=== PATIENT | female | born 1940 | race Caucasian/White ===

== ENCOUNTER 2023-01-29 11:57 | Outpatient (OUT) | payer MEDICARE, BC, SELFPAY ==
[2023-01-29 13:29] LABS: Anion Gap 14.7; BUN Creatinine Ratio 26.5; Calcium 9.4 mg/dL (8.5-10.1); Carbon Dioxide 26.1 mmol/L (21.0-32.0); Chloride 108 mmol/L (98-107); Estimated GFR (African America 56 (>=60); Estimated GFR (Non-African Ame 46 (>=60); Glucose 113 mg/dL (74-106); Potassium 4.8 mmol/L (3.5-5.1); Sodium 144 mmol/L (136-145)
== END 2023-01-29 11:58 | disposition home or self-care (01) ==
LOC: LAB 12:03
PROVIDERS: PCP Family Medicine; Visit Provider Internal Medicine Interventional Cardiology
DX: I10 Essential (primary) hypertension (principal)
CPT/HCPCS: 36415; 80048

== ENCOUNTER 2023-02-07 13:36 | Outpatient (OUT) | payer MEDICARE, BC, SELFPAY ==
--- NOTE | 2023-02-07 14:00 | CA_ITS ---
Patient: ROLLY MOORE Exam Date: 02/07/2023 : 1940 Gender:F Ordering : DR ALISHA ALVARES M.D. Admission #: [id number] Family : Order #: [id number] CLICK HERE TO VIEW EXAM ECHOCARDIOGRAM REPORT PROCEDURE: CA ECHO DOPPLER COMPLETE INDICATIONS: Nonrheumatic aortic valve stenosis, hypertension COMPARISON: None. DESCRIPTION: COMPLETE ECHOCARDIOGRAM Real-time transthoracic echocardiography with 2D, M-mode, spectral and color flow Doppler performed. QUALITY: Technical quality was good. LEFT VENTRICLE: Normal chamber size. Mild concentric left ventricular hypertrophy. Normal systolic function. LV EF: Normal left ventricular ejection fraction, (>55%). DIASTOLIC: Grade I diastolic dysfunction. ATRIAL SEPTUM: Visually appears intact. LEFT ATRIUM: Mild dilatation. RIGHT ATRIUM: Mild dilatation. RIGHT VENTRICLE: Normal chamber size . Normal right ventricular systolic function. TRICUSPID VALVE: Normal mobility and thickness. No stenosis with No evidence of pulmonary hypertension. RVSP 31 mmHg MITRAL VALVE: Normal mobility and thickness. No evidence of mitral valve stenosis. Mild mitral annular calcification. No mitral regurgitation. AORTIC VALVE: Normal trileaflet appearance. Moderately diminished mobility. Doppler velocity suggest mild to moderate aortic valve stenosis. Multifocal calcifications. DVI 0.46, ADRIANA 1.5 cm2, mean gradient 11 mmHg. Trivial aortic regurgitation. AORTIC ROOT: Normal diameter and appearance. PULMONIC VALVE: Normal thickness and mobility. No stenosis. Trivial regurgitation. PERICARDIUM: No evidence of pericardial effusion. IVC: Collapses with inspirations. PLEURA: CONCLUSION: 1. Mild concentric left ventricular hypertrophy. Normal LV systolic function. LVEF is 55 to 60%. 2. Normal right ventricular size and systolic function. 3. Mild biatrial dilatation. 4. Mild to moderate aortic valve stenosis. Aortic valve area 1.5 cm?. 5. Normal right-sided pressures. Adult Echocardiography Procedure Report Left Ventricle LVEDD (3.7 - 5.6 cm): 3.80 cm LVESD (2.2 - 4.0 cm): 2.69 cm LVIVS thickness (0.6 - 1.2 cm): 1.27 cm LVPW thickness (0.5 - 1.0 cm): 1.10 cm e': 0.09 m/s E - e': 7.10 LVOT Max Gradient: 4.66 mm[Hg] LVOT Area (cm2): 1.08 m/s Peak Velocity (LVOT): 1.08 m/s Mean Velocity (LVOT): 0.78 m/s LVOT Diameter 1.96 cm Left Atrium LA Volume Index (2D A2C): 40.80 ml/m2 Left Atrium Systolic Dimension: 3.33 cm Mitral Valve MV E to A Ratio: 0.62 Mitral Valve A-Wave Peak Velocity: 1.05 m/s Mitral Valve E-Wave Peak Velocity: 0.66 m/s Right Ventricle Aorta AO Root Diam: 2.77 cm Aortic Valve AoV Area (Peak Masoud): 1.44 cm2, 1.39 cm2 AoV Area (VTI): 1.94 cm2, 2.03 cm2 Peak Velocity(Antegrade Flow): 2.33 m/s, 2.18 m/s Peak Gradient(Antegrade Flow): 21.77 mm[Hg], 19.04 mm[Hg] Mean Velocity(Antegrade Flow): 1.52 m/s, 1.42 m/s Mean Gradient(Antegrade Flow): 10.76 mm[Hg], 9.58 mm[Hg] Velocity Time Integral: 40.70 cm, 44.37 cm Tricuspid Valve Peak Velocity (Regurgitant Flow): 2.65 m/s, 2.64 m/s Pulmonic Valve Mean Gradient: 2.64 mm[Hg] Mean Velocity: 0.74 m/s Peak Velocity: 1.13 m/s, 1.38 m/s Peak Gradient: 7.61 mm[Hg], 5.09 mm[Hg] Right Atrium Right Atrium Systolic Pressure: 46.62 ml, 46.62 ml Dictated by: Ken Burkett M.D. on 02/08/2023 at 18:55 Approved by: Ken Burkett M.D. on 02/08/2023 at 19:00
== END 2023-02-07 13:37 | disposition home or self-care (01) ==
LOC: CARD 13:37
PROVIDERS: PCP Family Medicine; Visit Provider Internal Medicine Interventional Cardiology
DX: I35.0 Nonrheumatic aortic (valve) stenosis (principal); I10 Essential (primary) hypertension
CPT/HCPCS: 93306

== ENCOUNTER 2023-04-07 08:54 | Outpatient (OUT) | payer MEDICARE, BC, SELFPAY ==
[2023-04-07 10:24] LABS: Bilirubin Urine NEGATIVE (NEGATIVE); Blood Urine NEGATIVE (NEGATIVE); Clarity Urine CLEAR (CLEAR); Color Urine LT. YELLOW (YELLOW); Glucose Urine UA >=1000 mg/dL (NEGATIVE); Ketones Urine NEGATIVE (NEGATIVE); Leukocyte Esterase Urine NEGATIVE (NEGATIVE); Nitrite Urine NEGATIVE (NEGATIVE); Protein Urine NEGATIVE (NEG/TRACE); pH Urine 5.5 (5.0-9.0)
[2023-04-07 10:25] LABS: Basophils Percent Auto 0.5 % (0.2-2.0); Eosinophils Absolute Auto 0.2 10^3/uL (0.0-0.7); Eosinophils Percent Auto 2.1 % (0.9-7.0); Hematocrit 40.7 % (36.0-48.0); Hemoglobin 12.6 g/dL (12.0-16.0); Immature Granulocytes Abs Auto 0.02 10^3/uL (0.00-0.03); Immature Granulocytes Pct Auto 0.3 % (0.0-0.5); Lymphocytes Absolute Auto 1.2 10^3/uL (1.2-3.8); Lymphocytes Percent Auto 16.2 % (20.5-60.0); Mean Corpuscular Volume 100.2 fL (81.0-99.0); Mean Platelet Volume 10.7 fL (9.5-13.5); Monocytes Absolute Auto 0.4 10^3/uL (0.3-0.8); Neutrophils Absolute Auto 5.8 10^3/uL (1.4-6.5); Neutrophils Percent Auto 75.9 % (43.0-75.0); Platelet Count 197 10^3/uL (150-450); Red Blood Count 4.06 10^6/uL (4.20-5.40); Red Cell Distribution Width 13.2 % (11.0-15.0); White Blood Count 7.7 10^3/uL (4.0-11.0)
[2023-04-07 10:28] LABS: Urine Microscopic Indicated NO
[2023-04-07 10:52] LABS: Anion Gap 10.9; BUN Creatinine Ratio 20.6; Calcium 9.6 mg/dL (8.5-10.1); Carbon Dioxide 30.3 mmol/L (21.0-32.0); Chloride 108 mmol/L (98-107); Estimated GFR (African America 49 (>=60); Estimated GFR (Non-African Ame 41 (>=60); Glucose 89 mg/dL (74-106); Potassium 4.2 mmol/L (3.5-5.1); Sodium 145 mmol/L (136-145); Thyroid Stimulating Hormone 2.749 uIU/mL (0.358-3.740)
== END 2023-04-07 08:55 | disposition home or self-care (01) ==
LOC: LAB 08:54
PROVIDERS: PCP Family Medicine; Visit Provider Family Medicine
DX: N32.81 Overactive bladder (principal); I10 Essential (primary) hypertension; G25.2 Other specified forms of tremor
CPT/HCPCS: 36415; 80048; 81003; 84443; 85025

== ENCOUNTER 2023-07-11 07:55 | Outpatient (OUT) | payer MEDICARE, BC, SELFPAY ==
[2023-07-11 08:19] LABS: Estimated GFR (African America 31 (>=60); Estimated GFR (Non-African Ame 26 (>=60)
== END 2023-07-11 07:56 | disposition home or self-care (01) ==
LOC: LAB 07:56
PROVIDERS: PCP Family Medicine; Visit Provider Family Medicine
DX: R06.09 Other forms of dyspnea (principal); Z86.711 Personal history of pulmonary embolism
CPT/HCPCS: 36415; 82565

== ENCOUNTER 2023-07-11 08:31 | Emergency (ER) | payer MEDICARE, BC, SELFPAY ==
[2023-07-11 08:37] VITALS: BP 125/58; PULSE 65; RESP 22; TEMP 36.5; O2SAT 99; BMI 34.4
--- NOTE | 2023-07-11 09:10 | ECG_ITS ---
[facility] Test Date: 2023-07-11 Pat Name: ROLLY MOORE Department: Room: - Gender: Female Manager Language: : 1940 Requested By: CINDI STEWART Order Number: [id number] Reading MD: CHANA WADE Measurements Intervals [place] Rate: 66 P: 36 WV: 166 QRS: 59 QRSD: 98 T: 16 QT: 394 QTc: 407 Interpretive Statements 1100 Sinus rhythm 9110 normal ECG No previous ECG available for comparison Electronically Signed On 07-12-2023 6:49:32 EST by CHANA WADE
--- NOTE | 2023-07-11 09:11 | ED_ITS ---
HPI - General Adult General Chief complaint: Chest Pain Stated complaint: CHEST PAIN Time Seen by Provider: 07/11/23 09:10 Mode of arrival: Wheelchair Related Data Home Medications Medication Instructions Recorded Confirmed amlodipine 5 mg tablet 5 mg PO DAILY 07/11/23 07/11/23 atorvastatin 80 mg tablet 80 mg PO DAILY 07/11/23 07/11/23 carvedilol 6.25 mg tablet 6.25 mg PO Q12H 07/11/23 07/11/23 donepezil 10 mg tablet 10 mg PO DAILY 07/11/23 07/11/23 empagliflozin 10 mg tablet 10 mg PO DAILY 07/11/23 07/11/23 (Jardiance) furosemide 20 mg tablet 20 mg PO Q12H 07/11/23 07/11/23 losartan 100 mg tablet 100 mg PO DAILY 07/11/23 07/11/23 nabumetone 750 mg tablet 750 mg PO BID 07/11/23 07/11/23 rivaroxaban 20 mg tablet (Xarelto) 20 mg PO Q24H 07/11/23 07/11/23 spironolactone 25 mg tablet 25 mg PO DAILY 07/11/23 07/11/23 Allergies Allergy/AdvReac Type Severity Reaction Status Date / Time No Known Drug Allergies Allergy Verified 07/11/23 08:44 Exam Constitutional Vital Signs, click to edit/add: Last Vital Signs Temp 97.7 F 07/11/23 08:37 Pulse 65 07/11/23 08:37 Resp 22 07/11/23 08:37 BP 125/58 07/11/23 08:37 Pulse Ox 99 07/11/23 08:37 Course Vital Signs Vital signs: Vital Signs Temperature 97.7 F 07/11/23 08:37 Pulse Rate 65 07/11/23 08:37 Respiratory Rate 22 07/11/23 08:37 Blood Pressure 125/58 07/11/23 08:37 Pulse Oximetry 99 07/11/23 08:37 Temperature 97.7 F 07/11/23 08:37 Pulse Rate 65 07/11/23 08:37 Respiratory Rate 22 07/11/23 08:37 Blood Pressure 125/58 07/11/23 08:37 Pulse Oximetry 99 07/11/23 08:37 Medical Decision Making MDM Narrative Medical decision making narrative: 4669 Patient case was discussed with her PCP, Dr. Rand. Dr. 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 Dr. Rand thought patient was taking Xeralto, but she cannot find record of who is prescribing it and is not certain if patient is taking or not. Anticoagulation will be investigated. She is aware a 2nd troponin is negative patient was discharged, and I will try to figure out if she is anticoagulated or not. 1150 I spoke into the customer service rep, Dr. Cr. He recommended for patient to stay on Xarelto it is not too concerned about the chronic weblike right pulmonary PE, it appears chronic in nature, patient has a history of clots, and stay on Xarelto. He recommended to do 1 more troponin, and a fall 3 test are negative patient can follow-up as an outpatient. 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 He recommended following back up in the office for further evaluation as well. There are 2 daughters at the bedside, they're aware of the conversation, sitting on the medication, and repeating or more troponin. 1300 Patient's her troponin is negative. Patient will follow-up with [facility] clinic as recommended by a customer service rep from her phone call today and also continue to keep taking Xarelto. Critical care time 33 minutes exclusive from separate billable procedures that were performed. The following was considered in the determination of critical care but not limited to the level of medical decision making, intensive cardiac and/or respiratory monitoring, frequent vital sign monitoring, evaluation of laboratory studies, evaluation of radiographic studies, oxygen monitoring, and constant monitoring and speaking to family at bedside Lab Data Labs: Lab Results 07/11/23 07/11/23 07/11/23 Range/Units 09:26 10:43 12:03 WBC 9.3 (4.0-11.0) 10^3/uL RBC 4.09 L (4.20-5.40) 10^6/uL Hgb 13.1 (12.0-16.0) g/dL Hct 42.1 (36.0-48.0) % MCV 102.9 H (81.0-99.0) fL MCH 32.0 (26.7-34.0) pg MCHC 31.1 (29.9-35.2) g/dL RDW 13.2 (11.0-15.0) % Plt Count 179 (150-450) 10^3/uL MPV 11.4 (9.5-13.5) fL Neut % (Auto) 75.2 H (43.0-75.0) % Lymph % (Auto) 17.8 L (20.5-60.0) % Faulk % (Auto) 5.0 (1.7-12.0) % Eos % (Auto) 1.1 (0.9-7.0) % Baso % (Auto) 0.4 (0.2-2.0) % Neut # (Auto) 7.0 H (1.4-6.5) 10^3/uL Lymph # (Auto) 1.7 (1.2-3.8) 10^3/uL Faulk # (Auto) 0.5 (0.3-0.8) 10^3/uL Eos # (Auto) 0.1 (0.0-0.7) 10^3/uL Baso # (Auto) 0.0 (0.0-0.1) 10^3/uL Abs Immat Gran (auto) 0.05 H (0.00-0.03) 10^3/uL Imm/Tot Granulo (auto) 0.5 (0.0-0.5) % PT 11.9 H (9.0-11.6) sec INR 1.13 Sodium 143 (136-145) mmol/L Potassium 4.3 (3.5-5.1) mmol/L Chloride 107 (98-107) mmol/L Carbon Dioxide 26.0 (21.0-32.0) mmol/L Anion Gap 14.3 BUN 40.0 H (7.0-18.0) mg/dL Creatinine 1.79 H (0.55-1.02) mg/dL Est GFR ( Amer) 33 L (>=60) Est GFR (Non-Af Amer) 27 L (>=60) BUN/Creatinine Ratio 22.3 Glucose 111 H (74-106) mg/dL Calcium 10.2 H (8.5-10.1) mg/dL Total Bilirubin 1.1 H (0.2-1.0) mg/dL AST 36 (15-37) U/L ALT 55 (14-59) U/L Alkaline Phosphatase 136 H (46-116) U/L Troponin I High Sens 13.2 10.8 10.1 (4.0-51.3) pg/mL NT-Pro-B Natriuret Pep 82.0 (<=1800.0) pg/mL Total Protein 7.1 (6.4-8.2) g/dL Albumin 3.8 (3.4-5.0) g/dL Globulin 3.3 g/dL Albumin/Globulin Ratio 1.2 Lipase 91.0 H (16.0-77.0) U/L ECG Data Attestation: I personally reviewed and interpreted this ECG as follows: (EKG interpretation. Baseline normal sinus rhythm at 66 beats a minute. Normal axis deviation. Artifact noted. No acute ST elevation, no acute ectopy. QTC of 407.) Discharge Plan Discharge Chief Complaint: Chest Pain Clinical Impression: Pulmonary embolism, Chest pain Patient Disposition: Home, Self-Care Time of Disposition Decision: 13:02 Condition: Fair Prescriptions / Home Meds: No Action atorvastatin 80 mg tablet 80 mg PO DAILY carvedilol 6.25 mg tablet 6.25 mg PO Q12H nabumetone 750 mg tablet 750 mg PO BID donepezil 10 mg tablet 10 mg PO DAILY amlodipine 5 mg tablet 5 mg PO DAILY spironolactone 25 mg tablet 25 mg PO DAILY furosemide 20 mg tablet 20 mg PO Q12H losartan 100 mg tablet 100 mg PO DAILY Xarelto 20 mg tablet 20 mg PO Q24H Jardiance 10 mg tablet 10 mg PO DAILY Instructions: Chest Pain (ED), Pulmonary Embolism (ED) Additional Instructions: Continue taking your Xarelto as prescribed per Dr. Cr. Make an appointment at the specialty clinic at the [facility] with [facility] cardiology for follow-up in the next 1-2 weeks for chest pain and also because you had a cardiac catheter in 2019 that showed moderate disease to a few arteries. If he started having heavy heavy pressure, significant shortness of breath, significant swelling, nausea, vomiting, or any other acute findings please retu rn to the Emergency Room. Follow-up with your neurologist for shaking/tremors. Stand Alone Forms: Portal Instructions Referrals: Jody Rand MD [Primary Care Provider] - 1 week
[2023-07-11] MEDS: ONDANSETRON PF 4 MG/2 ML VIAL IV (09:23)
[2023-07-11 09:39] LABS: Basophils Percent Auto 0.4 % (0.2-2.0); Eosinophils Absolute Auto 0.1 10^3/uL (0.0-0.7); Eosinophils Percent Auto 1.1 % (0.9-7.0); Hematocrit 42.1 % (36.0-48.0); Hemoglobin 13.1 g/dL (12.0-16.0); Immature Granulocytes Abs Auto 0.05 10^3/uL (0.00-0.03); Immature Granulocytes Pct Auto 0.5 % (0.0-0.5); Lymphocytes Absolute Auto 1.7 10^3/uL (1.2-3.8); Lymphocytes Percent Auto 17.8 % (20.5-60.0); Mean Corpuscular HGB Conc 31.1 g/dL (29.9-35.2); Mean Corpuscular Volume 102.9 fL (81.0-99.0); Mean Platelet Volume 11.4 fL (9.5-13.5); Monocytes Absolute Auto 0.5 10^3/uL (0.3-0.8); Neutrophils Percent Auto 75.2 % (43.0-75.0); Platelet Count 179 10^3/uL (150-450); Red Blood Count 4.09 10^6/uL (4.20-5.40); Red Cell Distribution Width 13.2 % (11.0-15.0); White Blood Count 9.3 10^3/uL (4.0-11.0)
[2023-07-11 09:50] LABS: INR 1.13; Prothrombin Time 11.9 sec (9.0-11.6)
[2023-07-11 10:05] LABS: Alanine Aminotransferase 55 U/L (14-59); Albumin Globulin Ratio 1.2; Albumin Level 3.8 g/dL (3.4-5.0); Alkaline Phosphatase 136 U/L (46-116); Anion Gap 14.3; Aspartate Amino Transferase 36 U/L (15-37); BUN Creatinine Ratio 22.3; Bilirubin Total 1.1 mg/dL (0.2-1.0); Calcium 10.2 mg/dL (8.5-10.1); Chloride 107 mmol/L (98-107); Estimated GFR (African America 33 (>=60); Estimated GFR (Non-African Ame 27 (>=60); Globulin 3.3 g/dL; Glucose 111 mg/dL (74-106); Potassium 4.3 mmol/L (3.5-5.1); Sodium 143 mmol/L (136-145); Total Protein 7.1 g/dL (6.4-8.2); Troponin I High Sensitivity 13.2 pg/mL (4.0-51.3)
[2023-07-11] MEDS: 0.9 % SODIUM CHLORIDE 1,000 ML 1000 ML IV (10:50)
[2023-07-11 11:18] LABS: Troponin I High Sensitivity 10.8 pg/mL (4.0-51.3)
[2023-07-11 12:40] LABS: Troponin I High Sensitivity 10.1 pg/mL (4.0-51.3)
== END 2023-07-11 13:33 | disposition home or self-care (01) ==
PROVIDERS: Emergency Provider Emergency Medicine; PCP Family Medicine
DX: I26.99 Other pulmonary embolism without acute cor pulmonale (principal); R07.9 Chest pain, unspecified; R06.09 Other forms of dyspnea; Z86.711 Personal history of pulmonary embolism; Z79.899 Other long term (current) drug therapy; Z79.01 Long term (current) use of anticoagulants
CPT/HCPCS: 36415; 71275; 80053; 82565; 83690; 83880; 84484; 85025; 85610; 93005; 96374; 99285; Q9966

== ENCOUNTER 2023-08-22 11:23 | Outpatient (REF) | payer MEDICARE, BC, SELFPAY ==
--- OUTSIDE RECORDS SUMMARY | 2023-08-22 11:29 | XMS_ITS | CCD ---
Author Name Unknown Address [address] [place] [address] Organization [facility] Care Team Providers Care Liquor Department Manager Name Role Phone ELISABETH RAMIREZ Admitting Unavailable ELISABETH RAMIREZ Attending Unavailable UNKNOWN, PHYSICIAN Referring Unavailable UNKNOWN, PHYSICIAN Primary Care Unavailable SHAR KAUFMAN Attending Unavailable [place], DR CODY Cummings Consulting Unavailable STEWART, DR JODY Scott Primary Care Unavailable SHAR KAUFMAN Admitting Unavailable SHAR KAUFMAN Consulting Unavailable Cheng, DR Sanchez Consulting Unavailable TERRY, DR JODY Scott Primary Care Unavailable STEWART, DR JODY Scott Attending Unavailable STEWART, DR JODY Scott Admitting Unavailable STEWART, DR JODY Scott Consulting Unavailable TERRY, DR JODY Scott Attending Unavailable STEWART, DR JODY Scott Admitting Unavailable STEWART, DR JODY Scott Primary Care Unavailable Cheng, DR Sanchez Consulting Unavailable TERRY, DR JODY Scott Consulting Unavailable Cheng, DR Sanchez Consulting Unavailable SHAR KAUFMAN Attending Unavailable TERRY, DR JODY Scott Primary Care Unavailable SHAR KAUFMAN Admitting Unavailable SHAR KAUFMAN Consulting Unavailable TERRY, DR JODY Scott Primary Care Unavailable TERRY, DR JODY Scott Attending Unavailable TERRY, DR JODY Scott Admitting Unavailable STEWART, DR JODY Scott Primary Care Unavailable JEIMY DUMONT Admitting Unavailable JEIMY DUMONT Attending Unavailable Cheng, DR Sanchez Consulting Unavailable JEIMY DUMONT Consulting Unavailable Jody Stewart Unavailable ELISABETH RAMIREZ Attending Unavailable ELISABETH RAMIREZ Attending Unavailable AKILAH GARCIA Attending Unavailable Medications Current Medications Medication Drug Class(es) Dates Sig (Normalized) Sig (Original) amLODIPine 5 mg oral tablet (15 sources) Dihydropyridine Calcium Channel Jaskaran Start: 08-29-2022 take 1 tablet by mouth every twenty-four hours amLODIPine Besylate 5 MG 1 tablet Orally Once a day Aug, Active atorvastatin 80 mg oral tablet (15 sources) HMG-CoA Reductase Inhibitor take 1 tablet by mouth every twenty-four hours Atorvastatin Calcium 80 MG 1 tablet Orally Once a day Active carvedilol 6.25 mg oral tablet (15 sources) alpha-Adrenergic Jaskaran, beta-Adrenergic Jaskaran take 1 tablet by mouth every twelve hours Carvedilol 6.25 MG 1 tablet with food Orally Twice a day Active cholecalciferol 0.05 mg oral capsule (2 sources) Vitamin D Prevagen 10 MG a s directed Orally Active donepezil hydrochloride 10 mg oral tablet (11 sources) Start: 01-04-2023 take 1 tablet by mouth every twenty-four hours Aricept 10 MG 1 tablet at bedtime Orally Once a day for 90 days Dec, Active Start: 01-04-2023 take 1 tablet by blayne th every twenty-four hours Aricept 5 MG 1 tablet at bedtime Orally Once a day for 30 days Dec, Active empagliflozin 10 mg oral tablet (10 sources) Sodium-Glucose Cotransporter 2 Inhibitor take 1 tablet by mouth every twenty-four hours Jardiance 10 MG 1 tablet Orally Once a day Active furosemide 20 mg oral tablet (15 sources) Loop Diuretic Start: 023 take 1 tablet by mouth every twenty-four hours Furosemide 20 MG 1 tablet Orally Once a day Aug, Active losartan potassium 100 mg oral tablet (15 sources) Angiotensin 2 Receptor Jaskaran take 1 tablet by mouth every twelve hours Losartan Potassium 100 MG 1 tablet Orally twice a day Active take 1 tablet by blayne th every twenty-four hours Losartan Potassium 100 MG 1 tablet Orally Once a day Active 24 hr mirabegron 50 mg extended release oral tablet (1 source) beta3-Adrenergic Agonist Start: 01-04-2023 take 1 tablet by mouth every twenty-four hours Myrbetriq 50 MG 1 tablet Orally Once a day for 28 days samples given Dec, Active nabumetone 750 mg oral tablet (12 sources) Nonsteroidal Anti-inflammatory Drug take 0.5 tablet by mouth twice daily as needed Nabumetone 750 MG 1/2 tablet Orally Twice a day as needed for 30 days Active Nabumetone 750 M G as directed Orally Active Ocuvite Eye + Multi - (10 sources) Ocuvite Eye + Mu lti - as directed Orally Active rivaroxaban 20 mg oral tablet (12 sources) Factor Xa Inhibitor take 1 tablet by mouth every twenty-four hours Xarelto 20 MG 1 tablet with food Orally Once a day Active Xarelto 20 20 On ce PO Daily Active spironolactone 25 mg oral tablet (15 sources) Aldosterone Antagonist take 1 tablet by mouth every twenty-four hours Spironolactone 25 MG 1 tablet Orally Once a day for 30 days Active Problems Active Problems Problem Classification Problem Date Documented Date Episodic/Chronic Congestive heart failure; nonhypertensive (2 sources) Chronic diastolic (congestive) heart failure; Translations: [Chronic diastolic (congestive) heart failure] Onset: 07-18-2023 Chronic Coronary atherosclerosis and other heart disease (2 sources) Atherosclerotic heart disease of resighini coronary artery without angina pectoris; Translations: [Atherosclerotic heart disease of resighini coronary artery without angina pectoris] Onset: 04-17-2022 Chronic Delirium, dementia, and amnestic and other cognitive disorders (14 sources) Dementia; Translations: [Unspecified dementia without behavioral disturbance] Chronic Disorders of lipid metabolism (20 sources) Hyperlipidemia, unspecified; Translations: [Hyperlipidemia] Onset: 10-17-2021 Chronic Essential hypertension (20 sources) Essential (primary) hypertension; Translations: [Essential hypertension] Onset: 10-12-2021 Chronic Heart valve disorders (2 sources) Nonrheumatic aortic (valve) stenosis; Translations: [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] Onset: 02-02-2022 Chronic Nonspecific chest pain (15 sources) Chest pain; Translations: [Other chest pain] Episodic Osteoarthritis (1 source) Unilateral primary osteoarthritis, left knee; Translations: [UNI PRIM OSTEOARTHRITIS LT KNEE] Onset: 09-07-2022 Chronic Other aftercare (1 source) 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; Translations: [SNF CURRENT USE OF ASPIRIN] Onset: 08-17-2022 Episodic Other aftercare (1 source) Other terminal operator (current) drug therapy; Translations: [OTH SNF CURRENT DRUG THERAPY] Onset: 08-17-2022 Episodic Other circulatory disease (2 sources) Other specified symptoms and signs involving the circulatory and respiratory systems; Translations: [OTH SPEC SX SIGNS INVLV CIRC RS] Onset: 10-17-2021 Episodic Other circulatory disease (14 sources) Cardiovascular symptoms; Translations: [Other specified symptoms and signs involving the circulatory and respiratory systems] Episodic Other diseases of bladder and urethra (14 sources) Bladder muscle dysfunction - overactive; Translations: [Overactive bladder] Chronic Other diseases of bladder and urethra (4 sources) Overactive bladder; Translations: [OAB (overactive bladder)] Chronic Other hereditary and degenerative nervous system conditions (10 sources) Resting tremor; Translations: [Other specified forms of tremor] Chronic Other hereditary and degenerative nervous system conditions (3 sources) Other specified forms of tremor Chronic Other injuries and conditions due to external causes (1 source) Unspecified injury of left lower leg, subsequent encounter Episodic Other lower respiratory disease (1 source) Shortness of breath; Translations: [SHORTNESS OF BREATH] Onset: 08-17-2022 Episodic Other lower respiratory disease (6 sources) Other forms of dyspnea; Translations: [Other forms of dyspnea] Onset: 04-17-2022 Episodic Other nervous system disorders (5 sources) Other abnormalities of gait and mobility; Translations: [OTHER ABNORMALITIES GAIT AND MOBILITY] Onset: 10-19-2021 Episodic Other nervous system disorders (15 sources) Abnormal gait; Translations: [Other abnormalities of gait and mobility] Episodic Other non-traumatic joint disorders (5 sources) Pain in left knee; Translations: [PAIN IN LEFT KNEE] Onset: 09-01-2022 Episodic Other upper respiratory infections (3 sources) Acute pharyngitis, unspecified; Translations: [ACUTE PHARYNGITIS UNSPECIFIED] Onset: 08-15-2022 Episodic Pneumonia (except that caused by tuberculosis or sexually transmitted disease) (1 source) Pneumonia (except that caused by tuberculosis or sexually transmitted disease); Translations: [PNEUMONIA D/T CORONAVIRUS DIS 2019] Onset: 08-17-2022 Pulmonary heart disease (2 sources) Chronic pulmonary embolism; Translations: [Chronic pulmonary embolism] Onset: 04-17-2022 Chronic Pulmonary heart disease (20 sources) Personal history of pulmonary embolism; Translations: [Acute pulmonary embolism] Onset: 08-17-2022 Episodic Spondylosis; intervertebral disc disorders; other back problems (15 sources) Lumbar radiculopathy; Translations: [Radiculopathy, lumbar region] Episodic Unclassified (1 source) UNVACCINATED FOR COVID-19; Translations: [UNVACCINATED FOR COVID-19] Onset: 08-17-2022 Viral infection (1 source) COVID-19; Translations: [COVID-19] Onset: 08-17-2022 Past or Other Problems Problem Classification Problem Date Documented Da te Episodic/Chronic Other connective tissue disease (4 sources) Pain in right lower leg; Translations: [PAIN IN RIGHT LOWER LEG] Onset: 02-01-2022 Episodic Other connective tissue disease (1 source) Pain in left lower leg; Translations: [PAIN IN LEFT LOWER LEG] Onset: 02-02-2022 Episodic Phlebitis; thrombophlebitis and thromboembolism (1 source) Embolism and thrombosis of superficial veins of left lower extremity; Translations: [EMBOLISM AND THROMB SUP VEINS LLE] Onset: 02-02-2022 Episodic Results Test Name Value Interpretation Reference Range Facility 37on 07-18-2023 37 Decrease losartan to 100 mg daily Continue all other meds Normal [facility] Office Visiton 07-18-2023 Follow-up visit [id number] India Moore 1940 F Date Provider Department Center 07/18/2023 120-AKILAH GARCIA [facility] Family History Problem Relation Age of Onset Heart failure Mother Family Status - Relation Status Age at Mother Level of Service:64130 MO OFFICE/OUTPATIENT ESTABLISHED MOD MDM 30 MIN Normal [facility] Office Visiton 01-22-2023 Follow-up visit [id number] India Moore 1940 F Date Provider Department Center 01/22/2023 Zenia-ELISABETH RAMIREZ [facility] Family History Problem Relation Age of Onset Heart failure Mother Family Status - Relation Status Age at Mother Level of Service:01145 MO OFFICE/OUTPATIENT ESTABLISHED MOD MDM 30-39 MIN Normal [facility] BNPon 08-15-2022 Natriuretic peptide B (Bld) [Mass/Vol] 63.0 pg/mL Normal <=1,800.0 [facility] Comment on above: Performed By: #### B PAYROLL MASTER, TSH, CMP, CMADM #### [facility] [address] [address] [address] Melecio Mcclelland CARDIAC RAYNA ADMITon 023 CK [Catalytic activity/Vol] 124 U/L Normal 26-192 [facility] Comment on above: Performed By: #### B PAYROLL MASTER, TSH, CMP, CMADM #### [facility] [address] [address] [address] Melecio Mcclelland CK.MB [Mass/Vol] 0.69 ng/mL Normal <=3.[address] [facility] Comment on above: Performed By: #### B PAYROLL MASTER, TSH, CMP, CMADM #### [facility] [address] [address] [address] Melecio Mcclelland HSTROP 15.8 pg/mL Normal 4.0-51.3 [facility] Comment on above: Result Comment: CUT- OFF POINTS HAVE BEEN ESTABLISHED BASED ON THE FOURTH UNIVERSAL DEFINITIONS OF MYOCARDIAL INFARCTION. THE UPPER REFERENCE LIMIT (URL) OF TROPONIN, DEFINED THE 99TH PERCENTILE OF cTnI DISTRIBUTION IN A REFERENCE POPULATION, HAS BEEN CONFIRMED THE DECISION THRESHOLD FOR OR DIAGNOSIS. Performed By: #### B PAYROLL MASTER, TSH, CMP, CMADM #### [facility] [address] [address] [address] Melecio Mcclelland MATY 173 ng/mL Critically high 9-82 [facility] Comment on above: Performed By: #### B PAYROLL MASTER, TSH, CMP, CMADM #### [facility] [address] [address] [address] Melecio Mcclelland CBC AUTO DIFFon 08-15-2022 BASO # 0.0 103/ul Normal 0.0-0.1 [facility] Comment on above: Performed By: #### C BC ####[facility] [address] [address]DrBroderick Mcclelland Basophils/100 WBC (Bld) 0.2 % Normal 0.2-2.0 [facility] Comment on above: Performed By: #### C BC ####[facility] [address] [address]Dr. Melecio Mcclelland EO # 0.0 103/ul Normal 0.0-0.7 [facility] Comment on above: Performed By: #### C BC ####[facility] [address] [address]Dr. Melecio Mcclelland Eosinophils/100 WBC (Bld) 0.0 % Critically low 0.9-7.0 [facility] Comment on above: Performed By: #### C BC ####[facility] [address] [place], [place] [address]Dr. Isismartha Mcclelland Erythrocyte distribution width (RBC) [Ratio] 13.3 % Normal 11.0-15.0 [facility] Comment on above: Performed By: #### C BC ####[facility] [address] [place], [place] [address]Dr. Melecio Mcclelland Hematocrit (Bld) [Volume fraction] 35.7 % Critically low 36.0-48.0 [facility] Comment on above: Performed By: #### C BC ####[facility] [address] [place], [place] [address]Dr. Melecio Mcclelland Hemoglobin (Bld) [Mass/Vol] 11.7 g/dL Critically low 12.0-16.0 [facility] Comment on above: Performed By: #### C BC ####[facility] [address] [place], [place] [address]Dr. Melecio Mcclelland IG # 0.01 10e3/ul Normal 0.00-0.03 [facility] Comment on above: Performed By: #### C BC ####[facility] [address] [place], [place] [address]Dr. Melecio Mcclelland IG % 0.2 % Normal 0.0-0.5 [facility] Comment on above: Performed By: #### C BC ####[facility] [address] [place], [place] [address]Dr. Melecio Mcclelland LYMPH # 1.2 103/ul Normal 1.2-3.8 [facility] Comment on above: Performed By: #### C BC ####[facility] [address] [place], [place] [address]Dr. Melecio Mcclelland Lymphocytes/100 WBC (Bld) 22.1 % Normal 20.5-60.0 [facility] Comment on above: Performed By: #### C BC ####[facility] [address] [place], [place] [address]Dr. Melceio Mcclelland MANUAL DIFF REQ NO Normal [facility] Comment on above: Performed By: #### C BC ####[facility] [address] [address]Dr. Melecio Mcclelland MCH (RBC) [Entitic mass] 31.3 pg Normal 26.7-34.0 [facility] Comment on above: Performed By: #### C BC ####[facility] [address] [address]Dr. Melecio Mcclelland MCHC (RBC) [Mass/Vol] 32.8 g/dL Normal 29.9-35.2 [facility] Comment on above: Performed By: #### C BC ####[facility] [address] [place], [place] [address]Dr. Melecio Mcclelland MCV (RBC) [Entitic vol] 95.5 fL Normal 81.0-99.0 [facility] Comment on above: Performed By: #### C BC ####[facility] [address] [place], [place] [address]Dr. Melecio Mcclelland MONO # 0.6 103/ul Normal 0.3-0.8 [facility] Comment on above: Performed By: #### C BC ####[facility] [address] [place], [place] [address]Dr. Melecio Mcclelland Monocytes/100 WBC (Bld) 10.4 % Normal 1.7-12.0 [facility] Comment on above: Performed By: #### C BC ####[facility] [address] [place], [place] [address]DrBroderick Mcclelland NEUT # 3.6 103/ul Normal 1.4-6.5 [facility] Comment on above: Performed By: #### C BC ####[facility] [address] [place], [place] [address]Dr. Melecio Mcclelland Neutrophils/100 WBC (Bld) 67.1 % Normal 43.0-75.0 [facility] Comment on above: Performed By: #### C BC ####[facility] [address] [place], [place] [address]Dr. Melecio Mcclelland Platelet mean volume (Bld) [Entitic vol] 10.1 fL Normal 9.5-13.5 [facility] Comment on above: Performed By: #### C BC ####[facility] [address] [address]Dr. Melecio Mcclelland PLT 159 103/ul Normal 150-450 [facility] Comment on above: Performed By: #### C BC ####[facility] [address] [id number]. Melecio Mcclelland RBC 3.74 106/ul Critically low 4.20-5.40 [facility] Comment on above: Performed By: #### C BC ####[facility] [address] [address]Dr. Melecio Mcclelland WBC 5.3 103/ul Normal 4.0-11.0 [facility] Comment on above: Performed By: #### C BC ####[facility] [address] [address]Dr. Melecio Mcclelland CULTURE BLOODon 08-15-2022 Microscopic examination of blood, culture Culture Observations: NO GROWTH AT 5 DAYS. Normal [facility] Comment on above: Performed By: #### B LDCX2 ####[facility] [address] [place], [place] [address]Dr. Melecio Mcclelland Microscopic examination of blood, culture Culture Observations: NO GROWTH AT 5 DAYS. Normal [facility] Comment on above: Performed By: #### B LDCX1 ####[facility] [address] [place], [place] [address]Dr. Melecio Mcclelland Covid-19 PCR (CVDTB)on 07-24 SARS-CoV-2 (COVID-19) RNA MEME+probe Ql (Unsp spec) Detected Abnormal NOT DETECTED [facility] Comment on above: Result Comment: This test is not yet approved or cleared by the [place] FDA. When there are no FDA-approved or cleared tests available, and other criteria are met, FDA can make tests available under an emergency access mechanism called an Emergency Use Authorization (EUA). The EUA for this test is supported by the [place] of Health and Human Service's declaration that circumstances exist to justify the emergency use of in vitro diagnostics for the detection and/or diagnosis of the virus that causes COVID-19. This EUA will remain in effect for the duration of the COVID-19 declaration justifying emergency of IVDs, unless it is terminated or revoked by the FDA (after which the test may no longer be used). Performed By: #### C VDTBH #### [facility] [address] [address] [address] Melecio Mcclelland INFLUENZA A AND B AGon 08-15 INFLUANEGH SEE BELOW Normal [facility] Comment on above: Result Comment: Nega tive for Flu A protein angiten. Infection due to Flu A cannot be ruled out. Flu A angiten in the sample may be below the detection limit of the test. Performed By: #### I NFLUAB ####[facility] [address] [place], [place] [address]Dr. Melecio Mcclelland INFLUBNEG SEE BELOW Normal [facility] Comment on above: Result Comment: Nega tive for Flu B protein antigen. Infection due to Flu B cannot be ruled out. Flu B antigen in the sample may be below the detection limit of the test. Performed By: #### I NFLUAB ####[facility] [address] [place], [place] [address]Dr. Melecio Mcclelland INFLUENZA A AG Negative Normal NEGATIVE SEE COMMENT [facility] Comment on above: Performed By: #### I NFLUAB ####[facility] [address] [place], [place] [address]DrBroderick Mcclelland INFLUENZA B AG Negative Normal NEGATIVE SEE COMMENT [facility] Comment on above: Performed By: #### I NFLUAB ####[facility] [address] [place], [place] [address]DrBroderick Mcclelland LACTATE/LACTIC ACIDon 2022 Lactate [Moles/Vol] 1.0 mmol/L Normal 0.4-1.9 [facility] Comment on above: Performed By: #### L ACT ####[facility] [address] [place], [place] [address]DrBroderick Mcclelland PROF 14(COMP METB)on 023 Albumin [Mass/Vol] 3.1 g/dL Critically low 3.4-5.0 [facility] Comment on above: Performed By: #### B PAYROLL MASTER, TSH, CMP, CMADM #### [facility] [address] [place] [address] Dr. Melecio Mcclelland Albumin/Globulin [Mass ratio] 1.0 {ratio} Normal [facility] Comment on above: Performed By: #### B PAYROLL MASTER, TSH, CMP, CMADM #### [facility] [address] [place] [address] Dr. Melecio Mcclelland ALP [Catalytic activity/Vol] 100 U/L Normal 46-116 [facility] Comment on above: Performed By: #### B PAYROLL MASTER, TSH, CMP, CMADM #### [facility] [address] [place] [address] Dr. Melecio Mcclelland ALT [Catalytic activity/Vol] 35 U/L Normal 14-59 [facility] Comment on above: Performed By: #### B PAYROLL MASTER, TSH, CMP, CMADM #### [facility] [address] [place] [address] Dr. Melecio Mcclelland Anion gap [Moles/Vol] 12.1 mmol/L Normal [facility] Comment on above: Performed By: #### B PAYROLL MASTER, TSH, CMP, CMADM #### [facility] [address] [place] [address] Dr. Melecio Mcclelland AST [Catalytic activity/Vol] 34 U/L Normal 15-37 [facility] Comment on above: Performed By: #### B PAYROLL MASTER, TSH, CMP, CMADM #### [facility] [address] [place] [address] Dr. Melecio Mcclelland Bilirubin [Mass/Vol] 0.7 mg/dL Normal 0.2-1.0 [facility] Comment on above: Performed By: #### B PAYROLL MASTER, TSH, CMP, CMADM #### [facility] [address] [place] [address] Dr. Melecio Mcclelland Calcium [Mass/Vol] 8.8 mg/dL Normal 8.5-10.1 [facility] Comment on above: Performed By: #### B PAYROLL MASTER, TSH, CMP, CMADM #### [facility] [address] [address] [address] Melecio Mcclelland Chloride [Moles/Vol] 105 mmol/L Normal 98-107 [facility] Comment on above: Performed By: #### B PAYROLL MASTER, TSH, CMP, CMADM #### [facility] [address] [address] [address] Melecio Mcclelland CO2 [Moles/Vol] 29.2 mmol/L Normal 21.0-32.0 [facility] Comment on above: Performed By: #### B PAYROLL MASTER, TSH, CMP, CMADM #### [facility] [address] [place] [address] Dr. Melecio Mcclelland Creatinine [Mass/Vol] 1.09 mg/dL Critically high 0.55-1.02 [facility] Comment on above: Performed By: #### B PAYROLL MASTER, TSH, CMP, CMADM #### [facility] [address] [place] [address] Dr. Melecio Mcclelland EGFR-AF NIGERIAN 58 mL/min/1.73m2 Critically low >=60 [facility] Comment on above: Performed By: #### B PAYROLL MASTER, TSH, CMP, CMADM #### [facility] [address] [place] [address] Dr. Melecio Mcclelland EGFR-NON AF NIGERIAN 48 mL/min/1.73m2 Critically low >=60 [facility] Comment on above: Performed By: #### B PAYROLL MASTER, TSH, CMP, CMADM #### [facility] [address] [place] [address] Dr. Melecio Mcclelland Globulin (S) [Mass/Vol] 3.0 g/dL Normal [facility] Comment on above: Performed By: #### B PAYROLL MASTER, TSH, CMP, CMADM #### [facility] [address] [place] [address] Dr. Melecio Mcclelland Glucose [Mass/Vol] 92 mg/dL Normal 74-106 [facility] Comment on above: Performed By: #### B PAYROLL MASTER, TSH, CMP, CMADM #### [facility] [address] [address] [address] Melecio Mcclelland Potassium [Moles/Vol] 4.3 mmol/L Normal 3.5-5.1 [facility] Comment on above: Performed By: #### B PAYROLL MASTER, TSH, CMP, CMADM #### [facility] [address] [address] [address] Melecio Mcclelland Protein [Mass/Vol] 6.1 g/dL Critically low 6.4-8.2 Th [facility] Comment on above: Performed By: #### B PAYROLL MASTER, TSH, CMP, CMADM #### [facility] [address] [address] [address] Melecio Mcclelland Sodium [Moles/Vol] 142 mmol/L Normal 136-145 [facility] Comment on above: Performed By: #### B PAYROLL MASTER, TSH, CMP, CMADM #### [facility] [address] [address] [address] Melecio Mcclelland Urea nitrogen [Mass/Vol] 29.0 mg/dL Critically high 7.0-18.0 [facility] Comment on above: Performed By: #### B PAYROLL MASTER, TSH, CMP, CMADM #### [facility] [address] [address] [address] Melecio Mcclelland Urea nitrogen/Creatinine [Mass ratio] 26.6 mg/mg Normal [facility] Comment on above: Performed By: #### B PAYROLL MASTER, TSH, CMP, CMADM #### [facility] [address] [address] [address] Melecio Mcclelland PROTIMEon 08-15-2022 INR Coag (PPP) [Relative time] 1.03 {INR} Normal [facility] Comment on above: Performed By: #### P T, PTT ####[facility] [address] [address]Dr. Melecio Mcclelland INR GUIDELINES SEE BELOW Normal [facility] Comment on above: Result Comment: TRINA RED INR: 2.0 - 3.0 CONDITIONS NOT LISTED BELOW 2.5 - 3.5 FOR PROSTHETIC HEART VALVE REPLACEMENT 2.5 - 3.5 RECURRENT THROMBOSIS Performed By: #### P T, PTT ####[facility] [address] [place], [place] [address]Ai. Melecio Mcclelland PT Coag (PPP) [Time] 10.9 s Normal 9.0-11.6 [facility] Comment on above: Performed By: #### P T, PTT ####[facility] [address] [place], [place] [address]Pr. Melecio Mcclelland PTTon 08-15-2022 aPTT Coag (Bld) [Time] 30.5 s Normal 22.3-36.2 [facility] Comment on above: Performed By: #### P T, PTT ####[facility] [address] [place], [place] [address]Jw. Melecio Mcclelland TSHon 08-15-2022 TSH 1.361 uIU/mL Normal 0.358-3.740 [facility] Comment on above: Performed By: #### B PAYROLL MASTER, TSH, CMP, CMADM ####[facility] [address] [place], [place] [address]Fx. Melecio Mcclelland XR CHEST 1 Von 08-15-2022 XR CHEST 1 V EXAMINATION: XR CHES T 1 V HISTORY: SHORTNESS OF BREATH COMPARISON: XR chest 07/28/2015 FINDINGS: LUNGS: Elevated right hemidiaphragm with stranding and mild opacity. VASCULATURE: No increased pulmonary vasculature. PLEURA: No pneumothorax, effusion, or pleural thickening. CARDIAC: No cardiomegaly or cardiac silhouette abnormality. MEDIASTINUM: No visible mass or adenopathy. BONES: No fracture or visible bone lesion. OTHER: Negative. IMPRESSION: 1. Mild right basilar infiltrates suggestive of pneumonia. 2. Given the overall appearance, tumor cannot be completely excluded. Follow-up chest x-ray is recommended to document complete clearing. If findings persist CT imaging of the chest should be considered. Electronically authenticated by: DANIEL ANAND Date: 2022-08-15 10:52 Normal [facility] Office Visiton 07-31-2022 Follow-up visit [id number] India Moore 1940 F Date Provider Department Center 07/31/2022 271-ELISABETH RAMIREZ [facility] Family History Problem Relation Age of Onset Heart failure Mother Family Status - Relation Status Age at Mother Level of Service:03560 MO OFFICE/OUTPATIENT ESTABLISHED LOW MDM 20-29 MIN Reason for Visit and Comments: Coronary Artery Disease [187] Hypertension [721511] pulmonary embolism [Other] Normal [facility] ECHOCARDIO M/2D COMPLETEon 0 02-01-2022 ECHOCARDIO M/2D COMPLETE Patient: INDIA MOORE Exam Date: 02/01/2022 : 1940 Gender:F Ordering : SHAR KAUFMAN Admission #: [id number] Family : DR JODY STEWART M.D. Order #: [id number] CLICK HERE TO VIEW EXAM ECHOCARDIOGRAM REPORT PROCEDURE: CARDIO PULMONARY ECHOCARDIO M/2D COMP INDICATIONS: Aortic valve stenosis, H/O Pulmonary embolism (about 7 yrs ago) COMPARISON: None. DESCRIPTION: COMPLETE ECHOCARDIOGRAM Real-time transthoracic echocardiography with 2D, M-mode, spectral and color flow Doppler performed. QUALITY: Technical quality was adequate. 62 245# 142/80 HR 45 LEFT VENTRICLE: Normal chamber size. Mild concentric left ventricular hypertrophy. Calculated left ventricular ejection fraction is Global left ventricular systolic function is hyperdynamic. No regional wall motion abnormality. Visual EF 75%. LV EF: DIASTOLIC: Grade II diastolic dysfunction. ATRIAL SEPTUM: Intact atrial septum. Lipomatous interatrial septum. LEFT ATRIUM: Moderate dilatation. RIGHT ATRIUM: Moderate dilatation. RIGHT VENTRICLE: Mild dilatation. Normal right ventricular systolic function. TRICUSPID VALVE: Normal mobility and thickness. No stenosis with mild regurgitation. Doppler studies reveal moderately (45-60) elevated right sided pressures. RVSP 46 mmHg MITRAL VALVE: Normal mobility and thickness. No evidence of mitral valve stenosis. Mitral annular calcification. Trivial mitral regurgitation. AORTIC VALVE: Normal trileaflet appearance. Mildly calcified aortic valve. Doppler velocity suggests mild aortic valve stenosis. Mean gradient is 15 mmHg. No aortic regurgitation. AORTIC ROOT: Normal diameter and appearance. PULMONIC VALVE: Normal thickness and mobility. No stenosis. Mild regurgitation. PERICARDIUM: No evidence of pericardial effusion. IVC: Collapses with inspirations. IVC is dilated is size. PLEURA: CONCLUSION: 1. Mild concentric left ventricular hypertrophy. Left ventricular systolic function is hyperdynamic. LVEF is 75%. 2. Normal right ventricular size and function. 3. Moderate biatrial dilatation. 4. Grade 2 diastolic dysfunction. 5. Mild aortic valve stenosis. 6. Mild tricuspid regurgitation. 7. Moderately elevated right-sided pressures. Adult Echocardiography Procedure Report Left Ventricle Left Atrium Mitral Valve Right Ventricle Aorta Aortic Valve Peak Velocity (Antegrade Flow): 2.60 m/s, 2.60 m/s, 2.57 m/s, 2.60 m/s AoV Area (Peak Masoud): 1.17 cm2, 1.16 cm2, 1.17 cm2, 1.16 cm2, 1.16 cm2, 1.16 cm2, 1.16 cm2, 1.16 cm2 AoV Area (VTI): 1.28 cm2, 1.31 cm2 Peak Velocity(Antegrade Flow): 2.60 m/s Peak Gradient(Antegrade Flow): 27.11 mm[Hg] Tricuspid Valve Peak Velocity (Regurgitant Flow): 2.40 m/s, 3.21 m/s, 2.99 m/s Peak Velocity: 0.57 m/s Pulmonic Valve PV Max Masoud (0.6 - 0.9 m per sec): 1.36 m/s PV Max Gradient: 7.38 mm[Hg] Right Atrium Dictated by: Ken Burkett M.D. on 02/01/2022 at 21:23 Approved by: Ken Burkett M.D. on 02/01/2022 at 21:28 Normal [facility] US KELLI DOP LEG BILon 022 US KELLI DOP LEG JERRY EXAMINATION: US KELLI DOP LEG JERRY HISTORY: Pain of right lower leg COMPARISON: No relevant comparison available. TECHNIQUE: Grayscale, color and Doppler ultrasound FINDINGS: Region: Bilateral legs Thrombus: No deep vein thrombus. Echogenic filling identified in the left great saphenous vein and associated tributaries of the mid to distal calf Flow: Normal flow in the deep vein system. Absent flow corresponding to superficial thrombus Compressibility: Normal compressibility of the deep system. Noncompressibility corresponding to thrombus Augmentation: Normal augmentation of the deep system IMPRESSION: No thrombus Superficial vein thrombus left great saphenous vein and associated tributaries/varicositie s *Exam performed in accordance with [employer] practice guidelines- Peripheral venous ultrasound, October 16, 2009. Electronically authenticated by: CODY GOMES Date: 2022-02-01 18:50 Normal [facility] VC VENOUS REFLUX JERRY LMTon 0 01-11-2022 VC VENOUS REFLUX JERRY LMT Patient: INDIA MOORE Exam Date: 01/11/2022 : 1940 Gender:F Ordering : SHAR Rolan KAUFMAN Admission #: [id number] Family : Order #: [id number] CLICK HERE TO VIEW EXAM RADIOLOGY REPORT PROCEDURE: VEIN CENTER ULTRASOUND VENOUS REFLUX BILATERAL LIMTED COMPARISON: None. INDICATIONS: Pain of right lower leg M79.661 TECHNIQUE: Duplex imaging of the lower extremity to assess the deep and superficial venous system for the presence of deep or superficial venous incompetence and to document the location and severity of disease. The study includes evaluation of the great saphenous vein (GSV), anterior accessory saphenous vein (AASV) and small saphenous vein (SSV). Patient scanned in reverse Trendelenburg and standing. FINDINGS: RIGHT LOWER EXTREMITY: Saphenofemoral Junction Reflux: Yes 6.6mm 3.5 sec GSV: Diam (mm) Reflux/ Time (sec) Proximal Thigh 5.6 Yes 1.2 Mid Thigh 5.4 No Distal Thigh 3.9 No Prox Calf 5.1 Yes 2.7 Mid Calf 3.7 No Saphenopopliteal Junction Reflux: 5.8mm Yes 1.0 SSV: Proximal Calf 5.6 Yes 1.7 Mid Calf 4.0 Yes 2.5 AASV: Proximal Thigh 6.0 Yes 0.5 Mid Thigh 3.5 Yes 0.4 Distal Thigh Thrombi: No acute or chronic thrombus. Compressibility: Normal. Flow: Normal. Preforator: Dist/med calf 4.7 mm with 2.4s reflux. Prox/post calf 3.6mm with 3.4s reflux. Tech Note: Limited visualization of calf veins. GSV becomes tortuous and close to muscular fascia at mid thigh approximately 15cm from SFJ. AASV becomes tortuous in thigh approximately 11cm from SFJ. Varicosity in distal/medial lower leg off of slab worker measures 7.8 mm with 0.8s reflux. incompetent varicose vein mid/medial lower leg measures 5.1 mm with 2.2s reflux. Mid/medial thigh varicose vein measures 4.4mm with 1.3s reflux. Mid/posterior calf varicosity off of SSV measures 4.3mm with 1.5s reflux. LEFT LOWER EXTREMITY: Saphenofemoral Junction Reflux: Yes 7.6 mm 3.0 sec GSV: Diam (mm) Reflux/Time (sec) Proximal Thigh 7.9 Yes 1.6 Mid Thigh 6.0 Yes 0.4 Distal Thigh 4.2 Yes 0.7 Prox Calf 4.3 Yes 2.3 Mid Calf 3.4 Thrombosed. Saphenopopliteal Junction Relux: 4.9 mm No SSV: Proximal Calf 3.7 Yes 0.3 Mid Calf 4.1 Yes 0.4 AASV: Proximal Thigh 3.4 Yes 3.1 Mid Thigh 2.7 Yes 1.8 Distal Thigh Thrombi: Thrombus visualized in SSV mid calf, GSV from mid to distal calf in a 15 cm segment, and a varicosity mid/medial calf. No deep venous thrombus. Compressibility: Non-compressible segments in areas of thrombus. Flow: Mild deep venous reflux. Personal Lines Insurance Agent: Prox/med calf 4.4 mm with 3.7s reflux. Tech Note: GSV becomes tortuous approximately 9cm from SFJ. AASV is tortuous proximally with adjacent arteries. Thigh extension of left SSV. SSV is tortuous with non-occlusive thrombus mid calf. Thrombus visualized in varicosity and associated slab worker medial/distal calf 6.4mm from PTV. Varicosity proximal/medial/posteri or calf measures 4.5 mm with 1.2s reflux. CONCLUSION: 1. Right leg: Dilated and incompetent great saphenous vein, small saphenous vein, slab worker veins, and branch saphenous varicosities. 2. Left leg: Dilated and incompetent great saphenous vein, anterior accessory saphenous vein, and branch saphenous varicosities. 3. Nonocclusive thrombus within superficial veins within the left calf. The patient is currently taking aspirin. Patient has been notified of these findings and the ordering physician will be notified. 4. Consultation for venous ablation is recommended. Dictated by: Daniel Anand M.D. on 01/11/2022 at 11:31 Approved by: Daniel Anand M.D. on 01/11/2022 at 11:39 Normal [facility] BNPon 10-12-2021 Natriuretic peptide B (Bld) [Mass/Vol] 192.0 pg/mL Normal <=1,800.0 [facility] Comment on above: Performed By: #### C MP, BNP, LIPID #### [facility] [address] [place], [place] [address] Dr. Melecio Mcclelland CBC AUTO DIFFon 10-12-2021 BASO # 0.0 103/ul Normal 0.0-0.1 [facility] Comment on above: Performed By: #### C BC ####[facility] [address] [address]DrBroderick Mcclelland Basophils/100 WBC (Bld) 0.4 % Normal 0.2-2.0 [facility] Comment on above: Performed By: #### C BC ####[facility] [address] [address]Dr. Melecio Mcclelland EO # 0.3 103/ul Normal 0.0-0.7 [facility] Comment on above: Performed By: #### C BC ####[facility] [address] [place], [place] [address]DrBroderick Mcclelland Eosinophils/100 WBC (Bld) 2.9 % Normal 0.9-7.0 [facility] Comment on above: Performed By: #### C BC ####[facility] [address] [place], [place] [address]Dr. Melecio Mcclelland Erythrocyte distribution width (RBC) [Ratio] 13.1 % Normal 11.0-15.0 [facility] Comment on above: Performed By: #### C BC ####[facility] [address] [place], [place] [address]Dr. Melecio Mcclelland Hematocrit (Bld) [Volume fraction] 38.4 % Normal 36.0-48.0 [facility] Comment on above: Performed By: #### C BC ####[facility] [address] [place], [place] [address]DrBroderick Mcclelland Hemoglobin (Bld) [Mass/Vol] 12.2 g/dL Normal 12.0-16.0 [facility] Comment on above: Performed By: #### C BC ####[facility] [address] [place], [place] [address]Dr. Melecio Mcclelland IG # 0.03 10e3/ul Normal 0.00-0.03 [facility] Comment on above: Performed By: #### C BC ####[facility] [address] [address]DrBroderick Melecio Mcclelland IG % 0.3 % Normal 0.0-0.5 [facility] Comment on above: Performed By: #### C BC ####[facility] [address] [address]DrBroderick Melecio Mcclelland LYMPH # 1.8 103/ul Normal 1.2-3.8 [facility] Comment on above: Performed By: #### C BC ####[facility] [address] [place], [place] [address]DrBroderick Melecio Mcclelland Lymphocytes/100 WBC (Bld) 19.3 % Critically low 20.5-60.0 [facility] Comment on above: Performed By: #### C BC ####[facility] [address] [place], [place] [address]DrBroderick Melecio Mcclelland MANUAL DIFF REQ NO Normal [facility] Comment on above: Performed By: #### C BC ####[facility] [address] [place], [place] [address]Dr. Melecio Mcclelland MCH (RBC) [Entitic mass] 30.2 pg Normal 26.7-34.0 [facility] Comment on above: Performed By: #### C BC ####[facility] [address] [place], [place] [address]DrBroderick Melecio Mcclelland MCHC (RBC) [Mass/Vol] 31.8 g/dL Normal 29.9-35.2 [facility] Comment on above: Performed By: #### C BC ####[facility] [address] [place], [place] [address]DrBroderick Melecio Mcclelland MCV (RBC) [Entitic vol] 95.0 fL Normal 81.0-99.0 [facility] Comment on above: Performed By: #### C BC ####[facility] [address] [place], [place] [address]DrBroderick Melecio Stas MONO # 0.5 103/ul Normal 0.3-0.8 [facility] Comment on above: Performed By: #### C BC ####[facility] [address]Dr. Melecio Mcclelland Monocytes/100 WBC (Bld) 4.9 % Normal 1.7-12.0 [facility] Comment on above: Performed By: #### C BC ####[facility] [address] [address]Dr. Melecio Mcclelland NEUT # 6.6 103/ul Critically high 1.4-6.5 [facility] Comment on above: Performed By: #### C BC ####[facility] [address] [address]Dr. Melecio Mcclelland Neutrophils/100 WBC (Bld) 72.2 % Normal 43.0-75.0 [facility] Comment on above: Performed By: #### C BC ####[facility] [address] [address]Dr. Melecio Mcclelland Platelet mean volume (Bld) [Entitic vol] 10.6 fL Normal 9.5-13.5 [facility] Comment on above: Performed By: #### C BC ####[facility] [address] [id number]. Melecio Mcclelland PLT 186 103/ul Normal 150-450 [facility] Comment on above: Performed By: #### C BC ####[facility] [address] [id number]. Melecio Mcclelland RBC 4.04 106/ul Critically low 4.20-5.40 [facility] Comment on above: Performed By: #### C BC ####[facility] [address] [id number]. Melecio Mcclelland WBC 9.2 103/ul Normal 4.0-11.0 [facility] Comment on above: Performed By: #### C BC ####[facility] [address] [id number]. Melecio Mcclelland LIPID PROFILEon 10-12-2021 CHOL-HDL RATIO NORM SEE BELOW Normal [facility] Comment on above: Result Comment: 3.3 - 4.4 LOW RISK 4.4 - 7.1 AVERAGE RISK 7.1 - 11.0 MODERATE RISK >11.0 HIGH RISK Performed By: #### C MP, BNP, LIPID #### [facility] [address] [address] [address] Melecio Mcclelland Cholesterol [Mass/Vol] 101 mg/dL Normal <=200 [facility] Comment on above: Performed By: #### C MP, BNP, LIPID #### [facility] [address] [address] [address] Melecio Mcclelland Cholesterol in HDL [Mass/Vol] 49 mg/dL Normal 40-60 [facility] Comment on above: Performed By: #### C MP, BNP, LIPID #### [facility] [address] [address] [address] Melecio Mcclelland Cholesterol in LDL [Mass/Vol] 43.6 mg/dL Normal [facility] Comment on above: Performed By: #### C MP, BNP, LIPID #### [facility] [address] [address] [address] Melecio Mcclelland Cholesterol.total/C holesterol in HDL [Mass ratio] 2.1 {ratio} Normal [facility] Comment on above: Performed By: #### C MP, BNP, LIPID #### [facility] [address] [address] [address] Melecio Mcclelland HDL NORMAL > or = 60 mg/dl - LO W CARDIOVASCULAR RISK <40 mg/dl - HIGH CARDIOVASCULAR RISK Normal [facility] Comment on above: Performed By: #### C MP, BNP, LIPID #### [facility] [address] [address] [address] Melecio Mcclelland LDL CALC NORMAL SEE BELOW Normal [facility] Comment on above: Result Comment: <100 mg/dl OPTIMAL 100 - 129 mg/dl NEAR OR ABOVE OPTIMAL 130 - 159 mg/dl BORDERLINE HIGH 160 - 189 mg/dl HIGH >190 mg/dl VERY HIGH Performed By: #### C MP, BNP, LIPID #### [facility] [address] [address] [address] Melecio Mcclelland Triglyceride [Mass/Vol] 42 mg/dL Normal <=150 [facility] Comment on above: Performed By: #### C MP, BNP, LIPID #### [facility] [address] [place] [address] Dr. Melecio Mcclelland VLDL CALC 8.4 mg/dL Normal [facility] Comment on above: Performed By: #### C MP, BNP, LIPID #### [facility] [address] [place] [address] Dr. Melecio Mcclelland PROF 14(COMP METB)on 022 Albumin [Mass/Vol] 3.5 g/dL Normal 3.4-5.0 [facility] Comment on above: Performed By: #### C MP, BNP, LIPID #### [facility] [address] [place] [address] Dr. Melecio Mcclelland Albumin/Globulin [Mass ratio] 1.2 {ratio} Normal [facility] Comment on above: Performed By: #### C MP, BNP, LIPID #### [facility] [address] [place] [address] Dr. Melecio Mcclelland ALP [Catalytic activity/Vol] 111 U/L Normal 46-116 [facility] Comment on above: Performed By: #### C MP, BNP, LIPID #### [facility] [address] [place] [address] Dr. Melecio Mcclelland ALT [Catalytic activity/Vol] 34 U/L Normal 14-59 [facility] Comment on above: Performed By: #### C MP, BNP, LIPID #### [facility] [address] [place] [address] Dr. Melecio Mcclelland Anion gap [Moles/Vol] 13.5 mmol/L Normal [facility] Comment on above: Performed By: #### C MP, BNP, LIPID #### [facility] [address] [place] [address] Dr. Melecio Mcclelland AST [Catalytic activity/Vol] 22 U/L Normal 15-37 [facility] Comment on above: Performed By: #### C MP, BNP, LIPID #### [facility] [address] [place] [address] Dr. Melecio Mcclelland Bilirubin [Mass/Vol] 1.2 mg/dL Normal 0.2-1.3 [facility] Comment on above: Performed By: #### C MP, BNP, LIPID #### [facility] [address] [place] [address] Dr. Melecio Mcclelland Calcium [Mass/Vol] 9.0 mg/dL Normal 8.5-10.1 [facility] Comment on above: Performed By: #### C MP, BNP, LIPID #### [facility] [address] [place] [address] Dr. Melecio Mcclelland Chloride [Moles/Vol] 110 mmol/L Critically high 98-107 [facility] Comment on above: Performed By: #### C MP, BNP, LIPID #### [facility] [address] [place] [address] Dr. Melecio Mcclelland CO2 [Moles/Vol] 25.5 mmol/L Normal 22.0-30.[address] [facility] Comment on above: Performed By: #### C MP, BNP, LIPID #### [facility] [address] [place] [address] Dr. Melecio Mcclelland Creatinine [Mass/Vol] 1.02 mg/dL Normal 0.52-1.04 [facility] Comment on above: Performed By: #### C MP, BNP, LIPID #### [facility] [address] [place] [address] Dr. Melecio Mcclelland EGFR-AF NIGERIAN >60 Normal >=[address] [facility] Comment on above: Performed By: #### C MP, BNP, LIPID #### [facility] [address] [place] [address] Dr. Melecio Mcclelland EGFR-NON AF NIGERIAN 52 mL/min/1.73m2 Critically low >=60 [facility] Comment on above: Performed By: #### C MP, BNP, LIPID #### [facility] [address] [place] [address] Dr. Melecio Mcclelland Globulin (S) [Mass/Vol] 3.0 g/dL Normal [facility] Comment on above: Performed By: #### C MP, BNP, LIPID #### [facility] [address] [address] [address] Melecio Mcclelland Glucose [Mass/Vol] 93 mg/dL Normal 74-106 [facility] Comment on above: Performed By: #### C MP, BNP, LIPID #### [facility] [address] [address] [address] Melecio Mcclelland Potassium [Moles/Vol] 4.0 mmol/L Normal 3.4-5.0 [facility] Comment on above: Performed By: #### C MP, BNP, LIPID #### [facility] [address] [address] [address] Melecio Mcclelland Protein [Mass/Vol] 6.5 g/dL Normal 6.1-8.2 [facility] Comment on above: Performed By: #### C MP, BNP, LIPID #### [facility] [address] [address] [address] Melecio Mcclelland Sodium [Moles/Vol] 145 mmol/L Normal 137-145 [facility] Comment on above: Performed By: #### C MP, BNP, LIPID #### [facility] [address] [address] [address] Melecio Mcclelland Urea nitrogen [Mass/Vol] 20.0 mg/dL Critically high 7.0-18.0 [facility] Comment on above: Performed By: #### C MP, BNP, LIPID #### [facility] [address] [address] [address] Melecio Mcclelland Urea nitrogen/Creatinine [Mass ratio] 19.6 mg/mg Normal [facility] Comment on above: Performed By: #### C MP, BNP, LIPID #### [facility] [address] [address] [address] Melecio Mcclelland US CAROTID ART BILon 022 US CAROTID ART JERRY EXAMINATION: US ARCHER TID ART JERRY HISTORY: Cardiovascular symptoms , carotid bruit COMPARISON: No relevant comparison available. TECHNIQUE: Duplex Doppler ultrasound analysis of carotid and vertebral arteries. . Bilateral carotid arterial duplex examination was performed using B-mode, color flow and spectral analysis. Carotid stenosis is reported according to validated velocity parameters, similar to NASCET criteria. FINDINGS: RIGHT CAROTID ARTERY: Mild atherosclerotic plaque within the proximal ICA. RIGHT VERTEBRAL: Antegrade flow. Subclavian: PSV: 101.7 cm/s EDV: 2.1 cm/s CCA: Prox: PSV: 61.6 cm/s EDV: 7.5 cm/s Mid: PSV: 69.4 cm/s EDV: 9.2 cm/s Distal: PSV: 49.5 cm/s EDV: 9.0 cm/s BULB: PSV: 55.2 cm/s EDV: 8.3 cm/s ICA: Prox: PSV: 48.8 cm/s EDV: 10.4 cm/s Mid: PSV: 68.7 cm/s EDV: 14.7 cm/s Distal: PSV: 97.8 cm/s EDV: 20.2 cm/s ECA: PSV: 73.2 cm/s EDV: 0.0 cm/s VERTEBRAL: PSV: 51.0 cm/s EDV: 8.3 cm/s ICA/CCA ratio: PSV: 1.4 EDV: 2.2 LEFT CAROTID ARTERY: No visible stenosis or significant plaque. LEFT VERTEBRAL: Antegrade flow. Subclavian: PSV: 138.3 cm/s EDV: 0.0 cm/s CCA: Prox: PSV: 82.3 cm/s EDV: 11.1 cm/s Mid: PSV: 79.7 cm/s EDV: 13.7 cm/s Distal: PSV: 68.0 cm/s EDV: 12.4 cm/s BULB: PSV: 61.1 cm/s EDV: 11.7 cm/s ICA: Prox: PSV: 62.2 cm/s EDV: 17.1 cm/s Mid: PSV: 105.6 cm/s EDV: 30.5 cm/s Distal: PSV: 88.3 cm/s EDV: 17.3 cm/s ECA: PSV: 76.5 cm/s EDV: 0.0 cm/s VERTEBRAL: PSV: 61.1 cm/s EDV: 11.6 cm/s ICA/CCA ratio: PSV: 1.3 EDV: 2.2 IMPRESSION: 1. Mild atherosclerotic disease within the right proximal ICA without significant stenosis. 2. 0-49% flow stenosis within the right left carotid arteries. Spectral Doppler US Thresholds Stenosis (%) PSV (cm/sec) VICA/VCCA 0-49 <150 <2.5 50-69 150-225 2.5-4.0 >70 >225 >4.0 Electronically authenticated by: DANIEL ANAND Date: 2021-10-12 13:56 Normal [facility] Cardiovascular Lab Reporton 06-17-2019 Cardiovascular Lab Report [facility] Patient Name: [facility] [place] MR #: [id number] Department of Physician: Lorraine Harrison M.D. Division of Service Date: 06/16/2019 Cardiology Birthdate: 1940 Adult Cardiovascular Room #: [facility] [address] [facility]. [place] [address] Cardiovascular Laboratory Report FINAL IMPRESSIONS: 1. Moderate angiographic, non-hemodynamically significant stenosis of the left anterior descending as assessed by instantaneous way-free ratio (iFR). 2. Mild disease of the right coronary artery. 3. Non-obstructive left circumflex coronary artery. 4. Mildly elevated right-sided heart pressures and wedge pressures. 5. Normal cardiac output/cardiac index. 6. Moderate systemic hypertension. RECOMMENDATIONS: 1. Aggressive cardiovascular risk factor modification. 2. Optimization of medical management; continue aspirin, angiotensin receptor jaskaran, will add high intensity statin and a beta jaskaran. 3. Follow up lipid profile and liver function tests in 4-6 weeks. 4. Consider alternate etiologies for the patient's symptomatology, namely pulmonary and/or obesity related. 5. Follow up with me in the [facility] in the next 2 months. 6. Follow up with her family physician as scheduled. PROCEDURES: Ultrasound-guided access to the right internal jugular vein, right heart catheterization, bilateral selective coronary angiography via right radial approach. Instantaneous wave free ratio of the left anterior descending coronary artery. METHODS: After risks, benefits, and alternatives were explained, written informed consent was obtained. The patient was prepped and draped in usual sterile fashion over the right neck and right wrist. Using 1% lidocaine solution, local infiltration anesthesia was achieved. Using a modified Seldinger technique and a micropuncture kit and under ultrasound guidance, access to the right internal jugular vein was obtained. A 6-Egyptian 11 cm sheath was inserted without difficulty. Right heart catheterization was performed using a Gentile catheter via the venous sheath. Pressures were measured in the right atrium, right ventricle, pulmonary artery, and pulmonary capillary wedge positions. Oxygen saturations were obtained and a cardiac output/cardiac index was calculated using the Hakeem principle. The Gentile catheter was removed. The venous sheath was removed with application of manual pressure to achieve optimal hemostasis. Local infiltration anesthesia was achieved over the right wrist. A micropuncture kit was used to access the right radial artery. A 6-Egyptian Glidesheath was inserted without difficulty. Resistance advancing the Pinto wire was encountered; therefore, angiography through the JR4 catheter was performed. This revealed tortuosity and a narrowed segment. This was crossed using a soft angled Glidewire. Bilateral selective coronary angiography was performed using JR5 and JL3.5 catheters. After reviewing the images, it was elected to proceed with the physiological assessment of the left anterior descending stenosis. An XB3.0 guide catheter was advanced over J-wire and coaxially engaged into the left main ostium. The Ascendx Spine pressure wire was advanced through the catheter with pressures normalized just off the exiting. It was used to traverse the suspect stenosis and positioned distally. An instantaneous way free ratio was calculated. At this point, it was elected to conclude the procedure. The wire was removed. Final angiography showed ALEXIA-3 flow with no dissection, thrombus, or distal wire trauma. The radial sheath was removed with application of a TR band per protocol to achieve optimal hemostasis. Overall, the patient tolerated the procedure well. There were no overt complications. She was to be transferred to the holding area in stable condition. FINDINGS: Hemodynamics: RA 12. RV 38/9, 13. PA 38/15, (25). PCWP 15. TPG 10. AO 149/62. Cardiac output 6.49/cardiac index 3.10. AO sat 100%/PA sat 77%. LEFT VENTRICULOGRAPHY: This was not performed. Ejection fraction is normal by noninvasive imaging. CORONARY ARTERIES: Left main coronary artery. This arises from the left coronary cusp. It bifurcates into the left anterior descending and left circumflex coronary arteries. It shows no significant stenosis. Left anterior descending coronary artery. This is tortuous in the proximal and midportion of the vessel. It gives rise to a high originating first diagonal with a 40% to 50% ostial narrowing. Shortly thereafter, there is a short segment 50% stenosis angiographically. Instantaneous wave-free ratio across this lesion is 0.93. There is a large 2nd diagonal that shows mild plaque at the ostium. The left anterior descending subsequently showed luminal irregularities with no significant stenosis. Left circumflex coronary artery. This is tortuous in the proximal section and gives rise to a small 1st obtuse marginal, a minute 2nd obtuse marginal and a large branching second obtuse marginal before continuing as a small caliber AV groove branch. Right coronary artery. This is a large dominant vessel. It gives rise to the posterior descending and posterolateral branches. It shows a 30% proximal stenosis with mild luminal irregularities throughout the remainder of the vessel. INDICATIONS: The patient is a 78-year-old woman with risk factors for atherosclerotic heart disease, who presented with chest pain and an abnormal stress test. Findings and management strategy are outlined above. Electronically Signed by: Elisabeth Ramirez M.D. 06/24/2019 03:10 P Elisabeth Ramirez M.D. Date Dict: 06/16/2019/10:45 Jose/Elisabeth Ramirez M.D. Date Trans: 06/17/2019 05:53 Jose/ryan [id number] Normal [facility] Vital Signs Date Time Vital Sign Value Performing Clinician Facility 07-05-2023 11:45-0500 Body height 154.94 cm Jody Stewart Other [facility] Other 07-05-2023 11:45-0500 Body mass index (BMI) [Ratio] 37.67 kg/m2 Jody Stewart Other [facility] Other 07-05-2023 11:45-0500 Body weight 90.45 kg Jody Stewart Other [facility] Other 07-05-2023 11:45-0500 Diastolic blood pressure 84 mm[Hg] Jody Stewart Other [facility] Other 07-05-2023 11:45-0500 Systolic blood pressure 132 mm[Hg] Jody Stewart Other [facility] Other 04-05-2023 10:00-0400 Body height 154.94 cm Jody Stewart Other [facility] Other 04-05-2023 10:00-0400 Body mass index (BMI) [Ratio] 39.79 kg/m2 Jody Stewart Other [facility] Other 04-05-2023 10:00-0400 Body weight 95.53 kg Jody Stewart Other [facility] Other 04-05-2023 10:00-0400 Diastolic blood pressure 82 mm[Hg] Jody Stewart Other [facility] Other 04-05-2023 10:00-0400 Respiratory rate 12 /min Jody Stewart Other [facility] Other 04-05-2023 10:00-0400 Systolic blood pressure 122 mm[Hg] Jody Stewart Other [facility] Other 01-04-2023 10:00-0400 Body height 154.94 cm Jody Stewart Other [facility] Other 01-04-2023 10:00-0400 Body mass index (BMI) [Ratio] 40.62 kg/m2 Jody Stewart Other [facility] Other 01-04-2023 10:00-0400 Body weight 97.52 kg Jody Stewart Other [facility] Other 01-04-2023 10:00-0400 Diastolic blood pressure 78 mm[Hg] Jody Stewart Other [facility] Other 01-04-2023 10:00-0400 Systolic blood pressure 138 mm[Hg] Jody Stewart Other [facility] Other 10-05-2022 11:00-0400 Body height 154.94 cm Jody Stewart Other [facility] Other 10-05-2022 11:00-0400 Body mass index (BMI) [Ratio] 41.56 kg/m2 Jody Stewart Other [facility] Other 10-05-2022 11:00-0400 Body weight 99.79 kg Jody Stewart Other [facility] Other 10-05-2022 11:00-0400 Diastolic blood pressure 72 mm[Hg] Jody Stewart Other [facility] Other 10-05-2022 11:00-0400 SaO2% (BldA) [Mass fraction] 97 % Jody Stewart Other [facility] Other 10-05-2022 11:00-0400 Systolic blood pressure 120 mm[Hg] Jody Stewart Other [facility] Other 08-31-2022 11:00-0500 Body height 162.56 cm Jody Stewart Other [facility] Other 08-31-2022 11:00-0500 Body mass index (BMI) [Ratio] 38.62 kg/m2 Jody Stewart Other [facility] Other 08-31-2022 11:00-0500 Body weight 102.06 kg Jody Terry Other [facility] Other 08-31-2022 11:00-0500 Diastolic blood pressure 78 mm[Hg] Jody Stewart Other [facility] Other 08-31-2022 11:00-0500 Systolic blood pressure 116 mm[Hg] Jody Terry Other [facility] Other Encounters Encounter Date Encounter Type Care Provider Facility Start: 07-18-2023 ambulatory AKILAH GARCIA [facility] Start: 07-11-2023 End: 07-11-2023 ambulatory Jody Terry Other [facility] Other Start: 07-11-2023 Telephone encounter Jody Stewart [facility] Start: 07-10-2023 End: 07-10-2023 ambulatory Jody Terry Other [facility] Other Start: 07-10-2023 Telephone encounter Jody Terry [facility] Start: 07-09-2023 End: 07-09-2023 ambulatory Jody Stewart Other [facility] Other Start: 07-09-2023 Telephone encounter Jody Terry [facility] Start: 07-05-2023 End: 07-05-2023 ambulatory Jody Terry Other [facility] Other Start: 07-05-2023 Office outpatient vi sit 25 minutes Jody Stewart [facility] Start: 07-05-2023 Telephone encounter Jody Terry [facility] Start: 04-17-2023 End: 04-17-2023 ambulatory Jody Terry Other [facility] Other Start: 04-17-2023 Telephone encounter Jody Stewart [facility] Start: 04-10-2023 End: 04-10-2023 ambulatory Jody Stewart Other [facility] Other Start: 04-10-2023 Telephone encounter Jody Stewart [facility] Start: 04-05-2023 End: 04-05-2023 ambulatory Jody Stewart Other [facility] Other Start: 04-05-2023 Office outpatient vi sit 15 minutes Jody Stewart [facility] Start: 01-22-2023 End: 01-22-2023 ambulatory [facility] Start: 01-04-2023 End: 01-04-2023 ambulatory Jody Stewart Other [facility] Other Start: 01-04-2023 Office outpatient vi sit 15 minutes Jody Stewart [facility] Start: 10-05-2022 End: 10-05-2022 ambulatory Jody Stewart Other [facility] Other Start: 10-05-2022 Office outpatient vi sit 15 minutes Jody Stewart [facility] Start: 09-01-2022 Telephone encounter Jody Stewart [facility] Start: 09-01-2022 End: 09-02-[address] JODY STEWART Facility:[facility] Start: 08-31-2022 End: 08-31-2022 ambulatory Jody Stewart Other [facility] Other Start: 08-31-2022 Office outpatient vi sit 15 minutes Jody Stewart [facility] Start: 08-29-2022 End: 08-29-2022 ambulatory Jody Stewart Other [facility] Other Start: 08-29-2022 Telephone encounter Jody Stewart [facility] Start: 08-15-2022 End: 08-15-[address] JODY STEWART Facility:[facility] Start: 07-31-2022 End: 07-31-2022 ambulatory [facility] Start: 02-01-2022 End: 02-02-2022 ambulatory SHAR MANDEEP Facility:[facility] Start: 01-11-2022 End: 01-12-[address] Daniel Anand Facility:[facility] Start: 10-19-2021 End: 04-19-[address] JODY STEWART Facility:[facility] Start: 10-12-2021 End: 10-13-[address] Daniel Anand Facility:[facility] Start: 06-16-2019 End: 06-17-2019 Patient encounter procedure [facility] Facility:[facility] Immunizations Immunization Date Immunization Notes Care Provider Fa cility 05-25-2020 influenza virus vaccine, split virus (incl. purified surface antigen) Jody Stewart Other [facility] Other 05-07-2019 influenza virus vaccine, split virus (incl. purified surface antigen) Jody Stewart Other [facility] Other 07-23-2015 influenza virus vaccine, split virus (incl. purified surface antigen) Jody Stewart Other [facility] Other 07-23-2012 pneumococcal conjuga te vaccine, 13 valent Jody Stewart Other [facility] Other 03-23-2012 zoster vaccine, live Jody Stewart Other [facility] Other Payers Date Payer Category Payer Medicare [id number] 1959 Unknown [id number] 1959 Unknown [id number] 1940 Unknown [id number] 2.16.8 [id number] 1940 Unknown [id number] 2.16.84 [id number] 1940 Unknown [id number] 2.16.84 [id number] 1940 Unknown [id number] 2.16.84 [id number] 1940 Unknown [id number] 2.16.84 [id number] 1940 Unknown [id number] 2.16.84 [id number] 1940 Unknown [id number] 2.16.84 [id number] Social History Date Type Detail Facility Unknown if ever smoked [facility] Other Sex Assigned At Sex Assigned At Bir th [facility] Other Clinical Notes 07-31-2022 to 07-18-2023 Note Date & Type Note Facility 07-18-2023 Note Currently stable [facility] 07-18-2023 Note Coronary artery dise ase is Stable without any concerning symptoms today Recent evaluation at [facility]- showed normal troponin levels, EKG without acute/concerning changes, and CT chest showed chronic PE Continue GDMT- lipitor, coreg, losartan [facility] 07-18-2023 Note Hypertension is curr ently well controlled, 110/60 Continue norvasc 5 mg, coreg 6.25 mg bid, aldactone 25 mg and decrease losartan to 100 mg daily- not bid. Continue to monitor b/p with goal is < 130/80 Call office if b/p is > than goal or for any concerns. RTC 1 month [facility] 07-18-2023 Note Continue xarelto anticoagulation [facility] 07-18-2023 Note [facility] CARDIOLOGY PROGR ESS NOTE HPI: India Moore is a 82 y.o. female here for ED F/U for SOB HPI Pt presented to [facility] ED on 07/11/23 for chest pain. PT has PMH: CAD, hypertension, and PE. Denies chest pain and bleeding on Xarelto Patient here for follow up [facility] ED for chronic PE. Her medication states she's taking losartan 100mg bid. Currenlty denied chest pain, reports typical SOB on exertion, and denied orthopnea. Reports she sleeps in a recliner r/t chronic back pain. She admits that she has SOB with anxiety episodes. Review of Systems Constitutional: Positive for weight loss (14# since 01/22/2023). Cardiovascular: Positive for dyspnea on exertion and leg swelling. Gastrointestinal: Positive for bowel incontinence. Neurological: Positive for light-headedness. All other systems reviewed and are negative 07/11/23 ED report Medical Decision Making MDM Narrative Medical decision making narrative: 104 Patient case was discussed with her PCP, Dr. Stewart. Dr. 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 Dr. Stewart thought patient was taking Xeralto, but she cannot find record of who is prescribing it and is not certain if patient is taking or not. Anticoagulation will be investigated. She is aware a 2nd troponin is negative patient was discharged, and I will try to figure out if she is anticoagulated or not. 1150 I spoke into the machine operator farmworker, Dr. Cr. He recommended for patient to stay on Xarelto it is not too concerned about the chronic weblike right pulmonary PE, it appears chronic in nature, patient has a history of clots, and stay on Xarelto. He recommended to do 1 more troponin, and a fall 3 test are negative patient can follow-up as an outpatient. 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 He recommended following back up in the office for further evaluation as well. There are 2 daughters at the bedside, they're aware of the conversation, sitting on the medication, and repeating or more troponin. 1300 Patient's her troponin is negative. Patient will follow-up with [facility] clinic as recommended by a machine operator farmworker from her phone call today and also continue to keep taking Xarelto. Critical care time 33 minutes exclusive from separate billable procedures that were performed. The following was considered in the determination of critical care but not limited to the level of medical decision making, intensive cardiac and/or respiratory monitoring, frequent vital sign monitoring, Emergency Department [id number] [facility] 3 Patient name: INDIA MOORE evaluation of laboratory studies, evaluation of radiographic Visit Vitals BP 110/60 (BP Location: Left arm, Patient Position: Sitting) Pulse 64 Ht 1.575 m (5' 2 ) Wt 91.2 kg (201 lb) SpO2 97% BMI 36.76 kg/m??? Smoking Status Former BSA 2 m??? No Known Allergies Medications: Current Outpatient Medications on File Prior to Visit Medication Sig Dispense Refill amLODIPine (Norvasc) 5 mg tablet TAKE 1 TABLET DAILY 90 tablet 3 atorvastatin (Lipitor) 80 mg tablet TAKE 1 TABLET DAILY AT BEDTIME 90 tablet 3 carvedilol (Coreg) 6.25 mg tablet TAKE 1 TABLET TWICE A DAY 180 tablet 3 donepezil (Aricept) 5 mg tablet Take 10 mg by mouth at bedtime. empagliflozin (Jardiance) 10 mg Take 1 tablet (10 mg) by mouth in the morning. 90 tablet 3 furosemide (Lasix) 20 mg tablet Take 1 tablet (20 mg) by mouth in the morning and at bedtime. 180 each 3 losartan (Cozaar) 100 mg tablet Take 1 tablet (100 mg) by mouth in the morning for 10 days. (Patient taking differently: Take 100 mg by mouth in the morning and at bedtime.) 10 tablet 0 nabumetone (Relafen) 750 mg tablet Take 750 mg by mouth if needed in the morning and at bedtime. spironolactone (Aldactone) 25 mg tablet Take 25 mg by mouth in the morning. Xarelto 20 mg tablet TAKE 1 TABLET IN THE MORNING WITH FOOD 90 tablet 3 No current facility-administered medications on file prior to visit. Physical Exam: Constitutional: Appearance: Normal appearance. Without apparent distress, chronically ill HENT: Head: Normocephalic and atraumatic. Nose: Nose normal. Mouth/Throat: Mouth: Mucous membranes are moist. Eyes: Extraocular Movements: Extraocular movements intact. Conjunctiva/sclera: Conjunctivae normal. Neck: Vascular: No JVD. Cardiovascular: Rate and Rhythm: Normal rate and regular rhythm. Pulses: Dorsalis pedis pulses are 3 on the right side and 3on the left side. Posterior tibial pulses are 3 on the right side and 3 on the left side. Heart sounds: Normal heart sounds, S1 normal and S2 normal. Pulmonary: Effort: Pulmonary effort is normal. Breath sounds: Normal breath sounds. Abdominal: General: Bowel sounds are normal. Palpations: Abdomen is soft. Musculoskeletal: General: ambulato (more content not included)... [facility] 07-18-2023 Note Patient here for [facility] ED for chronic PE. Her medication states she's taking losartan 100mg bid. Review of Systems Constitutional: Positive for weight loss (14# since 01/22/2023). Cardiovascular: Positive for dyspnea on exertion and leg swelling. Gastrointestinal: Positive for bowel incontinence. Neurological: Positive for light-headedness. All other systems reviewed and are negative. [facility] 07-18-2023 Note [facility] II- currently e uvolemic without exacerbation Continue GDMT- with aldactone and Diuretic therapy- lasix 20 mg bid Monitor daily weights, I&O, fluid restriction 1.5-2L/day, renal function and electrolytes [facility] 07-11-2023 Evaluation note Encounter Date Diagnosis Assessment Notes Jun, Hx pulmonary embolism (ICD-10 - Z86.711) Jun, Dyspnea on exertion (ICD-10 - R06.09) [facility] Other 12-19-2023 Evaluation note* Encounter Date Diagnosis Assessment Notes Treatment Notes Treatment Clinical Notes Jun, Hx pulmonary embolism (ICD-10 - Z86.711) Jun, Dyspnea on exertion (ICD-10 - R06.09) [facility] Other 12-18-2023 Evaluation note* Encounter Date Diagnosis Assessment Notes Treatment Notes Treatment Clinical Notes Jun, Essential hypertension (ICD-10 - I10) [facility] Other 12-14-2023 Evaluation note* Encounter Date Diagnosis Assessment Notes Treatment Notes Treatment Clinical Notes Jun, Dyspnea on exertion (ICD-10 - R06.09) [facility] Other 12-14-2023 Evaluation note* Encounter Date Diagnosis Assessment Notes Treatment Notes Treatment Clinical Notes Jun, Resting tremor (ICD-10 - G25.2) Pt and daughter agree to referral to Neurology. Several signs of Parkinsonism that were not this noted at [facility] in summer. Pt also reports that her hands are frequently jumping at night. Has a burning sensation in R hand, but has had B carpal tunnel surgeries in the past. Jun, Essential hypertension (ICD-10 - I10) GOAL: Maintain BP < 140/90. STATUS: achieved. TIME FRAME: Lifetime goal. Barriers: Non- identifed. Continue current regimen and a low Na+ diet. Regular CV exercise also encouraged. Jun, Hx pulmonary embolism (ICD-10 - Z86.711) Daugther requests a CT to monitor at yearly basis. She is still on anti-coagulant, but does note some dyspnea. Jun, Dyspnea on exertion (ICD-10 - R06.09) as above [facility] Other 09-14-2023 Evaluation note* Encounter Date Diagnosis Assessment Notes Treatment Notes Treatment Clinical Notes Mar, Advancing dementia (ICD-10 - F03.90) Pt requests refill for chronic, stable medical problem Mar, OAB (overactive bladder) (ICD-10 - N32.81) Obtain UA to r/o UTI. Offered referral to urology if UA wnl. Pt will consider this option. Mar, Essential hypertension (ICD-10 - I10) Blood pressure remains well controlled at this time. Denies cardiac symptoms. Shows no signs or symptoms or poor control. Patient to continue with above medication and we will continue to monitor. Advised to pay attention to body and symptoms. Any developing patterns. Stay well hydrated. Due for labs Mar, Resting tremor (ICD-10 - G25.2) New problem. Will assess thyroid for underlying metabolic cause. [facility] Chief Complaint: Patient here for 6 mo follow up CAD, hypertension, and PE. Denies chest pain and bleeding on Xarelto. She gets SOB with exertion but states this is no worse than last apt in Jul 2022. No recent labs or imaging. HPI: India Moore is a 82 y.o. female PMHx: coronary artery disease without need for PCI or intervention, Dyspnea, morbid obesity, hypertension, history of pulmonary embolus, aortic stenosis. She states he she has been feeling well since last seen. Her dyspnea on exertion is stable. She complains of worsening leg swelling with pain. Seems to be worse at the end of the day. She has not tried compression stockings due to fear of causing too much constriction on the larger portion of her calf. She denies any weight gain, she is actually lost 5 pounds since we saw her 6 months ago. She had a fall last year and she continues to have lower back pain since then. They have done x-rays and told her that she has arthritis. Denies CP, orthopnea, PND, palpitations, dizziness/LH, syncope She continues to go to cardiac rehab at [facility]. Update 01/22/2023: Continues to be short of breath: Resolved by SL daily Denies chest pain No orthopnea, no paroxysmal, dyspnea. Leg swelling continues. Cardiology ROS: Review of Systems Constitutional: Positive for weight loss (13#). Cardiovascular: Positive for dyspnea on exertion and leg swelling. Gastrointestinal: Positive for bowel incontinence. Neurological: Positive for light-headedness. Past Medical History She has a past medical history of Chest pain, Coronary arteriosclerosis, Dyspnea, Essential hypertension, Peripheral vascular insufficiency (CMS/HCC), and Pulmonary embolism (CMS/HCC). Surgical History She has a past surgical history that includes Cardiac catheterization and Cholecystectomy. Social History She reports that she has quit smoking. Her smoking use included cigarettes. She has never used smokeless tobacco. She reports that she does not currently use alcohol. No history on file for drug use. Family History Family History Problem Relation Name Age of Onset Heart failure Mother Allergies Patient has no known allergies. Medications Current Outpatient Medications: amLODIPine (Norvasc) 5 mg tablet, Take by mouth in the morning., Disp: , Rfl: atorvastatin (Lipitor) 80 mg tablet, Take 80 mg by mouth at bedtime., Disp: , Rfl: carvedilol (Coreg) 6.25 mg tablet, Take 6.25 mg by mouth with breakfast and with evening meal., Disp: , Rfl: furosemide (Lasix) 20 mg tablet, Take 20 mg by mouth in the morning., Disp: , Rfl: losartan (Cozaar) 100 mg tablet, Take 100 mg by mouth in the morning., Disp: , Rfl: nabumetone (Relafen) 750 mg tablet, Take 750 mg by mouth if needed in the morning and at bedtime., Disp: , Rfl: rivaroxaban (Xarelto) 20 mg tablet, Take 1 tablet (20 mg) by mouth in the morning. Take with food., Disp: 90 tablet, Rfl: 3 Last Recorded Vitals BP 135/75 (BP Location: Left arm, Patient Position: Sitting) Pulse 58 Ht 1.575 m (5' 2 ) Wt 97.5 kg (215 lb) SpO2 98% BMI 39.32 kg/m??? Physical Examination: GENERAL: alert and oriented x3, well developed, in no acute distress. HEAD: atraumatic, normocephalic. EYES: LUPE, EOMI. NECK: trachea midline, no JVD present, no carotid bruits present. CARDIAC: S1, S2 present. RRR. No murmur, rubs, or gallops. RESPIRATORY: CTAB, no increased effort of breathing, no rales, rhonchi, or wheezing. ABDOMEN: soft, nontender, nondistended. EXTREMITIES: no lower extremity edema, peripheral pulses are 2+ bilaterally. No rash/skin discoloration present. NEURO: strength/sensation equal and symmetric in bilateral upper and lower extremities. PSYCH: appropriate mood, affect, and judgement. Investigations: Echo 2020: EF 65 to 70%, mild concentric LVH, grade 2 diastolic dysfunction, biatrial enlargement, mild tricuspid regurg, mild elevated right-sided pressures with RVSP 45 mmHg, mild aortic valve stenosis Echocardiogram 02/18/2022: Conclusion: 1 Mild concentric left ventricular hypertrophy. Left ventricular systolic function is hyperdynamic. LVEF is 75% 2. Normal right ventricular size and function 3 Moderate biatrial dilatation 4. Grade 2 diastolic dysfunction 5. Mild aortic valve stenosis 6. Mild tricuspid regurgitation 7. Moderately elevated right-sided pressures Service Date: 06/16/2019 Cardiovascular Laboratory Report FINAL IMPRESSIONS: 1. Moderate angiographic, non-hemodynamically significant stenosis of the left anterior descending as assessed by instantaneous way-free ratio (iFR). 2. Mild disease of the right coronary artery. 3. Non-obstructive left circumflex coronary artery. 4. Mildly elevated right-sided heart pressures and wedge pressures. 5. Normal cardiac output/cardiac index. 6. Moderate systemic hypertension. RECOMMENDATIONS: 1. Aggressive cardiovascular ris (more content not included)...[facility]06-15-2023 Evaluation note* Encounter Date Diagnosis Assessment Notes Treatment Notes Treatment Clinical Notes Dec, Advancing dementia (ICD-10 - F03.90) Pt expresses memory concerns. Has family in the area, but still struggles at times. Discussed safety. Agrees to starting aricept Dec, OAB (overactive bladder) (ICD-10 - N32.81) Chronic problem that has worsened. Dec, Essential hypertension (ICD-10 - I10) Followup w cardiology [facility] Other 03-16-2023 Evaluation note* Encounter Date Diagnosis Assessment Notes Treatment Notes Treatment Clinical Notes Sep, Injury of left knee, subsequent encounter (ICD-10 - S89.92XD) Improved from 1 month ago. bruising resolved. Using wheeled walker Sep, Essential hypertension (ICD-10 - I10) Stable. Sees cardio q6 months Sep, Balance disorder (ICD-10 - R26.89) Using wheeled walker Sep, Dyslipidemia (ICD-10 - E78.5) Stable on present meds. [facility] Other 02-10-2023 NotePROCEDURE: XR KNEE LT 3V HISTORY: Pain of left knee joint since falling 2 days ago COMPARISON: None. FINDINGS: BONES:Moderate narrowing of the medial compartment. Moderate sized degenerative osteophytes along the articular margins of all 3 compartments. No fracture, dislocation, bone lesion. SOFT TISSUES:No visible soft tissue swelling. EFFUSION:None visible. OTHER: Negative. IMPRESSION: 1. No acute bone abnormality. 2. Moderate, bordering on marked, degenerative joint disease. Electronically authenticated by: DANIEL ANAND Date: 2022-09-01 10:39[facility]02-09-2023 Evaluation note* Encounter Date Diagnosis Assessment Notes Treatment Notes Treatment Clinical Notes Aug, Acute pain of left knee (ICD-10 - M25.562) New problem - check xray today. Consider ortho referral if needed. Aug, Essential hypertension (ICD-10 - I10) chronic problem. refilled meds. [facility] Other 01-09-2023 [facility] Note Chief Complaint: Follow up HPI: India Moore is a 81 y.o. female PMHx: coronary artery disease without need for PCI or intervention, Dyspnea, morbid obesity, hypertension, history of pulmonary embolus, aortic stenosis. She states he she has been feeling well since last seen. Her dyspnea on exertion is stable. She complains of worsening leg swelling with pain. Seems to be worse at the end of the day. She has not tried compression stockings due to fear of causing too much constriction on the larger portion of her calf. She denies any weight gain, she is actually lost 5 pounds since we saw her 6 months ago. She had a fall last year and she continues to have lower back pain since then. They have done x-rays and told her that she has arthritis. Denies CP, orthopnea, PND, palpitations, dizziness/LH, syncope She continues to go to cardiac rehab at [facility]. Echo 2020: EF 65 to 70%, mild concentric LVH, grade 2 diastolic dysfunction, biatrial enlargement, mild tricuspid regurg, mild elevated right-sided pressures with RVSP 45 mmHg, mild aortic valve stenosis Echocardiogram 02/18/2022: Conclusion: 1 Mild concentric left ventricular hypertrophy. Left ventricular systolic function is hyperdynamic. LVEF is 75% 2. Normal right ventricular size and function 3 Moderate biatrial dilatation 4. Grade 2 diastolic dysfunction 5. Mild aortic valve stenosis 6. Mild tricuspid regurgitation 7. Moderately elevated right-sided pressures Service Date: 06/16/2019 Cardiovascular Laboratory Report FINAL IMPRESSIONS: 1. Moderate angiographic, non-hemodynamically significant stenosis of the left anterior descending as assessed by instantaneous way-free ratio (iFR). 2. Mild disease of the right coronary artery. 3. Non-obstructive left circumflex coronary artery. 4. Mildly elevated right-sided heart pressures and wedge pressures. 5. Normal cardiac output/cardiac index. 6. Moderate systemic hypertension. RECOMMENDATIONS: 1. Aggressive cardiovascular risk factor modification. 2. Optimization of medical management; continue aspirin, angiotensin receptor jaskaran, will add high intensity statin and a beta jaskaran. 3. Follow up lipid profile and liver function tests in 4-6 weeks. 4. Consider alternate etiologies for the patient's symptomatology, namely pulmonary and/or obesity related. 5. Follow up with [facility] in the next 2 months. 6. Follow up with her family physician as scheduled. PROCEDURES: Ultrasound-guided access to the right internal jugular vein, right heart catheterization, bilateral selective coronary angiography via right radial approach. Instantaneous wave free ratio of the left anterior descending coronary artery. Labs: Serum creatinine 0.84 in 2019 Cardiology ROS: GENERAL: Denies fever, chills, night sweats, weight loss. HEENT: Denies changes in vision, photophobia, changes in hearing, epistaxis, oral bleeding. CARDIOVASCULAR: Denies chest pain, exertional dyspnea, orthopnea/PND, lower extremity edema, palpitations, lightheadedness/dizziness. RESPIRATORY: Denies SOB, coughing, wheezing GI: Denies abdominal pain, nausea/vomiting, heartburn, melena/hematochezia. RENAL: Denies dysuria, hematuria, flank pain. MSK: Denies muscle weakness/pain, arthralgias/joint pain. NEUROLOGIC: Denies LOC, weakness, numbness, headaches. SKIN: Denies abnormal rashes or bleeding. PSYCH: Denies significant anxiety, depression, sleep disturbances. Past Medical History She has a past medical history of Chest pain, Coronary arteriosclerosis, Dyspnea, Essential hypertension, Peripheral vascular insufficiency (CMS/HCC), and Pulmonary embolism (CMS/HCC). Surgical History She has a past surgical history that includes Cardiac catheterization and Cholecystectomy. Social History She reports that she has quit smoking. Her smoking use included cigarettes. She has never used smokeless tobacco. She reports that she does not currently use alcohol. No history on file for drug use. Family History Family History Problem Relation Name Age of Onset Heart failure Mother Allergies Patient has no known allergies. Medications (Not in a hospital admission) Last Recorded Vitals Patient Vitals for the past 24 hrs: BP Pulse SpO2 Height Weight 07/31/22 1351 142/78 51 100 % 1.575 m (5' 2 ) 103 kg (228 lb) Physical Examination: GENERAL: alert and oriented x3, well developed, in no acute distress. HEAD: atraumatic, normocephalic. EYES: LUPE, EOMI. NECK: trachea midline, no JVD present, no carotid bruits present. CARDIAC: S1, S2 present. RRR. No murmur, rubs, or gallops. RESPIRATORY: CTAB, no increased effort of breathing, no rales, rhonchi, or wheezing. ABDOMEN: soft, nontender, nondistended. EXTREMITIES: no lower extremity edema, p (more content not included)... [facility] note[facility] InformationN[facility]Community [facility] Systems [facility] Other History general Narrative - Reported* Type Description Date Medical History Acute pulmonary embolism Medical History Essential hypertension Medical History Hyperlipemia Medical History Balance disorder Medical History Carotid artery bruit Medical History OAB (overactive bladder) Medical History Lumbar back pain wit h radiculopathy affecting left lower extremity Medical History Dyslipidemia Medical History Chest pain, mid sternal Surgical History ABDOMNIAL HERNIA Surgical History [facility] Hospitalization History SEE SURGICAL HX [facility] Other Summary Purpose Family History No Family History Records FoundNo Family History Records FoundNo Family History Records Found Advance Directives No Advanced Directives Records FoundNo Advanced Directives Records FoundNo Advanced Directives Records Found Reason for Referral Reason *FU 07/23 [facility] - tremor, burning sensation in R hand Diagnosis 1 Resting tremor (G25. 2) Referral Organization [facility] jeny Referring Provider First Name Jody Referring Provider Last Name Terry Referring Provider Specialty [facility] Referred Organization [facility] Referred Provider Daniel Caceres Referred Address [address],[place], [place],[address] Referred Provider Specialty Neurology Referral Priority Routine General Notes Paola Marrufo 01:27:27 PM >received today, form filled out, attachments made, notes locked, referral faxed Additional Source Comments INFORMATION SOURCE (unrecogn ized section and content) DATE CREATED AUTHOR 06/27/2019 [facility] DATE CREATED AUTHOR AUTHOR'S ORGANIZ ATION 09/08/2022 [facility] DATE CREATED AUTHOR AUTHOR'S ORGANIZ ATION 07/22/2023 [facility] REASON FOR VISIT (unrecogniz ed section and content) Refillsxray kneeCheck Up3 MO NTH FOLLOW UP AC3 month Follow up3 month Follow uplabsmessage3 month Follow upNo Information3 month Follow uprefillrefillLab orderNo Information FOR RECORDS PERTAINING TO PATIENTS WHO ARE OR HAVE BEEN ENROLLED IN A CHEMICAL DEPENDENCY/SUBSTANCEABUSE PROGRAM, SOME INFORMATION MAY BE OMITTED. This clinical summary was aggregated from multiple sources. Caution should be exercised in using it in the provision of clinical care. This summary normalizes information from multiple sources, and as a consequence, information in this document may materially change the coding, format and clinical context of patient data. In addition, data may be omitted in some cases. CLINICAL DECISIONS SHOULD BE BASED ON THE PRIMARY CLINICAL RECORDS. [facility] [employer] [facility]. provides no warranty or guarantee of the accuracy or completeness of information in this document.
[2023-08-22 13:54] LABS: Anion Gap 11.3; BUN Creatinine Ratio 14.9; Calcium 9.4 mg/dL (8.5-10.1); Carbon Dioxide 29.1 mmol/L (21.0-32.0); Chloride 108 mmol/L (98-107); Estimated GFR (African America 32 (>=60); Estimated GFR (Non-African Ame 27 (>=60); Glucose 80 mg/dL (74-106); Potassium 4.4 mmol/L (3.5-5.1); Sodium 144 mmol/L (136-145)
[2023-08-22 14:16] LABS: Basophils Percent Auto 0.4 % (0.2-2.0); Eosinophils Absolute Auto 0.2 10^3/uL (0.0-0.7); Eosinophils Percent Auto 1.5 % (0.9-7.0); Hematocrit 41.2 % (36.0-48.0); Hemoglobin 12.9 g/dL (12.0-16.0); Immature Granulocytes Abs Auto 0.04 10^3/uL (0.00-0.03); Immature Granulocytes Pct Auto 0.4 % (0.0-0.5); Lymphocytes Absolute Auto 1.6 10^3/uL (1.2-3.8); Lymphocytes Percent Auto 15.6 % (20.5-60.0); Mean Corpuscular HGB Conc 31.3 g/dL (29.9-35.2); Mean Corpuscular Hemoglobin 32.1 pg (26.7-34.0); Mean Corpuscular Volume 102.5 fL (81.0-99.0); Monocytes Absolute Auto 0.6 10^3/uL (0.3-0.8); Monocytes Percent Auto 5.9 % (1.7-12.0); Neutrophils Absolute Auto 7.7 10^3/uL (1.4-6.5); Neutrophils Percent Auto 76.2 % (43.0-75.0); Platelet Count 256 10^3/uL (150-450); Red Blood Count 4.02 10^6/uL (4.20-5.40); Red Cell Distribution Width 13.6 % (11.0-15.0); White Blood Count 10.1 10^3/uL (4.0-11.0)
--- OUTSIDE RECORDS SUMMARY | 2023-08-22 14:57 | XMS_ITS | CCD ---
Author Name Unknown Address [address] [place] [address] Organization [facility] Care Team Providers Care Diagnostic Tech Name Role Phone ELISABETH RAMIREZ Admitting Unavailable ELISABETH RAMIREZ Attending Unavailable UNKNOWN, PHYSICIAN Referring Unavailable UNKNOWN, PHYSICIAN Primary Care Unavailable SHAR KAUFMAN Attending Unavailable COVE, DR CODY Cummings Consulting Unavailable STEWART, DR [...] disease (2 sources) Atherosclerotic heart disease of eek coronary artery without angina pectoris; Translations: [Atherosclerotic heart disease of eek coronary artery without angina pectoris] Onset: 04-17-2022 [...] Onset: 09-07-2022 Chronic Other aftercare (1 source) 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; Translations: [M[facility] CURRENT USE OF ASPIRIN] Onset: 08-17-2022 Episodic Other aftercare (1 source) Other termite inspector (current) drug therapy; Translations: [OTH [facility] CURRENT DRUG THERAPY] Onset: 08-17-2022 Episodic Other [...] mg daily Continue all other meds Normal [facility] Office Visiton 07-18-2023 Follow-up visit [id number] India Moore 1940 F Date Provider Department Center 07/18/2023 120-AKILAH GARCIA [facility] Family History Problem Relation Age of Onset Heart failure Mother Family Status - Relation Status Age at Mother Level of Service:28959 LA OFFICE/OUTPATIENT ESTABLISHED MOD MDM 30 MIN Normal [facility] Office Visiton 01-22-2023 Follow-up visit [id number] India Moore 1940 F Date Provider Department Center 01/22/2023 Zenia-ELISABETH RAMIREZ EVET[facility] Family History Problem Relation Age of Onset Heart failure Mother Family Status - Relation Status Age at Mother Level of Service:75344 LA OFFICE/OUTPATIENT ESTABLISHED MOD MDM 30-39 MIN Normal [facility] BNPon 08-15-2022 Natriuretic peptide B (Bld) [Mass/Vol] 63.0 pg/mL Normal <=1,800.0 [facility] Comment on above: Performed By: #### B AREA INTELLIGENCE TECHNICIAN, TSH, CMP, CMADM #### [facility] Laboratory [address] [address] [address] Melecio Mcclelland CARDIAC RAYNA ADMITon 023 CK [Catalytic activity/Vol] 124 U/L Normal 26-192 [facility] Comment on above: Performed By: #### B AREA INTELLIGENCE TECHNICIAN, TSH, CMP, CMADM #### [facility] [address] [address] [address] Melecio Mcclelland CK.MB [Mass/Vol] 0.69 ng/mL Normal <=3.60 [facility] Comment on above: Performed By: #### B AREA INTELLIGENCE TECHNICIAN, TSH, CMP, CMADM #### [facility] [address] [address] [address] Melecio Mcclelland HSTROP 15.8 pg/mL Normal 4.0-51.3 [facility] Comment on above: Result Comment: CUT- OFF POINTS HAVE BEEN ESTABLISHED BASED ON THE FOURTH UNIVERSAL DEFINITIONS OF MYOCARDIAL INFARCTION. THE UPPER REFERENCE LIMIT (URL) OF TROPONIN, DEFINED THE 99TH PERCENTILE OF cTnI DISTRIBUTION IN A REFERENCE POPULATION, HAS BEEN CONFIRMED THE DECISION THRESHOLD FOR MT DIAGNOSIS. Performed By: #### B AREA INTELLIGENCE TECHNICIAN, TSH, CMP, CMADM #### [facility] [address] [address] [address] Melecio Mcclelland MATY 173 ng/mL Critically high 9-82 [facility] Comment on above: Performed By: #### B AREA INTELLIGENCE TECHNICIAN, TSH, CMP, CMADM #### [facility] [address] [address] [address] Melecio Mcclelland CBC AUTO DIFFon 08-15-2022 BASO # 0.0 103/ul Normal 0.0-0.1 [facility] Comment on above: Performed By: #### C BC ####[facility] [address] [address]DrBroderick Mcclelland Basophils/100 WBC (Bld) 0.2 % Normal 0.2-2.0 [facility] Comment on above: Performed By: #### C BC ####[facility] [address] [address]Dr. Melecio Mcclelland EO # 0.0 103/ul Normal 0.0-0.7 [facility] Comment on above: Performed By: #### C BC ####[facility] [address] [address]Dr. Melecio Mcclelland Eosinophils/100 WBC (Bld) 0.0 % Critically low 0.9-7.0 [facility] Comment on above: Performed By: #### C BC ####[facility] [address] [place], [place] [address]Dr. Isismartha Mcclelland Erythrocyte distribution width (RBC) [Ratio] 13.3 % Normal 11.0-15.0 [facility] Comment on above: Performed By: #### C BC ####[facility] [address] [place], [place] [address]Dr. Melecio Mcclelland Hematocrit (Bld) [Volume fraction] 35.7 % Critically low 36.0-48.0 [facility] Comment on above: Performed By: #### C BC ####[facility] [address] [place], [place] [address]Dr. Melecio Mcclelland Hemoglobin (Bld) [Mass/Vol] 11.7 g/dL Critically low 12.0-16.0 [facility] Comment on above: Performed By: #### C BC ####[facility] [address] [place], [place] [address]Dr. Melecio Mcclelland IG # 0.01 10e3/ul Normal 0.00-0.03 [facility] Comment on above: Performed By: #### C BC ####[facility] [address] [place], [place] [address]Dr. Melecio Mcclelland IG % 0.2 % Normal 0.0-0.5 [facility] Comment on above: Performed By: #### C BC ####[facility] [address] [place], [place] [address]Dr. Melecio Mcclelland LYMPH # 1.2 103/ul Normal 1.2-3.8 [facility] Comment on above: Performed By: #### C BC ####[facility] [address] [place], [place] [address]Dr. Melecio Mcclelland Lymphocytes/100 WBC (Bld) 22.1 % Normal 20.5-60.0 [facility] Comment on above: Performed By: #### C BC ####[facility] [address] [place], [place] [address]Dr. Melecio Mcclelland MANUAL DIFF REQ NO Normal [facility] Comment on above: Performed By: #### C BC ####[facility] [address] [address]Dr. Melecio Mcclelland MCH (RBC) [Entitic mass] 31.3 pg Normal 26.7-34.0 [facility] Comment on above: Performed By: #### C BC ####[facility] [address] [address]Dr. Melecio Mcclelland MCHC (RBC) [Mass/Vol] 32.8 g/dL Normal 29.9-35.2 [facility] Comment on above: Performed By: #### C BC ####[facility] Kw[address] [place], [place] [address]Dr. Melecio Mcclelland MCV (RBC) [Entitic vol] 95.5 fL Normal 81.0-99.0 [facility] Comment on above: Performed By: #### C BC ####[facility] R[address] [place], [place] [address]Dr. Melecio Mcclelland MONO # 0.6 103/ul Normal 0.3-0.8 [facility] Comment on above: Performed By: #### C BC ####[facility] R[address] [place], [place] [address]Dr. Melecio Mcclelland Monocytes/100 WBC (Bld) 10.4 % Normal 1.7-12.0 [facility] Comment on above: Performed By: #### C BC ####[facility] [address] [place], [place] [address]DrBroderick Mcclelland NEUT # 3.6 103/ul Normal 1.4-6.5 [facility] Comment on above: Performed By: #### C BC ####[facility] [address] [place], [place] [address]Dr. Melecio Mcclelland Neutrophils/100 WBC (Bld) 67.1 % Normal 43.0-75.0 [facility] Comment on above: Performed By: #### C BC ####[facility] [address] [place], [place] [address]Dr. Melecio Mcclelland Platelet mean volume (Bld) [Entitic vol] 10.1 fL Normal 9.5-13.5 [facility] Comment on above: Performed By: #### C BC ####[facility] [address] [address]Dr. Melecio Mcclelland PLT 159 103/ul Normal 150-450 [facility] Comment on above: Performed By: #### C BC ####[facility] [address] [address]Dr. Melecio Mcclelland RBC 3.74 106/ul Critically low 4.20-5.40 [facility] Comment on above: Performed By: #### C BC ####[facility] [address] [address]Dr. Melecio Mcclelland WBC 5.3 103/ul Normal 4.0-11.0 [facility] Comment on above: Performed By: #### C BC ####[facility] [address] [address]Dr. Melecio Mcclelland CULTURE BLOODon 08-15-2022 Microscopic examination of blood, culture Culture Observations: NO GROWTH AT 5 DAYS. Normal [facility] Comment on above: Performed By: #### B LDCX2 ####[facility] [address] [place], [place] [address]Dr. Melecio Mcclelland Microscopic examination of blood, culture Culture Observations: NO GROWTH AT 5 DAYS. Normal [facility] Comment on above: Performed By: #### B LDCX1 ####[facility] [address] [place], [place] [address]Dr. Melecio Mcclelland Covid-19 PCR (CVDTB)on 07-24 SARS-CoV-2 (COVID-19) RNA MEME+probe Ql (Unsp spec) Detected Abnormal NOT DETECTED [facility] Comment on above: Result Comment: This test is not yet approved or cleared by the [place] FDA. When there are no FDA-approved or cleared tests available, and other criteria are met, FDA can make tests available under an emergency access mechanism called an Emergency Use Authorization (EUA). The EUA for this test is supported by the [place] of Health and Human Service's declaration that [...] used). Performed By: #### C VDTBH #### [facility] [address] [address] [address] Melecio Mcclelland INFLUENZA A AND B AGon 08-15 INFLUANEGH SEE BELOW Normal [facility] Comment on above: Result Comment: Nega tive for Flu A protein angiten. Infection due to Flu A cannot be ruled out. Flu A angiten in the sample may be below the detection limit of the test. Performed By: #### I NFLUAB ####[facility] [address] [place], [place] [address]Dr. Melecio Mcclelland INFLUBNEG SEE BELOW Normal [facility] Comment on above: Result Comment: Nega tive for Flu B protein antigen. Infection due to Flu B cannot be ruled out. Flu B antigen in the sample may be below the detection limit of the test. Performed By: #### I NFLUAB ####[facility] [address] [place], [place] [address]Dr. Melecio Mcclelland INFLUENZA A AG Negative Normal NEGATIVE SEE COMMENT [facility] Comment on above: Performed By: #### I NFLUAB ####[facility] [address] [place], [place] [address]DrBroderick Mcclelland INFLUENZA B AG Negative Normal NEGATIVE SEE COMMENT [facility] Comment on above: Performed By: #### I NFLUAB ####[facility] [address] [place], [place] [address]DrBroderick Mcclelland LACTATE/LACTIC ACIDon 2022 Lactate [Moles/Vol] 1.0 mmol/L Normal 0.4-1.9 [facility] Comment on above: Performed By: #### L ACT ####[facility] [address] [place], [place] [address]DrBroderick Mcclelland PROF 14(COMP METB)on 023 Albumin [Mass/Vol] 3.1 g/dL Critically low 3.4-5.0 Th e [facility] Comment on above: Performed By: #### B AREA INTELLIGENCE TECHNICIAN, TSH, CMP, CMADM #### [facility] Laboratory [address] [place] [address] Dr. Melecio Mcclelland Albumin/Globulin [Mass ratio] 1.0 {ratio} Normal [facility] Comment on above: Performed By: #### B AREA INTELLIGENCE TECHNICIAN, TSH, CMP, CMADM #### [facility] [address] [place] [address] Dr. Melecio Mcclelland ALP [Catalytic activity/Vol] 100 U/L Normal 46-116 [facility] Comment on above: Performed By: #### B AREA INTELLIGENCE TECHNICIAN, TSH, CMP, CMADM #### [facility] [address] [place] [address] Dr. Melecio Mcclelland ALT [Catalytic activity/Vol] 35 U/L Normal 14-59 [facility] Comment on above: Performed By: #### B AREA INTELLIGENCE TECHNICIAN, TSH, CMP, CMADM #### [facility] [address] [place] [address] Dr. Melecio Mcclelland Anion gap [Moles/Vol] 12.1 mmol/L Normal [facility] Comment on above: Performed By: #### B AREA INTELLIGENCE TECHNICIAN, TSH, CMP, CMADM #### [facility] [address] [place] [address] Dr. Melecio Mcclelland AST [Catalytic activity/Vol] 34 U/L Normal 15-37 [facility] Comment on above: Performed By: #### B AREA INTELLIGENCE TECHNICIAN, TSH, CMP, CMADM #### [facility] [address] [place] [address] Dr. Melecio Mcclelland Bilirubin [Mass/Vol] 0.7 mg/dL Normal 0.2-1.0 [facility] Comment on above: Performed By: #### B AREA INTELLIGENCE TECHNICIAN, TSH, CMP, CMADM #### [facility] [address] [place] [address] Dr. Melecio Mcclelland Calcium [Mass/Vol] 8.8 mg/dL Normal 8.5-10.1 [facility] Comment on above: Performed By: #### B AREA INTELLIGENCE TECHNICIAN, TSH, CMP, CMADM #### [facility] [address] [address] [address] Melecio Mcclelland Chloride [Moles/Vol] 105 mmol/L Normal 98-107 [facility] Comment on above: Performed By: #### B AREA INTELLIGENCE TECHNICIAN, TSH, CMP, CMADM #### [facility] [address] [address] [address] Melecio Mcclelland CO2 [Moles/Vol] 29.2 mmol/L Normal 21.0-32.0 [facility] Comment on above: Performed By: #### B AREA INTELLIGENCE TECHNICIAN, TSH, CMP, CMADM #### [facility] [address] [place] [address] Dr. Melecio Mcclelland Creatinine [Mass/Vol] 1.09 mg/dL Critically high 0.55-1.02 [facility] Comment on above: Performed By: #### B AREA INTELLIGENCE TECHNICIAN, TSH, CMP, CMADM #### [facility] [address] [place] [address] Dr. Melecio Mcclelland EGFR-AF GUINEAN 58 mL/min/1.73m2 Critically low >=60 [facility] Comment on above: Performed By: #### B AREA INTELLIGENCE TECHNICIAN, TSH, CMP, CMADM #### [facility] [address] [place] [address] Dr. Meleico Mcclelland EGFR-NON AF GUINEAN 48 mL/min/1.73m2 Critically low >=60 [facility] Comment on above: Performed By: #### B AREA INTELLIGENCE TECHNICIAN, TSH, CMP, CMADM #### [facility] [address] [place] [address] Dr. Melecio Mcclelland Globulin (S) [Mass/Vol] 3.0 g/dL Normal [facility] Comment on above: Performed By: #### B AREA INTELLIGENCE TECHNICIAN, TSH, CMP, CMADM #### [facility] [address] [place] [address] Dr. Melecio Mcclelland Glucose [Mass/Vol] 92 mg/dL Normal 74-106 [facility] Comment on above: Performed By: #### B AREA INTELLIGENCE TECHNICIAN, TSH, CMP, CMADM #### [facility] [address] [address] [address] Melecio Mcclelland Potassium [Moles/Vol] 4.3 mmol/L Normal 3.5-5.1 [facility] Comment on above: Performed By: #### B AREA INTELLIGENCE TECHNICIAN, TSH, CMP, CMADM #### [facility] [address] [address] [address] Melecio Mcclelland Protein [Mass/Vol] 6.1 g/dL Critically low 6.4-8.2 [facility] Comment on above: Performed By: #### B AREA INTELLIGENCE TECHNICIAN, TSH, CMP, CMADM #### [facility] [address] [address] [address] Melecio Mcclelland Sodium [Moles/Vol] 142 mmol/L Normal 136-145 [facility] Comment on above: Performed By: #### B AREA INTELLIGENCE TECHNICIAN, TSH, CMP, CMADM #### [facility] [address] [address] [address] Melecio Mcclelland Urea nitrogen [Mass/Vol] 29.0 mg/dL Critically high 7.0-18.0 [facility] Comment on above: Performed By: #### B AREA INTELLIGENCE TECHNICIAN, TSH, CMP, CMADM #### [facility] [address] [address] [address] Melecio Mcclelland Urea nitrogen/Creatinine [Mass ratio] 26.6 mg/mg Normal [facility] Comment on above: Performed By: #### B AREA INTELLIGENCE TECHNICIAN, TSH, CMP, CMADM #### [facility] [address] [address] [address] Melecio Mcclelland PROTIMEon 08-15-2022 INR Coag (PPP) [Relative time] 1.03 {INR} Normal [facility] Comment on above: Performed By: #### P T, PTT ####[facility] [address] [address]Dr. Melecio Mcclelland INR GUIDELINES SEE BELOW Normal [facility] Comment on above: Result Comment: TRINA RED INR: 2.0 - 3.0 CONDITIONS NOT LISTED BELOW 2.5 - 3.5 FOR PROSTHETIC HEART VALVE REPLACEMENT 2.5 - 3.5 RECURRENT THROMBOSIS Performed By: #### P T, PTT ####[facility] [address] [place], [place] [address]Xj. Melecio Mcclelland PT Coag (PPP) [Time] 10.9 s Normal 9.0-11.6 [facility] Comment on above: Performed By: #### P T, PTT ####[facility] [address] [place], [place] [address]Se. Melecio Mcclelland PTTon 08-15-2022 aPTT Coag (Bld) [Time] 30.5 s Normal 22.3-36.2 [facility] Comment on above: Performed By: #### P T, PTT ####[facility] [address] [place], [place] [address]Ze. Melecio Mcclelland TSHon 08-15-2022 TSH 1.361 uIU/mL Normal 0.358-3.740 [facility] Comment on above: Performed By: #### B AREA INTELLIGENCE TECHNICIAN, TSH, CMP, CMADM ####[facility] [address] [place], [place] [address]Bv. Melecio Mcclelland XR CHEST 1 Von 08-15-2022 [...] by: DANIEL ANAND Date: 2022-08-15 10:52 Normal [facility] Office Visiton 07-31-2022 Follow-up visit [id number] India Moore 1940 F Date Provider Department Center 07/31/2022 271-ELISABETH RAMIREZ [facility] Family History Problem Relation Age of Onset Heart failure Mother Family Status - Relation Status Age at Mother Level of Service:89042 LA OFFICE/OUTPATIENT ESTABLISHED LOW MDM 20-29 MIN Reason for Visit and Comments: Coronary Artery Disease [187] Hypertension [086280] pulmonary embolism [Other] Normal [facility] ECHOCARDIO M/2D COMPLETEon 0 02-01-2022 ECHOCARDIO M/2D COMPLETE Patient: INDIA MOORE Exam Date: 02/01/2022 : 1940 Gender:F Ordering : SHAR KAUFMAN Admission #: [id number] Family : DR JODY STEWART M.D. Order #: [id number] CLICK HERE TO VIEW EXAM ECHOCARDIOGRAM REPORT [...] Burkett M.D. on 02/01/2022 at 21:28 Normal [facility] US KELLI DOP LEG BILon 022 US [...] by: CODY GOMES Date: 2022-02-01 18:50 Normal [facility] VC VENOUS REFLUX JERRY LMTon 0 01-11-2022 VC VENOUS REFLUX JERRY LMT Patient: INDIA MOORE Exam Date: 01/11/2022 : 1940 Gender:F Ordering : SHAR Rolan KAUFMAN Admission #: [id number] Family : Order #: [id number] CLICK HERE TO VIEW EXAM RADIOLOGY REPORT [...] Varicosity in distal/medial lower leg off of foreign languages professor measures 7.8 mm with 0.8s reflux. incompetent [...] of thrombus. Flow: Mild deep venous reflux. Client Technical Professional: Prox/med calf 4.4 mm with 3.7s reflux. Tech Note: GSV becomes tortuous approximately 9cm from SFJ. AASV is tortuous proximally with adjacent arteries. Thigh extension of left SSV. SSV is tortuous with non-occlusive thrombus mid calf. Thrombus visualized in varicosity and associated foreign languages professor medial/distal calf 6.4mm from PTV. Varicosity proximal/medial/posteri or calf measures 4.5 mm with 1.2s reflux. CONCLUSION: 1. Right leg: Dilated and incompetent great saphenous vein, small saphenous vein, foreign languages professor veins, and branch saphenous varicosities. 2. Left [...] M.D. on 01/11/2022 at 11:39 Normal [facility] BNPon 10-12-2021 Natriuretic peptide B (Bld) [Mass/Vol] 192.0 pg/mL Normal <=1,800.0 [facility] Comment on above: Performed By: #### C MP, BNP, LIPID #### [facility] [address] [place], [place] [address] Dr. Melecio Mcclelland CBC AUTO DIFFon 10-12-2021 BASO # 0.0 103/ul Normal 0.0-0.1 [facility] Comment on above: Performed By: #### C BC ####[facility] [address] [address]DrBroderick Mcclelland Basophils/100 WBC (Bld) 0.4 % Normal 0.2-2.0 [facility] Comment on above: Performed By: #### C BC ####[facility] [address] [address]Dr. Melecio Mcclelland EO # 0.3 103/ul Normal 0.0-0.7 [facility] Comment on above: Performed By: #### C BC ####[facility] [address] [place], [place] [address]DrBroderick Mcclelland Eosinophils/100 WBC (Bld) 2.9 % Normal 0.9-7.0 [facility] Comment on above: Performed By: #### C BC ####[facility] [address] [place], [place] [address]Dr. Melecio Mcclelland Erythrocyte distribution width (RBC) [Ratio] 13.1 % Normal 11.0-15.0 [facility] Comment on above: Performed By: #### C BC ####[facility] [address] [place], [place] [address]Dr. Melecio Mcclelland Hematocrit (Bld) [Volume fraction] 38.4 % Normal 36.0-48.0 [facility] Comment on above: Performed By: #### C BC ####[facility] [address] [place], [place] [address]DrBroderick Mcclelland Hemoglobin (Bld) [Mass/Vol] 12.2 g/dL Normal 12.0-16.0 [facility] Comment on above: Performed By: #### C BC ####[facility] [address] [place], [place] [address]Dr. Melecio Mcclelland IG # 0.03 10e3/ul Normal 0.00-0.03 [facility] Comment on above: Performed By: #### C BC ####[facility] [address] [address]DrBroderick Melecio Mcclelland IG % 0.3 % Normal 0.0-0.5 [facility] Comment on above: Performed By: #### C BC ####[facility] [address] [address]DrBroderick Melecio Mcclelland LYMPH # 1.8 103/ul Normal 1.2-3.8 [facility] Comment on above: Performed By: #### C BC ####[facility] [address] [place], [place] [address]DrBroderick Melecio Mcclelland Lymphocytes/100 WBC (Bld) 19.3 % Critically low 20.5-60.0 [facility] Comment on above: Performed By: #### C BC ####[facility] [address] [place], [place] [address]DrBroderick Melecio Mcclelland MANUAL DIFF REQ NO Normal [facility] Comment on above: Performed By: #### C BC ####[facility] [address] [place], [place] [address]Dr. Melecio Mcclelland MCH (RBC) [Entitic mass] 30.2 pg Normal 26.7-34.0 [facility] Comment on above: Performed By: #### C BC ####[facility] [address] [place], [place] [address]DrBroderick Melecio Mcclelland MCHC (RBC) [Mass/Vol] 31.8 g/dL Normal 29.9-35.2 [facility] Comment on above: Performed By: #### C BC ####[facility] [address] [place], [place] [address]DrBroderick Melecio Mcclelland MCV (RBC) [Entitic vol] 95.0 fL Normal 81.0-99.0 [facility] Comment on above: Performed By: #### C BC ####[facility] [address] [place], [place] [address]DrBroderick Melecio Stas MONO # 0.5 103/ul Normal 0.3-0.8 [facility] Comment on above: Performed By: #### C BC ####[facility] [address] [place] [id number]. Melecio Mcclelland Monocytes/100 WBC (Bld) 4.9 % Normal 1.7-12.0 [facility] Comment on above: Performed By: #### C BC ####[facility] [address] [place] [id number]. Melecio Mcclelland NEUT # 6.6 103/ul Critically high 1.4-6.5 [facility] Comment on above: Performed By: #### C BC ####[facility] [address] [place] [address]Dr. Melecio Mcclelland Neutrophils/100 WBC (Bld) 72.2 % Normal 43.0-75.0 [facility] Comment on above: Performed By: #### C BC ####[facility] [address] [place] [address]Dr. Melecio Mcclelland Platelet mean volume (Bld) [Entitic vol] 10.6 fL Normal 9.5-13.5 [facility] Comment on above: Performed By: #### C BC ####[facility] [address] [place] [id number]. Melecio Mcclelland PLT 186 103/ul Normal 150-450 [facility] Comment on above: Performed By: #### C BC ####[facility] [address] [place] [id number]. Melecio Mcclelland RBC 4.04 106/ul Critically low 4.20-5.40 [facility] Comment on above: Performed By: #### C BC ####[facility] [address] [place] [id number]. Melecio Mcclelland WBC 9.2 103/ul Normal 4.0-11.0 [facility] Comment on above: Performed By: #### C BC ####[facility] [address] [place] [id number]. Melecio Mcclelland LIPID PROFILEon 10-12-2021 CHOL-HDL RATIO NORM SEE BELOW Normal [facility] Comment on above: Result Comment: 3.3 - 4.4 LOW RISK 4.4 - 7.1 AVERAGE RISK 7.1 - 11.0 MODERATE RISK >11.0 HIGH RISK Performed By: #### C MP, BNP, LIPID #### [facility] [address] [address] [address] Melecio Mcclelland Cholesterol [Mass/Vol] 101 mg/dL Normal <=200 [facility] Comment on above: Performed By: #### C MP, BNP, LIPID #### [facility] [address] [address] [address] Melecio Mcclelland Cholesterol in HDL [Mass/Vol] 49 mg/dL Normal 40-60 [facility] Comment on above: Performed By: #### C MP, BNP, LIPID #### [facility] [address] [address] [address] Melecio Mcclelland Cholesterol in LDL [Mass/Vol] 43.6 mg/dL Normal [facility] Comment on above: Performed By: #### C MP, BNP, LIPID #### [facility] [address] [address] [address] Melecio Mcclelland Cholesterol.total/C holesterol in HDL [Mass ratio] 2.1 {ratio} Normal [facility] Comment on above: Performed By: #### C MP, BNP, LIPID #### [facility] [address] [address] [address] Melecio Mcclelland HDL NORMAL > or = 60 mg/dl - LO W CARDIOVASCULAR RISK <40 mg/dl - HIGH CARDIOVASCULAR RISK Normal [facility] Comment on above: Performed By: #### C MP, BNP, LIPID #### [facility] [address] [address] [address] Melecio Mcclelland LDL CALC NORMAL SEE BELOW Normal [facility] Comment on above: Result Comment: <100 mg/dl OPTIMAL 100 - 129 mg/dl NEAR OR ABOVE OPTIMAL 130 - 159 mg/dl BORDERLINE HIGH 160 - 189 mg/dl HIGH >190 mg/dl VERY HIGH Performed By: #### C MP, BNP, LIPID #### [facility] [address] [address] [address] Melecio Mcclelland Triglyceride [Mass/Vol] 42 mg/dL Normal <=150 [facility] Comment on above: Performed By: #### C MP, BNP, LIPID #### [facility] [address] [place] [address] Dr. Melecio Mcclelland VLDL CALC 8.4 mg/dL Normal [facility] Comment on above: Performed By: #### C MP, BNP, LIPID #### [facility] [address] [place] [address] Dr. Melecio Mcclelland PROF 14(COMP METB)on 022 Albumin [Mass/Vol] 3.5 g/dL Normal 3.4-5.0 [facility] Comment on above: Performed By: #### C MP, BNP, LIPID #### [facility] [address] [place] [address] Dr. Melecio Mcclelland Albumin/Globulin [Mass ratio] 1.2 {ratio} Normal [facility] Comment on above: Performed By: #### C MP, BNP, LIPID #### [facility] [address] [place] [address] Dr. Melecio Mcclelland ALP [Catalytic activity/Vol] 111 U/L Normal 46-116 [facility] Comment on above: Performed By: #### C MP, BNP, LIPID #### [facility] [address] [place] [address] Dr. Melecio Mcclelland ALT [Catalytic activity/Vol] 34 U/L Normal 14-59 [facility] Comment on above: Performed By: #### C MP, BNP, LIPID #### [facility] [address] [place] [address] Dr. Melecio Mcclelland Anion gap [Moles/Vol] 13.5 mmol/L Normal [facility] Comment on above: Performed By: #### C MP, BNP, LIPID #### [facility] [address] [place] [address] Dr. Melecio Mcclelland AST [Catalytic activity/Vol] 22 U/L Normal 15-37 [facility] Comment on above: Performed By: #### C MP, BNP, LIPID #### [facility] [address] [place] [address] Dr. Melecio Mcclelland Bilirubin [Mass/Vol] 1.2 mg/dL Normal 0.2-1.3 [facility] Comment on above: Performed By: #### C MP, BNP, LIPID #### [facility] [address] [place] [address] Dr. Melecio Mcclelland Calcium [Mass/Vol] 9.0 mg/dL Normal 8.5-10.1 [facility] Comment on above: Performed By: #### C MP, BNP, LIPID #### [facility] [address] [place] [address] Dr. Melecio Mcclelland Chloride [Moles/Vol] 110 mmol/L Critically high 98-107 [facility] Comment on above: Performed By: #### C MP, BNP, LIPID #### [facility] [address] [place] [address] Dr. Melecio Mcclelland CO2 [Moles/Vol] 25.5 mmol/L Normal 22.0-30.0 [facility] Comment on above: Performed By: #### C MP, BNP, LIPID #### [facility] [address] [place] [address] Dr. Melecio Mcclelland Creatinine [Mass/Vol] 1.02 mg/dL Normal 0.52-1.04 [facility] Comment on above: Performed By: #### C MP, BNP, LIPID #### [facility] [address] [place] [address] Dr. Melecio Mcclelland EGFR-AF GUINEAN >60 Normal >=60 [facility] Comment on above: Performed By: #### C MP, BNP, LIPID #### [facility] [address] [place] [address] Dr. Melecio Mcclelland EGFR-NON AF GUINEAN 52 mL/min/1.73m2 Critically low >=60 [facility] Comment on above: Performed By: #### C MP, BNP, LIPID #### [facility] [address] [place] [address] Dr. Melecio Mcclelland Globulin (S) [Mass/Vol] 3.0 g/dL Normal [facility] Comment on above: Performed By: #### C MP, BNP, LIPID #### [facility] [address] [address] [address] Melecio Mcclelland Glucose [Mass/Vol] 93 mg/dL Normal 74-106 The [facility] Comment on above: Performed By: #### C MP, BNP, LIPID #### [facility] [address] [address] [address] Melecio Mcclelland Potassium [Moles/Vol] 4.0 mmol/L Normal 3.4-5.0 [facility] Comment on above: Performed By: #### C MP, BNP, LIPID #### [facility] [address] [address] [address] Melecio Mcclelland Protein [Mass/Vol] 6.5 g/dL Normal 6.1-8.2 [facility] Comment on above: Performed By: #### C MP, BNP, LIPID #### [facility] [address] [address] [address] Melecio Mcclelland Sodium [Moles/Vol] 145 mmol/L Normal 137-145 The [facility] Comment on above: Performed By: #### C MP, BNP, LIPID #### [facility] [address] [address] [address] Melecio Mcclelland Urea nitrogen [Mass/Vol] 20.0 mg/dL Critically high 7.0-18.0 [facility] Comment on above: Performed By: #### C MP, BNP, LIPID #### [facility] [address] [address] [address] Melecio Mcclelland Urea nitrogen/Creatinine [Mass ratio] 19.6 mg/mg Normal [facility] Comment on above: Performed By: #### C MP, BNP, LIPID #### [facility] [address] [address] [address] Melecio Mcclelland US CAROTID ART BILon [...] DANIEL ANAND Date: 2021-10-12 13:56 Normal [facility] Cardiovascular Lab Reporton 06-17-2019 Cardiovascular Lab Report [facility] Patient Name: [facility] MR #: [id number] Department of Physician: Lorraine Harrison M.D. Division of Service Date: 06/16/2019 Cardiology Birthdate: 1940 Adult Cardiovascular Room #: [facility] [address] [facility] [place] [address] Cardiovascular Laboratory Report FINAL IMPRESSIONS: 1. Moderate [...] 5. Follow up with me in the [facility] in the next 2 months. 6. [...] right internal jugular vein was obtained. A 6-Solomon Islander 11 cm sheath was inserted without difficulty. [...] to access the right radial artery. A 6-[place] Islander Glidesheath was inserted without difficulty. Resistance advancing [...] engaged into the left main ostium. The Sensiotec pressure wire was advanced through the catheter [...] Ramirez M.D. Date Trans: 06/17/2019 05:53 Jose/ryan [id number] Normal [facility] Vital Signs Date Time Vital Sign Value Performing Clinician Facility 07-05-2023 11:45-0500 Body height 154.94 cm Jody Stewart Other [email or web address] Other 07-05-2023 11:45-0500 Body mass index (BMI) [Ratio] 37.67 kg/m2 Jody Stewart Other [email or web address] Other 07-05-2023 11:45-0500 Body weight 90.45 kg Jody Stewart Other [email or web address] Other 07-05-2023 11:45-0500 Diastolic blood pressure 84 mm[Hg] Jody Stewart Other [email or web address] Other 07-05-2023 11:45-0500 Systolic blood pressure 132 mm[Hg] Jody Stewart Other [email or web address] Other 04-05-2023 10:00-0400 Body height 154.94 cm Jody Stewart Other [email or web address] Other 04-05-2023 10:00-0400 Body mass index (BMI) [Ratio] 39.79 kg/m2 Jody Stewart Other [email or web address] Other 04-05-2023 10:00-0400 Body weight 95.53 kg Jody Stewart Other [email or web address] Other 04-05-2023 10:00-0400 Diastolic blood pressure 82 mm[Hg] Jody Stewart Other [email or web address] Other 04-05-2023 10:00-0400 Respiratory rate 12 /min Jody Stewart Other [email or web address] Other 04-05-2023 10:00-0400 Systolic blood pressure 122 mm[Hg] Jody Stewart Other [email or web address] Other 01-04-2023 10:00-0400 Body height 154.94 cm Jody Stewart Other [email or web address] Other 01-04-2023 10:00-0400 Body mass index (BMI) [Ratio] 40.62 kg/m2 Jody Stewart Other [email or web address] Other 01-04-2023 10:00-0400 Body weight 97.52 kg Jody Stewart Other [email or web address] Other 01-04-2023 10:00-0400 Diastolic blood pressure 78 mm[Hg] Jody Stewart Other [email or web address] Other 01-04-2023 10:00-0400 Systolic blood pressure 138 mm[Hg] Jody Stewart Other [email or web address] Other 10-05-2022 11:00-0400 Body height 154.94 cm Jody Stewart Other [email or web address] Other 10-05-2022 11:00-0400 Body mass index (BMI) [Ratio] 41.56 kg/m2 Jody Stewart Other [email or web address] Other 10-05-2022 11:00-0400 Body weight 99.79 kg Jody Stewart Other [email or web address] Other 10-05-2022 11:00-0400 Diastolic blood pressure 72 mm[Hg] Jody Stewart Other [email or web address] Other 10-05-2022 11:00-0400 SaO2% (BldA) [Mass fraction] 97 % Jody Stewart Other [email or web address] Other 10-05-2022 11:00-0400 Systolic blood pressure 120 mm[Hg] Jody Stewart Other [email or web address] Other 08-31-2022 11:00-0500 Body height 162.56 cm Jody Stewart Other [email or web address] Other 08-31-2022 11:00-0500 Body mass index (BMI) [Ratio] 38.62 kg/m2 Jody Stewart Other [email or web address] Other 08-31-2022 11:00-0500 Body weight 102.06 kg Jody Terry Other [email or web address] Other 08-31-2022 11:00-0500 Diastolic blood pressure 78 mm[Hg] Jody Stewart Other [email or web address] Other 08-31-2022 11:00-0500 Systolic blood pressure 116 mm[Hg] Jody Terry Other [email or web address] Other Encounters Encounter Date Encounter Type Care Provider Facility Start: 07-18-2023 ambulatory AKILAH GARCIA [facility] Start: 07-11-2023 End: 07-11-2023 ambulatory Jody Terry Other [email or web address] Other Start: 07-11-2023 Telephone encounter Jody Stewart [facility] Start: 07-10-2023 End: 07-10-2023 ambulatory Jody Terry Other [email or web address] Other Start: 07-10-2023 Telephone encounter Jody Terry [facility] Start: 07-09-2023 End: 07-09-2023 ambulatory Jody Stewart Other [email or web address] Other Start: 07-09-2023 Telephone encounter Jody Terry [facility] Start: 07-05-2023 End: 07-05-2023 ambulatory Jody Terry Other [email or web address] Other Start: 07-05-2023 Office outpatient vi sit 25 minutes Jody Stewart [facility] Start: 07-05-2023 Telephone encounter Jody Terry [facility] Start: 04-17-2023 End: 04-17-2023 ambulatory Jody Terry Other [email or web address] Other Start: 04-17-2023 Telephone encounter Jody Stewart [facility] Start: 04-10-2023 End: 04-10-2023 ambulatory Jody Stewart Other [email or web address] Other Start: 04-10-2023 Telephone encounter Jody Stewart [facility] Start: 04-05-2023 End: 04-05-2023 ambulatory Jody Stewart Other [email or web address] Other Start: 04-05-2023 Office outpatient vi sit 15 minutes Jody Stewart [facility] Start: 01-22-2023 End: 01-22-2023 ambulatory [facility] Start: 01-04-2023 End: 01-04-2023 ambulatory Jody Stewart Other [email or web address] Other Start: 01-04-2023 Office outpatient vi sit 15 minutes Jody Stewart [facility] Start: 10-05-2022 End: 10-05-2022 ambulatory Jody Stewart Other [email or web address] Other Start: 10-05-2022 Office outpatient vi sit 15 minutes Jody Stewart [facility] Start: 09-01-2022 Telephone encounter Jody Stewart [facility] Start: 09-01-2022 End: 09-02-[address] JODY STEWART Facility:[facility] Start: 08-31-2022 End: 08-31-2022 ambulatory Jody Stewart Other [email or web address] Other Start: 08-31-2022 Office outpatient vi sit 15 minutes Jody Stewart [facility] Start: 08-29-2022 End: 08-29-2022 ambulatory Jody Stewart Other [email or web address] Other Start: 08-29-2022 Telephone encounter Jody Stewart [facility] Start: 08-15-2022 End: 08-15-[address] JODY STEWART Facility:[facility] Start: 07-31-2022 End: 07-31-2022 ambulatory [facility] Start: 02-01-2022 End: 02-02-2022 ambulatory SHAR MANDEEP Facility:[facility] Start: 01-11-2022 End: 01-12-[address] Daniel Anand Facility:[facility] Start: 10-19-2021 End: 04-19-[address] JODY STEWART Facility:[facility] Start: 10-12-2021 End: 10-13-[address] Daniel Anand Facility:[facility] Start: 06-16-2019 End: 06-17-2019 Patient encounter procedure [facility] Facility:[facility] Immunizations Immunization Date Immunization Notes Care Provider Fa cility 05-25-2020 influenza virus vaccine, split virus (incl. purified surface antigen) Jody Stewart Other [email or web address] Other 05-07-2019 influenza virus vaccine, split virus (incl. purified surface antigen) Jody Stewart Other [email or web address] Other 07-23-2015 influenza virus vaccine, split virus (incl. purified surface antigen) Jody Stewart Other [email or web address] Other 07-23-2012 pneumococcal conjuga te vaccine, 13 valent Jody Stewart Other [email or web address] Other 03-23-2012 zoster vaccine, live Jody Stewart Other [email or web address] Other Payers Date Payer Category Payer Medicare [id number] 1959 Unknown [id number] 1959 Unknown [id number] 1940 Unknown [id number] 2.16.8 [id number] 1940 Unknown [id number] 2.16.84 [id number] 1940 Unknown [id number] 2.16.84 [id number] 1940 Unknown [id number] 2.16.84 [id number] 1940 Unknown [id number] 2.16.84 [id number] 1940 Unknown [id number] 2.16.84 [id number] 1940 Unknown [id number] 2.16.84 [id number] Social History Date Type Detail Facility Unknown if ever smoked [email or web address] Other Sex Assigned At Sex Assigned At Bir th [email or web address] Other Clinical Notes 07-31-2022 to 07-18-2023 Note Date & Type Note Facility 07-18-2023 Note Currently stable [facility] 07-18-2023 Note Coronary artery dise ase is Stable without any concerning symptoms today Recent evaluation at [facility]- showed normal troponin levels, EKG without acute/concerning changes, and CT chest showed chronic PE Continue GDMT- lipitor, coreg, losartan [facility] 07-18-2023 Note Hypertension is curr ently well controlled, 110/60 Continue norvasc 5 mg, coreg 6.25 mg bid, aldactone 25 mg and decrease losartan to 100 mg daily- not bid. Continue to monitor b/p with goal is < 130/80 Call office if b/p is > than goal or for any concerns. RTC 1 month [facility] 07-18-2023 Note Continue xarelto anticoagulation [facility] 07-18-2023 Note [facility] CARDIOLOGY PROGR ESS NOTE HPI: India Moore is a 82 y.o. female here for ED F/U for SOB HPI Pt presented to [facility] ED on 07/11/23 for chest pain. PT has PMH: CAD, hypertension, and PE. Denies chest pain and bleeding on Xarelto Patient here for follow up [facility] ED for chronic PE. Her medication [...] Making MDM Narrative Medical decision making narrative: 1044 Patient case was discussed with her PCP, [...] or not. 1150 I spoke into the business operations manager, Dr. Cr. He recommended for patient to [...] troponin is negative. Patient will follow-up with [facility] clinic as recommended by a business operations manager from her phone call today and also continue to keep taking Xarelto. Critical care time 33 minutes exclusive from separate billable procedures that were performed. The following was considered in the determination of critical care but not limited to the level of medical decision making, intensive cardiac and/or respiratory monitoring, frequent vital sign monitoring, Emergency Department [id number] [facility] 3 Patient name: INDIA MOORE evaluation [...] Musculoskeletal: General: ambulato (more content not included)... [facility] 07-18-2023 Note Patient here for [facility] ED for chronic PE. Her medication states she's taking losartan 100mg bid. Review of Systems Constitutional: Positive for weight loss (14# since 01/22/2023). Cardiovascular: Positive for dyspnea on exertion and leg swelling. Gastrointestinal: Positive for bowel incontinence. Neurological: Positive for light-headedness. All other systems reviewed and are negative. [facility] 07-18-2023 Note [facility] II- currently e uvolemic without exacerbation Continue GDMT- with aldactone and Diuretic therapy- lasix 20 mg bid Monitor daily weights, I&O, fluid restriction 1.5-2L/day, renal function and electrolytes [facility] 07-11-2023 Evaluation note Encounter Date Diagnosis Assessment Notes Jun, Hx pulmonary embolism (ICD-10 - Z86.711) Jun, Dyspnea on exertion (ICD-10 - R06.09) [email or web address] Other 12-19-2023 Evaluation note* Encounter Date Diagnosis Assessment Notes Treatment Notes Treatment Clinical Notes Jun, Hx pulmonary embolism (ICD-10 - Z86.711) Jun, Dyspnea on exertion (ICD-10 - R06.09) [email or web address] Other 12-18-2023 Evaluation note* Encounter Date Diagnosis Assessment Notes Treatment Notes Treatment Clinical Notes Jun, Essential hypertension (ICD-10 - I10) [email or web address] Other 12-14-2023 Evaluation note* Encounter Date Diagnosis Assessment Notes Treatment Notes Treatment Clinical Notes Jun, Dyspnea on exertion (ICD-10 - R06.09) [email or web address] Other 12-14-2023 Evaluation note* Encounter Date Diagnosis [...] on exertion (ICD-10 - R06.09) as above [email or web address] Other 09-14-2023 Evaluation note* Encounter Date Diagnosis [...] Will assess thyroid for underlying metabolic cause. [email or web address] [...] continues to go to cardiac rehab at [facility]. Update 01/22/2023: Continues to be short [...] 1. 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 Has family in the area, but still struggles at times. Discussed safety. Agrees to starting aricept Dec, OAB (overactive bladder) (ICD-10 - N32.81) Chronic problem that has worsened. Dec, Essential hypertension (ICD-10 - I10) Followup w cardiology [email or web address] Other 03-16-2023 Evaluation note* Encounter Date Diagnosis Assessment Notes Treatment Notes Treatment Clinical Notes Sep, Injury of left knee, subsequent encounter (ICD-10 - S89.92XD) Improved from 1 month ago. bruising resolved. Using wheeled walker Sep, Essential hypertension (ICD-10 - I10) Stable. Sees cardio q6 months Sep, Balance disorder (ICD-10 - R26.89) Using wheeled walker Sep, Dyslipidemia (ICD-10 - E78.5) Stable on present meds. [email or web address] Other 02-10-2023 NotePROCEDURE: XR KNEE LT 3V [...] Electronically authenticated by: DANIEL ANAND Date: 2022-09-01 10:39[facility]02-09-2023 Evaluation note* Encounter Date Diagnosis Assessment Notes Treatment Notes Treatment Clinical Notes Aug, Acute pain of left knee (ICD-10 - M25.562) New problem - check xray today. Consider ortho referral if needed. Aug, Essential hypertension (ICD-10 - I10) chronic problem. refilled meds. [email or web address] Other 01-09-2023 [facility] Note Chief Complaint: Follow up [...] continues to go to cardiac rehab at [facility]. Echo 2020: EF 65 to 70%, [...] 5. Follow up with me in the [facility] in the next 2 months. 6. [...] extremity edema, p (more content not included)... [facility] CenterEvaluation noteNo InformationNortThe [facility] [employer] Other History general Narrative - Reported* Type [...] LAP ANTWON Hospitalization History SEE SURGICAL HX [facility] [employer] Other Summary Purpose Family History No Family History Records FoundNo Family History Records FoundNo Family History Records Found Advance Directives No Advanced Directives Records FoundNo Advanced Directives Records FoundNo Advanced Directives Records Found Reason for Referral Reason *FU 07/23 [place] office - tremor, burning sensation in R hand Diagnosis 1 Resting tremor (G25. 2) Referral Organization [facility] Referring Provider First Name Jody Referring Provider Last Name Terry Referring Provider Specialty Family [facility] Referred Organization [facility] Referred Provider Daniel Caceres Referred Address [address], [place],[address] Referred Provider Specialty Neurology Referral Priority Routine General Notes Paola Marrufo 01:27:27 PM >received today, form filled out, attachments made, notes locked, referral faxed Additional Source Comments INFORMATION SOURCE (unrecogn ized section and content) DATE CREATED AUTHOR 06/27/2019 [facility] DATE CREATED AUTHOR AUTHOR'S ORGANIZ ATION 09/08/2022 [facility] DATE CREATED AUTHOR AUTHOR'S ORGANIZ ATION 07/22/2023 [facility] REASON FOR VISIT (unrecogniz ed section [...] BE BASED ON THE PRIMARY CLINICAL RECORDS. [facility] [employer] [facility]. provides no warranty or guarantee of the accuracy or completeness of information in this document.
[2023-08-22 15:03] LABS: Estimated Average Glucose 97 mg/dL
== END 2023-08-22 11:24 | disposition home or self-care (01) ==
LOC: LAB 11:23
PROVIDERS: PCP Family Medicine; Visit Provider Family Medicine
DX: G25.2 Other specified forms of tremor (principal); I10 Essential (primary) hypertension; R06.09 Other forms of dyspnea
CPT/HCPCS: 36415; 80048; 82306; 82607; 82746; 83036; 84207; 85025

== ENCOUNTER 2024-01-29 07:19 | Outpatient (OUT) | payer OTHER, SELFPAY ==
--- NOTE | 2024-01-29 07:37 | MR_ITS ---
The [address] [address] Patient Name: ROLLY MOORE MRN: [id number] date: 1940 Sex: F Assigned Patient Location: LAB Current Patient Location: Accession/Order Number: [id number] Exam Date: 01/29/2024 07:55 Report Date: 01/30/2024 10:07 At the request of: KAVITA ALLISON Procedure: MR head/brain wo/w con MR head/brain wo/w con, 01/29/2024 7:55 AM EDT INDICATION: Dizziness, Falls COMPARISON: There is no appropriate prior study for comparison. TECHNIQUE: Multiplanar, multisequential MRI images of brain were obtained without and with injection of contrast. FINDINGS: The cerebral sulci as well as ventricular system are enlarged consistent with moderate ex vacuo cerebral volume loss. There is no restricted diffusion. Hyperintensities on T2 and FLAIR images in the trevino radiata and centrum semiovale with sparing of U fibers are nonspecific, statistically most likely consistent with microvascular ischemic changes. There is no intracranial mass, mass effect, midline shift, intra or extra-axial fluid collection or large hemorrhage. No abnormal enhancing lesion is noted. Normal flow-void in the intracranial vessels is noted. The visualized portions of orbits, mastoid air cells as well as paranasal sinuses are unremarkable. There is status post bilateral lens replacement. MR/MR head/brain wo/w con IMPRESSION: No acute intracranial process is noted. Electronically authenticated by: ANTHONY WESLEY Date: 01/30/2024 10:07
[2024-01-29 07:39] LABS: Estimated GFR (African America 32 (>=60); Estimated GFR (Non-African Ame 27 (>=60)
== END 2024-01-29 07:20 | disposition home or self-care (01) ==
LOC: LAB 07:19
PROVIDERS: PCP Family Medicine; Visit Provider Nurse Practitioner Family
DX: R42 Dizziness and giddiness (principal); W19.XXXS Unspecified fall, sequela
CPT/HCPCS: 36415; 70553; 82565; 84520; A9575

== ENCOUNTER 2024-01-31 10:14 | Emergency (ER) | payer OTHER, SELFPAY ==
[2024-01-31] VITALS (10 sets, daily range): BP systolic 99–114; BP diastolic 47–54; PULSE 46–57; TEMP 36.9; O2SAT 95–98; BMI 31.8
--- NOTE | 2024-01-31 10:33 | ECG_ITS ---
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
[2024-01-31] MEDS: 0.9 % SODIUM CHLORIDE 1,000 ML 999 ML IV (10:39)
[2024-01-31] MEDS: ONDANSETRON PF 4 MG/2 ML VIAL IV (10:40)
[2024-01-31 10:44] LABS: Basophils Absolute Auto 0.1 10^3/uL (0.0-0.1); Basophils Percent Auto 0.8 % (0.2-2.0); Eosinophils Absolute Auto 0.1 10^3/uL (0.0-0.7); Eosinophils Percent Auto 1.4 % (0.9-7.0); Hematocrit 39.6 % (36.0-48.0); Hemoglobin 12.6 g/dL (12.0-16.0); Immature Granulocytes Abs Auto 0.04 10^3/uL (0.00-0.03); Immature Granulocytes Pct Auto 0.4 % (0.0-0.5); Lymphocytes Absolute Auto 1.4 10^3/uL (1.2-3.8); Lymphocytes Percent Auto 14.5 % (20.5-60.0); Mean Corpuscular HGB Conc 31.8 g/dL (29.9-35.2); Mean Corpuscular Hemoglobin 32.6 pg (26.7-34.0); Mean Corpuscular Volume 102.3 fL (81.0-99.0); Mean Platelet Volume 11.5 fL (9.5-13.5); Monocytes Absolute Auto 0.6 10^3/uL (0.3-0.8); Monocytes Percent Auto 6.2 % (1.7-12.0); Neutrophils Absolute Auto 7.4 10^3/uL (1.4-6.5); Neutrophils Percent Auto 76.7 % (43.0-75.0); Platelet Count 180 10^3/uL (150-450); Red Blood Count 3.87 10^6/uL (4.20-5.40); Red Cell Distribution Width 12.6 % (11.0-15.0); White Blood Count 9.7 10^3/uL (4.0-11.0)
--- NOTE | 2024-01-31 10:55 | ED.GENADUL1 ---
HPI HPI - General Adult General Chief complaint: Weakness Stated complaint: DEHYDRATION Time Seen by Provider: 01/31/24 10:17 Source: patient Mode of arrival: Wheelchair Limitations: no limitations History of Present Illness HPI narrative: 83-year-old female to the emergency department chief complaint of dehydration. Patient reports that she began to feel ill 2 days ago with some mild nausea, abdominal cramping, diarrhea. She reports that things have slowed down however whenever she eats something she has watery diarrhea. She has been using hydration solution from drug [place] and water and has been keeping it down without issue. No vomiting. She reports that today she felt generally weak and slightly dizzy when she stands up. She believes she may be dehydrated. She denies any fever, sweats, chills. No blood in the diarrhea. She denies any abdominal pain. She denies any chest pain or shortness of breath. Related Data Home Medications ?Medication ?Instructions ?Recorded ?Confirmed amlodipine 5 mg tablet 5 mg PO DAILY 07/11/23 01/31/24 atorvastatin 80 mg tablet 80 mg PO DAILY 07/11/23 01/31/24 carvedilol 6.25 mg tablet 6.25 mg PO Q12H 07/11/23 01/31/24 empagliflozin 10 mg tablet 10 mg PO DAILY 07/11/23 01/31/24 (Jardiance) furosemide 20 mg tablet 20 mg PO Q12H 07/11/23 01/31/24 losartan 100 mg tablet 100 mg PO DAILY 07/11/23 01/31/24 nabumetone 750 mg tablet 750 mg PO BID 07/11/23 01/31/24 rivaroxaban 20 mg tablet (Xarelto) 20 mg PO Q24H 07/11/23 01/31/24 spironolactone 25 mg tablet 25 mg PO DAILY 07/11/23 01/31/24 blood sugar diagnostic ([employer] 01/31/24 01/31/24 Ultra Test strips) blood-glucose meter ([employer] 01/31/24 01/31/24 Ultra2 Meter) carbidopa 25 mg-levodopa 100 mg 1 tab PO DAILY 01/31/24 01/31/24 tablet folic acid 1 mg tablet 1 mg PO DAILY 01/31/24 01/31/24 Previous Rx's ?Medication ?Instructions ?Recorded Lactobacillus acidophilus 10 10,000 mmu cells PO DAILY #14 caps 07/11/24 billion cell capsule (Probiotic) cephalexin 500 mg capsule 500 mg PO BID 5 days #10 caps 01/31/24 ondansetron 4 mg disintegrating 4 mg PO Q8H PRN nausea and 01/31/24 tablet vomiting 4 days #16 tabs Allergies Allergy/AdvReac Type Severity Reaction Status Date / Time No Known Drug Allergies Allergy Verified 07/11/23 08:44 Opioid HPI Opioid Management Most Recent Opioid Data: No Data to Display Review of Systems ROS Status of ROS 10 or more systems reviewed and unremarkable except as noted in history and below Exam Narrative Exam Narrative: VITALS: I have reviewed the triage vital signs. GENERAL: Well developed, well appearing adult in no acute distress. Daughter at the bedside. NEURO: Alert and oriented. Moves all extremities. Face is symmetric and expressive. EYES: PERRL. No scleral icterus or conjunctival injection. No discharge. HENT: Normocephalic, atraumatic. Hearing is grossly intact. Nares grossly patent and without discharge. Mucous membranes moist. NECK: No JVD. Patient moves neck without restriction. CARDIO: Rhythm regular. Normal rate. No murmur, rub, or gallop. Pulses equal bilaterally in the upper and lower extremity. No lower extremity edema. PULM: Lungs clear to auscultation in all perez. No wheezes, rales, or rhonchi. No conversational dyspnea. No splinting, stridor, or accessory muscle use. GI/: Abdomen is soft and non-tender. Normoactive bowel sounds. EXTREMITIES: Symmetric muscle bulk. No joint swelling. No clubbing, cyanosis, or deformity. SKIN: Warm and dry. Normal turgor. No rash or lesions appreciated. PSYCH: Mood, affect, and interaction is appropriate to the setting. Constitutional Vital Signs, click to edit/add: Last Vital Signs Temp 98.5 F 01/31/24 10:22 Pulse 46 L 01/31/24 12:31 Resp 9 L 01/31/24 12:31 BP 114/47 L 01/31/24 12:31 Pulse Ox 98 01/31/24 12:31 O2 Del Method Room Air 01/31/24 10:22 Course Vital Signs Vital signs: Vital Signs Temperature 98.5 F 01/31/24 10:22 Pulse Rate 53 L 01/31/24 10:22 Respiratory Rate 16 01/31/24 10:22 Pulse Oximetry 95 01/31/24 10:22 Oxygen Delivery Method Room Air 01/31/24 10:22 Temperature 98.5 F 01/31/24 10:22 Pulse Rate 46 L 01/31/24 12:31 Respiratory Rate 9 L 01/31/24 12:31 Blood Pressure 114/47 L 01/31/24 12:31 Pulse Oximetry 98 01/31/24 12:31 Oxygen Delivery Method Room Air 01/31/24 10:22 Medical Decision Making MDM Narrative Medical decision making narrative: 83-year-old female to the emergency department with chief complaint of dehydration, generalized weakness, diarrhea. Vital stable, the patient is afebrile. Basic labs are ordered. EKG ordered. Fluids and Zofran ordered. Patient and her daughter agree with this plan. EKG sinus bradycardia, unchanged from previous. No evidence of ischemia. Her lab work is unremarkable. Baseline CKD. Urinalysis is concerning for UTI. Culture sent. Patient felt much improved after she got her liter of fluids. She is able to ambulate without difficulty. She feels back to her baseline. Keflex as prescribed. Zofran as prescribed. Discussed probiotic, risks of antibiotic already having diarrhea. Patient and her daughter agree with this plan. They will follow-up with PCP. Return precautions were discussed. All questions were answered. The patient was discharged home. Medical Records Medical records reviewed: Yes I reviewed the patient's medical records Lab Data Lab results reviewed: Yes I reviewed the patient's lab results Labs: Lab Results 01/31/24 01/31/24 Range/Units 10:27 12:00 WBC 9.7 (4.0-11.0) 10^3/uL RBC 3.87 L (4.20-5.40) 10^6/uL Hgb 12.6 (12.0-16.0) g/dL Hct 39.6 (36.0-48.0) % MCV 102.3 H (81.0-99.0) fL MCH 32.6 (26.7-34.0) pg MCHC 31.8 (29.9-35.2) g/dL RDW 12.6 (11.0-15.0) % Plt Count 180 (150-450) 10^3/uL MPV 11.5 (9.5-13.5) fL Neut % (Auto) 76.7 H (43.0-75.0) % Lymph % (Auto) 14.5 L (20.5-60.0) % Wharton % (Auto) 6.2 (1.7-12.0) % Eos % (Auto) 1.4 (0.9-7.0) % Baso % (Auto) 0.8 (0.2-2.0) % Neut # (Auto) 7.4 H (1.4-6.5) 10^3/uL Lymph # (Auto) 1.4 (1.2-3.8) 10^3/uL Wharton # (Auto) 0.6 (0.3-0.8) 10^3/uL Eos # (Auto) 0.1 (0.0-0.7) 10^3/uL Baso # (Auto) 0.1 (0.0-0.1) 10^3/uL Abs Immat Gran (auto) 0.04 H (0.00-0.03) 10^3/uL Imm/Tot Granulo (auto) 0.4 (0.0-0.5) % Sodium 140 (136-145) mmol/L Potassium 3.8 (3.5-5.1) mmol/L Chloride 103 (98-107) mmol/L Carbon Dioxide 28.7 (21.0-32.0) mmol/L Anion Gap 12.1 BUN 27.0 H (7.0-18.0) mg/dL Creatinine 1.90 H (0.55-1.02) mg/dL Est GFR ( Amer) 31 L (>=60) Est GFR (Non-Af Amer) 25 L (>=60) BUN/Creatinine Ratio 14.2 Glucose 112 H (74-106) mg/dL Calcium 9.7 (8.5-10.1) mg/dL Troponin I High Sens 19.2 (4.0-51.3) pg/mL Urine Color Lt. yellow (YELLOW) Urine Clarity Clear (CLEAR) Urine pH 6.0 (5.0-9.0) Ur Specific [place] <=1.005 A (1.005-1.025) Urine Protein Negative (NEG/TRACE) mg/dL Urine Glucose (UA) 250 A (NEGATIVE) mg/dL Urine Ketones Negative (NEGATIVE) mg/dL Urine Occult Blood Moderate A (NEGATIVE) Urine Nitrite Negative (NEGATIVE) Urine Bilirubin Negative (NEGATIVE) Urine Urobilinogen 0.2 (0.2-1.0) EU/dL Ur Leukocyte Esterase Trace A (NEGATIVE) Urine RBC 10-20 A (0-2) #/HPF Urine WBC 5-10 A (NONE SEEN) #/HPF Ur Squamous Epith Cells Few A (NONE/RARE) #/LPF Urine Crystals None seen (None Seen) #/HPF Urine Bacteria Moderate A (NONE SEEN) #/HPF Urine Casts Seen A (NONE SEEN) #/LPF Hyaline Casts Few Urine Mucus None seen (NONE SEEN) Ur Culture Indicated? Yes ECG Data Attestation: I personally reviewed and interpreted this ECG as follows: (Sinus bradycardia at a rate of 50. No ischemic changes. No STEMI. Normal QTc.) Discharge Plan Discharge Stand Alone Forms: Portal Instructions Chief Complaint: Weakness Clinical Impression: Dehydration, Diarrhea, Acute UTI Patient Disposition: Home, Self-Care Time of Disposition Decision: 12:51 Condition: Good Mode of Transportation: Private Vehicle Prescriptions / Home Meds: New cephalexin 500 mg capsule 500 mg PO BID 5 Days Qty: 10 0RF ondansetron 4 mg tablet,disintegrating 4 mg PO Q8H PRN (Reason: nausea and vomiting) 4 Days Qty: 16 0RF Probiotic 10 billion cell capsule 10,000 mmu cells PO DAILY Qty: 14 0RF No Action carbidopa-levodopa 25-100 mg tablet 1 tab PO DAILY folic acid 1 mg tablet 1 mg PO DAILY (DME) blood-glucose meter [OneTouch Ultra2 Meter] Misc MISCELLANEOUS (DME) OneTouch Ultra Test Strip MISCELLANEOUS atorvastatin 80 mg tablet 80 mg PO DAILY carvedilol 6.25 mg tablet 6.25 mg PO Q12H nabumetone 750 mg tablet 750 mg PO BID amlodipine 5 mg tablet 5 mg PO DAILY spironolactone 25 mg tablet 25 mg PO DAILY furosemide 20 mg tablet 20 mg PO Q12H losartan 100 mg tablet 100 mg PO DAILY Xarelto 20 mg tablet 20 mg PO Q24H Jardiance 10 mg tablet 10 mg PO DAILY Print Language: Mongolian Instructions: Dehydration (ED), Acute Diarrhea (ED), Urinary Tract Infection in Older Adults (ED) Additional Instructions: Call the office of your primary care doctor to arrange for follow-up within the above-stated timeframe. Your ED visit was focused on your acute issue and does not replace primary care. You should review your labs, imaging, and diagnoses from this ED visit with your primary care physician. There may be non-emergent/ incidental findings that need further evaluation. You should review your vital signs including blood pressure with your PCP. If you were prescribed medications you should discuss possible side-effects and drug interactions with your pharmacist. Call 911 or go to the nearest Emergency Department if you develop any new or worsening symptoms. Seek immediate medical attention if you develop: worsening abdominal pain, new or worsening nausea, new or worsening vomiting, new or worsening diarrhea, chest pain, shortness of breath, pain with urination, problems urinating, fever, chills, weakness, or any new or worsening symptoms. Referrals: Jody Rand MD [Primary Care Provider] - 1 week
[2024-01-31 11:06] LABS: Anion Gap 12.1; BUN Creatinine Ratio 14.2; Calcium 9.7 mg/dL (8.5-10.1); Carbon Dioxide 28.7 mmol/L (21.0-32.0); Chloride 103 mmol/L (98-107); Estimated GFR (African America 31 (>=60); Estimated GFR (Non-African Ame 25 (>=60); Glucose 112 mg/dL (74-106); Potassium 3.8 mmol/L (3.5-5.1); Sodium 140 mmol/L (136-145); Troponin I High Sensitivity 19.2 pg/mL (4.0-51.3)
[2024-01-31 12:11] LABS: Bilirubin Urine NEGATIVE (NEGATIVE); Blood Urine MODERATE (NEGATIVE); Clarity Urine CLEAR (CLEAR); Color Urine LT. YELLOW (YELLOW); Glucose Urine UA 250 mg/dL (NEGATIVE); Ketones Urine NEGATIVE (NEGATIVE); Leukocyte Esterase Urine TRACE (NEGATIVE); Nitrite Urine NEGATIVE (NEGATIVE); Protein Urine NEGATIVE (NEG/TRACE); Specific Gravity Urine <=1.005 (1.005-1.025); Urobilinogen Urine 0.2 EU/dL (0.2-1.0)
[2024-01-31 12:14] LABS: Urine Microscopic Indicated YES
[2024-01-31 12:30] LABS: Bacteria Urine MODERATE #/HPF (NONE SEEN); Cast Seen? SEEN #/LPF (NONE SEEN); Crystals Seen? None Seen #/HPF (None Seen); Hyaline Casts Urine FEW; Mucus Urine NONE SEEN (NONE SEEN); Squamous Epithelial Cell Urine FEW #/LPF (NONE/RARE)
[2024-01-31 12:31] LABS: Urine Culture Indicated YES
== END 2024-01-31 13:01 | disposition home or self-care (01) ==
PROVIDERS: Emergency Provider Student in an Organized Health Care Education/Training Program; PCP Family Medicine
DX: E86.0 Dehydration (principal); R19.7 Diarrhea, unspecified; N39.0 Urinary tract infection, site not specified
CPT/HCPCS: 36415; 80048; 81001; 84484; 85025; 87086; 93005; 96361; 96374; 99284; J2405

== ENCOUNTER 2024-04-10 13:33 | Outpatient (OUT) | payer MEDICARE, BC, SELFPAY ==
--- NOTE | 2024-04-10 13:54 | CA_ITS ---
Patient Name: ROLLY MOORE MR#: [id number] : 1940 Exam Date: 04/10/2024 Ordering Doctor: Non-Staff Physician ECHOCARDIOGRAM REPORT PROCEDURE: CA ECHO DOPPLER COMPLETE INDICATIONS: Diastolic heart failure COMPARISON: None. DESCRIPTION: COMPLETE ECHOCARDIOGRAM Real-time transthoracic echocardiography with 2D, M-mode, spectral and color flow Doppler performed. QUALITY: Technical quality was good. LEFT VENTRICLE: Normal chamber size. Borderline left ventricular hypertrophy. LV EF: Global left ventricular systolic function is hyperdynamic; visually estimated ejection fraction is 65 to 70%. No significant wall motion abnormalities. DIASTOLIC: Normal diastolic function. ATRIAL SEPTUM: Inadequately seen. LEFT ATRIUM: Normal chamber size. RIGHT ATRIUM: Normal chamber size. RIGHT VENTRICLE: Normal chamber size. Normal right ventricular systolic function. TRICUSPID VALVE: Normal mobility and thickness. Mild to moderate regurgitation. No evidence of pulmonary hypertension. RVSP 29mmHg MITRAL VALVE: Normal mobility and thickness. No evidence of mitral valve stenosis. Mild mitral annular calcification. AORTIC VALVE: Normal trileaflet appearance. Mildly calcified aortic valve. Normal leaflet mobility. No evidence of aortic valve stenosis. No aortic regurgitation. AORTIC ROOT: Normal diameter and appearance. PULMONIC VALVE: Normal thickness and mobility. No stenosis. Trivial regurgitation. PERICARDIUM: No evidence of pericardial effusion. IVC: Collapses with inspirations. Normal size. CONCLUSION: 1. Global left ventricular systolic function is hyperdynamic; visually estimated ejection fraction is 65 to 70% 2. Normal right ventricular size and systolic function 3. Borderline left ventricular hypertrophy 4. Normal diastolic function 5. The left atrium is normal in size 6. Mild to moderate tricuspid regurgitation Adult Echocardiography Procedure Report Left Ventricle LVEDD (3.7 - 5.6 cm): 4.50 cm LVESD (2.2 - 4.0 cm): 2.85 cm LVIVS thickness (0.6 - 1.2 cm): 0.99 cm LVPW thickness (0.5 - 1.0 cm): 1.03 cm e': 0.08 m/s E - e': 9.25 LVOT Max Gradient: 5.57 mm[Hg], 5.26 mm[Hg] LVOT Area (cm2): 1.16 m/s Peak Velocity (LVOT): 1.18 m/s, 1.15 m/s Mean Velocity (LVOT): 0.82 m/s LVOT Diameter 1.67 cm Left Ventricular Ejection Fraction: 64.64 % Left Atrium LA Volume Index (2D A2C): 34.42 ml/m2 Left Atrium Systolic Dimension: 3.98 cm Mitral Valve MV E to A Ratio: 0.88 Mitral Valve A-Wave Peak Velocity: 0.89 m/s Mitral Valve E-Wave Peak Velocity: 0.78 m/s Right Ventricle RV Internal Diastolic Dimension: 3.63 cm Aorta AO Root Diam: 2.71 cm Ascending Ao Diam: 3.26 cm Aortic Valve AoV Area (Peak Masoud): 1.49 cm2, 1.58 cm2, 1.41 cm2 AoV Area (VTI): 1.54 cm2, 1.62 cm2, 1.47 cm2 Peak Velocity(Antegrade Flow): 1.64 m/s, 1.79 m/s Peak Gradient(Antegrade Flow): 10.72 mm[Hg], 12.81 mm[Hg] Mean Velocity(Antegrade Flow): 1.17 m/s, 1.23 m/s Mean Gradient(Antegrade Flow): 6.22 mm[Hg], 6.90 mm[Hg] Velocity Time Integral: 40.67 cm, 44.47 cm Tricuspid Valve Peak Velocity (Regurgitant Flow): 2.42 m/s, 2.53 m/s, 2.38 m/s Pulmonic Valve Mean Gradient: 2.99 mm[Hg], 3.76 mm[Hg] Mean Velocity: 0.81 m/s, 0.93 m/s Peak Velocity: 1.20 m/s Peak Gradient: 5.09 mm[Hg], 6.56 mm[Hg] Right Atrium Right Atrium Systolic Pressure: 47.48 ml, 47.48 ml Dictated by: Elisabeth Ramirez M.D. on 04/11/2024 at 13:07 Approved by: Elisabeth Ramirez M.D. on 04/11/2024 at 13:10
== END 2024-04-10 13:34 | disposition home or self-care (01) ==
LOC: CARD 13:40
PROVIDERS: PCP Family Medicine
DX: I50.32 Chronic diastolic (congestive) heart failure (principal); I07.1 Rheumatic tricuspid insufficiency
CPT/HCPCS: 93306

== ENCOUNTER 2024-10-17 07:00 | Outpatient (OUT) | payer MEDICARE, BC, SELFPAY ==
--- OUTSIDE RECORDS SUMMARY | 2024-10-17 07:02 | XMS_ITS | CCD ---
Author Organization [facility] Care Team Providers Care Spinner Fixer Name Role Phone ELTAHAWY, EHAB A Admitting Unavailable ELTAHAWY, EHAB A Attending Unavailable UNKNOWN, PHYSICIAN Referring Unavailable UNKNOWN, PHYSICIAN Primary Care Unavailable SHAR KAUFMAN Attending Unavailable MUTUAL, DR CODY Cummings Consulting Unavailable STEWART, DR [...] Unavailable STEWART, DR JODY Scott Admitting Unavailable TERRY, DR JODY Scott Primary Care Unavailable JEIMY DUMONT Admitting Unavailable JEIMY DUMONT Attending Unavailable Cheng, DR Sanchez Consulting Unavailable JEIMY DUMONT Consulting Unavailable Jody Stewart Unavailable MD Jody Stewart Primary Care Provider EMILY Hoffmann Attending Provider Thania Hoffmann Admitting Unavailable Thania Hoffmann Attending Unavailable Jody Stewart Primary Care Unavailable Jody Stewart MD Primary Care Provider Kay Howard DO Unavailable KAVITA ALLISON Attending Unavailable KAY HOWARD Attending Unavailable ESTEFANY, KAVITA Attending Unavailable MAURICE VILLARREAL Attending Unavailable DANIEL DORADO Referring Unavailable AKSHAT MITCHELL Attending Unavailable DORADO, DANIEL Iglesias Referring Unavailable CESARIO KING Attending Unavailable DORADO, DANIEL Iglesias Referring Unavailable MAURICE VILLARREAL Attending Unavailable AVE, DANIEL Iglesias Referring Unavailable KAVITA ALLISON Attending Unavailable MAURICE VILLARREAL Attending Unavailable AVE, DANIEL Iglesias Referring Unavailable AKILAH FAJARDO Attending Unavailable DORADO, DANIEL Iglesias Referring Unavailable KAVITA ALLISON Attending Unavailable ESTEFANY, KAVITA Attending Unavailable SHAR KAUFMAN Attending Unavailable RADHA, AKILAH Attending Unavailable Medications Current Medications Medication Drug Class(es) Dates Sig (Normalized) Sig (Original) amLODIPine 5 mg oral tablet (20 sources) Dihydropyridine Calcium Channel Jaskaran Start: 08-29-2022 take 1 tablet by mouth once daily amLODIPine (Norvasc) 5 MG tablet Take 1 tablet by mouth Daily 04/19/2023 Active atorvastatin 80 mg oral tablet (20 sources) HMG-CoA Reductase Inhibitor Start: 05-10-2023 End: 02-27-2024 take 1 tablet by mouth once daily atorvastatin (Lipitor) 80 MG tablet Take 1 tablet by mouth Daily 05/10/2023 Active carbidopa 25 mg / levodopa 100 mg oral tablet (11 sources) Aromatic Amino Acid Decarboxylation Inhibitor, Aromatic Amino Acid Start: 06-23-2024 End: 09-19-2025 take 1.5 tablets by mouth in the morning, then take 1.5 tablets by mouth in the evening, then take 1.5 tablets by mouth at bedtime carbidopa-levodop a (Sinemet) 25-100 MG tablet Indications: Memory loss Take 1.5 tablets by mouth in the morning and 1.5 tablets in the evening and 1.5 tablets before bedtime. 405 tablet 3 09/24/2024 09/19/2025 Active Start: 03-25-2024 take 1 tablet by blayne th in the morning, then take 1 tablet by mouth in the evening, then take 1 tablet by mouth at bedtime carbidopa-levodopa (Sinemet) 25-100 MG tablet Indications: Memory loss TAKE 1 TABLET BY MOUTH IN THE MORNING 1 TABLET BY MOUTH IN THE EVENING AND 1 TABLET BY MOUTH AT BEDTIME 120 tablet 2 03/25/2024 Active carvedilol 6.25 mg oral tablet (20 sources) alpha-Adrenergic Jaskaran, beta-Adrenergic Jaskaran Start: 05-02-2023 take 1 tablet by mouth in the morning carvedilol (Coreg) 6.25 MG tablet Take 6.25 mg by mouth in the morning and 6.25 mg in the evening. Take with meals. 05/02/2023 Active cholecalciferol 0.05 mg oral capsule (2 sources) Vitamin D Prevagen 10 MG as directed Orally Active donepezil hydrochloride 10 mg oral tablet (20 sources) Start: 01-01-2024 take 1 tablet by mouth at bedtime donepezil (Aricept) 10 MG tablet Take 10 mg by mouth at bedtime 01/01/2024 Active Start: 10-20-2023 End: 02-27-2024 take 1 tablet by mouth at bedtime Donepezil 10 mg tablet Discontinued 0 .ROUTE .COMPLEX February 21, 2024 7:29am February 27, 2024 8:50pm take 1 tablet by mouth at bedtime Start: 10-20-2023 End: 02-27-2024 take 1 tablet by mouth at bedtime Donepezil Active 0 .ROUTE .COMPLEX 90 February 27, 2024 9:50pm take 1 tablet by mouth at bedtime Start: 09-26-2023 End: 10-20-2023 take 1 tablet by mouth once daily at bedtime Donepezil 10 mg tablet Discontinued 10 MG PO Daily at bedtime October 09, 2023 11:22am October 20, 2023 8:17am FreeTextSi tablet at bedtime Orally Once a day; Note: Source Status: Taking; Refills: 1; Qty: 90 Tablet; Provider: Terry Scott Start: 01-04-2023 take 1 tablet by blayne th at bedtime donepezil (Aricept) 5 MG tablet Take 5 mg by mouth at bedtime 01/04/2023 Active Start: 01-04-2023 take 1 tablet by blayne th every twenty-four hours Aricept 10 MG 1 tablet at bedtime Orally Once a day for 90 days Dec, Active empagliflozin 10 mg oral tablet (20 sources) Sodium-Glucose Cotransporter 2 Inhibitor Start: 01-22-2023 take 1 tablet by mouth once daily empagliflozin (Jardiance) 10 MG Take 1 tablet by mouth Daily 01/22/2023 Active folic acid 1 mg oral tablet (20 sources) Start: 01-04-2024 take 1 tablet by mouth once daily folic acid (Folvite) 1 MG tablet Take 1,000 mcg by mouth Daily 01/04/2024 Active Start: 12-04-2023 take 1 tablet by blayne th once daily Folic Acid 1 mg tablet Active 0 .ROUTE .COMPLEX December 04, 2023 12:13pm take 1 tablet by mouth once daily Start: 09-26-2023 End: 12-04-2023 take 1 tablet by mouth once daily Folic Acid 1 mg tablet Discontinued 1 TAB PO Daily September 26, 2023 12:00am December 04, 2023 12:13pm FreeTextSi tablet Orally Once a day; Note: Source Status: Start; Refills: 3; Provider: Terry Scott furosemide 20 mg oral tablet (20 sources) Loop Diuretic Start: 08-29-2022 take 1 tablet by mouth once daily furosemide (Lasix) 20 MG tablet Take 20 mg by mouth Daily 01/22/2023 Active losartan potassium 100 mg oral tablet (20 sources) Angiotensin 2 Receptor Jaskaran Start: 09-26-2023 take 1 tablet by mouth twice daily Losartan 100 mg tablet Active 1 TAB PO Twice daily September 26, 2023 12:00am FreeTextSi tablet Orally twice a day; Note: Source Status: Taking; Provider: Terry Vera ( ) Start: 07-09-2023 take 1 tablet by blayne th once daily losartan (Cozaar) 100 MG tablet Take 1 tablet by mouth Daily 07/09/2023 Active take 1 tablet by blayne th every twelve hours Losartan Potassium 100 MG [...] for 28 days samples given Dec, Active Ocuvite Eye + Multi - (10 sources) Ocuvite Eye + Multi - as directed Orally Active rivaroxaban 20 mg oral tablet (20 sources) Factor Xa Inhibitor Start: 09-26-2023 End: 12-06-2023 take 1 tablet by mouth once daily at dinner Rivaroxaban (Xarelto) 20 mg tablet Active 20 MG PO Daily December 02, 2023 11:00pm must administer with evening meal Xarelto 20 20 On ce PO Daily Active spironolactone 25 mg oral tablet (20 sources) Aldosterone Antagonist Start: 11-05-2023 take 1 tablet by mouth once daily Spironolactone 25 mg tablet Active 0 .ROUTE .COMPLEX November 05, 2023 12:07pm take 1 tablet by mouth once daily Start: 11-05-2023 take 1 tablet by blayne th once daily Spironolactone Active 0 .ROUTE .COMPLEX November 05, 2023 1:07pm take 1 tablet by mouth once daily Start: 09-26-2023 End: 11-05-2023 take 1 tablet by mouth once daily Spironolactone 25 mg tablet Discontinued 25 MG PO Daily September 26, 2023 12:00am November 05, 2023 12:07pm FreeTextSi tablet Orally Once a day; Note: Source Status: Taking; Refills: 3; Qty: 30 Tablet; Provider: Terry Scott Completed/Discontinued Medications Medication Drug Class(es) Dates Sig (Normalized) Sig (Original) ipratropium bromide 0.021 mg/actuat metered dose nasal spray (7 sources) Anticholinergic Start: 10-04-2023 End: 12-03-2023 take 1 spray(s) nasal route twice daily Ipratropium Bruce 21 mcg (0.03 %) spray,non-aerosol Discontinued 2 SPRAY INTRANASAL Twice daily October 03, 2023 11:00pm December 03, 2023 9:45am administer into each nostril Ay-Dd-Dg-Vit R-Lgrdb-Sdfz-Zeax (Ocuvite Eye Plus Multi) 200-15-150 mcg tablet (7 sources) Start: 09-26-2023 End: 12-06-2023 take 2 tablets by mouth once daily Fl-Bw-Pe-Vit C-Unszy-Zloq-Zeax (Ocuvite Eye Plus Multi) 200-15-150 mcg tablet Discontinued 2 TAB PO Daily September 26, 2023 12:00am December 06, 2023 1:52pm administer with a meal and a large glass of water Start: 09-26-2023 End: 12-06-2023 take 2 tablets by mouth once daily Tg-Wl-Bb-Vit C-Olykq-Pyuj-Zeax (Ocuvite Eye Plus Multi) 200-15-150 mcg tablet Discontinued 2 TAB PO Daily September 26, 2023 1:00am December 06, 2023 2:52pm administer with a meal and a large glass of water Start: 09-26-2023 take 2 tablets by mo uth once daily Bw-Rb-Xm-Vit B-Fjotf-Kppj-Zeax (Ocuvite Eye Plus Multi) 200-15-150 mcg tablet Active 2 TAB PO Daily September 26, 2023 1:00am administer with a meal and a large glass of water nabumetone 750 mg oral tablet (20 sources) Nonsteroidal Anti-inflammatory Drug Start: 03-14-2024 End: 06-17-2024 take 0.5 tablet by mouth twice daily Nabumetone 750 mg tablet Discontinued 0 .ROUTE .COMPLEX March 14, 2024 8:45am June 17, 2024 8:54am TAKE 1/2 TABLET BY MOUTH TWICE DAILY Start: 10-15-2023 End: 03-14-2024 take 375 mg by mouth twice daily Nabumetone Discontinued 375 MG PO Twice daily February 27, 2024 9:50pm March 14, 2024 9:45am Start: 09-26-2023 End: 03-14-2024 nabumetone (Relafen) 750 MG tablet Take 750 mg by mouth 09/26/2023 Active Start: 09-26-2023 End: 10-15-2023 take 0.5 tablet by mouth twice daily as needed Nabumetone 750 mg tablet Discontinued 750 MG PO Twice daily October 09, 2023 11:23am October 15, 2023 7:34am FreeTextSi/2 tablet Orally Twice a day as needed; Note: Source Status: Taking; Refills: 2; Provider: Terry Scott take 0.5 tablet by m outh twice daily as needed Nabumetone 750 MG 1/2 tablet Orally Twice a day as needed for 30 days Active Nabumetone 750 M G as directed Orally Active Problems Active Problems Problem Classification Problem Date Documented Da te Episodic/Chronic Anxiety disorders (9 sources) Anxiety; Translations: [Anxiety disorder, unspecified] Onset: 11-22-2023 11-22-2023 Chronic Conditions associated with dizziness or vertigo (4 sources) Dizziness; Translations: [Dizziness and giddiness] 05-07-2024 Episodic Congestive heart failure; nonhypertensive (2 sources) Chronic diastolic (congestive) heart failure; Translations: [Chronic diastolic (congestive) heart failure] Onset: 07-18-2023 Chronic Coronary atherosclerosis and other heart disease (4 sources) Atherosclerotic heart disease of [place] coronary artery with other forms of angina pectoris; Translations: [Atherosclerotic heart disease of [place] coronary artery without angina pectoris] Onset: 04-17-2022 [...] aortic and tricuspid valves] Onset: 02-02-2022 Chronic Malaise and fatigue (4 sources) Asthenia; Translations: [Weakness] 02-14-2024 Episodic Nonspecific chest pain (15 sources) Chest pain; Translations: [Other chest pain] Episodic Osteoarthritis (1 source) Unilateral primary osteoarthritis, left knee; Translations: [UNI PRIM OSTEOARTHRITIS LT KNEE] Onset: 09-07-2022 Chronic Other aftercare (1 source) shelter (current) use of aspirin; Translations: [ROPEMAN CURRENT USE OF ASPIRIN] Onset: 08-17-2022 Episodic Other aftercare (1 source) Other ferry terminal agent (current) drug therapy; Translations: [OTH RESIDENTIAL CURRENT DRUG THERAPY] Onset: 08-17-2022 Episodic Other circulatory disease (2 sources) Other specified symptoms and signs involving the circulatory and respiratory systems; Translations: [OTH SPEC SX SIGNS INVLV CIRC RS] Onset: 10-17-2021 Episodic Other circulatory disease (14 sources) Cardiovascular symptoms; Translations: [Other specified symptoms and signs involving the circulatory and respiratory systems] Episodic Other circulatory disease (4 sources) Low blood pressure; Translations: [Hypotension, unspecified] 12-06-2023 Episodic Other circulatory disease (1 source) Hypotension, unspecified; Translations: [Hypotension, unspecified] 12-06-2023 Episodic Other diseases of bladder and urethra (14 sources) Bladder muscle dysfunction - overactive; Translations: [Overactive bladder] Chronic Other diseases of bladder and urethra (4 sources) Overactive bladder; Translations: [OAB (overactive bladder)] Chronic Other gastrointestinal disorders (2 sources) Irritable bowel syndrome with diarrhea; Translations: [Irritable bowel syndrome with diarrhea] 05-06-2024 Chronic Other hereditary and degenerative nervous system [...] Onset: 08-17-2022 Episodic Other lower respiratory disease (4 sources) Other forms of dyspnea Episodic Other nervous system disorders (13 sources) Bilateral carpal tunnel syndrome; Translations: [Carpal tunnel syndrome, bilateral upper limbs] Onset: 11-22-2023 11-22-2023 Chronic Other nervous system disorders (5 sources) Other abnormalities of gait and mobility; Translations: [OTHER ABNORMALITIES GAIT AND MOBILITY] Onset: 10-19-2021 Episodic Other nervous system disorders (15 sources) Abnormal gait; Translations: [Other abnormalities of gait and mobility] Episodic Other non-traumatic joint disorders (5 sources) Pain in left knee; Translations: [PAIN IN LEFT KNEE] Onset: 09-01-2022 Episodic Other non-traumatic joint disorders (11 sources) Pain in left shoulder; Translations: [Left shoulder pain] Onset: 12-03-2023 12-03-2023 Episodic Other nutritional; endocrine; and metabolic disorders (2 sources) Abnormal weight loss; Translations: [Abnormal weight loss] 05-06-2024 Episodic Other nutritional; endocrine; and metabolic disorders (1 source) Abnormal weight loss; Translations: [Loss of weight] 08-14-2024 Episodic Other skin disorders (1 source) Mass of neck; Translations: [Localized swelling, mass and lump, neck] 08-14-2024 Episodic Other skin disorders (1 source) Localized swelling, mass and lump, neck; Translations: [Swelling, mass, or lump in head and neck] 08-14-2024 Episodic Other upper respiratory infections (8 sources) Chronic sinusitis, unspecified; Translations: [Chronic rhinosinusitis] 10-04-2023 Chronic Other upper respiratory infections (3 sources) Acute pharyngitis, unspecified; Translations: [ACUTE PHARYNGITIS UNSPECIFIED] Onset: 08-15-2022 Episodic Pneumonia (except that caused by tuberculosis or sexually transmitted disease) (1 source) Pneumonia (except that caused by tuberculosis or sexually transmitted disease); Translations: [PNEUMONIA D/T CORONAVIRUS DIS 2019] Onset: 08-17-2022 Pulmonary heart disease (20 sources) Personal history of pulmonary embolism; Translations: [Acute pulmonary embolism] Onset: 08-17-2022 Episodic Residual codes; unclassified (2 sources) Amnesia; Translations: [Other amnesia] 09-24-2024 Episodic Spondylosis; intervertebral disc disorders; other back problems (15 sources) Lumbar radiculopathy; Translations: [Radiculopathy, lumbar region] Episodic Unclassified (12 sources) Parkinson's disease; Translations: [Parkinson's disease] 10-04-2023 Chronic Unclassified (1 source) UNVACCINATED FOR COVID-19; Translations: [UNVACCINATED FOR COVID-19] Onset: 08-17-2022 Urinary tract infections (3 sources) Acute urinary tract infection; Translations: [Urinary tract infection, site not specified] 02-14-2024 Episodic Viral infection (1 source) COVID-19; Translations: [COVID-19] Onset: 08-17-2022 Past or Other Problems Problem Classification Problem Date Documented Da te Episodic/Chronic Other connective tissue disease (4 sources) Pain in right lower leg; Translations: [PAIN IN RIGHT LOWER LEG] Onset: 02-01-2022 Episodic Other connective tissue disease (1 source) Pain in left lower leg; Translations: [PAIN IN LEFT LOWER LEG] Onset: 02-02-2022 Episodic Other nervous system disorders (9 sources) Tremor; Translations: [Tremor, unspecified] Onset: 11-22-2023 11-22-2023 Episodic Other nervous system disorders (9 sources) Burning sensation; Translations: [Other disturbances of skin sensation] Onset: 11-22-2023 11-22-2023 Episodic Phlebitis; thrombophlebitis and thromboembolism (1 source) Embolism and thrombosis of superficial veins of left lower extremity; Translations: [EMBOLISM AND THROMB SUP VEINS LLE] Onset: 02-02-2022 Episodic Results Test Name Value Interpretation Reference Range Facility 37on 10-07-2024 37 *Reduce your losarta n to 50mg daily *[facility] will call you to schedule a stress test Normal [facility] Office Visiton 10-07-2024 Follow-up visit [id number] India Moore 1940 Date Provider Department Center 10/07/2024 SHAR NUNES [facility] Family History Problem Relation Age of Onset Heart failure Mother Family Status - Relation Status Age at Mother Level of Service:56448 [place] OFFICE/OUTPATIENT ESTABLISHED MOD MDM 30 MIN Reason for Visit and Comments: Congestive Heart Failure [127] Coronary Artery Disease [187] Hypertension [737108] Normal [facility] Office Visiton 04-02-2024 Follow-up visit [id number] India Moore 1940 Date Provider Department Center 04/02/2024 AKILAH SWEENEY [facility] Family History Problem Relation Age of Onset Heart failure Mother Family Status - Relation Status Age at Mother Level of Service:45266 [place] OFFICE/OUTPATIENT ESTABLISHED MOD MDM 30 MIN Normal [facility] Basophils Auto (Bld) [#/Vol] on 01-31-2024 Basophils (Bld) [#/Vol] 0.1 10 3/uL 0.0-0.1 [facility] Basophils/100 WBC Auto (Bld) on 01-31-2024 Basophils/100 WBC (Bld) 0.8 % 0.2-2.0 [facility] Eosinophils/100 WBC Auto (Bl d)on 01-31-2024 Eosinophils/100 WBC (Bld) 1.4 % 0.9-7.0 [facility] Erythrocyte distribution wid th Auto (RBC) [Ratio]on 01-31-2024 Erythrocyte distribution width (RBC) [Ratio] 12.6 % 11.0-15.0 [facility] Estimated glomerular filtrat ion rate (GFR) non- Americanon 01-31-2024 GFR/1.73 sq M.predicted among non-blacks MDRD (S/P/Bld) [Vol rate/Area] 25 mL/min/{1.73_m2} Low >=60 [facility] Hematocrit Auto (Bld) [Volum e fraction]on 01-31-2024 Hematocrit (Bld) [Volume fraction] 39.6 % 36.0-48.0 [facility] Hemoglobin [Mass/volume] in Bloodon 01-31-2024 Hemoglobin (Bld) [Mass/Vol] 12.6 g/dL 12.0-16.0 [facility] Laboratory - Chemistry and C hemistry - challengeon 01-31-2024 Bilirubin Ql (U) Negative NEGATIVE [facility] Glucose (U) [Mass/Vol] 250 mg/dL Abnormal NEGATIVE [facility] Ketones Ql (U) Negative NEGATIVE [facility] pH (U) 6.0 [pH] 5.0-9.0 [facility] Specific gravity (U) [Rel density] <=1.005 Abnormal 1.005-1.025 [facility] Urobilinogen Qn (U) 0.2 {Quoc'U}/dL 0.2-1.0 [facility] Calcium [Mass/Vol] 9.7 mg/dL 8.5-10.1 [facility] Chloride [Moles/Vol] 103 mmol/L 98-107 [facility] CO2 [Moles/Vol] 28.7 mmol/L 21.0-32.0 [facility] Creatinine [Mass/Vol] 1.90 mg/dL High 0.55-1.02 [facility] GFR/1.73 sq M.predicted MDRD (S/P/Bld) [Vol rate/Area] 31 mL/min/{1.73_m2} Low >=60 [facility] Glucose [Mass/Vol] 112 mg/dL High 74-106 [facility] Potassium [Moles/Vol] 3.8 mmol/L 3.5-5.1 [facility] Sodium [Moles/Vol] 140 mmol/L 136-145 [facility] Urea nitrogen [Mass/Vol] 27.0 mg/dL High 7.0-18.0 [facility] Urea nitrogen/Creatinine [Mass ratio] 14.2 mg/mg [facility] Laboratory - Hematology and Cell countson 01-31-2024 Immature granulocytes/100 WBC (Bld) 0.4 % 0.0-0.5 [facility] - Specimen inform ationon 01-31-2024 Appearance (U) CLEAR CLEAR [facility] Color (U) LT. YELLOW YELLOW [facility] Laboratory - Urinalysison Hyaline casts LM Ql (Urine sed) FEW [facility] Leukocyte esterase Test strip Ql (U) TRACE Abnormal NEGATIVE [facility] Mucus Ql (Urine sed) NONE SEEN NONE SEEN [facility] Nitrite Ql (U) Negative NEGATIVE [facility] Protein Ql (U) Negative NEG/TRACE [facility] Leukocytes [#/volume] correc luz for nucleated erythrocytes in Blood by Automated counon 01-31-2024 WBC corrected for nucl RBC Auto (Bld) [#/Vol] 9.7 10 3/uL 4.0-11.0 [facility] Lymphocytes Auto (Bld) [#/Vo l]on 01-31-2024 Lymphocytes (Bld) [#/Vol] 1.4 10 3/uL 1.2-3.8 [facility] Lymphocytes/100 WBC Auto (Bl d)on 01-31-2024 Lymphocytes/100 WBC (Bld) 14.5 % Low 20.5-60.0 [facility] MCH Auto (RBC) [Entitic mass ]on 01-31-2024 MCH (RBC) [Entitic mass] 32.6 pg 26.7-34.0 [facility] MCHC Auto (RBC) [Mass/Vol]on 01-31-2024 MCHC (RBC) [Mass/Vol] 31.8 g/dL 29.9-35.2 [facility] MCV Auto (RBC) [Entitic vol] on 01-31-2024 MCV (RBC) [Entitic vol] 102.3 fL High 81.0-99.0 [facility] Monocytes Auto (Bld) [#/Vol] on 01-31-2024 Monocytes (Bld) [#/Vol] 0.6 10 3/uL 0.3-0.8 [facility] Monocytes/100 WBC Auto (Bld) on 01-31-2024 Monocytes/100 WBC (Bld) 6.2 % 1.7-12.0 [facility] Neutrophils Auto (Bld) [#/Vo l]on 01-31-2024 Neutrophils (Bld) [#/Vol] 7.4 10 3/uL High 1.4-6.5 [facility] Neutrophils/100 WBC Auto (Bl d)on 01-31-2024 Neutrophils/100 WBC (Bld) 76.7 % High 43.0-75.0 [facility] No Panel Informationon 01-30 Urine Bacteria MODERATE #/HPF Abnormal NONE SEEN [facility] Urine Culture Reflexed YES [facility] Urine Microscopic Review YES [facility] Urine Occult Blood MODERATE Abnormal NEGATIVE [facility] Urine Other Casts SEEN #/LPF Abnormal NONE SEEN [facility] Urine Other Crystals None Seen #/HPF None Seen [facility] Urine RBC 10-20 #/HPF Abnormal 0-2 [facility] Urine Squamous Epithelial Cells FEW #/LPF Abnormal NONE/RARE [facility] Urine WBC 5-10 #/HPF Abnormal NONE SEEN [facility] Eosinophils # (Auto) 0.1 10 3/uL 0.0-0.7 [facility] Immature Granulocyte # (Auto) 0.04 10 3/uL High 0.00-0.03 [facility] Troponin I High Sensitivity 19.2 pg/mL 4.0-51.3 [facility] Comment on above: CUT-OFF POINTS HAVE BEEN ESTABLISHED BASED ON THE FOURTHUNIVERSAL DEFINITION OF MYOCARDIAL INFARCTION. THE UPPERREFERENCE LIMIT (URL) OF TROPONIN, DEFINED THE 99THPERCENTILE OF cTnI DISTRIBUTION IN A REFERENCE POPULATION,HAS BEEN CONFIRMED THE DECISION THRESHOLD FOR MIDIAGNOSIS.99TH PERCENTILE = 51.4 PG/MLNOTE: HIGH-SENSITIVITY TROPONIN ASSAY IS NOT INTENDED TO BEUSED IN ISOLATION BUT SHOULD BE INTERPRETED IN CONJUNCTIONWITH OTHER DIAGNOSTIC AND CLINICAL INFORMATION. Platelet mean volume Auto (B ld) [Entitic vol]on 01-31-2024 Platelet mean volume (Bld) [Entitic vol] 11.5 fL 9.5-13.5 [facility] Platelets Auto (Bld) [#/Vol] on 01-31-2024 Platelets (Bld) [#/Vol] 180 10 3/uL 150-450 [facility] RBC Auto (Bld) [#/Vol]on RBC (Bld) [#/Vol] 3.87 10 6/uL Low 4.20-5.40 [facility] Serum or plasma anion gap de terminationon 01-31-2024 Anion gap [Moles/Vol] 12.1 mmol/L [facility] Estimated glomerular filtrat ion rate (GFR) non- Americanon 01-29-2024 GFR/1.73 sq M.predicted among non-blacks MDRD (S/P/Bld) [Vol rate/Area] 27 mL/min/{1.73_m2} Low >=60 [facility] Laboratory - Chemistry and C hemistry - challengeon 01-29-2024 Creatinine [Mass/Vol] 1.81 mg/dL High 0.55-1.02 [facility] GFR/1.73 sq M.predicted MDRD (S/P/Bld) [Vol rate/Area] 32 mL/min/{1.73_m2} Low >=60 [facility] Urea nitrogen [Mass/Vol] 25.0 mg/dL High 7.0-18.0 [facility] XR shoulder LT min 2V*on XR shoulder LT min 2V* [facility] [place] [address] XRay Report Signed Patient: India Moore MR#: [id number] : 1940 Acct:[id number] Age/Sex: 83 / F ADM Date: 12/03/23 Loc: XDUCLY Room: Type: [facility] CLI Attending Dr: Thania Hoffmann APRN Copies to: Thania Hoffmann APRN Ordering Provider: Thania Hoffmann APRN Date of Service: 12/03/23 XR/XR shoulder LT min 2V*: Fall XR shoulder LT min 2V* 12/03/2023 11:38 AM SIGNS AND SYMPTOMS: Fall landing on left shoulder with pain laterally PROTOCOL: Frontal, Grashey, and scapular Y views of the left shoulder COMPARISON: None FINDINGS: There is mild hypertrophy of the left acromioclavicular joint. There is mild narrowing of the glenohumeral joint. Cortical irregularity is noted at the left greater tuberosity suggesting underlying rotator cuff abnormalities. Visualized left hemithorax is grossly intact. There is no fracture or dislocation. XR/XR shoulder LT min 2V* IMPRESSION: No fracture or dislocation. Degenerative changes are noted as above with findings suggesting underlying rotator cuff abnormalities. Impression dictated by: Rayna Strickland M.D.12/03/2023 12:01 PM Dictation Location: [place] [address] Transcribed By: [facility] 12/03/23 1201 Dictated By: Rayna Strickland II, MD 12/03/23 1200 Signed By: 12/03/23 1201 Normal [facility] BNPon 08-15-2022 Natriuretic peptide B (Bld) [Mass/Vol] 63.0 pg/mL Normal <=1,800.0 [facility] Comment on above: Performed By: #### B MACHINE SETTER SUPERVISOR, TSH, CMP, CMADM #### [facility] [address] [place] [address] [address] Melecio Mcclelland CARDIAC RAYNA ADMITon 023 CK [Catalytic activity/Vol] 124 U/L Normal 26-192 [facility] Comment on above: Performed By: #### B MACHINE SETTER SUPERVISOR, TSH, CMP, CMADM #### [facility] [address] [address] [address] Melecio Mcclelland CK.MB [Mass/Vol] 0.69 ng/mL Normal <=3.60 [facility] Comment on above: Performed By: #### B MACHINE SETTER SUPERVISOR, TSH, CMP, CMADM #### [facility] [address] [address] [address] Melecio Mcclelland HSTROP 15.8 pg/mL Normal 4.0-51.3 [facility] Comment on above: Result Comment: CUT- OFF POINTS HAVE BEEN ESTABLISHED BASED ON THE FOURTH UNIVERSAL DEFINITIONS OF MYOCARDIAL INFARCTION. THE UPPER REFERENCE LIMIT (URL) OF TROPONIN, DEFINED THE 99TH PERCENTILE OF cTnI DISTRIBUTION IN A REFERENCE POPULATION, HAS BEEN CONFIRMED THE DECISION THRESHOLD FOR MA DIAGNOSIS. Performed By: #### B MACHINE SETTER SUPERVISOR, TSH, CMP, CMADM #### [facility] [address] [address] [address] Melecio Mcclelland MATY 173 ng/mL Critically high 9-82 [facility] Comment on above: Performed By: #### B MACHINE SETTER SUPERVISOR, TSH, CMP, CMADM #### [facility] [address] [address] [address] Melecio Mcclelland CBC AUTO DIFFon 08-15-2022 BASO # 0.0 103/ul Normal 0.0-0.1 [facility] Comment on above: Performed By: #### C BC ####[facility] [address] [place] [address]DrBroderick Mcclelland Basophils/100 WBC (Bld) 0.2 % Normal 0.2-2.0 [facility] Comment on above: Performed By: #### C BC ####[facility] [address] [place] [address]Dr. Melecio Mcclelland EO # 0.0 103/ul Normal 0.0-0.7 [facility] Comment on above: Performed By: #### C BC ####[facility] [address] [place] [address]Dr. Melecio Mcclelland Eosinophils/100 WBC (Bld) 0.0 % Critically low 0.9-7.0 [facility] Comment on above: Performed By: #### C BC ####[facility] [address] [place] [address]DrBroderick Mcclelland Erythrocyte distribution width (RBC) [Ratio] 13.3 % Normal 11.0-15.0 [facility] Comment on above: Performed By: #### C BC ####[facility] [address] [place] [address]Dr. Melecio Mcclelland Hematocrit (Bld) [Volume fraction] 35.7 % Critically low 36.0-48.0 [facility] Comment on above: Performed By: #### C BC ####[facility] [address] [place] [address]Dr. Melecio Mcclelland Hemoglobin (Bld) [Mass/Vol] 11.7 g/dL Critically low 12.0-16.0 [facility] Comment on above: Performed By: #### C BC ####[facility] [address] [place] [address]Dr. Melecio Mcclelland IG # 0.01 10e3/ul Normal 0.00-0.03 [facility] Comment on above: Performed By: #### C BC ####[facility] [address] [place] [address]Dr. Melecio Mcclelland IG % 0.2 % Normal 0.0-0.5 [facility] Comment on above: Performed By: #### C BC ####[facility] [address] [place], [place] [address]Dr. Melecio Mcclelland LYMPH # 1.2 103/ul Normal 1.2-3.8 [facility] Comment on above: Performed By: #### C BC ####[facility] [address] [place], [place] [address]Dr. Melecio Mcclelland Lymphocytes/100 WBC (Bld) 22.1 % Normal 20.5-60.0 [facility] Comment on above: Performed By: #### C BC ####[facility] [address]cs[address] [place], [place] [address]Dr. Melecio Mcclelland MANUAL DIFF REQ NO Normal [facility] Comment on above: Performed By: #### C BC ####[facility] [address] [place], [place] [address]Dr. Melecio Mcclelland MCH (RBC) [Entitic mass] 31.3 pg Normal 26.7-34.0 [facility] Comment on above: Performed By: #### C BC ####[facility] [address] [place], [place] [address]Dr. Melecio Mcclelland MCHC (RBC) [Mass/Vol] 32.8 g/dL Normal 29.9-35.2 [facility] Comment on above: Performed By: #### C BC ####[facility] [address] [place] [address]DrBroderick Melecio Mcclellnad MCV (RBC) [Entitic vol] 95.5 fL Normal 81.0-99.0 [facility] Comment on above: Performed By: #### C BC ####[facility] [address] [place], [place] [address]DrBroderick Mcclelland MONO # 0.6 103/ul Normal 0.3-0.8 [facility] Comment on above: Performed By: #### C BC ####[facility] [address] [place], [place] [address]DrBroderick Mcclelland Monocytes/100 WBC (Bld) 10.4 % Normal 1.7-12.0 [facility] Comment on above: Performed By: #### C BC ####[facility] [address] [place], [place] [address]Dr. Melecio Mcclelland NEUT # 3.6 103/ul Normal 1.4-6.5 [facility] Comment on above: Performed By: #### C BC ####[facility] [address] [place], [place] [address]DrBroderick Mcclelland Neutrophils/100 WBC (Bld) 67.1 % Normal 43.0-75.0 [facility] Comment on above: Performed By: #### C BC ####[facility] [address] [place], [place] [address]DrBroderick Mcclelland Platelet mean volume (Bld) [Entitic vol] 10.1 fL Normal 9.5-13.5 [facility] Comment on above: Performed By: #### C BC ####[facility] [address] [place], [place] [address]DrBroderick Marinellimartha Stas PLT 159 103/ul Normal 150-450 [facility] Comment on above: Performed By: #### C BC ####[facility] [address]ire[address]duv[address] [place], [place] [address]DrBroderick Mcclelland RBC 3.74 106/ul Critically low 4.20-5.40 [facility] Comment on above: Performed By: #### C BC ####[facility] [address] [place], [place] [address]RwBroderick Melecio Mcclelland WBC 5.3 103/ul Normal 4.0-11.0 [facility] Comment on above: Performed By: #### C BC ####[facility] [address] [place] [id number] Mcclelland CULTURE BLOODon 08-15-2022 Microscopic examination of blood, culture Culture Observations: NO GROWTH AT 5 DAYS. Normal [facility] Comment on above: Performed By: #### B LDCX2 ####[facility] [address]ts[address] [place], [place] [address]EwDr. Melecio Mcclelland Microscopic examination of blood, culture Culture Observations: NO GROWTH AT 5 DAYS. Normal [facility] Comment on above: Performed By: #### B LDCX1 ####[facility] [address] [place] [id number]. Melecio Mcclelland Covid-19 PCR (CVDTBH)on 07-24 SARS-CoV-2 (COVID-19) RNA MEME+probe Ql (Unsp spec) Detected Abnormal NOT DETECTED [facility] Comment on above: Result Comment: This test is not yet approved or cleared by the [place] FDA. When there are no FDA-approved or cleared tests available, and other criteria are met, FDA can make tests available under an emergency access mechanism called an Emergency Use Authorization (EUA). The EUA for this test is supported by the Loss Prevention Supervisor of Health and Human Service's declaration that [...] used). Performed By: #### C VDTBH #### [facility] [address] [place], [place] [address] Dr. Melecio Mcclelland INFLUENZA A AND B AGon 08-15 INFLUANEGH SEE BELOW Normal [facility] Comment on above: Result Comment: Nega tive for Flu A protein angiten. Infection due to Flu A cannot be ruled out. Flu A angiten in the sample may be below the detection limit of the test. Performed By: #### I NFLUAB ####[facility] [address] [place], [place] [address]Dr. Melecio Mcclelland INFLUBNEGH SEE BELOW Normal [facility] Comment on above: Result Comment: Nega tive for Flu B protein antigen. Infection due to Flu B cannot be ruled out. Flu B antigen in the sample may be below the detection limit of the test. Performed By: #### I NFLUAB ####[facility] [address] [place], [place] [address]DrBroderick Mcclelland INFLUENZA A AG Negative Normal NEGATIVE SEE COMMENT [facility] Comment on above: Performed By: #### I NFLUAB ####[facility] [address] [place], [place] [address]Dr. Melecio Mcclelland INFLUENZA B AG Negative Normal NEGATIVE SEE COMMENT [facility] Comment on above: Performed By: #### I NFLUAB ####[facility] [address] [place], [place] [address]Dr. Melecio Mcclelland LACTATE/LACTIC ACIDon 2022 Lactate [Moles/Vol] 1.0 mmol/L Normal 0.4-1.9 [facility] Comment on above: Performed By: #### L ACT ####[facility] [address] [place], [place] [address]Dr. Melecio Mcclelland PROF 14(COMP METB)on 023 Albumin [Mass/Vol] 3.1 g/dL Critically low 3.4-5.0 [facility] Comment on above: Performed By: #### B MACHINE SETTER SUPERVISOR, TSH, CMP, CMADM #### [facility] [address] [address] [address] Melecio Mcclelland Albumin/Globulin [Mass ratio] 1.0 {ratio} Normal [facility] Comment on above: Performed By: #### B MACHINE SETTER SUPERVISOR, TSH, CMP, CMADM #### [facility] [address] [address] [address] Melecio Mcclelland ALP [Catalytic activity/Vol] 100 U/L Normal 46-116 [facility] Comment on above: Performed By: #### B MACHINE SETTER SUPERVISOR, TSH, CMP, CMADM #### [facility] [address] [address] [address] Melecio Mcclelland ALT [Catalytic activity/Vol] 35 U/L Normal 14-59 [facility] Comment on above: Performed By: #### B MACHINE SETTER SUPERVISOR, TSH, CMP, CMADM #### [facility] [address] [address] [address] Melecio Mcclelland Anion gap [Moles/Vol] 12.1 mmol/L Normal [facility] Comment on above: Performed By: #### B MACHINE SETTER SUPERVISOR, TSH, CMP, CMADM #### [facility] [address] [place] [address] Dr. Melecio Mcclelland AST [Catalytic activity/Vol] 34 U/L Normal 15-37 [facility] Comment on above: Performed By: #### B MACHINE SETTER SUPERVISOR, TSH, CMP, CMADM #### [facility] [address] [address] [address] Melecio Mcclelland Bilirubin [Mass/Vol] 0.7 mg/dL Normal 0.2-1.0 [facility] Comment on above: Performed By: #### B MACHINE SETTER SUPERVISOR, TSH, CMP, CMADM #### [facility] [address] [address] [address] Melecio Mcclelland Calcium [Mass/Vol] 8.8 mg/dL Normal 8.5-10.1 [facility] Comment on above: Performed By: #### B MACHINE SETTER SUPERVISOR, TSH, CMP, CMADM #### [facility] [address] [address] [address] Melecio Mcclelland Chloride [Moles/Vol] 105 mmol/L Normal 98-107 [facility] Comment on above: Performed By: #### B MACHINE SETTER SUPERVISOR, TSH, CMP, CMADM #### [facility] [address] [address] [address] Melecio Mcclelland CO2 [Moles/Vol] 29.2 mmol/L Normal 21.0-32.0 [facility] Comment on above: Performed By: #### B MACHINE SETTER SUPERVISOR, TSH, CMP, CMADM #### [facility] [address] [place] [address] Dr. Melecio Mcclelland Creatinine [Mass/Vol] 1.09 mg/dL Critically high 0.55-1.02 [facility] Comment on above: Performed By: #### B MACHINE SETTER SUPERVISOR, TSH, CMP, CMADM #### [facility] [address] [place] [address] Dr. Melecio Mcclelland EGFR-AF [place] 58 mL/min/1.73m2 Critically low >=60 [facility] Comment on above: Performed By: #### B MACHINE SETTER SUPERVISOR, TSH, CMP, CMADM #### [facility] [address] [place] [address] Dr. Melecio Mcclelland EGFR-NON AF [place] 48 mL/min/1.73m2 Critically low >=60 [facility] Comment on above: Performed By: #### B MACHINE SETTER SUPERVISOR, TSH, CMP, CMADM #### [facility] [address] [place] [address] Dr. Melecio Mcclelland Globulin (S) [Mass/Vol] 3.0 g/dL Normal [facility] Comment on above: Performed By: #### B MACHINE SETTER SUPERVISOR, TSH, CMP, CMADM #### [facility] [address] [place] [address] Dr. Melecio Mcclelland Glucose [Mass/Vol] 92 mg/dL Normal 74-106 [facility] Comment on above: Performed By: #### B MACHINE SETTER SUPERVISOR, TSH, CMP, CMADM #### [facility] [address] [place] [address] Dr. Melecio Mcclelland Potassium [Moles/Vol] 4.3 mmol/L Normal 3.5-5.1 [facility] Comment on above: Performed By: #### B MACHINE SETTER SUPERVISOR, TSH, CMP, CMADM #### [facility] [address] [place] [address] Dr. Melecio Mcclelland Protein [Mass/Vol] 6.1 g/dL Critically low 6.4-8.2 [facility] Comment on above: Performed By: #### B MACHINE SETTER SUPERVISOR, TSH, CMP, CMADM #### [facility] [address] [address] [address] Melecio Mcclelland Sodium [Moles/Vol] 142 mmol/L Normal 136-145 [facility] Comment on above: Performed By: #### B MACHINE SETTER SUPERVISOR, TSH, CMP, CMADM #### [facility] [address] [address] [address] Melecio Mcclelland Urea nitrogen [Mass/Vol] 29.0 mg/dL Critically high 7.0-18.0 [facility] Comment on above: Performed By: #### B MACHINE SETTER SUPERVISOR, TSH, CMP, CMADM #### [facility] [address] [address] [address] Melecio Mcclelland Urea nitrogen/Creatinine [Mass ratio] 26.6 mg/mg Normal [facility] Comment on above: Performed By: #### B MACHINE SETTER SUPERVISOR, TSH, CMP, CMADM #### [facility] [address] [address] [address] Melecio Mcclelland PROTIMEon 08-15-2022 INR Coag (PPP) [Relative time] 1.03 {INR} Normal [facility] Comment on above: Performed By: #### P T, PTT ####[facility] [address] [place] [address]Dr. Melecio Mcclelland INR GUIDELINES SEE BELOW Normal [facility] Comment on above: Result Comment: TRINA RED INR: 2.0 - 3.0 CONDITIONS NOT LISTED BELOW 2.5 - 3.5 FOR PROSTHETIC HEART VALVE REPLACEMENT 2.5 - 3.5 RECURRENT THROMBOSIS Performed By: #### P T, PTT ####[facility] [address] [place] [address]Dr. Melecio Mcclelland PT Coag (PPP) [Time] 10.9 s Normal 9.0-11.6 [facility] Comment on above: Performed By: #### P T, PTT ####[facility] [address] [place] [address]Dr. Melecio Mcclelland PTTon 08-15-2022 aPTT Coag (Bld) [Time] 30.5 s Normal 22.3-36.2 [facility] Comment on above: Performed By: #### P T, PTT ####[facility] [address] [place], [place] [address]Cy. Melecio Mcclelland TSHon 08-15-2022 TSH 1.361 uIU/mL Normal 0.358-3.740 [facility] Comment on above: Performed By: #### B MACHINE SETTER SUPERVISOR, TSH, CMP, CMADM ####[facility] [address] [place], [place] [address]Pf. Melecio Mcclelland XR CHEST 1 Von 08-15-2022 [...] by: DANIEL ANAND Date: 2022-08-15 10:52 Normal [facility] ECHOCARDIO M/2D COMPLETEon 0 02-01-2022 ECHOCARDIO M/2D COMPLETE Patient: INDIA MOORE Exam Date: 02/01/2022 : 1940 Gender:F Ordering : SHAR KAUFMAN Admission #: [id number] Family : DR JODY STEWART M.D. Order #: [id number] CLICK HERE TO VIEW EXAM ECHOCARDIOGRAM REPORT [...] Burkett M.D. on 02/01/2022 at 21:28 Normal [facility] US KELLI DOP LEG BILon 02-01-2 022 US KELLI DOP LEG JERRY EXAMINATION: [...] thrombus left great saphenous vein and associated tributaries/varicositi es *Exam performed in accordance with [facility] practice guidelines- Peripheral venous ultrasound, October 16, 2009. Electronically authenticated by: CODY GOMES Date: 2022-02-01 18:50 Normal [facility] VC VENOUS REFLUX JERRY LMTon 0 01-11-2022 VC VENOUS REFLUX JERRY LMT Patient: INDIA MOORE Exam Date: 01/11/2022 : 1940 Gender:F Ordering : SHAR KAUFMAN Admission #: [id number] Family : Order #: [id number] CLICK HERE TO VIEW EXAM RADIOLOGY REPORT [...] Varicosity in distal/medial lower leg off of hog cooler measures 7.8 mm with 0.8s reflux. incompetent [...] of thrombus. Flow: Mild deep venous reflux. Italian Tutor: Prox/med calf 4.4 mm with 3.7s reflux. Tech Note: GSV becomes tortuous approximately 9cm from SFJ. AASV is tortuous proximally with adjacent arteries. Thigh extension of left SSV. SSV is tortuous with non-occlusive thrombus mid calf. Thrombus visualized in varicosity and associated hog cooler medial/distal calf 6.4mm from PTV. Varicosity proximal/medial/folder machine operator ior calf measures 4.5 mm with 1.2s reflux. CONCLUSION: 1. Right leg: Dilated and incompetent great saphenous vein, small saphenous vein, hog cooler veins, and branch saphenous varicosities. 2. Left [...] M.D. on 01/11/2022 at 11:39 Normal [facility] BNPon 10-12-2021 Natriuretic peptide B (Bld) [Mass/Vol] 192.0 pg/mL Normal <=1,800.0 [facility] Comment on above: Performed By: #### C MP, BNP, LIPID #### [facility] [address] [address] [address] Melecio Mcclelland CBC AUTO DIFFon 10-12-2021 BASO # 0.0 103/ul Normal 0.0-0.1 [facility] Comment on above: Performed By: #### C BC ####[facility] [address] [place] [id number]. Melecio Mcclelland Basophils/100 WBC (Bld) 0.4 % Normal 0.2-2.0 [facility] Comment on above: Performed By: #### C BC ####[facility] [address] [place] [address]Dr. Melecio Mcclelland EO # 0.3 103/ul Normal 0.0-0.7 [facility] Comment on above: Performed By: #### C BC ####[facility] [address] [place] [address]Dr. Melecio Mcclelland Eosinophils/100 WBC (Bld) 2.9 % Normal 0.9-7.0 [facility] Comment on above: Performed By: #### C BC ####[facility] [address] [place], [place] [address]Dr. Melecio Mcclelland Erythrocyte distribution width (RBC) [Ratio] 13.1 % Normal 11.0-15.0 [facility] Comment on above: Performed By: #### C BC ####[facility] [address] [place], [place] [address]Dr. Melecio Mcclelland Hematocrit (Bld) [Volume fraction] 38.4 % Normal 36.0-48.0 [facility] Comment on above: Performed By: #### C BC ####[facility] [address] [place], [place] [address]Dr. Melecio Mcclelland Hemoglobin (Bld) [Mass/Vol] 12.2 g/dL Normal 12.0-16.0 [facility] Comment on above: Performed By: #### C BC ####[facility] [address] [place], [place] [address]Dr. Melecio Mcclelland IG # 0.03 10e3/ul Normal 0.00-0.03 [facility] Comment on above: Performed By: #### C BC ####[facility] [address] [place], [place] [address]Dr. Melecio Stas IG % 0.3 % Normal 0.0-0.5 [facility] Comment on above: Performed By: #### C BC ####[facility] [address] [place], [place] [address]Dr. Melecio Stas LYMPH # 1.8 103/ul Normal 1.2-3.8 [facility] Comment on above: Performed By: #### C BC ####[facility] [address] [place], [place] [address]Dr. Melecio Stas Lymphocytes/100 WBC (Bld) 19.3 % Critically low 20.5-60.0 [facility] Comment on above: Performed By: #### C BC ####[facility] [address] [place], [place] [address]DrBroderick Mcclelland MANUAL DIFF REQ NO Normal [facility] Comment on above: Performed By: #### C BC ####[facility] [address] [place] [address]DrBroderick Mcclelland MCH (RBC) [Entitic mass] 30.2 pg Normal 26.7-34.0 [facility] Comment on above: Performed By: #### C BC ####[facility] [address] [place], [place] [address]DrBroderick Mcclelland MCHC (RBC) [Mass/Vol] 31.8 g/dL Normal 29.9-35.2 [facility] Comment on above: Performed By: #### C BC ####[facility] [address] [place], [place] [address]DrBroderick Mcclelland MCV (RBC) [Entitic vol] 95.0 fL Normal 81.0-99.0 [facility] Comment on above: Performed By: #### C BC ####[facility] [address] [place], [place] [address]DrBroderick Mcclelland MONO # 0.5 103/ul Normal 0.3-0.8 [facility] Comment on above: Performed By: #### C BC ####[facility] [address]zc[address] [place], [place] [address]DrBroderick Mcclelland Monocytes/100 WBC (Bld) 4.9 % Normal 1.7-12.0 [facility] Comment on above: Performed By: #### C BC ####[facility] [address] [place], [place] [address]DrBroderick Mcclelland NEUT # 6.6 103/ul Critically high 1.4-6.5 [facility] Comment on above: Performed By: #### C BC ####[facility] [address] [place], [place] [address]DrBroderick Mcclelland Neutrophils/100 WBC (Bld) 72.2 % Normal 43.0-75.0 [facility] Comment on above: Performed By: #### C BC ####[facility] [address]xz[address] [place], [place] [address]DrBroderick Mcclelland Platelet mean volume (Bld) [Entitic vol] 10.6 fL Normal 9.5-13.5 [facility] Comment on above: Performed By: #### C BC ####[facility] [address] [place], [place] [address]Zi. Melecio Mcclelland PLT 186 103/ul Normal 150-450 [facility] Comment on above: Performed By: #### C BC ####[facility] [address] [place] [id number]. Isismartha Stas RBC 4.04 106/ul Critically low 4.20-5.40 [facility] Comment on above: Performed By: #### C BC ####[facility] [address] [place] [id number]. Melecio Mcclelland WBC 9.2 103/ul Normal 4.0-11.0 [facility] Comment on above: Performed By: #### C BC ####[facility] [address] [place] [id number] Mcclelland LIPID PROFILEon 10-12-2021 CHOL-HDL RATIO NORM SEE BELOW Normal [facility] Comment on above: Result Comment: 3.3 - 4.4 LOW RISK 4.4 - 7.1 AVERAGE RISK 7.1 - 11.0 MODERATE RISK >11.0 HIGH RISK Performed By: #### C MP, BNP, LIPID #### [facility] [address] [place] [address] [address] Melecio Mcclelland Cholesterol [Mass/Vol] 101 mg/dL Normal <=200 [facility] Comment on above: Performed By: #### C MP, BNP, LIPID #### [facility] [address] [place] [address] [address] Melecio Mcclelland Cholesterol in HDL [Mass/Vol] 49 mg/dL Normal 40-60 [facility] Comment on above: Performed By: #### C MP, BNP, LIPID #### [facility] [address] [place] [address] [address] Melecio Mcclelland Cholesterol in LDL [Mass/Vol] 43.6 mg/dL Normal [facility] Comment on above: Performed By: #### C MP, BNP, LIPID #### [facility] [address] [place] [address] [address] Melecio Mcclelland Cholesterol.total/Ch olesterol in HDL [Mass ratio] 2.1 {ratio} Normal [facility] Comment on above: Performed By: #### C MP, BNP, LIPID #### [facility] [address] [place] [address] [address] Melecio [place]and HDL NORMAL > or = 60 mg/dl - LO W CARDIOVASCULAR RISK <40 mg/dl - HIGH CARDIOVASCULAR RISK Normal [facility] Comment on above: Performed By: #### C MP, BNP, LIPID #### [facility] [address] [address] [address] Melecio Mcclelland LDL CALC NORMAL SEE BELOW Normal [facility] Comment on above: Result Comment: <100 mg/dl OPTIMAL 100 - 129 mg/dl NEAR OR ABOVE OPTIMAL 130 - 159 mg/dl BORDERLINE HIGH 160 - 189 mg/dl HIGH >190 mg/dl VERY HIGH Performed By: #### C MP, BNP, LIPID #### [facility] [address] [address] [address] Melecio Mcclelland Triglyceride [Mass/Vol] 42 mg/dL Normal <=150 [facility] Comment on above: Performed By: #### C MP, BNP, LIPID #### [facility] [address] [place] [address] Dr. Melecio Mcclelland VLDL CALC 8.4 mg/dL Normal [facility] Comment on above: Performed By: #### C MP, BNP, LIPID #### [facility] [address] [place] [address] Dr. Melecio Mcclelland PROF 14(COMP METB)on 022 Albumin [Mass/Vol] 3.5 g/dL Normal 3.4-5.0 [facility] Comment on above: Performed By: #### C MP, BNP, LIPID #### [facility] [address] [place] [address] Dr. Melecio Mcclelland Albumin/Globulin [Mass ratio] 1.2 {ratio} Normal [facility] Comment on above: Performed By: #### C MP, BNP, LIPID #### [facility] [address] [address] [address] Melecio Mcclelland ALP [Catalytic activity/Vol] 111 U/L Normal 46-116 [facility] Comment on above: Performed By: #### C MP, BNP, LIPID #### [facility] [address] [address] [address] Melecio Mcclelland ALT [Catalytic activity/Vol] 34 U/L Normal 14-59 [facility] Comment on above: Performed By: #### C MP, BNP, LIPID #### [facility] [address] [address] [address] Melecio Mcclelland Anion gap [Moles/Vol] 13.5 mmol/L Normal [facility] Comment on above: Performed By: #### C MP, BNP, LIPID #### [facility] [address] [place] [address] Dr. Melecio Mcclelland AST [Catalytic activity/Vol] 22 U/L Normal 15-37 [facility] Comment on above: Performed By: #### C MP, BNP, LIPID #### [facility] [address] [address] [address] Melecio Mcclelland Bilirubin [Mass/Vol] 1.2 mg/dL Normal 0.2-1.3 [facility] Comment on above: Performed By: #### C MP, BNP, LIPID #### [facility] [address] [place] [address] Dr. Melecio Mcclelland Calcium [Mass/Vol] 9.0 mg/dL Normal 8.5-10.1 [facility] Comment on above: Performed By: #### C MP, BNP, LIPID #### [facility] [address] [address] [address] Melecio Mcclelland Chloride [Moles/Vol] 110 mmol/L Critically high 98-107 [facility] Comment on above: Performed By: #### C MP, BNP, LIPID #### [facility] [address] [address] [address] Melecio Mcclelland CO2 [Moles/Vol] 25.5 mmol/L Normal 22.0-30.0 [facility] Comment on above: Performed By: #### C MP, BNP, LIPID #### [facility] [address] [address] [address] Melecio Mcclelland Creatinine [Mass/Vol] 1.02 mg/dL Normal 0.52-1.04 [facility] Comment on above: Performed By: #### C MP, BNP, LIPID #### [facility] [address] [address] [address] Melecio Mcclelland EGFR-AF [place]OU[place]OREAN >60 Normal >=60 [facility] Comment on above: Performed By: #### C MP, BNP, LIPID #### [facility] [address] [address] [address] Melecio Mcclelland EGFR-NON AF [place] 52 mL/min/1.73m2 Critically low >=60 [facility] Comment on above: Performed By: #### C MP, BNP, LIPID #### [facility] [address] [address] [address] Melecio Mcclelland Globulin (S) [Mass/Vol] 3.0 g/dL Normal [facility] Comment on above: Performed By: #### C MP, BNP, LIPID #### [facility] [address] [address] [address] Melecio Mcclelland Glucose [Mass/Vol] 93 mg/dL Normal 74-106 [facility] Comment on above: Performed By: #### C MP, BNP, LIPID #### [facility] [address] [address] [address] Melecio Mcclelland Potassium [Moles/Vol] 4.0 mmol/L Normal 3.4-5.0 [facility] Comment on above: Performed By: #### C MP, BNP, LIPID #### [facility] [address] [address] [address] Melecio Mcclelland Protein [Mass/Vol] 6.5 g/dL Normal 6.1-8.2 [facility] Comment on above: Performed By: #### C MP, BNP, LIPID #### [facility] [address] [address] [address] Melecio Mcclelland Sodium [Moles/Vol] 145 mmol/L Normal 137-145 [facility] Comment on above: Performed By: #### C MP, BNP, LIPID #### [facility] [address] [address] [address] Melecio Mcclelland Urea nitrogen [Mass/Vol] 20.0 mg/dL Critically high 7.0-18.0 [facility] Comment on above: Performed By: #### C MP, BNP, LIPID #### [facility] [address] [id number] Melecio Mcclelland Urea nitrogen/Creatinine [Mass ratio] 19.6 mg/mg Normal [facility] Comment on above: Performed By: #### C MP, BNP, LIPID #### [facility] [address] [place], [place] [id number] Dr. Melecio Mcclelland US CAROTID ART BILon 022 US CAROTID ART JERRY EXAMINATION: US CAROTID ART JERRY HISTORY: Cardiovascular symptoms , carotid [...] DANIEL ANAND Date: 2021-10-12 13:56 Normal [facility] Reporton 06-17-2019 Cardiovascular Lab Report [facility] Patient Name: [facility] MR #: [id number] Department of Physician: Lorraine Harrison M.D. Division of Service Date: 06/16/2019 Cardiology Birthdate: 1940 Adult Cardiovascular Room #: [address] [address] Cardiovascular Laboratory Report FINAL IMPRESSIONS: 1. Moderate [...] 5. Follow up with me in the [facility] in the next 2 months. 6. [...] right internal jugular vein was obtained. A 6-Greenlandic 11 cm sheath was inserted without difficulty. [...] to access the right radial artery. A 6-Greenlandic Glidesheath was inserted without difficulty. Resistance advancing [...] engaged into the left main ostium. The [employer] pressure wire was advanced through the catheter [...] are outlined above. Electronically Signed by: Elisabeth Alvares M.D. 06/24/2019 03:10 P Elisabeth Alvares M.D. Date Dict: 06/16/2019/10:45 Germaine Alvares M.D. Date Trans: 06/17/2019 05:53 Jose/ryan [id number] [facility] Vital Signs Date Time Vital Sign Value Performing Clinician Faci lity 09-24-2024 14:36-0500 Body mass index (BMI) [Ratio] 26.09 kg/m2 Christopher Lee DO Work Phone: [facility] 09-24-2024 14:36-0500 Body weight 68.95 kg Christopher Lee DO Work Phone: [facility] 09-24-2024 14:36-0500 Diastolic blood pressure 82 mm[Hg] Christopher Lee DO Work Phone: [facility] 09-24-2024 14:36-0500 Heart rate 48 /min Christopher Lee DO Work Phone: [facility] 09-24-2024 14:36-0500 SaO2% (BldA) [Mass fraction] 98 % Christopher Lee DO Work Phone: [facility] 09-24-2024 14:36-0500 Systolic blood pressure 134 mm[Hg] Christopher Lee DO Work Phone: [facility] 08-19-2024 14:03-0500 Body mass index (BMI) [Ratio] 26.26 kg/m2 Kavita Allison MACHINE SETTER SUPERVISOR Work Phone: [facility] 08-19-2024 14:03-0500 Body weight 69.4 kg Kavita Allison MACHINE SETTER SUPERVISOR Work Phone: [facility] 08-19-2024 14:03-0500 Diastolic blood pressure 77 mm[Hg] Kavita Allison MACHINE SETTER SUPERVISOR Work Phone: [facility] 08-19-2024 14:03-0500 Heart rate 78 /min Kavita Allison MACHINE SETTER SUPERVISOR Work Phone: [facility] 08-19-2024 14:03-0500 Systolic blood pressure 122 mm[Hg] Kavita Allison MACHINE SETTER SUPERVISOR Work Phone: [facility] 08-14-2024 13:25-0500 Body height 160.02 cm [facility] 08-14-2024 13:25-0500 Body mass index (BMI) [Ratio] 26.9 kg/m2 [facility] 08-14-2024 13:25-0500 Body weight 69 kg [facility] 08-14-2024 13:25-0500 Diastolic blood pressure 72 mm[Hg] [facility] 08-14-2024 13:25-0500 Heart rate 63 /min [facility] 08-14-2024 13:25-0500 SaO2% (BldA) [Mass fraction] 97 % [facility] 08-14-2024 13:25-0500 Systolic blood pressure 126 mm[Hg] [facility] 05-07-2024 14:04-0400 Body mass index (BMI) [Ratio] 28.84 kg/m2 Kavita Allison MACHINE SETTER SUPERVISOR Work Phone: [facility] 05-07-2024 14:04-0400 Body weight 76.2 kg Kavita Allison MACHINE SETTER SUPERVISOR Work Phone: [facility] 05-07-2024 14:04-0400 Diastolic blood pressure 70 mm[Hg] Kavita Allison MACHINE SETTER SUPERVISOR Work Phone: [facility] 05-07-2024 14:04-0400 Heart rate 57 /min Kavita Allison MACHINE SETTER SUPERVISOR Work Phone: [facility] 05-07-2024 14:04-0400 Systolic blood pressure 121 mm[Hg] Kavita Allison MACHINE SETTER SUPERVISOR Work Phone: [facility] 05-06-2024 13:08-0400 Body height 160.02 cm [facility] 05-06-2024 13:08-0400 Body mass index (BMI) [Ratio] 28.5 kg/m2 [facility] 05-06-2024 13:08-0400 Body weight 73.08 kg [facility] 05-06-2024 13:08-0400 Diastolic blood pressure 70 mm[Hg] [facility] 05-06-2024 13:08-0400 Heart rate 48 /min [facility] 05-06-2024 13:08-0400 Respiratory rate 16 /min [facility] 05-06-2024 13:08-0400 SaO2% (BldA) [Mass fraction] 98 % [facility] 05-06-2024 13:08-0400 Systolic blood pressure 124 mm[Hg] [facility] 02-04-2024 10:45-0400 Body height 160.02 cm MD Jody Stewart Work Phone: [facility] 02-04-2024 10:45-0400 Body mass index (BMI) [Ratio] 30.4 kg/m2 MD Jody Stewart Work Phone: [facility] 02-04-2024 10:45-0400 Body weight 78.01 kg MD Jody Stewart Work Phone: [facility] 02-04-2024 10:45-0400 Diastolic blood pressure 60 mm[Hg] MD Jody Stewart Work Phone: [facility] 02-04-2024 10:45-0400 Heart rate 62 /min MD Jody Stewart Work Phone: [facility] 02-04-2024 10:45-0400 Systolic blood pressure 98 mm[Hg] MD Jody Stewart Work Phone: [facility] 12-06-2023 14:44-0400 Body height 160.02 cm MD Jody Stewart Work Phone: [facility] 12-06-2023 14:44-0400 Body mass index (BMI) [Ratio] 31.6 kg/m2 MD Jody Stewart Work Phone: [facility] 12-06-2023 14:44-0400 Body weight 81.19 kg MD Jody Stewart Work Phone: [facility] 12-06-2023 14:44-0400 Diastolic blood pressure 51 mm[Hg] MD Jody Stewart Work Phone: [facility] 12-06-2023 14:44-0400 Heart rate 50 /min MD Jody Stewart Work Phone: [facility] 12-06-2023 14:44-0400 Systolic blood pressure 74 mm[Hg] MD Jody Stewart Work Phone: [facility] 12-03-2023 10:41-0400 Body height 160.02 cm MD Jody Stewart Work Phone: [facility] 12-03-2023 10:41-0400 Body mass index (BMI) [Ratio] 31.5 kg/m2 MD Jody Stewart Work Phone: [facility] 12-03-2023 10:41-0400 Body temperature 98.2 [degF] MD Jody Stewart Work Phone: [facility] 12-03-2023 10:41-0400 Body weight 80.73 kg MD Jody Stewart Work Phone: [facility] 12-03-2023 10:41-0400 Heart rate 138 /min MD Jody Stewart Work Phone: [facility] 12-03-2023 10:41-0400 Respiratory rate 18 /min MD Jody Stewart Work Phone: [facility] 12-03-2023 10:41-0400 SaO2% (BldA) [Mass fraction] 92 % MD Jody Stewart Work Phone: [facility] 10-04-2023 14:22-0400 Body height 154.94 cm [facility] 10-04-2023 14:22-0400 Body mass index (BMI) [Ratio] 36.9 kg/m2 [facility] 10-04-2023 14:22-0400 Body weight 88.67 kg [facility] 10-04-2023 14:22-0400 Diastolic blood pressure 86 mm[Hg] [facility] 10-04-2023 14:22-0400 Heart rate 50 /min [facility] 10-04-2023 14:22-0400 Systolic blood pressure 121 mm[Hg] [facility] 07-05-2023 11:45-0500 Body height 154.94 cm Jody Stewart Other [facility] Other 07-05-2023 11:45-0500 Body mass index (BMI) [Ratio] 37.67 kg/m2 Jody Stewart Other [facility] Other 07-05-2023 11:45-0500 Body weight 90.45 kg Jody Stewart Other [facility] Other 07-05-2023 11:45-0500 Diastolic blood pressure 84 mm[Hg] Jody Stewart Other [facility] Other 07-05-2023 11:45-0500 Systolic blood pressure 132 mm[Hg] Jody Stewart Other [facility] Other 04-05-2023 10:00-0400 Body height 154.94 cm Jody Stewart Other [facility] Other 04-05-2023 10:00-0400 Body mass index (BMI) [Ratio] 39.79 kg/m2 Jody Stewart Other [facility] Other 04-05-2023 10:00-0400 Body weight 95.53 kg Jody Stewart Other [facility] Other 04-05-2023 10:00-0400 Diastolic blood pressure 82 mm[Hg] Jody Stewart Other [facility] Other 04-05-2023 10:00-0400 Respiratory rate 12 /min Jody Stewart Other [facility] Other 04-05-2023 10:00-0400 Systolic blood pressure 122 mm[Hg] Jody Stewart Other [facility] Other 01-04-2023 10:00-0400 Body height 154.94 cm Jody Stewart Other [facility] Other 01-04-2023 10:00-0400 Body mass index (BMI) [Ratio] 40.62 kg/m2 Jody Stewart Other [facility] Other 01-04-2023 10:00-0400 Body weight 97.52 kg Jody Stewart Other [facility] Other 01-04-2023 10:00-0400 Diastolic blood pressure 78 mm[Hg] Jody Stewart Other [facility] Other 01-04-2023 10:00-0400 Systolic blood pressure 138 mm[Hg] Jody Stewart Other [facility] Other 10-05-2022 11:00-0400 Body height 154.94 cm Jody Stewart Other [facility] Other 10-05-2022 11:00-0400 Body mass index (BMI) [Ratio] 41.56 kg/m2 Jody Stewart Other [facility] Other 10-05-2022 11:00-0400 Body weight 99.79 kg Jody Stewart Other [facility] Other 10-05-2022 11:00-0400 Diastolic blood pressure 72 mm[Hg] Jody Stewart Other [facility] Other 10-05-2022 11:00-0400 SaO2% (BldA) [Mass fraction] 97 % Jody Stewart Other [facility] Other 10-05-2022 11:00-0400 Systolic blood pressure 120 mm[Hg] Jody Stewart Other [facility] Other 08-31-2022 11:00-0500 Body height 162.56 cm Jody Stewart Other [facility] Other 08-31-2022 11:00-0500 Body mass index (BMI) [Ratio] 38.62 kg/m2 Jody Stewart Other [facility] Other 08-31-2022 11:00-0500 Body weight 102.06 kg Jody Stewart Other [facility] Other 08-31-2022 11:00-0500 Diastolic blood pressure 78 mm[Hg] Jody Stewart Other [facility] Other 08-31-2022 11:00-0500 Systolic blood pressure 116 mm[Hg] Jody Stewart Other [facility] Other Encounters Encounter Date Encounter Type Care Provider Facility Start: 10-07-2024 End: 10-07-2024 [facility] Start: 09-24-2024 End: 09-24-2024 Office outpatient visit 15 minutes Kay Howard DO Work Phone: [facility] Comment on above: Memory loss Start: 09-24-2024 End: 09-24-2024 Bamboo flowsheet aKy Howard DO Work Phone: [facility] Start: 09-24-2024 End: 09-24-2024 Bamboo flowsheet Kay Howard DO Work Phone: [facility] Start: 09-24-2024 End: 09-24-2024 ambulatory KAY HOWARD Not Available Start: 08-19-2024 End: 08-19-2024 Office outpatient visit 15 minutes Kavita Allison MACHINE SETTER SUPERVISOR Work Phone: [facility] [place] Comment on above: Parkinson's disease without dyskinesia or fluctuating manifestations (CMS/HCC) (Primary Dx); Dizziness; Bilateral carpal tunnel syndrome Start: 08-19-2024 End: 08-19-2024 Bamboo flowsheet Kavita Allison MACHINE SETTER SUPERVISOR Work Phone: [facility] Start: 08-19-2024 End: 08-19-2024 Bamboo flowsheet Kavita Allison MACHINE SETTER SUPERVISOR Work Phone: [facility] Start: 08-19-2024 End: 08-19-2024 ambulatory KAVITA ALLISON Not Available Start: 08-14-2024 End: 08-14-2024 ambulatory [facility] Work Phone: Start: 08-14-2024 End: 08-14-2024 Patient encounter procedure [facility] Work Phone: Start: 05-07-2024 End: 05-07-2024 Bamboo flowsheet Kavita Estefany MACHINE SETTER SUPERVISOR Work Phone: [facility] [address] Start: 05-07-2024 End: 05-07-2024 Bamboo flowsheet Kavita Allison MACHINE SETTER SUPERVISOR Work Phone: [facility] [place] [address] Start: 05-07-2024 End: 05-07-2024 Office outpatient visit 15 minutes Kavita Allison MACHINE SETTER SUPERVISOR Work Phone: [facility] [address] Comment on above: Parkinson's disease without dyskinesia or fluctuating manifestations (CMS/HCC) (Primary Dx); Dizziness; Bilateral carpal tunnel syndrome Start: 05-07-2024 End: 05-07-2024 ambulatory KAVITA ALLISON Not Available Start: 05-06-2024 End: 05-06-2024 ambulatory [facility] Work Phone: Start: 05-06-2024 End: 05-06-2024 Patient encounter procedure [facility] Work Phone: Start: 04-02-2024 End: 04-02-2024 ambulatory AKILAH GARCIA [facility] Start: 03-04-2024 End: 03-04-2024 ambulatory KAVITA ESTEFANY Not Available Start: 02-04-2024 End: 02-04-2024 ambulatory MD Jody Stewart Work Phone: [facility] Work Phone: Start: 02-04-2024 End: 02-04-2024 Patient encounter procedure MD Jody Stewart Work Phone: [facility] Work Phone: Start: 02-04-2024 End: 02-04-2024 Physical examination MD Jody Stewart Work Phone: [facility] Start: 01-31-2024 Non-patient / Non-visit MD Keyana Stewart Work Phone: [facility] Work Phone: Start: 01-29-2024 Non-patient / Non-visit MD Keyana Stewart Work Phone: [facility] Work Phone: Start: 01-18-2024 End: 01-18-2024 ambulatory AKILAH FAJARDO Not Available Start: 01-15-2024 End: 01-15-2024 ambulatory MAURICE VILLARREAL Not Available Start: 01-14-2024 End: 01-14-2024 ambulatory KAVITA ESTEFANY Not Available Start: 01-11-2024 End: 01-11-2024 ambulatory MAURICE VILLARREAL Not Available Start: 01-07-2024 End: 01-07-2024 ambulatory CESARIOBUCK KING Not Available Start: 01-04-2024 End: 01-04-2024 ambulatory AKSHAT MITCHELL Not Available Start: 12-31-2023 End: 12-31-2023 ambulatory MAURICE VILLARREAL Not Available Start: 12-06-2023 End: 12-06-2023 Patient encounter procedure MD Jody Stewart Work Phone: [facility] Work Phone: Start: 12-03-2023 End: 12-03-2023 ambulatory Thania Hoffmann Facility:[facility] Start: 12-03-2023 End: 12-03-2023 ambulatory MD Jody Stewart Work Phone: [facility] Work Phone: Start: 12-03-2023 End: 12-03-2023 Patient encounter procedure MD Jody Stewart Work Phone: [facility] Work Phone: Start: 12-03-2023 End: 12-03-2023 ambulatory MD Jody Stewart Work Phone: [facility] Work Phone: Start: 12-03-2023 End: 12-03-2023 Patient encounter procedure MD Jody Stewart Work Phone: [facility] Work Phone: Start: 11-22-2023 End: 11-22-2023 ambulatory KAVITA ALLISON Not Available Start: 10-04-2023 End: 10-04-2023 ambulatory [facility] Work Phone: Start: 10-04-2023 End: 10-04-2023 Patient encounter procedure [facility] Work Phone: Start: 07-11-2023 End: 07-11-2023 ambulatory Jody Stewart Other [facility] Other Start: 07-11-2023 Telephone encounter Jody Stewart [facility] Start: 07-10-2023 End: 07-10-2023 ambulatory Jody Stewart Other [facility] Other Start: 07-10-2023 Telephone encounter Jody Terry [facility] Start: 07-09-2023 End: 07-09-2023 ambulatory Jody Terry Other [facility] Other Start: 07-09-2023 Telephone encounter Jody Terry [facility] Start: 07-05-2023 End: 07-05-2023 ambulatory Jody Terry Other [facility] Other Start: 07-05-2023 Office outpatient vi sit 25 minutes Jody Stewart [facility] Start: 07-05-2023 Telephone encounter Jody Terry [facility] Start: 04-17-2023 End: 04-17-2023 ambulatory Jody Terry Other [facility] Other Start: 04-17-2023 Telephone encounter Jody Terry [facility] Start: 04-10-2023 End: 04-10-2023 ambulatory Jody Terry Other [facility] Other Start: 04-10-2023 Telephone encounter Jody Terry [facility] Start: 04-05-2023 End: 04-05-2023 ambulatory Jody Terry Other [facility] Other Start: 04-05-2023 Office outpatient vi sit 15 minutes Jody Terry [facility] Start: 01-04-2023 End: 01-04-2023 ambulatory Jody Terry Other [facility] Other Start: 01-04-2023 Office outpatient vi sit 15 minutes Jody Terry [facility] Start: 10-05-2022 End: 10-05-2022 ambulatory Jody Terry Other [facility] Other Start: 10-05-2022 Office outpatient vi sit 15 minutes Jody Terry [facility] Start: 09-01-2022 Telephone encounter Jody Terry [facility] Start: 09-01-2022 End: 09-02-[address] JODY STEWART Facility:[facility] Start: 08-31-2022 End: 08-31-2022 ambulatory Jody Stewart Other [facility] Other Start: 08-31-2022 Office outpatient vi sit 15 minutes Jody Stewart [facility] Start: 08-29-2022 End: 08-29-2022 ambulatory Jody Stewart Other [facility] Other Start: 08-29-2022 Telephone encounter Jody Stewart [facility] Start: 08-15-2022 End: 08-15-[address] JODY STEWART Facility:[facility] Start: 02-01-2022 End: 02-02-2022 ambulatory SHAR KAUFMAN Facility:[facility] Start: 01-11-2022 End: 01-12-[address] Daniel Anand Facility:[facility] Start: 10-19-2021 End: 04-19-[address] JODY STEWART Facility:[facility] Start: 10-12-2021 End: 10-13-[address] Daniel Anand Facility:[facility] Start: 06-16-2019 End: 06-17-2019 Patient encounter procedure ELISABETH ALVARES Facility:[facility] Procedures Date Procedure Procedure Detail Performing Clinician Start: 12-03-2023 Plain X-ray of left shoulder MD Jody Stewart Work Phone: Plan of Treatment Date Care Activity Detail Author Start: 09-24-2024 End: 09-24-2024 Patient encounter procedure [facility] Comment on above: Arrived Start: 08-19-2024 End: 08-19-2024 Patient encounter procedure 08/19/2024 3:00 PM EST Office Visit [facility] [address] [place] [phone] Kavita Allison NP [address] [place] [address] Arrived [facility] Comment on above: Arrived Start: 05-07-2024 End: 05-07-2024 Patient encounter procedure 05/07/2024 2:00 PM EDT Office Visit [facility] [place] [address] [place] [phone] Kavita Allison NP [address] [place], [place] [id number] Arrived [facility] [place] [address] Comment on above: Arrived Comprehensive metabo lic 2000 panel - Serum or Plasma [facility] [place] Thyroid gland [facility] XR Shoulder - left Views [facility] Immunizations Immunization Date Immunization Notes Care Provider Fa cility 05-25-2020 influenza virus vaccine, split virus (incl. purified surface antigen) Jody Stewart Other [facility] Other 05-25-2020 influenza virus vaccine, unspecified formulation [facility] 05-07-2019 influenza virus vaccine, split virus (incl. purified surface antigen) Jody Stewart Other [facility] Other 05-07-2019 influenza virus vaccine, unspecified formulation [facility] 07-23-2015 influenza virus vaccine, split virus (incl. purified surface antigen) Jody Stewart Other [facility] Other 07-23-2015 influenza virus vaccine, unspecified formulation [facility] 07-23-2012 pneumococcal conjuga te vaccine, 13 valent Jody Stewart Other [facility] 03-23-2012 zoster vaccine, live Jody Stewart Other [facility] Payers Date Payer Category Payer Medicare MEDICARE [id number] 2023 Self-pay 2023 Medicare [id number] 2023 [employer] Blue [employer]BS [id number]. 315 2023 Unknown [id number] 1959 Medicare [id number] 1959 Unknown [id number] 1959 Unknown [id number] 1940 Unknown [id number] 2.16840.1.195817.3.57 9.2.647 1940 Unknown [id number] 2.16840.1.036491.3.57 9.2.593 1940 Unknown [id number] 2.16840.1.766123.3.57 9.2.593 1940 Unknown [id number] 2.16840.1.135293.3.57 9.2.593 1940 Unknown [id number] 2.16840.1.835904.3.57 9.2.593 1940 Unknown [id number] 2.16840.1.095944.3.57 9.2.593 1940 Unknown [id number] 2.16840.1.941605.3.57 9.2.593 1941 Unknown [id number] 2.16.840.1.171129.3.57 9.2.1259 -1941 Unknown [id number] 2.16.840.1.318197.3.57 9.2.1259 -1941 Unknown [id number] 2.16.840.1.834089.3.57 9.2.1259 --194 Unknown [id number] 2.16.840.1.337730.3.57 9.2.1259 -194 Unknown [id number] 2.16.840.1.292203.3.57 9.2.1259 -194 Unknown [id number] 2.16.840.1.182569.3.57 9.2.1259 -1941 Unknown [id number] 2.16.840.1.760094.3.57 9.2.1259 194 Unknown [id number] 2.16.840.1.094771.3.57 9.2.1259 --1941 Unknown [id number] 2.16.840.1.715482.3.57 9.2.1259 -194 Unknown [id number] 2.16.840.1.499046.3.57 9.2.1259 --1941 Unknown [id number] 2.16.840.1.916116.3.57 9.2.1259 194 Unknown [id number] 2.16.840.1.775882.3.57 9.2.1259 Unknown [place] BC/BS UFK [id number] Unknown [id number] 2.16.840.1.658572.3.57 9.2.531 Unknown [id number] Social History Date Type Detail Facility Unknown if ever smoked [facility] Other Start: 11-22-2023 Sex Assigned At N [employer] Other Start: 1940 Sex Assigned At Female F [facility] Start: 11-22-2023 End: 12-03-2023 Tobacco smoking status NHIS Never smoked tobacco (finding) [facility] Start: 11-22-2023 End: 08-19-2024 Alcoholic beverage intake Lifetime non-drinker (finding) [facility] Start: 11-22-2023 History of Social function [facility] Start: 11-22-2023 Alcohol Comment caffeine: none [facility] Start: 1940 Sex assigned at Not on file N [facility] Start: 08-14-2024 End: 08-14-2024 Sex Female (finding) [facility] Clinical Notes 08-31-2022 to 10-07-2024 Kay Howard DO - 09/24/2024 3:00 PM Adriano Allison NP - 08/19/2024 3:00 PM EST Note Date & Type Note Facility 10-07-2024 Note Patient here for 6 m o follow up chronic diastolic heart failure, CAD, and hypertension. Had echo last Mar after last visit. Daughter states Dr. Stewart stopped spironolactone due to hypotension. Patient says she gets chest tightness with anxiety . This subsides once she calms down she says. Review of Systems Constitutional: Positive for weight loss (13# since Mar 2024). Cardiovascular: Positive for chest pain ( tightness with anxiety ) and dyspnea on exertion (with anxiety). Respiratory: Positive for shortness of breath. Musculoskeletal: Positive for falls and muscle weakness. Gastrointestinal: Positive for bowel incontinence. Neurological: Positive for tremors and weakness. All other systems reviewed and are negative. [facility] 10-07-2024 Note Cardiovascular Medic [facility] SUBJECTIVE Chief Complaint Patient presents with Congestive Heart Failure Coronary Artery Disease Hypertension India Moore is a 84 y.o. female here for follow-up. HPI PMHx: HFpEF, CAD, HTN, hx PE, parkinson's She has some intermittent chest tightness - occurs with exertion. She can get some accompanied shortness of breath. She reports showering can cause her to have SOB. She is easily fatigued, she doesn't do much during the day. She may have some dizziness if she turns too quickly. Denies orthopnea, PND, palpitations, LE edema, syncope. She has had some weight loss. Initially intentional. Now she is forgetful and doesn't recall if she had recently ate per her daughter. Patient Active Problem List Diagnosis Chest pain Coronary arteriosclerosis Dyspnea Essential hypertension Pulmonary embolism (CMS/HCC) Chronic diastolic heart failure, NYHA class 2 (CMS/HCC) Anxiety Bilateral carpal tunnel syndrome Burning sensation Tremor Past Medical History: Diagnosis Date Chest pain Coronary arteriosclerosis Dyspnea Essential hypertension Peripheral vascular insufficiency Pulmonary embolism (CMS/HCC) Family History Problem Relation Name Age of Onset Heart failure Mother Social History Tobacco Use Smoking status: Former Types: Cigarettes Smokeless tobacco: Never Substance Use Topics Alcohol use: Not Currently No Known Allergies ROS Constitutional: Positive for weight loss (13# since Mar 2024). Cardiovascular: Positive for chest pain ( tightness with anxiety ) and dyspnea on exertion (with anxiety). Respiratory: Positive for shortness of breath. Musculoskeletal: Positive for falls and muscle weakness. Gastrointestinal: Positive for bowel incontinence. Neurological: Positive for tremors and weakness. All other systems reviewed and are negative. OBJECTIVE Visit Vitals BP 97/60 (BP Location: Left arm, Patient Position: Sitting) Pulse 55 Ht 1.575 m (5' 2 ) Wt 68.5 kg (151 lb) SpO2 97% BMI 27.62 kg/m??? Smoking Status Former BSA 1.73 m??? Medications: Current Outpatient Medications: atorvastatin (Lipitor) 80 mg tablet, TAKE 1 TABLET DAILY AT BEDTIME, Disp: 90 tablet, Rfl: 3 carbidopa-levodopa (Sinemet) 25-100 mg tablet, Take 1 tablet by mouth in the morning, at noon, and at bedtime., Disp: , Rfl: carvedilol (Coreg) 6.25 mg tablet, TAKE 1 TABLET BY MOUTH TWICE DAILY, Disp: 180 tablet, Rfl: 3 donepezil (Aricept) 5 mg tablet, Take 10 mg by mouth at bedtime., Disp: , Rfl: folic acid (Folvite) 1 mg tablet, Take 1,000 mcg by mouth in the morning., Disp: , Rfl: furosemide (Lasix) 20 mg tablet, Take 1 tablet (20 mg) by mouth two times daily., Disp: 180 tablet, Rfl: 2 nabumetone (Relafen) 750 mg tablet, Take 750 mg by mouth if needed in the morning and at bedtime., Disp: , Rfl: Xarelto 20 mg tablet, TAKE 1 TABLET BY MOUTH IN THE MORNING WITH FOOD, Disp: 90 tablet, Rfl: 3 Jardiance 10 mg, TAKE 1 TABLET BY MOUTH ONCE DAILY DIRECTED, Disp: 90 tablet, Rfl: 3 losartan (Cozaar) 50 mg tablet, Take 1 tablet (50 mg) by mouth once daily as directed., Disp: 90 tablet, Rfl: 2 spironolactone (Aldactone) 25 mg tablet, Take 25 mg by mouth in the morning., Disp: , Rfl: Physical Exam Vitals reviewed. Constitutional: Appearance: Normal appearance. She is normal weight. HENT: Head: Normocephalic and atraumatic. Right Ear: External ear normal. Left Ear: External ear normal. Eyes: Extraocular Movements: Extraocular movements intact. Conjunctiva/sclera: Conjunctivae normal. Pupils: Pupils are equal, round, and reactive to light. Neck: Vascular: No carotid bruit. Cardiovascular: Rate and Rhythm: Normal rate and regular rhythm. Pulses: Normal pulses. Heart sounds: Normal heart sounds. Pulmonary: Effort: Pulmonary effort is normal. Breath sounds: Normal breath sounds. Abdominal: General: Bowel sounds are normal. Palpations: Abdomen is soft. Musculoskeletal: Cervical back: Neck supple. Right lower leg: No edema. Left lower leg: No edema. Skin: General: Skin is warm and dry. Neurological: General: No focal deficit present. Mental Status: She is alert and oriented to person, place, and time. Psychiatric: Mood and Affect: Mood normal. Behavior: Behavior normal. Thought Content: Thought content normal. Judgment: Judgment normal. Labs: Legacy Encounter on 06/16/2019 Component Date Value Ref Range Status Ventricular Rate 06/16/2019 53 BPM Final Atrial Rate 06/16/2019 53 BPM Final GA Interval 06/16/2019 170 ms Final QRS DURATION 06/16/2019 94 ms Final QT Interval 06/16/2019 436 ms Final QTC CALCULATION(BEZET) 06/16/2019 409 ms Final P [place] 06/16/2019 26 degrees Final R-[place] 06/16/2019 37 degrees Final T Wave [place] 06/16/2019 38 degrees Final Diagnosis 06/16/2019 Final Value:Sinus bradycardia Otherwise normal ECG No previous ECGs availab (more content not included)... [facility] 09-24-2024 History of Present illness Narrative Images from the original note were not included. Chief complaint: Parkinson's disease Subjective India Mooer, 84 y.o., female Patient is here for follow up to Parkinson's. She is currently on sinemet and Aricept. Patient states she has good and bad days. She admits to chest pain when she is overdoing herself. She has not been sleeping well at night. If she is woken up she is unable to fall back asleep. Then she will sleep during the evening and have difficulty falling asleep at bedtime. She admits her tremor and dizziness has been about the same. She reports one fall since last visit. She denies hitting her head. Review of Systems Constitutional: Negative for appetite change, fatigue and fever. Respiratory: Negative for cough, shortness of breath and wheezing. Cardiovascular: Negative for chest pain, palpitations and leg swelling. Gastrointestinal: Positive for nausea. Negative for abdominal pain, constipation and diarrhea. Musculoskeletal: Positive for gait problem. Negative for arthralgias and myalgias. Neurological: Positive for dizziness and tremors. Negative for numbness and headaches. Past Medical History: Diagnosis Date Anemia Anxiety Coronary artery disease (CMS/HCC) Depression (CMS/HCC) History of blood transfusion Osteoarthritis Varicose vein of leg Past Surgical History: Procedure Laterality Date CARPAL TUNNEL RELEASE OTHER SURGICAL HISTORY 2007 saddle bag PE Family History Problem Relation Name Age of Onset Dementia Mother Stroke Mother Social History Tobacco Use Smoking status: Never Smokeless tobacco: Not on file Substance Use Topics Alcohol use: Never Comment: caffeine: none Allergies: Patient has no known allergies. Vitals: 09/24/24 1436 BP: 134/82 Pulse: (!) 48 SpO2: 98% Body mass index is 26.09 kg/m . weight: 152 lb Neurologic exam: Mental status: Well nourished, well developed and in no acute distress. Grossly oriented to person, place and time. Recent and remote memory are intact. Language is fluent without aphasia. Attention and concentration are normal. Fund of knowledge is appropriate for level of education. Cranial nerves: CN II: Visual acuity is normal. Visual perez full to confrontation. CN III, IV, : pupils equal round and reactive to light. Extraocular movements intact. No ptosis present. CN V: Facial sensation is normal. CN VII: Full and symmetric facial movement. CN VIII: Hearing is intact. CN IX and X: Palate elevates symmetrically. CN XI: Shoulder shrug is normal bilaterally. CN XII: Tongue is midline without atrophy or fasciculation. Motor: RUE Strength deltoid, , biceps , triceps , wrist extensors , wrist flexor 5/5 , vp strength 4/5. LUE Strength deltoid , biceps , triceps , wrist extensors , wrist flexor 5/5 , vp strength 4+/5. RLE Strength illopsoas, quadriceps, tibialis anterior, and gastrocnemius strength 5/5. LLE Strength illopsoas, quadriceps, tibialis anterior, and gastrocnemius strength 5/5. Patient has cogwheel rigidity and tremor at rest in the bilateral upper extremities R>L though this does reverse with intention. There is also bradykinesia noted in bilateral upper extremities. Cogwheel rigidity is very mild today. No thenar muscle atrophy. Sensory: Sensation is intact to light touch throughout distal extremities. Reflexes: RUE biceps reflex 2+ , brachioradialis reflex 2+. LUE biceps reflex 2+ , brachioradialis reflex 2+. RLE knee reflex 2+ LLE knee reflex 2+ Kaur's Sign negative. Coordination: [id number] testing normal Gait: Rollator, magnetic gait. No shuffling. Review and summary of old records: MRI of the brain with and without contrast [facility] on 01/29/2024: No acute intracranial processes noted. Assessment/Plan Diagnoses and all orders for this visit: Parkinson's disease without dyskinesia or fluctuating manifestations (CMS/HCC) It is my impression that the patient has Parkinson's disease. She has cardinal features of bilateral rest tremor, bradykinesia and rigidity and gait instability. No medications identified that would induce this. She has had a positive response to sinemet further supporting the diagnosis. Symptoms consistent with freezing have resolved and the amplitude of tremor has improved. However, bradykinesia was more noticeable in the left upper extremity I do feel the patient would benefit from dose increase. PLAN: - we will increase Sinemet 25/100 immediate release to 1.5 tablets p.o. t.I.d. at 8:00 a.m., noon and 4:00 p.m.. We did try to use 4 times per day dosing before and this really was not tolerated by the patient. She does think that the medication does make a substantial difference for her and I did notice today some some more substantial bradykinesia in the left upper extremity which I think will respond. - Continue home PT exercises - Fall precautions discussed in detail. Dizziness The patient presents has complaints of dizziness both with positional changes and when she is turning while standing. She is somewhat unclear as to the onset of her symptoms and the duration the episodes last. Certainly this may be disequilibrium/postural hypotension related to her Parkinsons though we did opt to investigate this further with imaging. MRI of the brain on 01/29/24 was unremarkable. Orthos have been unable to be obtained in the office due to difficulty getting into the supine position. Overall, she feels her symptoms have improved since her last visit. PLAN: - Continue to monitor clinically, could consider referral to [place] should symptoms worsen. - Encouraged slow positional changes and liberalization of salt and water - Recommended close follow up with cardiology regarding blood pressure management. Bilateral carpal tunnel syndrome The patient has a history of carpal tunnel bilaterally with decompressive surgical intervention x2 on left and once on the right. She does have mildly decreased vp strength bilaterally. PLAN - Recommended cock up splints at night and hand strengthening exercises - Could consider re-evaluation with EMG in the future, this has been deferred per patient request Follow up in 1-2 months or sooner if symptoms worsen, fail to improve, or should a new neurological concern arise. Pt has been fully educated on their diagnosis, treatment options, follow up plan, and return instructions documented in this encounter [facility] 08-19-2024 History of Present illness Narrative Images from the original note were not included. Chief Complaint Patient presents with Parkinson's Disease Dizziness Carpal Tunnel Subjective India Moore, 83 y.o., female Patient is here for follow up to Parkinson's and dizziness. Presents with her friend Rochelle today. She continues living with her daughter. Patient ambulates with a cane or walker. She does admit some mild dizziness, this is not too bothersome with med adjustments and slow positional changes. Patient states her tremors have been controlled on Sinemet. Denies any wearing off type symptoms but states if she is late taking a dose she can tell. Admit tremor can intensify if she is frustrated. Denies any numbness or tingling and denies dropping things. States she has been trying to eat regularly but does admit to some nausea. Denies any other concerns today. Review of Systems Constitutional: Negative for appetite change, fatigue and fever. Respiratory: Negative for cough, shortness of breath and wheezing. Cardiovascular: Negative for chest pain, palpitations and leg swelling. Gastrointestinal: Positive for nausea. Negative for abdominal pain, constipation and diarrhea. Musculoskeletal: Positive for gait problem. Negative for arthralgias and myalgias. Neurological: Positive for dizziness and tremors. Negative for numbness and headaches. Past Medical History: Diagnosis Date Anemia Anxiety Coronary artery disease (CMS/HCC) Depression (CMS/HCC) History of blood transfusion Osteoarthritis Varicose vein of leg Past Surgical History: Procedure Laterality Date CARPAL TUNNEL RELEASE OTHER SURGICAL HISTORY 2007 saddle bag PE Family History Problem Relation Name Age of Onset Dementia Mother Stroke Mother Social History Tobacco Use Smoking status: Never Smokeless tobacco: Not on file Substance Use Topics Alcohol use: Never Comment: caffeine: none Allergies: Patient has no known allergies. Vitals: 08/19/24 1403 BP: 122/77 Pulse: 78 Body mass index is 26.26 kg/m . weight: 153 lb Neurologic exam: Mental status: Well nourished, well developed and in no acute distress. Grossly oriented to person, place and time. Recent and remote memory are intact. Language is fluent without aphasia. Attention and concentration are normal. Fund of knowledge is appropriate for level of education. Cranial nerves: CN II: Visual acuity is normal. Visual perez full to confrontation. CN III, IV, : pupils equal round and reactive to light. Extraocular movements intact. No ptosis present. CN V: Facial sensation is normal. CN VII: Full and symmetric facial movement. CN VIII: Hearing is intact. CN IX and X: Palate elevates symmetrically. CN XI: Shoulder shrug is normal bilaterally. CN XII: Tongue is midline without atrophy or fasciculation. Motor: RUE Strength deltoid, , biceps , triceps , wrist extensors , wrist flexor 5/5 , vp strength 4/5. LUE Strength deltoid , biceps , triceps , wrist extensors , wrist flexor 5/5 , vp strength 4+/5. RLE Strength illopsoas, quadriceps, tibialis anterior, and gastrocnemius strength 5/5. LLE Strength illopsoas, quadriceps, tibialis anterior, and gastrocnemius strength 5/5. Patient has cogwheel rigidity and tremor at rest in the bilateral upper extremities R>L though this does reverse with intention. There is also bradykinesia noted in bilateral upper extremities. Cogwheel rigidity is very mild today. No thenar muscle atrophy. Sensory: Sensation is intact to light touch throughout distal extremities. Reflexes: RUE biceps reflex 2+ , brachioradialis reflex 2+. LUE biceps reflex 2+ , brachioradialis reflex 2+. RLE knee reflex 2+ LLE knee reflex 2+ Kaur's Sign negative. Coordination: [id number] testing normal Gait: Rollator, magnetic gait. No shuffling. Review and summary of old records: MRI of the brain with and without contrast [facility] on 01/29/2024: No acute intracranial processes noted. Assessment/Plan Diagnoses and all orders for this visit: Parkinson's disease without dyskinesia or fluctuating manifestations (CMS/HCC) It is my impression that the patient has Parkinson's disease. She has cardinal features of bilateral rest tremor, bradykinesia and rigidity and gait instability. No medications identified that would induce this. She has had a positive response to sinemet further supporting the diagnosis. Symptoms consistent with freezing have resolved and the amplitude of tremor has improved. PLAN: - Continue Sinemet immediate release 25/100 mg IR 1 tablet by mouth 3 times a day at 8 AM, noon and 4 PM. I have again advised her that if she is awakening earlier and staying up later she may further increase this to QID. (More recently she admits to some nausea. Unsure if this is related to her medication as the patient is unable to definitively state whether this occurs with each dose or if this occurs certain times of the day. The patient was advised to track this as well as whether it relates to her meals and we will re-evaluate at follow up. Could consider CR formulation if this does seem to correlate with medication). - Continue home PT exercises - Fall precautions discussed in detail. Dizziness The patient presents has complaints of dizziness both with positional changes and when she is turning while standing. She is somewhat unclear as to the onset of her symptoms and the duration the episodes last. Certainly this may be disequilibrium/postural hypotension related to her Parkinsons though we did opt to investigate this further with imaging. MRI of the brain on 01/29/24 was unremarkable. Orthos have been unable to be obtained in the office due to difficulty getting into the supine position. Overall, she feels her symptoms have improved since her last visit. PLAN: - Continue to monitor clinically, could consider referral to [place] should symptoms worsen. - Encouraged slow positional changes and liberalization of salt and water - Recommended close follow up with cardiology regarding blood pressure management. Bilateral carpal tunnel syndrome The patient has a history of carpal tunnel bilaterally with decompressive surgical intervention x2 on left and once on the right. She does have mildly decreased vp strength bilaterally. PLAN - Recommended cock up splints at night and hand strengthening exercises - Could consider re-evaluation with EMG in the future, this has been deferred per patient request Follow up in 1-2 months or sooner if symptoms worsen, fail to improve, or should a new neurological concern arise. Pt has been fully educated on their diagnosis, treatment options, follow up plan, and return instructions documented in this encounter [facility] 04-02-2024 Note -Hypertension is wel l controlled and will continue beta jaskaran for medical management. -Continue to monitor your blood pressure at home. [facility] 04-02-2024 Note -Coronary artery dis ease is stable. No chest pain. -Continue taking statin therapy for medical management of CAD. [facility] 04-02-2024 Note -Patient is feeling well. -Patient is on GDMT with Jardiance, aldactone, carvedilol, and furosemide. Will continue these medications. -Last Echo was done at 02/07/23 and showed EF of 55-60%. Will order an Echo to be done within the next 6 months for re-evaluation of EF and valvular function. -Continue to monitor your fluid intake and your daily weights. [facility] 04-02-2024 Note Pt is here for a six month follow up. Pt denies chest pain, sob, palpatations Review of Systems Cardiovascular: Positive for dyspnea on exertion (improving). Musculoskeletal: Positive for muscle weakness. Gastrointestinal: Positive for bowel incontinence. Neurological: Positive for tremors and weakness. All other systems reviewed and are negative. [facility] 04-02-2024 Note [facility] NOTE [facility] HPI: India Moore is a 83 y.o. female with a PMHx of chronic diastolic heart failure, CAD, HTN, and hx of PE who presents today for 6 month follow-up for chronic diastolic heart failure. Pt denies chest pain, palpitations. She still feels slightly short of breath when ambulating, but nothing that is new for her. Review of Systems Cardiovascular: Positive for dyspnea on exertion (improving). Musculoskeletal: Positive for muscle weakness. Gastrointestinal: Positive for bowel incontinence. Neurological: Positive for tremors and weakness. All other systems reviewed and are negative. Social History Tobacco Use Smoking status: Former Types: Cigarettes Smokeless tobacco: Never Substance Use Topics Alcohol use: Not Currently No Known Allergies Medications: Current Outpatient Medications on File Prior to Visit Medication Sig Dispense Refill atorvastatin (Lipitor) 80 mg tablet TAKE 1 TABLET DAILY AT BEDTIME 90 tablet 3 carvedilol (Coreg) 6.25 mg tablet TAKE 1 TABLET TWICE A DAY 180 tablet 3 donepezil (Aricept) 5 mg tablet Take 10 mg by mouth at bedtime. empagliflozin (Jardiance) 10 mg Take 1 tablet (10 mg) by mouth once daily as directed. 90 tablet 2 folic acid (Folvite) 1 mg tablet Take 1,000 mcg by mouth in the morning. furosemide (Lasix) 20 mg tablet Take 1 tablet (20 mg) by mouth two times daily. 180 tablet 2 losartan (Cozaar) 100 mg tablet Take 1 tablet (100 mg) by mouth once daily as directed. 90 tablet 2 nabumetone (Relafen) 750 mg tablet Take 750 mg by mouth if needed in the morning and at bedtime. Xarelto 20 mg tablet TAKE 1 TABLET IN THE MORNING WITH FOOD 90 tablet 3 amLODIPine (Norvasc) 5 mg tablet TAKE 1 TABLET DAILY (Patient not taking: Reported on 04/02/2024) 90 tablet 3 carbidopa-levodopa (Sinemet) 25-100 mg tablet Take 1 tablet by mouth in the morning, at noon, and at bedtime. spironolactone (Aldactone) 25 mg tablet Take 25 mg by mouth in the morning. No current facility-administered medications on file prior to visit. No results found for: PTWEIGHT Physical Exam: BP 114/76 (BP Location: Right wrist, Patient Position: Sitting) Pulse 80 Ht 1.575 m (5' 2 ) Wt 74.4 kg (164 lb) SpO2 (!) 82% BMI 30.00 kg/m??? Physical exam: General: Awake, alert, good spirits. NAD Eyes: anicteric sclera. Non-injected conjunctiva. No xanthelasmas Neck: No elevated JVP. No carotid bruit Pulm: Breath sounds clear to ascultation bilaterally with no wheeze, crackles or rhonchi Cards: HRRR. NL S1, S2. No S3 or S4 gallop. Murmur: none Abd: Soft, Nontender, physiologic bowel sounds are present Extr: Lower extremity edema: none. DP pulses present bilaterally Skin: warm, dry, well perfused Neuro: A&Ox3, No gross deficits Labs: 01/31/2024: CBC: Hgb 12.6, hematocrit 39.6, plt 180 Chem: Na 140, K 3.8, BUN 27, Cr 1.90, EGFR 25, Last lab values have been reviewed with patient at today's visit. CV Testing: Last EKG 01/31/2024: Sinus rhythm with occasional supraventricular premature complex. HR 50. CTA Chest 07/11/2023 IMPRESSION: 1. No acute pulmonary embolus identified. 2. Chronic weblike pulmonary emboli present in the right lower lobe pulmonary arterial branches. Echo 02/07/23 Impression: 1.) Mild concentric left ventricular hypertrophy. Normal LV systolic function. LVEF is 55-60%. 2.) Normal right ventricular size and systolic function. 3.) Mild biatrial dilation. 4.) Mild to moderate aortic valve stenosis. Aortic valve area 1.5 cm. 5.) Normal right-sided pressures. Assessment/Plan: India Moore is a 83 y.o. female Chronic diastolic heart failure, NYHA class 2 (CMS/HCC) -Patient is feeling well. -Patient is on GDMT with Jardiance, aldactone, carvedilol, and furosemide. Will continue these medications. -Last Echo was done at 02/07/23 and showed EF of 55-60%. Will order an Echo to be done within the next 6 months for re-evaluation of EF and valvular function. -Continue to monitor your fluid intake and your daily weights. Coronary arteriosclerosis -Coronary artery disease is stable. No chest pain. -Continue taking statin therapy for medical management of CAD. Essential hypertension -Hypertension is well controlled and will continue beta jaskaran for medical management. -Continue to monitor your blood pressure at home. Follow Up: Follow up in 6 months. Karen Wilcox PA-C [facility] Available 7-5pm via [employer] Chat Pager #: [phone] [facility] 07-11-2023 Evaluation note Encounter Date Diagnosis Assessment Notes Jun, Hx pulmonary embolism (ICD-10 - Z86.711) Jun, Dyspnea on exertion (ICD-10 - R06.09) Beat[employer]no Other 12-19-2023 Evaluation note* Encounter Date Diagnosis Assessment Notes Treatment Notes Treatment Clinical Notes Jun, Hx pulmonary embolism (ICD-10 - Z86.711) Jun, Dyspnea on exertion (ICD-10 - R06.09) Beat[employer]no Other 12-18-2023 Evaluation note* Encounter Date Diagnosis Assessment Notes Treatment Notes Treatment Clinical Notes Jun, Essential hypertension (ICD-10 - I10) Beat.no Other 12-14-2023 Evaluation note* Encounter Date Diagnosis Assessment Notes Treatment Notes Treatment Clinical Notes Jun, Dyspnea on exertion (ICD-10 - R06.09) Beat[employer]no Other 12-14-2023 Evaluation note* Encounter Date Diagnosis [...] on exertion (ICD-10 - R06.09) as above Beat[facility]no Other 09-14-2023 Evaluation note* Encounter Date Diagnosis [...] Will assess thyroid for underlying metabolic cause. Beat[facility]no Other 06-15-2023 Evaluation note* Encounter Date Diagnosis Assessment Notes Treatment Notes Treatment Clinical Notes Dec, Advancing dementia (ICD-10 - F03.90) Pt expresses memory concerns. Has family in the area, but still struggles at times. Discussed safety. Agrees to starting aricept Dec, OAB (overactive bladder) (ICD-10 - N32.81) Chronic problem that has worsened. Dec, Essential hypertension (ICD-10 - I10) Followup w cardiology Beat.no Other 03-16-2023 Evaluation note* Encounter Date Diagnosis Assessment Notes Treatment Notes Treatment Clinical Notes Sep, Injury of left knee, subsequent encounter (ICD-10 - S89.92XD) Improved from 1 month ago. bruising resolved. Using wheeled walker Sep, Essential hypertension (ICD-10 - I10) Stable. Sees cardio q6 months Sep, Balance disorder (ICD-10 - R26.89) Using wheeled walker Sep, Dyslipidemia (ICD-10 - E78.5) Stable on present meds. Beat.no Other 02-10-2023 NotePROCEDURE: XR KNEE LT 3V [...] Electronically authenticated by: DANIEL ANAND Date: 2022-09-01 10:39[facility]02-09-2023 Evaluation note* Encounter Date Diagnosis Assessment Notes Treatment Notes Treatment Clinical Notes Aug, Acute pain of left knee (ICD-10 - M25.562) New problem - check xray today. Consider ortho referral if needed. Aug, Essential hypertension (ICD-10 - I10) chronic problem. refilled meds. Beat.no Other Evaluation noteNo [employer]Nort [employer] Other Evaluation noteNo assessment information available [facility] Work Phone: Evaluation note* Diagnosis Onset Date Resolution Status Chronic rhinosinusitis acute Essential hypertension acute Parkinson disease acute Left shoulder pain acute [facility] Work Phone: Evaluation note* Diagnosis Onset Date Resolution Status Left shoulder pain acute Hypotension acute Left shoulder pain acute Encounter for routine histor y and physical examination noneactive [facility] Work Phone: Evaluation note* Diagnosis Parkinson's disease without dyskinesia or fluctuating manifestations (CMS/HCC)- Primary Dizziness Dizziness and giddiness Bilateral carpal tunnel syndrome Carpal tunnel syndrome [facility] Diagnosis Onset Date Resolution Status Admit Date Abnormal weight loss acute Spencermyra elizabeth 2024 1:29pm Essential hypertension acute Elliott arndt 2024 1:29pm Hyperlipemia acute July 1:29pm Mass of left side of neck acute August 14, 2024 1:29pm Weakness acute August 14, 2024 1:29pm [facility] Work Phone: Evaluation note* Diagnosis Parkinson's disease without dyskinesia or fluctuating manifestations (CMS/HCC)- Primary Dizziness Dizziness and giddiness Bilateral carpal tunnel syndrome Carpal tunnel syndrome [facility] Diagnosis Memory loss documented in this [facility] Narrative - Reported* Type Description Date [...] LAP ANTWON Hospitalization History SEE SURGICAL HX Beat.no Other Summary Purpose Family History No Family History Records Found Relationship Condition Age at Onset Recorded Date/T anastasiia father Malignant neoplasm Unknown Unknown Not Specified Heart disease Unknown Relationship Condition Age at Onset Recorded Date/T anastasiia father Malignant neoplasm Unknown Unknown mother Heart disease Unknown Advance Directives No Advanced Directives Records Found Advance Directive Response Recorded Date/ Time Advance Directives No August 13, 2023 1:10pm Advance Directive Response Recorded Date/ Time Advance Directives No February 03 11:20am Advance Directive Response Recorded Date/ Time Advance Directives No August 14, 2024 11:56am Reason for Referral Reason *FU 07/23 [place] office - tremor, burning sensation in R hand Diagnosis 1 Resting tremor (G25. 2) Referral Organization [facility] murali Referring Provider First Name Jody Referring Provider Last Name Terry Referring Provider Specialty Family [facility] Referred Organization [facility] Referred Provider Daniel Caceres Referred Address [address] [place], [place],[address] Referred Provider Specialty Neurology Referral Priority Routine General Notes Paola Marrufo 01:27:27 PM >received today, form filled out, attachments made, notes locked, referral faxed Chief Complaint and Reason for Visit Chief Complaint 3 Month Check Up Chief Complaint 3 Month Check Up left shoulder pain ( requested X-ray) M25.512 - Pain in left shoulder Reason for Visit Chronic rhinosinusit is Essential hypertension Parkinson disease Left shoulder pain Chief Complaint left shoulder pain ( requested X-ray) M25.512 - Pain in left shoulder fell hurt shoulder 5 month follow up Reason for Visit Left shoulder pain Hypotension Left shoulder pain Encounter for routine history and physical examination Chief Complaint 3 MONTH F/U Chief Complaint Admit Date 3 month f/u August 14, 2024 1 :09pm Chief Complaint Admit Date 3 month f/u August 14, 2024 1 :29pm Reason for Visit Admit Date Abnormal weight loss August 14, 2024 1:29pm Essential hypertension August 14 1:29pm Hyperlipemia August 14, 2024 1 :29pm Mass of left side of neck August 14, 2024 1:29pm Weakness August 14, 2024 1 :29pm Additional Source Comments INFORMATION SOURCE (unrecogn ized section and content) DATE CREATED AUTHOR 06/27/2019 [facility] DATE CREATED AUTHOR AUTHOR'S ORGANIZ ATION 09/08/2022 [facility] DATE CREATED AUTHOR AUTHOR'S ORGANIZ ATION 12/15/2023 [facility] DATE CREATED AUTHOR AUTHOR'S ORGANIZ ATION 09/26/2024 [facility] EPIC DATE CREATED AUTHOR AUTHOR'S ORGANIZ ATION 10/11/2024 [facility] REASON FOR VISIT (unrecogniz ed section and content) Reason Comments Parkinson's Disease Dizziness Carpal Tunnel Care Teams (unrecognized sec tion and content) Team Status: Active Member Role Status Dates Jody Stewart MD Primary Care Provider Active Team Status: Inactive Member Role Status Dates Jody Stewart MD Primary Care Provide r, Attending Provider Active Start: August 14, 2024 End: August 14, 2024 Team Status: Active Member Role Status Dates Jody Stewart MD Primary Care Provide r, Attending Provider Active Start: August 14, 2024 Team Status: Inactive Member Role Status Dates Jody Stewart MD Primary Care Provide r, Attending Provider Active Start: October 04, 2023 End: October 04, 2023 Team Status: Inactive Member Role Status Dates Jody Stewart MD Primary Care Provider Active Start: December 03, 2023 End: December 03, 2023 Thania Hoffmann APRN Attending Provider Active Start: December 03, 2023 End: December 03, 2023 Team Status: Active Member Role Status Dates Jody Stewart MD Primary Care Provider Active Start: December 03, 2023 Thania Hoffmann APRN Attending Provider Active Start: December 03, 2023 Team Status: Inactive Member Role Status Dates Jody Stewart MD Primary Care Provide r, Attending Provider Active Start: December 06, 2023 End: December 06, 2023 Team Status: Active Member Role Status Dates Jody Stewart MD Primary Care Provider Active Start: January 29, 2024 ANTONINO GoldsteinC Attending Provider Active Start: January 29, 2024 Team Status: Active Member Role Status Dates Jody Stewart MD Primary Care Provide r, Attending Provider Active Start: January 31, 2024 Team Status: Inactive Member Role Status Dates Jody Stewart MD Primary Care Provide r, Attending Provider Active Start: February 04, 2024 End: February 04, 2024 Team Status: Inactive Member Role Status Dates Jody Stewart MD Primary Care Provide r, Attending Provider Active Start: May 06, 2024 End: May 06, 2024 Spinner Fixer Relationship Specialty [place] [address] [place] [phone] PCP - General Family Medicine 11/22/23 Spinner Fixer Relationship Specialty Start Date End Date Jody Stewart MD [address] [place] [phone] PCP - General Family Medicine 11/22/23 Spinner Fixer Relationship Specialty [place] [address] [place] [phone] PCP - General Family Medicine 11/22/23 Kay Howard DO [address] [id number] Referring Physician Neurology 08/19/24 Spinner Fixer Relationship Specialty [place] [address] [place] [phone] PCP - General Family Medicine 11/22/23 Kay Howard DO [address] [id number] Referring Physician Neurology 08/19/24 Spinner Fixer Relationship Specialty Start [place] [address] [place] [phone] PCP - General Family Medicine 11/22/23 Kay Howard DO [address] [id number] Referring Physician Neurology 08/19/24 Goals (unrecognized section and content) Goals may be documented in a n alternate section FOR RECORDS PERTAINING TO PATIENTS WHO ARE [...] BE BASED ON THE PRIMARY CLINICAL RECORDS. [employer] provides no warranty or guarantee of the accuracy or completeness of information in this document.
--- NOTE | 2024-10-17 07:15 | NM_ITS ---
Patient Name Site Name ROLLY MOORE [facility] Account No Medical Record Number Age Sex Date Time [id number] [facility]:[id number] F 10/17/2024 08:22 At the Request Of SHAR KAUFMAN RADIOLOGY REPORT PROCEDURE: NM MATY PERF SPECT REST STR COMPARISON: None. INDICATIONS: CHEST PAIN, CORONARY ARTERY DISEASE TECHNIQUE: Exam Description: Stress/Rest one day protocol gated SPECT Rest Imagin.4 mCi Tc-99m Cardiolite IV on 10/17/2024 Stress Imaging 30.3 mCi Tc-99m Cardiolite IV on 10/17/2024 Exercise Protocol: 0.4 mg Lexiscan given IV Heart Rate (bpm): Rest: 48 Max: 77 PMHR: 56 Blood Pressure: Rest: 120/64 Max: 120/70 Symptoms: Rest and peak stress ECG findings were pending and the exercise portion of the study was pending per attending physician [facility] . For more details please see separate cardiac stress test report. FINDINGS: QUALITY OF STUDY: Good PERFUSION DEFECT: None LOCATION: SIZE: SEVERITY: TYPE: WALL MOTION: Normal LV SIZE: 59 mL. TID / TCD: 0.9 LVEF: Calculated EF 79%. SUMMARY: Normal Myocardial perfusion imaging study CONCLUSION: Normal myocardial perfusion images without ischemia or infarct Normal LV EF 79% No TID, TID 0.9 EKG stress test is reported separately Dictated by: Edwin Duenas MD on 10/20/2024 at 18:27 Approved by: Edwin Duenas MD on 10/20/2024 at 18:32
--- NOTE | 2024-10-17 09:21 | PC.NURSE ---
Nursing Note Cardiac Stress Test Reviewed: Medication, allergies and patient history reviewed. Stress Test: [ x] Patient tolerated stress test well. [ ] Patient unable to tolerate walking on treadmill. Switched to Lexiscan stress test. [ x] No chest pain noted per patient [ ] Chest pain that resolved prior to leaving stress lab. [x ] No dyspnea noted. [ ] Dyspnea that resolved prior to leaving stress lab. [ x] Patient left stress lab asymptomatic and hemodynamically stable. [ ] Patient taken to the Emergency Room due to non-resolving symptoms following stress test. [ ] Patient achieved target heart rate. [ ] Patient unable to achieve target heart rate. [ ] Aminophylline administered as reversal agent to Lexiscan (Regadenoson). [ ] Nitro administered. Nursing Comments:Pt had Lexiscan stress test done and tolerated well. Pt had general overall body heaviness after marjorie given that resolved within 3 minutes of it given. Pt left stress lab with no symptoms and went to cafeteria for breakfast.
[2024-10-17] MEDS: REGADENOSON 0.4 MG/5 ML SYRINGE IV (09:27)
--- NOTE | 2024-10-17 18:31 | PM.STRESS ---
Stress Test Stress Test Allergies Allergy/AdvReac Type Severity Reaction Status Date / Time No Known Drug Allergies Allergy Verified 07/11/23 08:44 Requesting physician: SHAR KAUFMAN Procedure: This was a Lexiscan stress test with myocardial perfusion imaging performed at the [facility]. Intravenous line was secured. The patient was attached to electrocardiographic monitoring. Baseline vital signs and ECG were obtained. Lexiscan 0.4 mg was administered intravenously followed by administration of Cardiolite. The patient then went on to obtain myocardial perfusion imaging. Was 48 bpm and peak heart rate was 77 bpm. Resting blood pressure was 120/64 and peak blood pressure was 120/70. General Information: Reason for Stress Test: Chest pain. Cardiac History and Risk Factors: Hypertension, hyperlipidemia. Resting 12 - Lead Electrocardiogram: Marked sinus bradycardia, heart rate 43 bpm. Stress Test: Protocol: Pharmacologic stress test with Lexiscan. Exercise Capacity: Unable to assess. Blood Pressure Response: Normal. Rhythm: Sinus. ST - Response: No ischemic response. Patient Response: No chest pain or shortness of breath. Interpretation: 1. Negative stress test for Lexiscan induced ischemic ECG changes. 2. Myocardial perfusion imaging will be reported separately.
== END 2024-10-17 07:01 | disposition home or self-care (01) ==
LOC: NM 07:00
PROVIDERS: PCP Family Medicine; Visit Provider Nurse Practitioner Family
DX: I25.118 Atherosclerotic heart disease of native coronary artery with other forms of angina pectoris (principal)
CPT/HCPCS: 78452; 93017; A9500; J2785

== ENCOUNTER 2024-11-03 09:16 | Emergency (ER) | payer MEDICARE, BC, SELFPAY ==
[2024-11-03 09:31] VITALS: BP 127/54; PULSE 56; TEMP 36.7; O2SAT 96; BMI 27.6
--- NOTE | 2024-11-03 09:44 | ECG_ITS ---
The [facility] Test Date: 2024-11-03 Pat Name: ROLLY MOORE Department: Room: - Gender: Female [employer]: : 1940 Requested By: [id number] Order Number: [id number] Reading MD: CASPER PINEDA M.D. Measurements Intervals [place] Rate: 44 P: 90 SD: 192 QRS: 65 QRSD: 96 T: 57 QT: 476 QTc: 425 Interpretive Statements 1130 Sinus bradycardia 9140 abnormal rhythm ECG Compared to ECG 01/31/2024 10:25:02 Sinus rhythm no longer present Electronically Signed On 11-03-2024 20:26:27 EDT by CASPER PINEDA M.D.
--- NOTE | 2024-11-03 09:44 | XR_ITS ---
The [place] [id number] Patient Name: ROLLY MOORE MRN: [id number] date: 1940 Sex: F Assigned Patient Location: ER Current Patient Location: ER Accession/Order Number: [id number] Exam Date: 11/03/2024 11:00 Report Date: 11/03/2024 11:08 At the request of: ROGER CORDOVA MD Procedure: XR chest 1V PORTABLE AP ERECT CHEST 1034 hours CLINICAL HISTORY: Sepsis COMPARISON: Chest CT 07/11/2023 The heart is within normal limits. There is no vascular congestion. The lungs, as visualized, are clear. There is no effusion or pneumothorax. The osseous structures are osteopenic. There is subtle dextroscoliotic curvature and endplate spurring. XR/XR chest 1V IMPRESSION: NO ACUTE FINDINGS Impression dictated by: Karen Levy M.D.11/03/2024 11:08 AM Dictation Location: [place] [address] Electronically authenticated by: [id number] Y Date: 11/03/2024 11:08
--- NOTE | 2024-11-03 09:45 | CT_ITS ---
The [address] [address] Patient Name: ROLLY MOORE MRN: [id number] date: 1940 Sex: F Assigned Patient Location: ER Current Patient Location: ER Accession/Order Number: [id number] Exam Date: 11/03/2024 11:08 Report Date: 11/03/2024 11:20 At the request of: ROGER CORDOVA MD Procedure: CT abdomen pelvis wo con CT ABDOMEN AND PELVIS WITHOUT CONTRAST CLINICAL DATA: Sepsis with hallucinations. COMPARISON: None Spiral images were obtained through the abdomen and pelvis without contrast. This CT exam was performed using one or more following dose reduction techniques: Automated exposure control, adjustment of the mA and/or kV according to patient size, or use of iterative reconstruction technique. Limited cuts through the lung bases show lower lobe atelectasis, greater on the right. Evaluation of the intra-abdominal organs is slightly limited by the absence of contrast. The gallbladder is surgically absent. There is mild common duct dilatation though no choledocholithiasis. No intrahepatic masses are identified. The spleen and pancreas show no acute findings. There is thickening of the adrenal limbs bilaterally, slightly nodular on the left. A punctate stone is present at the upper pole of the left kidney. A cortical hypodensity is noted at the lower pole of the left kidney. It cannot be fully evaluated however a cyst is possible. There is no hydronephrosis. No ureteral dilatation or stones are seen. There is mild atherosclerotic plaque at the aorta, proximal iliac and some of the visceral arteries. There are a few tiny lymph nodes. No ascites is visualized. The small bowel loops are not dilated. There is stool along the colon. There is a vertical midline surgical scar. Subtle scoliotic curvature and multilevel degenerative changes are seen at the spine. There is associated stenosis, greatest at L4-5. Images through the pelvis show no dilated small bowel. The appendix is not discretely seen. There is mild distal colonic stool. There is a single diverticulum at the cecum. There are also sigmoid diverticula. No associated active inflammation is noted. The urinary bladder shows no abnormalities for the degree of distention. The uterus is surgically absent. There are additional postoperative changes involving the anterior pelvic wall, asymmetric superiorly on the left. There is no ascites. Mild degenerative changes are visualized at the hips. CT/CT abdomen pelvis wo con IMPRESSION: BIBASILAR ATELECTASIS. MILD COMMON DUCT PROMINENCE THAT MAY RELATE TO PREVIOUS CHOLECYSTECTOMY. LEFT NEPHROLITHIASIS AND POSSIBLE CYST. NO BOWEL OR URINARY TRACT OBSTRUCTION. DIVERTICULOSIS. Impression dictated by: Karen Levy M.D.11/03/2024 11:20 AM Dictation Location: [place] [address] Electronically authenticated by: [id number] Y Date: 11/03/2024 11:20
--- NOTE | 2024-11-03 09:49 | ED.GENADUL1 ---
HPI HPI - General Adult General Chief complaint: Altered Mental Status Stated complaint: altered mental status Time Seen by Provider: 11/03/24 09:22 Source: patient Mode of arrival: walk-in Limitations: no limitations History of Present Illness HPI narrative: This 84-year-old female patient presents to the ED stating the last couple nights she has not been able to sleep and is experiencing visual hallucinations. She denies auditory hallucinations. She does not report chills or fever, chest pain or shortness of breath, urinary symptoms or diarrhea. She has a history of pulmonary embolism and is on Xarelto. Related Data Home Medications ?Medication ?Instructions ?Recorded ?Confirmed atorvastatin 80 mg tablet 80 mg PO DAILY 07/11/23 11/03/24 carvedilol 6.25 mg tablet 6.25 mg PO Q12H 07/11/23 11/03/24 empagliflozin 10 mg tablet 10 mg PO DAILY 07/11/23 11/03/24 (Jardiance) furosemide 20 mg tablet 20 mg PO Q12H 07/11/23 11/03/24 losartan 100 mg tablet 50 mg PO DAILY 07/11/23 11/03/24 nabumetone 750 mg tablet 750 mg PO BID 07/11/23 11/03/24 rivaroxaban 20 mg tablet (Xarelto) 20 mg PO Q24H 07/11/23 11/03/24 spironolactone 25 mg tablet 25 mg PO DAILY 07/11/23 11/03/24 blood sugar diagnostic (OneTouch 01/31/24 01/31/24 Ultra Test strips) blood-glucose meter (OneTouch 01/31/24 01/31/24 Ultra2 Meter) carbidopa 25 mg-levodopa 100 mg 1 tab PO TID 01/31/24 11/03/24 tablet folic acid 1 mg tablet 1 mg PO DAILY 01/31/24 11/03/24 donepezil 10 mg tablet 10 mg PO DAILY 11/03/24 11/03/24 Previous Rx's ?Medication ?Instructions ?Recorded ondansetron 4 mg disintegrating 4 mg PO Q8H PRN nausea and 01/31/24 tablet vomiting 4 days #16 tabs Allergies Allergy/AdvReac Type Severity Reaction Status Date / Time No Known Drug Allergies Allergy Verified 07/11/23 08:44 Opioid HPI Opioid Management Most Recent Opioid Data: No Data to Display Review of Systems ROS Status of ROS 10 or more systems reviewed and unremarkable except as noted in history and below [facility] Social History Little interest or pleasure in doing things: not at all Feeling down, depressed, or hopeless: not at all Exam Narrative Exam Narrative: Patient afebrile. Vital signs are stable and are as documented. Patient is bradycardic with a heart rate in the mid 40s. Her blood pressure is running low normal. She has history of parkinsonism and has tremor of the hands in the mouth. Speech is intact and her mentation is clear. She is alert and oriented x 3. There is no facial asymmetry. She moves all extremities actively. Pupils are constricted, equal bilaterally and reactive to light. HEENT exam is normal to inspection. Neck is supple. Lung sounds are clear to auscultation bilaterally with good air entry. Heart has regular rate and rhythm. Patient has a 3/6 systolic murmur heard best over the left sternal border. Abdomen is protuberant, soft nontender. She does not have unilateral leg swelling or calf tenderness. There is no pedal edema. Skin is warm and dry and there is no pallor or icterus. She is alert and oriented x 3. Apart from her visual hallucination she is not experiencing any other cognitive impairment. Constitutional Vital Signs, click to edit/add: Last Vital Signs Temp 98.0 F 11/03/24 09:31 Pulse 45 L 11/03/24 12:11 Resp 16 11/03/24 12:11 BP 110/70 11/03/24 12:11 Pulse Ox 100 11/03/24 12:11 O2 Del Method Room Air 11/03/24 12:11 Course Vital Signs Vital signs: Vital Signs Temperature 98.0 F 11/03/24 09:31 Pulse Rate 56 L 11/03/24 09:31 Respiratory Rate 18 11/03/24 09:31 Blood Pressure 127/54 11/03/24 09:31 Pulse Oximetry 96 11/03/24 09:31 Temperature 98.0 F 11/03/24 09:31 Pulse Rate 45 L 11/03/24 12:11 Respiratory Rate 16 11/03/24 12:11 Blood Pressure 110/70 11/03/24 12:11 Pulse Oximetry 100 11/03/24 12:11 Oxygen Delivery Method Room Air 11/03/24 12:11 Medical Decision Making MDM Narrative Medical decision making narrative: Patient's grand daughter tells me that a few weeks ago she was experiencing increased fatigue and weakness and her losartan dose was reduced. The twelve-lead EKG was reviewed by me and it shows sinus bradycardia with a rate of 44 bpm. No ischemic changes noted. Patient does not have any signs of UTI. Her blood work is basically unremarkable and nondiagnostic. CT scan abdomen pelvis does not reveal any acute findings. CT brain is also nonacute. Chest x-ray did not show infiltrate. Patient is treated with IV fluids in the ED. I have discussed her findings with Dr. Neel Dang on-call for cardiology group. My feeling is that her insomnia could be related to the beta-leona and she is certainly bradycardic from it. It may be causing other neurologic symptoms and I am unsure if her visual hallucinations are related to beta-leona use. Based on Dr. Dang's recommendation she is advised to stop taking carvedilol and see if there is resolution of symptoms. She is advised outpatient follow-up with PCP and cardiology within a week and is to return anytime for worsening symptoms. Lab Data Labs: Lab Results 11/03/24 11/03/24 11/03/24 Range/Units 09:53 09:55 10:30 WBC 7.6 (4.0-11.0) 10^3/uL RBC 3.54 L (4.20-5.40) 10^6/uL Hgb 11.7 L (12.0-16.0) g/dL Hct 35.8 L (36.0-48.0) % MCV 101.1 H (81.0-99.0) fL MCH 33.1 (26.7-34.0) pg MCHC 32.7 (29.9-35.2) g/dL RDW 12.5 (11.0-15.0) % Plt Count 158 (150-450) 10^3/uL MPV 11.2 (9.5-13.5) fL Neut % (Auto) 71.8 (43.0-75.0) % Lymph % (Auto) 21.2 (20.5-60.0) % [place] % (Auto) 5.4 (1.7-12.0) % Eos % (Auto) 0.8 L (0.9-7.0) % Baso % (Auto) 0.5 (0.2-2.0) % Neut # (Auto) 5.5 (1.4-6.5) 10^3/uL Lymph # (Auto) 1.6 (1.2-3.8) 10^3/uL [place] # (Auto) 0.4 (0.3-0.8) 10^3/uL Eos # (Auto) 0.1 (0.0-0.7) 10^3/uL Baso # (Auto) 0.0 (0.0-0.1) 10^3/uL Abs Immat Gran (auto) 0.02 (0.00-0.03) 10^3/uL Imm/Tot Granulo (auto) 0.3 (0.0-0.5) % PT 12.8 H (9.0-11.6) sec INR 1.23 APTT 28.9 (22.3-36.2) sec VBG pH 7.392 (7.330-7.430) VBG pCO2 51.3 (40.0-52.0) mmHg Sodium 142 (136-145) mmol/L Potassium 3.9 (3.5-5.1) mmol/L Chloride 106 (98-107) mmol/L Carbon Dioxide 29.7 (21.0-32.0) mmol/L Anion Gap 10.2 BUN 36.0 H (7.0-18.0) mg/dL Creatinine 1.78 H (0.55-1.02) mg/dL Est GFR ( Amer) 33 L (>=60 mL/min/1.73m^2) Est GFR (Non-Af Amer) 27 L (>=60 mL/min/1.73m^2) BUN/Creatinine Ratio 20.2 Glucose 91 (74-106) mg/dL Lactate 1.2 (0.4-2.0) mmol/L Calcium 9.5 (8.5-10.1) mg/dL Magnesium 2.1 (1.8-2.4) mg/dL Total Bilirubin 1.1 H (0.2-1.0) mg/dL AST 27 (15-37) U/L ALT 9 L (14-59) U/L Alkaline Phosphatase 68 (46-116) U/L Troponin I High Sens 10.6 (4.0-51.3) pg/mL NT-Pro-B Natriuret Pep 121.0 (<=1800.0) pg/mL Total Protein 6.0 L (6.4-8.2) g/dL Albumin 3.5 (3.4-5.0) g/dL Globulin 2.5 g/dL Albumin/Globulin Ratio 1.4 Urine Color Lt. yellow (YELLOW) Urine Clarity Clear (CLEAR) Urine pH 6.0 (5.0-9.0) Ur Specific [place] 1.010 (1.005-1.025) Urine Protein Negative (NEG/TRACE) mg/dL Urine Glucose (UA) >=1000 A (NEGATIVE) mg/dL Urine Ketones Negative (NEGATIVE) mg/dL Urine Occult Blood Negative (NEGATIVE) Urine Nitrite Negative (NEGATIVE) Urine Bilirubin Negative (NEGATIVE) Urine Urobilinogen 0.2 (0.2-1.0) EU/dL Ur Leukocyte Esterase Negative (NEGATIVE) Urine RBC 0-2 (0-2) #/HPF Urine WBC 5-10 A (NONE SEEN) #/HPF Ur Squamous Epith Cells Rare (NONE/RARE) #/LPF Urine Crystals None seen (None Seen) #/HPF Urine Bacteria Trace A (NONE SEEN) #/HPF Urine Casts None seen (NONE SEEN) #/LPF Urine Mucus None seen (NONE SEEN) Ur Culture Indicated? Yes-[facility] [place] POC Glucose 95 (74-106) mg/dL Discharge Plan Discharge Chief Complaint: Altered Mental Status Clinical Impression: Bradycardia, Hallucination, visual Patient Disposition: Home, Self-Care Time of Disposition Decision: 12:35 Condition: Good Mode of Transportation: Private Vehicle Prescriptions / Home Meds: No Action carbidopa-levodopa 25-100 mg tablet 1 tab PO TID folic acid 1 mg tablet 1 mg PO DAILY (DME) blood-glucose meter [OneTouch Ultra2 Meter] Misc MISCELLANEOUS (DME) OneTouch Ultra Test Strip MISCELLANEOUS ondansetron 4 mg tablet,disintegrating 4 mg PO Q8H PRN (Reason: nausea and vomiting) 4 Days Qty: 16 0RF atorvastatin 80 mg tablet 80 mg PO DAILY carvedilol 6.25 mg tablet 6.25 mg PO Q12H nabumetone 750 mg tablet 750 mg PO BID spironolactone 25 mg tablet 25 mg PO DAILY furosemide 20 mg tablet 20 mg PO Q12H losartan 100 mg tablet 50 mg PO DAILY Xarelto 20 mg tablet 20 mg PO Q24H Jardiance 10 mg tablet 10 mg PO DAILY donepezil 10 mg tablet 10 mg PO DAILY Print Language: Greek Instructions: Bradycardia (ED) Additional Instructions: Stop taking carvedilol and expect its effects to wear off after 2 days. Follow-up with your physician and learning and development manager within a week. Return for worsening symptoms. Referrals: Jody Rand MD [Primary Care Provider] - 1 week
[2024-11-03 09:58] LABS: Glucometer 95 mg/dL (74-106)
[2024-11-03 10:03] LABS: Basophils Percent Auto 0.5 % (0.2-2.0); Eosinophils Absolute Auto 0.1 10^3/uL (0.0-0.7); Eosinophils Percent Auto 0.8 % (0.9-7.0); Hematocrit 35.8 % (36.0-48.0); Hemoglobin 11.7 g/dL (12.0-16.0); Immature Granulocytes Abs Auto 0.02 10^3/uL (0.00-0.03); Immature Granulocytes Pct Auto 0.3 % (0.0-0.5); Lymphocytes Absolute Auto 1.6 10^3/uL (1.2-3.8); Lymphocytes Percent Auto 21.2 % (20.5-60.0); Mean Corpuscular HGB Conc 32.7 g/dL (29.9-35.2); Mean Corpuscular Hemoglobin 33.1 pg (26.7-34.0); Mean Corpuscular Volume 101.1 fL (81.0-99.0); Mean Platelet Volume 11.2 fL (9.5-13.5); Monocytes Absolute Auto 0.4 10^3/uL (0.3-0.8); Monocytes Percent Auto 5.4 % (1.7-12.0); Neutrophils Absolute Auto 5.5 10^3/uL (1.4-6.5); Neutrophils Percent Auto 71.8 % (43.0-75.0); Platelet Count 158 10^3/uL (150-450); Red Blood Count 3.54 10^6/uL (4.20-5.40); Red Cell Distribution Width 12.5 % (11.0-15.0); White Blood Count 7.6 10^3/uL (4.0-11.0)
[2024-11-03 10:07] LABS: PCO2 VBG 51.3 mmHg (40.0-52.0); pH VBG 7.392 (7.330-7.430)
[2024-11-03] MEDS: 0.9 % SODIUM CHLORIDE 1,503 ML 501 ML IV (10:10)
[2024-11-03 10:21] LABS: INR 1.23; Partial Thromboplastin Time 28.9 sec (22.3-36.2); Prothrombin Time 12.8 sec (9.0-11.6)
[2024-11-03 10:31] LABS: Lactate/Lactic Acid 1.2 mmol/L (0.4-2.0)
[2024-11-03 10:37] LABS: Bilirubin Urine NEGATIVE (NEGATIVE); Blood Urine NEGATIVE (NEGATIVE); Clarity Urine CLEAR (CLEAR); Color Urine LT. YELLOW (YELLOW); Glucose Urine UA >=1000 mg/dL (NEGATIVE); Ketones Urine NEGATIVE (NEGATIVE); Leukocyte Esterase Urine NEGATIVE (NEGATIVE); Nitrite Urine NEGATIVE (NEGATIVE); Protein Urine NEGATIVE (NEG/TRACE); Urobilinogen Urine 0.2 EU/dL (0.2-1.0)
[2024-11-03 10:48] LABS: Bacteria Urine TRACE #/HPF (NONE SEEN); Mucus Urine NONE SEEN (NONE SEEN); RBC Urine 0-2 #/HPF (0-2); Squamous Epithelial Cell Urine RARE #/LPF (NONE/RARE)
[2024-11-03 10:49] LABS: Cast Seen? NONE SEEN #/LPF (NONE SEEN); Crystals Seen? None Seen #/HPF (None Seen); Urine Culture Indicated YES-FRMC
[2024-11-03 10:49] LABS: Alanine Aminotransferase 9 U/L (14-59); Albumin Globulin Ratio 1.4; Albumin Level 3.5 g/dL (3.4-5.0); Alkaline Phosphatase 68 U/L (46-116); Anion Gap 10.2; Aspartate Amino Transferase 27 U/L (15-37); BUN Creatinine Ratio 20.2; Bilirubin Total 1.1 mg/dL (0.2-1.0); Calcium 9.5 mg/dL (8.5-10.1); Carbon Dioxide 29.7 mmol/L (21.0-32.0); Chloride 106 mmol/L (98-107); Estimated GFR (African America 33 (>=60 mL/min/1.73m^2); Estimated GFR (Non-African Ame 27 (>=60 mL/min/1.73m^2); Globulin 2.5 g/dL; Glucose 91 mg/dL (74-106); Potassium 3.9 mmol/L (3.5-5.1); Sodium 142 mmol/L (136-145)
[2024-11-03 10:55] LABS: Magnesium 2.1 mg/dL (1.8-2.4); Troponin I High Sensitivity 10.6 pg/mL (4.0-51.3)
[2024-11-03 11:00] VITALS: BP 100/50
--- NOTE | 2024-11-03 11:04 | CT_ITS ---
The [address] [address] Patient Name: ROLLY MOORE MRN: [id number] date: 1940 Sex: F Assigned Patient Location: ER Current Patient Location: ER Accession/Order Number: [id number] Exam Date: 11/03/2024 11:43 Report Date: 11/03/2024 11:47 At the request of: ROGER CORDOVA MD Procedure: CT head/brain wo con CT BRAIN WITHOUT CONTRAST: CLINICAL HISTORY: altered mentation with hallucinations. Sepsis. COMPARISON: MRI 01/29/2024 TECHNIQUE: Contiguous axial unenhanced images were obtained through the brain. This CT exam was performed using one or more following dose reduction techniques: Automated exposure control, adjustment of the mA and/or kV according to patient size, or use of iterative reconstruction technique. FINDINGS: There is generalized atrophy. The ventricles are normal in size and position. Similar chronic microvascular changes are noted. There are no additional areas of abnormal attenuation. There is no hemorrhage, mass effect or extra-axial collections. The imaged paranasal sinuses and mastoid air cells are clear. There is mild hyperostosis frontalis. Carotid siphon plaque is seen. CT/CT head/brain wo con IMPRESSION: ATROPHY AND CHRONIC MICROVASCULAR CHANGES. NO ACUTE INTRACRANIAL ABNORMALITY. Impression dictated by: Karen Levy M.D.11/03/2024 11:47 AM Dictation Location: [place] [address] Electronically authenticated by: [id number] Y Date: 11/03/2024 11:47
[2024-11-03 12:11] VITALS: BP 110/70; PULSE 45; O2SAT 100
[2024-11-03 13:36] VITALS: PULSE 48; O2SAT 98
== END 2024-11-03 13:42 | disposition home or self-care (01) ==
PROVIDERS: Emergency Provider Emergency Medicine; PCP Family Medicine
DX: R44.1 Visual hallucinations (principal); R00.1 Bradycardia, unspecified; Z79.01 Long term (current) use of anticoagulants; Z86.711 Personal history of pulmonary embolism; G20.C Parkinsonism, unspecified; Z79.899 Other long term (current) drug therapy; Z90.49 Acquired absence of other specified parts of digestive tract; K57.90 Diverticulosis of intestine, part unspecified, without perforation or abscess without bleeding
CPT/HCPCS: 36415; 70450; 71045; 74176; 80053; 81001; 82800; 83605; 83735; 83880; 84484; 85025; 85610; 85730; 87040; 87086; 87088; 87186; 93005; 99285

== ENCOUNTER 2024-11-19 12:46 | Outpatient (REF) | payer MEDICARE, BC, SELFPAY | END 2024-11-19 12:47 | disposition home or self-care (01) | LOC: LAB 12:46 | PROVIDERS: PCP Family Medicine; Visit Provider Family Medicine | DX: N39.0 Urinary tract infection, site not specified (principal) | CPT/HCPCS: 87086 ==

== ENCOUNTER 2025-02-19 08:27 | Outpatient (REF) | payer MEDICARE, BC, SELFPAY ==
--- OUTSIDE RECORDS SUMMARY | 2023-12-24 08:20 | XMS_ITS ---
Author Organization [facility] Address [address] [place] [address] Care Team Providers Care Erco Machine Operator Name Role Phone Jody Rand M.D. Primary Care Provider Unavail able Daniel Helms Unavailable [phone] ThongKrys cooley Unavailable REASON FOR VISIT LEFT SHOULDER PAIN Social History Tobacco Use: Social History Observation Description Date Details (start date - stop date) Never Smoker NA - NA AUDIT-C (Standard) Question Answer Notes Did you have a drink containing alcohol in the p ast year? 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 I have advised against any surgical intervention given her age and success rates being poor at her age. I recommended physical therapy to try to maximize her function which she is agreeable to. She will take Tylenol. She does not feel the need for a corticosteroid injection. She will follow-up if she desires any additional treatment. Import medication Plan Of Treatment Treatment Notes Assessment Notes Other Clinically the patient has a rotator cuff tear. I have advised against any surgical intervention given her age and success rates being poor at her age. I recommended physical therapy to try to maximize her function which she is agreeable to. She will take Tylenol. She does not feel the need for a corticosteroid injection. She will follow-up if she desires any additional treatment. Import medication Pending Test Test Name Order Date SCC- PT/OT EVAL AND TREAT 3X/WEEK FOR 4 WEEKS 12/24/2023 Next Appt Details Follow Up: prn, Reason: Progress Notes * ROLLY MOOREDOB:1940 (84 yo F)Acc No.[id number]:12/24/2023 Patient: ROLLY CORADO Provider: CANDELARIO Langston :1940 A ge:83 Y S ex:Female Date:12/24/2023 Address:[address] [place], [place] [id number] Pcp:Jody Rand M.D. Subjective: * Chief Complaints: * 1 . LEFT SHOULDER PAIN. * HPI: G eneral Follow Up Information: Patient presents today for left shoulder pain. She had a fall 2 months ago onto her left shoulder with pain and weakness that has persisted. She reports pain is mild now. * Medical History: M edical History Verified. * Family History: N o Family History documented.. * Social History: A BHASKAR-C (Standard) D id you have a drink containing alcohol in the past year? N o,?Points 0 , I nterpretation N egative. T obacco Control (Standard) T obacco use: N onsmoker. * Medications: N one Objective: * Vitals: H t: 5'2 , Wt: 179 lbs, BMI:32.74. * Examination: G eneral examination: O n exam today she has 90 degrees of active forward flexion and passively near full forward flexion. She has significant weakness with resisted supraspinatus and external rotation testing. Good internal rotation strength. X -ray Imaging Studies: X -ray report was available for review but not the actual images. Reports impression is rotator cuff pathology . M RI Imaging Studies: Assessment: * Assessment: 1. N ontraumatic complete tear of left rotator cuff - M75.122 (Primary) Plan: * Treatment: 2. O thers Notes: Clinically the patient has a rotator cuff tear. I have advised against any surgical intervention given her age and success rates being poor at her age. I recommended physical therapy to try to maximize her function which she is agreeable to. She will take Tylenol. She does not feel the need for a corticosteroid injection. She will follow-up if she desires any additional treatment. Import medication * Preventive Medicine: MIPS Measures: C MS139 Fall Risk S creening: T wo or more falls with injury in the past year. # 155 - Falls Plan of Care P martha of Care: D ocumented, T ype of fall plan of care: B alance, strength and gait training or instruction provided. * Follow Up: p rn Forms: * Images: * Electronic signature of Ken Lund PA-C on 02/19/2025 at 08:31 AM EDT Sign off status: Pending * Provider: CANDELARIO Langston Date: 0 12/24/2023 Generated for Mary jackson/Nik/Oneil on: 0 02/19/2025 08:31 AM EDT History and Physical Notes * HPI (History of Present Illness) Category Sub-Category Detail Notes Category Not es General Follow Up Information Patient presents tod ay for left shoulder pain. She had a fall 2 months ago onto her left shoulder with pain and weakness that has persisted. She reports pain is mild now. Examination Category Sub-Category Detail Notes Category Not es General examination On exam today she has 90 degrees of active forward flexion and passively near full forward flexion. She has significant weakness with resisted supraspinatus and external rotation testing. Good internal rotation strength. X-ray Imaging Studies X-ray report was available for review but not the actual images. Reports impression is rotator cuff pathology MRI Imaging Studies
--- OUTSIDE RECORDS SUMMARY | 2025-02-19 08:31 | XMS_ITS | Encounter Summary ---
Author Organization [facility] Address [address] [place] [address] Care Team Providers Care Community Support Worker Name Role Phone Jody Rand MD Primary Care Provider [phone] Gabino Howard DO Unavailable [phone] Encounter Details Date Type Department Care Team (Late st Contact Info) Description 02/10/2025 Telephone [facility] [address] [place] [id number] Bacilio Bryan MD [address] [facility] [address], [place] [id number] Social History Tobacco Use Types Packs/Day Years Used Date Smoking Tobacco: Never Alcohol Use Standard Drinks/Week Comments Never 0 (1 standard drink = 0.6 oz pur e alcohol) caffeine: none Comments Unknown Sex and Gender Information Value Date Recorded Sex Assigned at Not on file Legal Sex Female 11:23 AM EDT Gender Identity Not on file Sexual Orientation Not on file documented as of this encounter Miscellaneous Notes * Telephone Encounter - Brittany Garber NP - 02/10/2025 5:07 PM EDT There is also telephone encounter regarding same issue. I told her to increase Seroquel 25 mg 2 pills at bedtime and if this dose not work then we will try Nuplazid. * Telephone Encounter - Sun Tariq - 02/10/2025 11:16 AM EDT Grand daughter called today and states he pt's hallucinations are increasing and she is worried about pt driving. Delma [phone] documented in this encounter Plan of Treatment Upcoming Encounters Date Type Department Care Team (Late st Contact Info) Description 04/30/2025 1:20 PM EDT Office Visit [facility] [address] [place] [address] Bacilio Bryan MD [address] [facility] [address] [id number] documented as of this encounter Visit Diagnoses Not on filedocumented in this encounter Care Teams Community Support Worker Relationship Specialty Start Date End Date Jody Rand MD PCP - General Family Medicine 11/22/23 Gabino Howard DO [address] [place] [address] Referring Physician Neurology 08/19/24 documented as of this encounter
--- OUTSIDE RECORDS SUMMARY | 2025-02-19 08:31 | XMS_ITS | Clinical Summary ---
Author Organization [employer] [facility] tem Address [id number] [address] [place] [address] Care Team Providers Care Traffic Personnel Supervisor Name Role Phone Unavailable Primary Care Provider Unavailabl e Social History Tobacco Use Types Packs/Day Years Used Date Smoking Tobacco: Never Assessed Childcare Answer Date Recorded Childcare Unknown 12/30/2018 Employment Answer Date Recorded Employment Unknown 12/30/2018 Purpose - Life Answer Date Recorded Purpose and direction in life Unknown Comments Unknown Sex and Gender Information Value Date Recorded Sex Assigned at Not on file Legal Sex Female 1:48 PM EDT Gender Identity Not on file Sexual Orientation Not on file Plan of Treatment Not on file Medical Devices Not on file Insurance MEDICARE [facility]
--- OUTSIDE RECORDS SUMMARY | 2025-02-19 08:31 | XMS_ITS | Patient Health Record ---
Author Organization [facility] Address [address] [place] [address] Care Team Providers Care Occupational Therapy Specialist Name Role Phone Jody Rand M.D. Primary Care Provider Unavail able Analia Daniel Unavailable [phone] Reason For Referral No Information Social History Tobacco Use: Social History Observation Description Date Details (start date - stop date) Never Smoker NA - NA AUDIT-C (Standard) Question Answer Notes Did you have a drink containing alcohol in the p ast year? 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
--- OUTSIDE RECORDS SUMMARY | 2025-02-19 08:31 | XMS_ITS | Encounter Summary ---
Author Organization [facility] Address [address] [place] [address] Care Team Providers Care Dairy Husbandry Teacher Name Role Phone Jody Rand MD Primary Care Provider [phone] Gabino Howard DO Unavailable [phone] Encounter Details Date Type Department Care Team (Late st Contact Info) Description 01/30/2024 Clinisync Result Encounter [facility] Department Unsolicited Kavita Stanford, CHERY [address], [place] [address] Social History Tobacco Use Types Packs/Day Years [...] on file documented as of this encounter Plan of Treatment Upcoming Encounters Date Type Department Care Team (Late st Contact Info) Description 04/30/2025 1:20 PM EDT Office Visit [facility] [address] [place] [address] Bacilio Bryan MD [address] [facility] [address] [place] [id number] documented as of this encounter Procedures Procedure Name Priority Date/Time Associated Diagnosis Comments MRI HEAD/BRAIN WO/W CONTR 01/30/2024 10:07 AM EDT documented in this encounter Results * MRI HEAD/BRAIN WO/W CONTR (01/30/2024 10:07 AM EDT) Anatomical Region Laterality Modality Radiographic Adelina ging 01/30/2024 10:0 7 AM EDT Narrative 01/30/2024 10:10 [place] [address] Magnetic Resonance Report Signed Patient: INDIA MOORE MR#: [id number] : 1940 Acct:[id number] Age/Sex: 83 / F ADM Date: 01/29/24 Loc: LAB Attending Dr: Kavita Stanford NP Ordering Physician: Kavita Stanford NP Date of Service: 01/29/24 Procedure(s): MR head/brain wo/w con Accession Number(s): [id number] cc: Jody Rand M.D.; Kavita Stanford NP [place] [address] Patient Name: INDIA MOORE MRN: [id number] date: 1940 Sex: F Assigned Patient Location: LAB Current Patient Location: Accession/Order Number: [id number] Exam Date: 01/29/2024 07:55 Report Date: 01/30/2024 10:07 At the request of: KAVITA STANFORD Procedure: MR head/brain wo/w con MR head/brain wo/w con, 01/29/2024 7:55 AM EDT INDICATION: Dizziness, Falls COMPARISON: There is no appropriate prior study for comparison. TECHNIQUE: Multiplanar, multisequential MRI images of brain were obtained without and with injection of contrast. FINDINGS: The cerebral sulci as well as ventricular system are enlarged consistent with moderate ex vacuo cerebral volume loss. There is no restricted diffusion. Hyperintensities on T2 and FLAIR images in the trevino radiata and centrum semiovale with sparing of U fibers are nonspecific, statistically most likely consistent with microvascular ischemic changes. There is no intracranial mass, mass effect, midline shift, intra or extra-axial fluid collection or large hemorrhage. No abnormal enhancing lesion is noted. Normal flow-void in the intracranial vessels is noted. The visualized portions of orbits, mastoid air cells as well as paranasal sinuses are unremarkable. There is status post bilateral lens replacement. MR/MR head/brain wo/w con IMPRESSION: No acute intracranial process is noted. Electronically authenticated by: ANTHONY CARBAJAL Date: 01/30/2024 10:07 Dictated By: Anthony Carbajal M.D. Signed By: 01/30/24 1010 DD/ 1007 TD/TT: Cartographic Drafter: Procedure Note Radiology, Radiologist, MD - 01/30/2024 [place] [address] Magnetic Resonance Report Signed Patient: INDIA MOORE JMR#: [id number] : 1940cct:[id number] Age/Sex: 83 / FADM Date: 01/29/24 Loc: LAB Attending Dr: Kavita Stanford STRIPING MACHINE OPERATOR Ordering Physician: Kavita Stanford NP Date of Service: 01/29/24 Procedure(s): MR head/brain wo/w con Accession Number(s): [id number] cc: Jody Rand M.D.; Kavita Stanford NP The [place] [id number] Patient Name: INDIA MOORE MRN: [id number] date: 1940 Sex: F Assigned Patient Location: LAB Current Patient Location: Accession/Order Number: [id number] Exam Date: 01/29/2024 07:55 Report Date: 01/30/2024 10:07 At the request of: KAVITA STANFORD Procedure: MR head/brain wo/w con MR head/brain wo/w con, 01/29/2024 7:55 AM EDT INDICATION: Dizziness, Falls COMPARISON: There is no appropriate prior study for comparison. TECHNIQUE: Multiplanar, multisequential MRI images of brain were obtained without and with injection of contrast. FINDINGS: The cerebral sulci as well as ventricular system are enlarged consistentwith moderate ex vacuo cerebral volume loss. There is no restricted diffusion. Hyperintensities on T2 and FLAIR images in the trevino radiata and centrum semiovale with sparing of U fibers are nonspecific, statistically mostlikely consistent with microvascular ischemic changes. There is no intracranial mass, mass effect, midline shift, intra or extra-axial fluid collection or large hemorrhage. No abnormal enhancing lesion isnoted. Normal flow-void in the intracranial vessels is noted. The visualized portions of orbits, mastoid air cells as well as paranasal sinuses are unremarkable. There is status post bilateral lens replacement. MR/MR head/brain wo/w con IMPRESSION: No acute intracranial process is noted. Electronically authenticated by: ANTHONY CARBAJAL Date: 01/30/2024 10:07 Dictated By: Anthony Carbajal M.D. Signed By:01/30/24 1010 DD/ 1007 TD/TT: Cartographic Drafter: Kavita Stanford STRIPING MACHINE OPERATOR IMG XR PROCEDURES Final Result documented in this encounter Visit Diagnoses Not on filedocumented in this encounter Care Teams Dairy Husbandry Teacher Relationship Specialty Start Date End Date Jody Rand MD PCP - General Family Medicine 11/22/23 Gabino Howard DO [address] [facility] [address] [place] [address] Referring Physician Neurology 08/19/24 documented as of this encounter
--- OUTSIDE RECORDS SUMMARY | 2025-02-19 08:31 | XMS_ITS | Clinical Summary ---
Author Organization [facility] Address [address] [place] [address] Care Team Providers Care Digital Marketing Specialist Name Role Phone Jody Rand MD Primary Care Provider [phone] Allergies No known active allergies Medications nabumetone (Relafen) 750 mg tablet Take 750 mg by mouth if needed in the morning and at bedtime. Active donepezil (Aricept) 5 mg tablet Take 10 mg by mouth at bedtime. 3 Active atorvastatin (Lipitor) 80 mg tabletIndication s:Coronary artery disease due to lipid rich plaque TAKE 1 TABLET DAILY AT BEDTIME 90 tablet 3 3 Active spironolactone (Aldactone) 25 mg tablet Take 25 mg by mouth in the morning. 3 Active carbidopa-levodo pa (Sinemet) 25-100 mg tablet Take 1 tablet by mouth in the morning, at noon, and at bedtime. 4 Active folic acid (Folvite) 1 mg tablet Take 1,000 mcg by mouth in the morning. 4 Active carvedilol (Coreg) 6.25 mg tabletIndication s:Essential hypertension TAKE 1 TABLET BY MOUTH TWICE DAILY 180 tablet 3 4 Active Additional Information Patient not taking.Reason: Other, Reported on 01/06/2025 Xarelto 20 mg tabletIndication s:Paroxysmal atrial fibrillation (CMS/HCC) TAKE 1 TABLET BY MOUTH IN THE MORNING WITH FOOD 90 tablet 3 4 Active Jardiance 10 mgIndications:Ch ronic heart failure with preserved ejection fraction (CMS/HCC) TAKE 1 TABLET BY MOUTH ONCE DAILY DIRECTED 90 tablet 3 5 Active furosemide (Lasix) 20 mg tabletIndication s:Edema, unspecified type TAKE 1 TABLET BY MOUTH TWICE DAILY 180 tablet 3 5 Active QUEtiapine (SEROquel) 25 mg tablet Take 25 mg by mouth at bedtime. 5 Active amLODIPine (Norvasc) 5 mg tablet Take 1 tablet by mouth in the morning. 2 Active losartan (Cozaar) 50 mg tabletIndication s:Essential hypertension Take 1 tablet (50 mg) by mouth once daily as directed. 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 She does use relaxation techniques which she has developed with her daughters which are beneficial. We will continue to monitor this and may need to offer her something to help her sleep at night as she gets very limited sleep currently. PLAN: - Continue to monitor clinically Bilateral carpal tunnel syndrome 11/22/2023 Overview (03/18/2024): The patient has a history of carpal tunnel bilaterally with decompressive surgical intervention x2 on left and once on the right. She does have mildly decreased safe expert strength bilaterally. PLAN - Recommended cock up splints at night and hand strengthening exercises - Could consider evaluation with EMG in the future, this is deferred per patient request Burning sensation 11/22/2023 Tremor 11/22/2023 Chronic diastolic heart failure, NYHA class 2 Assessment & Plan (04/03/2024 4:34 PM EDT): -Patient is feeling well. -Patient is on GDMT with Jardiance, aldactone, carvedilol, and furosemide. Will continue these medications. -Last Echo was done at 02/07/23 and showed EF of 55-60%. Will order an Echo to be done within the next 6 months for re-evaluation of EF and valvular function. -Continue to monitor your fluid intake and your daily weights. Assessment & Plan (08/23/2023 1:46 PM EST): [facility] 2, currently euvolemic without exacerbation. Continue GDMT- Diuretic therapy- lasix 20 mg bid Monitor daily weights, I&O, fluid restriction 1.5-2L/day, renal function and electrolytes- Assessment & Plan (07/18/2023 4:15 PM EST): [facility] II- currently euvolemic without exacerbation Continue GDMT- with aldactone and Diuretic therapy- lasix 20 mg bid Monitor daily weights, I&O, fluid restriction 1.5-2L/day, renal function and electrolytes Coronary arteriosclerosis 06/14/2021 Assessment & Plan (04/02/2024 2:18 PM EDT): -Coronary artery disease is stable. No chest pain. -Continue taking statin therapy for medical management of CAD. Assessment & Plan (08/23/2023 1:44 PM EST): Coronary artery disease is stable Continue GDMT continue risk factor modifications- heart healthy diet, regular exercise as tolerated and continue all medications. Assessment & Plan (07/18/2023 4:14 PM EST): Coronary artery disease is Stable without any concerning symptoms today Recent evaluation at [facility]- showed normal troponin levels, EKG without acute/concerning changes, and CT chest showed chronic PE Continue GDMT- lipitor, coreg, losartan Essential hypertension 01/27/2021 Assessment & Plan (04/03/2024 4:34 PM EDT): -Hypertension is well controlled and will continue beta leona for medical management. -Continue to monitor your blood pressure at home. Assessment & Plan (08/23/2023 1:44 PM EST): Hypertension is well controlled 112/70 Continue losartan, norvasc, aldactone Assessment & Plan (07/18/2023 4:12 PM EST): Hypertension is currently well controlled, 110/60 Continue norvasc 5 mg, coreg 6.25 mg bid, aldactone 25 mg and decrease losartan to 100 mg daily- not bid. Continue to monitor b/p with goal is < 130/80 Call office if b/p is > than goal or for any concerns. 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 (Primary Dx); Chronic diastolic heart failure, NYHA class 2 (CMS/HCC); Dyspnea on exertion; Other chronic pulmonary embolism without acute cor pulmonale (CMS/HCC) 12/10/2024 Refill [facility] [address] [place] [id number] Temi Gardner MA Essential hypertension 12/10/2024 Refill [facility] [address] [place] [phone] Temi Gardner MA Essential hypertension 11/25/2024 2:15 PM EDT Office Visit [facility] [address] [place] [id number] Elisabeth Ramirez MD Dyspnea on exertion (Primary Dx); Coronary arteriosclerosis; Hx pulmonary embolism; Chronic diastolic heart failure, NYHA class 2 (CMS/HCC); Essential hypertension from Last 3 Months Immunizations Immunization Administration Dates Next Due Influenza, trivalent, adjuvanted 05/25/2020 Family History Medical History Relation Name Comments Heart failure Mother Relation Name Status Comments Father Mother Social History Tobacco Use Types Packs/Day Years Used Date Smoking Tobacco: Former Cigarettes Passive Smoke Exposure: Past Smokeless Tobacco: Never Tobacco Cessation:Counseling Given: Not Answered Alcohol Use Standard Drinks/Week Comments Not Currently 0 (1 standard drink = 0.6 oz pur e alcohol) [place] Safety & Environment Answer Date Rec orded Fear of Current or Ex-Partner Not on file Emotionally Abused Not on file 09/13/2023 Physically Abused Not on file 09/13/2023 Sexually Abused Not on file 09/13/2023 Physically or Sexually Abused Not on file Comments Unknown Sex and Gender Information Value Date Recorded Sex Assigned at Female 11/21/2024 10:39 AM EDT Legal Sex Female 9:39 PM EDT Gender Identity Female 11/21/2024 10:39 AM EDT Sexual Orientation Heterosexual or Straight 08/2024 10:39 AM EDT Last Filed Vital Signs Vital Sign Reading Time Taken Comments Blood Pressure 118/78 01/06/2025 1:36 PM EDT Pulse 89 01/06/2025 1:36 PM EDT Temperature - - Respiratory Rate - - Oxygen Saturation 95% 01/06/2025 1:36 PM EDT Inhaled Oxygen Concentration - - Weight 66.2 kg (146 lb) 01/06/2025 1:36 PM EDT Height 157.5 cm (5' 2 ) 01/06/2025 1:36 PM EDT Body Mass Index 26.7 01/06/2025 1:36 PM EDT Plan of Treatment Health Maintenance Due Date Last Done Comments Medicare Annual Wellness (AWV) 1940 Depression Screening 1952 Adult Tetanus 1962 Zoster Vaccines (1 of 2) 1990 Fall Risk Screening 2005 Pneumococcal Vaccine: 50+ Ye ars (2 of 2 - PCV) 04/30/2018 04/30/2017 COVID-19 Vaccine (1 - 2023-2 5 season) 2024 Influenza Vaccine (#1) 2025 05/25/2020 HIB Vaccines Aged Out No longer eligi ble based on patient's age to complete this topic HPV Vaccines Aged Out No longer eligi ble based on patient's age to complete this topic IPV Vaccines Aged Out No longer eligi ble based on patient's age to complete this topic Meningococcal B Vaccine Aged Out No l onger eligible based on patient's age to complete this topic Meningococcal Vaccine Aged Out No ritchie garima eligible based on patient's age to complete this topic Rotavirus Vaccines Aged Out No longer eligible based on patient's age to complete this topic Insurance MEDICARE Member Subscriber Plan / Payer (Ef fective 2005-Present) Name:[place] Dia Member ID:[id number] Relation to Subscriber:Self Name:[place] Dia Subscriber ID:[id number] Payer ID:[id number] Group ID:Not on file Type:Medicare Address: [facility] [address] Care Teams Digital Marketing Specialist Relationship Specialty Start Date End Date Jody Rand MD [address] [place] [address] #A PCP - General 03/17/22
--- OUTSIDE RECORDS SUMMARY | 2025-02-19 08:32 | XMS_ITS | Patient Health Record ---
Author Organization [facility] Address [address] [place] [address] [place] [address] Care Team Providers Care Vending Machine Filler Name Role Phone Robi Kolb Unavailable [phone] Reason For Referral No Information Medications Medication SIG (Take, Route, Frequency, Duration) Notes Start Date End Date Status Losartan Potassium 100 MG 1 tablet Orally Once a day Active Multivitamin Adults - Orally Active Nabumetone 750 MG Orally Ac tive Immunizations Vaccine Route Administration Date Status Comme nts Pneumococcal Unknown 04/30/2017 Administered Social History Tobacco Use: Social History Observation Description Date Details (start date - stop date) Former Smoker NA - NA tobacco use Question Answer Notes Patient is a: former smoker Problems Problem Type SNOMED Code ICD Code Onset Dates Problem Status W/U Status Risk Notes Problem Atherosclerosis of artery of left lower limb (disorder) (6332827833) Unspecified atherosclerosis of [place] arteries of extremities, left leg (I70.202) Active confirmed Problem Tinea unguium (805866739) Tinea unguium (B35.1) Active confirmed Plan Of Treatment No Information Insurance Providers Payer Name Payer Address Payer Phone Subscriber Number Group Number Insured Name Patient Relationship to Insured Coverage Start Date Coverage End Date Medicare Part B [id number] Part [facility] [place] [address] [place] [address] [id number] [place] Dia Self - patient is the insured [employer] [address] [place] [address] [id number] Bobby Dia Spouse - patient is the spouse of the insured Medical (General) History Medical History History ICD Code blood clots hiatal hernia bowel disorder
--- OUTSIDE RECORDS SUMMARY | 2025-02-19 08:35 | XMS_ITS | CCD ---
Author Organization [facility] Care Team Providers Care Automatic Winder Operator Name Role Phone ELTAHAWY, EHAB A Admitting Unavailable ELTAHAWY, EHAB A Attending Unavailable UNKNOWN, PHYSICIAN Referring Unavailable UNKNOWN, PHYSICIAN Primary Care Unavailable SHAR KAUFMAN Attending Unavailable ELISEO, DR CODY Cummings Consulting Unavailable STEWART, DR CINDI Scott Primary Care Unavailable MANDEEP, SHAR Admitting Unavailable SHAR KAUFMAN Consulting Unavailable Cheng, DR Sanchez Consulting Unavailable TERRY, DR CINDI Scott Primary Care Unavailable STEWART, DR CINDI Scott Attending Unavailable STEWART, DR CINDI Scott Admitting Unavailable STEWART, DR CINDI Scott Consulting Unavailable STEWART, DR CINDI Scott Attending Unavailable STEWART, DR CINDI Scott Admitting Unavailable STEWART, DR CINDI Scott Primary Care Unavailable Cheng, DR Sanchez Consulting Unavailable STEWART, DR CINDI Scott Consulting Unavailable Cheng, DR Sanchez Consulting Unavailable SHAR KAUFMAN Attending Unavailable STEWART, DR CINDI Scott Primary Care Unavailable SHAR KAUFMAN Admitting Unavailable SHAR KAUFMAN Consulting Unavailable TERRY, DR CINDI Scott Primary Care Unavailable STEWART, DR CINDI Scott Attending Unavailable STEWART, DR CINDI Scott Admitting Unavailable STEWART, DR CINDI Scott Primary Care Unavailable JEIMY DUMONT Admitting Unavailable JEIMY DUMONT Attending Unavailable Cheng, DR Sanchez Consulting Unavailable JEIMY DUMONT Consulting Unavailable Cindi Stewart Unavailable MD Cindi Stewart Primary Care Provider EMILY Hoffmann Attending Provider Cindi Stewart MD Primary Care Provider Kay Howard DO Unavailable [phone] Layton ACUNA, Khari Attending Provider Cindi Stewart MD Attending Provider [phone] Cindi Stewart MD Primary Care Provider SHAR KAUFMAN Attending Unavailable ELISABETH RAMIREZ Attending Unavailable ELISABETH RAMIREZ Attending Unavailable AKILAH GARCIA Attending Unavailable Kay Howard DO Unavailable KAVITA ALLISON Attending Unavailable KAY HOWARD Attending Unavailable KAVITA ALLISON Attending Unavailable KAVITA ALLISON Attending Unavailable MAMI BRYAN Attending Unavailable MAMI BRYAN Attending Unavailable Khari Traylor Admitting Unavailable Khari Traylor Attending Unavailable Cindi Stewart Attending Unavailable Cindi Stewart Admitting Unavailable Medications Current Medications Medication Drug Class(es) Dates Sig (Normalized) Sig (Original) amLODIPine 5 mg oral tablet (20 sources) Dihydropyridine Calcium Channel Leona Start: 08-29-2022 take 1 tablet by mouth [...] mg / levodopa 100 mg oral tablet (20 sources) Aromatic Amino Acid Decarboxylation Inhibitor, Aromatic Amino Acid Start: 06-23-2024 End: 11-17-2025 carbidopa-levodopa (Sinemet) 25-100 MG tablet Indications: Parkinson's disease without dyskinesia or fluctuating manifestations (HCC) Take 1 tablet by mouth in the morning and 1 tablet at noon and 1 tablet in the evening and 1 tablet before bedtime. 120 tablet 11 11/22/2024 11/17/2025 Active Start: 03-25-2024 take 1 tablet by [...] 6.25 mg oral tablet (20 sources) alpha-Adrenergic Leona, beta-Adrenergic Leona Start: 05-02-2023 End: 11-12-2024 take 1 tablet by mouth in the [...] Discontinued 0 .ROUTE .COMPLEX February 21, 2024 8:29am February 27, 2024 9:50pm take 1 tablet by mouth at bedtime Start: 10-20-2023 End: 02-27-2024 take 1 tablet by mouth at bedtime Donepezil Active 0 .ROUTE .COMPLEX February 27, 2024 9:50pm take 1 tablet by mouth at bedtime Start: 09-26-2023 End: 10-20-2023 take 1 tablet by mouth once daily at bedtime Donepezil 10 mg tablet Discontinued 10 MG PO Daily at bedtime October 09, 2023 12:22pm October 20, 2023 9:17am FreeTextSi tablet at bedtime Orally Once a day; Note: Source Status: Taking; Refills: 1; Qty: 90 Tablet; Provider: Terry Scott Start: 01-04-2023 take 1 tablet by blayne th every twenty-four hours Aricept 10 MG 1 tablet at bedtime Orally Once a day for 90 days Dec, Active Start: 01-04-2023 End: 11-21-2024 take 1 tablet by mouth at bedtime donepezil (Aricept) 5 MG tablet Take 5 mg by mouth at bedtime 01/04/2023 11/21/2024 Discontinued empagliflozin 10 mg oral tablet (20 sources) [...] by mouth Daily 01/04/2024 Active Start: 12-04-2023 End: 11-12-2024 take 1 tablet by mouth once daily Folic Acid 1 mg tablet Active 0 .ROUTE .COMPLEX November 12, 2024 12:36pm take 1 tablet by mouth once daily Start: 09-26-2023 End: 12-04-2023 take 1 tablet by mouth once daily Folic Acid 1 mg tablet Discontinued 1 TAB PO Daily September 26, 2023 1:00am December 04, 2023 1:13pm FreeTextSi tablet Orally Once a day; Note: Source Status: Start; Refills: 3; Provider: Terry Scott furosemide 20 mg oral tablet (20 sources) Loop Diuretic Start: 08-29-2022 take 1 tablet by mouth once daily furosemide (Lasix) 20 MG tablet Take 20 mg by mouth Daily 01/22/2023 Active losartan potassium 100 mg oral tablet (20 sources) Angiotensin 2 Receptor Leona Start: 09-26-2023 take 1 tablet by mouth twice daily Losartan 100 mg tablet Active 1 TAB PO Twice daily September 26, 2023 1:00am FreeTextSi tablet Orally twice a day; Note: [...] for 28 days samples given Dec, Active nitrofurantoin, macrocrystals 100 mg oral capsule (2 sources) Nitrofuran Antibacterial Start: 11-12-2024 take 1 capsule by mouth twice daily at mealtime Nitrofurantoin Macrocrystal 100 mg capsule Active 100 MG PO Twice daily November 12, 2024 12:00am must administer with a meal/food nitrofurantoin, macrocrystals 25 mg / nitrofurantoin, monohydrate 75 mg oral capsule (7 sources) Nitrofuran Antibacterial Start: 11-10-2024 take 1 capsule by mouth in the morning nitrofurantoin, macrocrystal-monoh ydrate, (Macrobid) 100 MG capsule Take 100 mg by mouth in the morning and 100 mg before bedtime. 11/10/2024 Active Ocuvite Eye + Multi - (10 sources) Ocuvite Eye + Multi - as directed Orally Active QUEtiapine 25 mg oral tablet (16 sources) Atypical Antipsychotic Start: 01-26-2025 End: 04-26-2025 take 1.5 tablets by mouth at bedtime QUEtiapine (SEROquel) 25 MG tablet Indications: Parkinson's disease without dyskinesia or fluctuating manifestations (HCC) , Hallucinations Take 1.5 tablets (37.5 mg) by mouth at bedtime 135 tablet 01/26/2025 04/26/2025 Active Start: 11-22-2024 End: 11-25-2025 take 1 tablet by mouth at bedtime QUEtiapine (SEROquel) 25 MG tablet Indications: Parkinson's disease without dyskinesia or fluctuating manifestations (HCC) , Hallucinations Take 1 tablet (25 mg) by mouth at bedtime 90 tablet 3 11/25/2024 11/25/2025 Active rivaroxaban 20 mg oral tablet (20 sources) Factor Xa Inhibitor Start: 09-26-2023 End: 12-06-2023 take 1 tablet by mouth once daily at dinner Rivaroxaban (Xarelto) 20 mg tablet Active 20 MG PO Daily December 03, 2023 12:00am must administer with evening meal Xarelto 20 20 On ce PO Daily Active spironolactone 25 mg oral tablet (20 sources) Aldosterone Antagonist Start: 11-05-2023 take 1 tablet by mouth once daily Spironolactone 25 mg tablet Active 0 .ROUTE .COMPLEX November 05, 2023 1:07pm take 1 tablet by mouth once daily Start: 11-05-2023 take 1 tablet by blayne once daily Spironolactone Active 0 .ROUTE .COMPLEX November 05, 2023 1:07pm take 1 tablet by mouth once daily Start: 09-26-2023 End: 11-05-2023 take 1 tablet by mouth once daily Spironolactone 25 mg tablet Discontinued 25 MG PO Daily September 26, 2023 1:00am November 05, 2023 1:07pm FreeTextSi tablet Orally Once a day; Note: Source Status: Taking; Refills: 3; Qty: 30 Tablet; Provider: Terry Scott Completed/Discontinued Medications Medication Drug Class(es) Dates Sig (Normalized) Sig (Original) ipratropium bromide 0.021 mg/actuat metered dose nasal spray (10 sources) Anticholinergic Start: 10-04-2023 End: 12-03-2023 take 1 spray(s) nasal route twice daily Ipratropium Sublimity 21 mcg (0.03 %) spray,non-aerosol Discontinued 2 SPRAY INTRANASAL Twice daily October 04, 2023 12:00am December 03, 2023 10:45am administer into each nostril Wh-Hi-Rj-Vit G-Pdzfz-Mgyi-Zeax (Ocuvite Eye Plus Multi) 200-15-150 mcg tablet (10 sources) Start: 09-26-2023 End: 12-06-2023 take 2 tablets by mouth once daily Gj-Kx-Jv-Vit G-Mfpkv-Inxa-Zeax (Ocuvite Eye Plus Multi) 200-15-150 mcg tablet Discontinued 2 TAB PO Daily September 26, 2023 12:00am December 06, 2023 1:52pm administer with a meal and a large glass of water Start: 09-26-2023 End: 12-06-2023 take 2 tablets by mouth once daily Xb-Yy-Mr-Vit W-Efdsk-Ouaf-Zeax (Ocuvite Eye Plus Multi) 200-15-150 mcg tablet Discontinued 2 TAB PO Daily September 26, 2023 1:00am December 06, 2023 2:52pm administer with a meal and a large glass of water Start: 09-26-2023 take 2 tablets by mo [facility] once daily Ny-Sc-Ti-Vit P-Exhpu-Onun-Zeax (Ocuvite Eye Plus Multi) 200-15-150 mcg tablet Active 2 TAB PO Daily September 26, 2023 1:00am administer with a meal and a large glass of water nabumetone 750 mg oral tablet (20 sources) Nonsteroidal Anti-inflammatory Drug Start: 03-14-2024 End: 06-17-2024 take 0.5 tablet by mouth twice daily Nabumetone 750 mg tablet Discontinued 0 .ROUTE .COMPLEX March 14, 2024 9:45am June 17, 2024 9:54am TAKE 1/2 TABLET BY MOUTH TWICE DAILY [...] MG PO Twice daily October 09, 2023 12:23pm October 15, 2023 8:34am FreeTextSi/2 tablet Orally Twice a day as needed; Note: Source Status: Taking; Refills: 2; Provider: Terry Scott take 0.5 tablet by m outh twice daily as needed Nabumetone 750 MG 1/2 tablet Orally Twice a day as needed for 30 days Active Nabumetone 750 M G as directed Orally Active Problems Active Problems Problem Classification Problem Date Documented Da te Episodic/Chronic Anxiety disorders (17 sources) Anxiety; Translations: [Anxiety disorder, unspecified] Onset: 11-22-2023 11-22-2023 Chronic Cardiac dysrhythmias (2 sources) Paroxysmal atrial fibrillation; Translations: [Paroxysmal atrial fibrillation] 11-12-2024 Chronic Chronic kidney disease (2 sources) Chronic kidney disease stage 3B ; Translations: [Stage 3b chronic kidney disease] 11-12-2024 Chronic Conditions associated with dizziness or vertigo (4 sources) Dizziness; Translations: [Dizziness and giddiness] 05-07-2024 Episodic Congestive heart failure; nonhypertensive (9 sources) Chronic diastolic heart failure; Translations: [Chronic diastolic (congestive) heart failure] Onset: 07-18-2023 11-21-2024 Chronic Coronary atherosclerosis and other heart disease (11 sources) Coronary arteriosclerosis; Translations: [Atherosclerotic heart disease of [place] coronary artery without angina pectoris] Onset: 06-14-2021 11-21-2024 Chronic Delirium, dementia, and amnestic and other cognitive disorders (16 sources) Dementia; Translations: [Unspecified dementia without behavioral disturbance] Chronic Disorders of lipid metabolism (20 sources) Hyperlipidemia, unspecified; Translations: [Hyperlipidemia] Onset: 10-17-2021 Chronic Essential hypertension (20 sources) Essential (primary) hypertension; Translations: [Essential hypertension] Onset: 01-27-2021 Chronic Heart valve disorders (2 sources) Nonrheumatic aortic (valve) stenosis; Translations: [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] Onset: 02-02-2022 Chronic Malaise and fatigue (14 sources) Asthenia; Translations: [Weakness] Onset: 11-21-2024 02-14-2024 Episodic Mycoses (3 sources) Onychomycosis due to dermatophyte ; Translations: [Tinea unguium] Onset: 01-06-2025 01-26-2025 Episodic Osteoarthritis (1 source) Unilateral primary osteoarthritis, left knee; Translations: [UNI PRIM OSTEOARTHRITIS LT KNEE] Onset: 09-07-2022 Chronic Other aftercare (1 source) 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; Translations: [CURATOR OF COLLECTIONS CURRENT USE OF ASPIRIN] Onset: 08-17-2022 Episodic Other aftercare (1 source) Other cartridge assembler (current) drug therapy; Translations: [OTH NURSING HOME CURRENT DRUG THERAPY] Onset: 08-17-2022 Episodic Other circulatory disease (2 sources) Other specified symptoms and signs involving the circulatory and respiratory systems; Translations: [OTH SPEC SX SIGNS INVLV CIRC RS] Onset: 10-17-2021 Episodic Other circulatory disease (14 sources) Cardiovascular symptoms; Translations: [Other specified symptoms and signs involving the circulatory and respiratory systems] Episodic Other circulatory disease (14 sources) Low blood pressure; Translations: [Hypotension, unspecified] Onset: 11-21-2024 12-06-2023 Episodic Other circulatory disease (1 source) Hypotension, unspecified; Translations: [Hypotension, unspecified] 12-06-2023 Episodic Other connective tissue disease (3 sources) Nontraumatic complete rupture of rotator cuff of left shoulder; Translations: [Complete rotator cuff tear or rupture of left shoulder, not specified as traumatic] Onset: 01-26-2025 01-26-2025 Episodic Other diseases of bladder and urethra (14 sources) Bladder muscle dysfunction - overactive; Translations: [Overactive bladder] Chronic Other diseases of bladder and urethra (4 sources) Overactive bladder; Translations: [OAB (overactive bladder)] Chronic Other gastrointestinal disorders (12 sources) Irritable bowel syndrome with diarrhea; Translations: [Irritable bowel syndrome with diarrhea] Onset: 11-21-2024 05-06-2024 Chronic Other hereditary and degenerative nervous [...] Onset: 04-17-2022 Episodic Other nervous system disorders (20 sources) Bilateral carpal tunnel syndrome; Translations: [Carpal [...] Onset: 09-01-2022 Episodic Other non-traumatic joint disorders (20 sources) Pain in left shoulder; Translations: [Left shoulder pain] Onset: 11-21-2024 12-03-2023 Episodic Other nutritional; endocrine; and metabolic disorders (12 sources) Abnormal weight loss; Translations: [Abnormal weight loss] Onset: 11-21-2024 05-06-2024 Episodic Other nutritional; endocrine; and metabolic disorders (1 source) Abnormal weight loss; Translations: [Loss of weight] 08-14-2024 Episodic Other skin disorders (11 sources) Mass of neck; Translations: [Localized swelling, mass and lump, neck] Onset: 11-21-2024 08-14-2024 Episodic Other skin disorders (2 sources) Localized swelling, mass and lump, neck; Translations: [Swelling, mass, or lump in head and neck] 08-14-2024 Episodic Other upper respiratory infections (18 sources) Chronic sinusitis, unspecified; Translations: [Chronic rhinosinusitis] Onset: 11-21-2024 10-04-2023 Chronic Other upper respiratory infections (3 sources) Acute pharyngitis, unspecified; Translations: [ACUTE PHARYNGITIS UNSPECIFIED] Onset: 08-15-2022 Episodic Peripheral and visceral atherosclerosis (3 sources) Unspecified atherosclerosis of [place] arteries of extremities, left leg; Translations: [Atherosclerosis of [place] arteries of the extremities, unspecified] Onset: 01-06-2025 01-26-2025 Chronic Pneumonia (except that caused by tuberculosis or sexually transmitted disease) (1 source) Pneumonia (except that caused by tuberculosis or sexually transmitted disease); Translations: [PNEUMONIA D/T CORONAVIRUS DIS 2019] Onset: 08-17-2022 Pulmonary heart disease (2 sources) Chronic pulmonary embolism; Translations: [Chronic pulmonary embolism] Onset: 04-17-2022 Chronic Residual codes; unclassified (2 sources) Amnesia; Translations: [Other amnesia] 09-24-2024 Episodic Residual codes; unclassified (14 sources) Hallucinations; Translations: [Hallucinations, unspecified] Onset: 11-21-2024 11-12-2024 Episodic Residual codes; unclassified (2 sources) Hallucinations, unspecified; Translations: [Hallucinations] 11-12-2024 Episodic Spondylosis; intervertebral disc disorders; other back problems (15 sources) Lumbar radiculopathy; Translations: [Radiculopathy, lumbar region] Episodic Unclassified (20 sources) Parkinson's disease; Translations: [Parkinson's disease] Onset: 11-21-2024 10-04-2023 Chronic Unclassified (1 source) UNVACCINATED FOR COVID-19; Translations: [UNVACCINATED FOR COVID-19] Onset: 08-17-2022 Urinary tract infections (15 sources) Acute urinary tract infection; Translations: [Urinary tract infection, site not specified] Onset: 11-21-2024 02-14-2024 Episodic Viral infection (1 source) COVID-19; Translations: [COVID-19] Onset: 08-17-2022 Past or Other Problems Problem Classification Problem Date Documented Da te Episodic/Chronic Nonspecific chest pain (20 sources) Chest pain; Translations: [Other chest pain] Onset: 06-05-2019 11-21-2024 Episodic Other connective tissue disease (4 sources) Pain in right lower leg; Translations: [PAIN IN RIGHT LOWER LEG] Onset: 02-01-2022 Episodic Other connective tissue disease (1 source) Pain in left lower leg; Translations: [PAIN IN LEFT LOWER LEG] Onset: 02-02-2022 Episodic Other lower respiratory disease (7 sources) Dyspnea; Translations: [Dyspnea, unspecified] Onset: 06-05-2019 11-21-2024 Episodic Other nervous system disorders (17 sources) Tremor; Translations: [Tremor, unspecified] Onset: 11-22-2023 11-22-2023 Episodic Other nervous system disorders (17 sources) Burning sensation; Translations: [Other disturbances of skin sensation] Onset: 11-22-2023 11-22-2023 Episodic Phlebitis; thrombophlebitis and thromboembolism (1 source) Embolism and thrombosis of superficial veins of left lower extremity; Translations: [EMBOLISM AND THROMB SUP VEINS LLE] Onset: 02-02-2022 Episodic Pulmonary heart disease (20 sources) Personal history of pulmonary embolism; Translations: [Acute pulmonary embolism] Onset: 01-28-2020 Episodic Results Test Name Value Interpretation Reference Range Facility Follow-Upon 01-06-2025 Follow-Up [id number] Rolly Moore 1940 F Date Provider Department Center 01/06/2025 271-ELISABETH RAMIREZ CARD [facility] Family History Problem Relation Age of Onset Heart failure Mother Family Status - Relation Status Age at Mother Father Level of Service:[id number] ID OFFICE/OUTPATIENT ESTABLISHED MOD MDM 30 MIN [facility] 29on 11-25-2024 29 Addended by: COY OCHOA on: 11/25/2024 02:35 PM Modules accepted: Orders Normal [facility] 37on 11-25-2024 37 Decrease Cozaar to 2 5 mg daily Stop spironolactone Reduce lasix to 10 mg daily Complete CMP in 1 week Follow up in office in 1 month Normal [facility] Office Visiton 11-25-2024 Follow-up visit [id number] Rolly Moore 1940 F Date Provider Department Center 11/25/2024 Zenia-ELISABETH RAMIREZ CARD [facility] Family History Problem Relation Age of Onset Heart failure Mother Family Status - Relation Status Age at Mother Level of Service:[id number] ID OFFICE/OUTPATIENT ESTABLISHED MOD MDM 30 MIN Normal [facility] Urine Cultureon 11-20-2024 Bacteria identified Cx Nom (U) >100,000 colonies/ml mixed bacterial skin contaminants 2 Days PERFORMED BY: [place] [address] PATHOLOGIST WHIPPED TOPPING FINISHER MORALES FREY M.D. Normal [facility] Comment on above: Performed By: #### C UU #### [address] Activated partial thrombopla stin time (aPTT) in platelet poor plasma by coagulation aon 11-03-2024 aPTT Coag (PPP) [Time] Activated partial thromboplastin time (aPTT) in platelet poor plasma by coagulation a 22.3-36.2 [facility] Basophils Auto (Bld) [#/Vol] on 11-03-2024 Basophils (Bld) [#/Vol] Automated basophil count 0.0-0.1 [facility] Basophils/100 WBC Auto (Bld) on 11-03-2024 Basophils/100 WBC (Bld) Automated basophil % 0.2-2.0 [facility] Eosinophils/100 WBC Auto (Bl d)on 11-03-2024 Eosinophils/100 WBC (Bld) Automated eosinophil % Low 0.9-7.0 [facility] Erythrocyte distribution wid th Auto (RBC) [Ratio]on 11-03-2024 Erythrocyte distribution width (RBC) [Ratio] Erythrocyte distribution width [Ratio] by Automated count 11.0-15.0 [facility] Hematocrit Auto (Bld) [Volum e fraction]on 11-03-2024 Hematocrit (Bld) [Volume fraction] Hematocrit [Volume Fraction] of Blood by Automated count Low 36.0-48.0 [facility] Hemoglobin [Mass/volume] in Bloodon 11-03-2024 Hemoglobin (Bld) [Mass/Vol] Hemoglobin [Mass/volume] in Blood Low 12.0-16.0 [facility] INR in Platelet poor plasma by Coagulation assayon 11-03-2024 INR Coag (PPP) [Relative time] INR in Platelet poor plasma by Coagulation assay [facility] Comment on above: DESIRED INR:2.0-3.0 CONDITIONS NOT LISTED BELOW2.5-3.5 FOR PROSTHETIC HEART VALVE REPLACEMENT2.5-3.5 RECURRENT THROMBOSIS Laboratory - Chemistry and C hemistry - challengeon 11-03-2024 Lactate [Moles/Vol] 1.2 mmol/L 0.4-2.0 [facility] Magnesium [Mass/Vol] 2.1 mg/dL 1.8-2.4 [facility] Natriuretic peptide B (Bld) [Mass/Vol] 121.0 pg/mL <=1800.0 [facility] Laboratory - Hematology and Cell countson 11-03-2024 Immature granulocytes/100 WBC (Bld) 0.3 % 0.0-0.5 [facility] Leukocytes [#/volume] correc luz for nucleated erythrocytes in Blood by Automated counon 11-03-2024 WBC corrected for nucl RBC Auto (Bld) [#/Vol] Leukocytes [#/volume] corrected for nucleated erythrocytes in Blood by Automated coun 4.0-11.0 [facility] Lymphocytes Auto (Bld) [#/Vo l]on 11-03-2024 Lymphocytes (Bld) [#/Vol] Lymphocytes [#/volume] in Blood by Automated count 1.2-3.8 [facility] Lymphocytes/100 WBC Auto (Bl d)on 11-03-2024 Lymphocytes/100 WBC (Bld) Lymphocytes/100 leukocytes in Blood by Automated count 20.5-60.0 [facility] MCH Auto (RBC) [Entitic mass ]on 11-03-2024 MCH (RBC) [Entitic mass] MCH [Entitic mass] by Automated count 26.7-34.0 [facility] MCHC Auto (RBC) [Mass/Vol]on 11-03-2024 MCHC (RBC) [Mass/Vol] MCHC [Mass/volume] by Automated count 29.9-35.2 [facility] MCV Auto (RBC) [Entitic vol] on 11-03-2024 MCV (RBC) [Entitic vol] MCV [Entitic volume] by Automated count High 81.0-99.0 [facility] Monocytes Auto (Bld) [#/Vol] on 11-03-2024 Monocytes (Bld) [#/Vol] Automated blood monocyte count 0.3-0.8 [facility] Monocytes/100 WBC Auto (Bld) on 11-03-2024 Monocytes/100 WBC (Bld) Automated monocyte % 1.7-12.0 [facility] Neutrophils Auto (Bld) [#/Vo l]on 11-03-2024 Neutrophils (Bld) [#/Vol] Neutrophils [#/volume] in Blood by Automated count 1.4-6.5 [facility] Neutrophils/100 WBC Auto (Bl d)on 11-03-2024 Neutrophils/100 WBC (Bld) Automated neutrophil % 43.0-75.0 [facility] No Panel Informationon 11-03 Eosinophils # (Auto) 0.1 10 3/uL 0.0-0.7 [facility] Immature Granulocyte # (Auto) 0.02 10 3/uL 0.00-0.03 [facility] Troponin I High Sensitivity 10.6 pg/mL 4.0-51.3 [facility] Comment on above: CUT-OFF POINTS HAVE BEEN [...] IN CONJUNCTIONWITH OTHER DIAGNOSTIC AND CLINICAL INFORMATION. Venous Blood Partial Pressure CO2 51.3 mm[Hg] 40.0-52.0 [facility] Venous Blood pH 7.392 7.330-7.430 [facility] Platelet mean volume Auto (B ld) [Entitic vol]on 11-03-2024 Platelet mean volume (Bld) [Entitic vol] Platelet mean volume [Entitic volume] in Blood by Automated count 9.5-13.5 [facility] Platelets Auto (Bld) [#/Vol] on 11-03-2024 Platelets (Bld) [#/Vol] Platelets [#/volume] in Blood by Automated count 150-450 [facility] Prothrombin time (PT)on 10-21 PT Coag (PPP) [Time] Prothrombin time (PT) High 9.0- 11.6 [facility] RBC Auto (Bld) [#/Vol]on RBC (Bld) [#/Vol] Erythrocytes [#/volume] in Blood by Automated count Low 4.20-5.40 [facility] Urine Cultureon 11-03-2024 Bacteria identified Cx Nom (U) ORGANISM: Klebsiella variicola (O:KLEVAR) Gary Count 20,000 Aerobic DONI Charge ([id number]) --- SUSCEPTIBILITY -- ORGANISM: O:KLEDENISE ANTIBIOTIC INTERPRETATION DONI Amikacin S <16 Amoxacillin/K Clavulanate S <8 Ampicillin/Sulbactam S <4 Aztreonam S <4 Cefazolin S <2 Cefepime S <2 Ceftazidime S <1 Ceftriaxone S <1 Cefuroxime S <4 Ciprofloxacin S <0.25 Ertapenem S <0.5 Gentamicin S <2 Levofloxacin S <0.5 Meropenem S <1 Nitrofurantoin S <32 Piperacillin/Tazobacta m S <8 Tetracycline S <4 Tigecycline S <2 Tobramycin S <2 Trimethoprim/Sulfameth oxazole S <0.5 S = SUSCEPTIBLE I = INTERMEDIATE R = RESISTANT BLANK = DATA NOT AVAILABLE, OR DRUG NOT ADVISABLE OR TESTED R* = RESISTANCE DUE TO EXTENDED SPECTRUM BETA-LACTAMASES ESBL = EXTENDED SPECTRUM BETA-LACTAMASE TFG = THYMIDINE-DEPENDENT STRAIN SOPHIA = BETA-LACTAMASE POSITIVE IB = INDUCIBLE BETA-LACTAMASE. APPEARS IN PLACE OF 'S' WITH SPECIES KNOWN TO POSSESS INDUCIBLE BETA-LACTAMASES. POTENTIALLY THEY MAY BECOME RESISTANT TO ALL B-LACTAM DRUGS. PERFORMED BY: [facility] [address] [id number] PATHOLOGIST WHIPPED TOPPING FINISHER MORALES FREY M.D. Normal [facility] Comment on above: Performed By: #### C UU #### [facility] [address] [id number] [facility] Urine cultureOrdered By: Fredy Traylor on 11-03-2024 Bacteria identified Cx Nom (U) Abnormal [facility] 36on 10-22-2024 36 Regarding stress alvaro t result from 10/17/2024: RENATE Clement MA Please let her know her stress test was negative. Follow-up as planned in December. She is due to follow-up with an attending. Thanks! Spoke with patient's daughter Rose and made her aware. Scheduled her to see Dr. Ramirez in December 2024. Normal [facility] 37on 10-07-2024 37 *Reduce your losarta n to 50mg daily *[facility] will call you to schedule a stress test Normal [facility] Office Visiton 10-07-2024 Follow-up visit [id number] Rolly Moore 1940 F Date Provider Department Center 10/07/2024 SHAR NUNES Family History Problem Relation Age of Onset Heart failure Mother Family Status - Relation Status Age at Mother Level of Service:[id number] ID OFFICE/OUTPATIENT ESTABLISHED MOD MDM 30 MIN Reason for Visit and Comments: Congestive Heart Failure [127] Coronary Artery Disease [187] Hypertension [554069] Normal [facility] Office Visiton 04-02-2024 Follow-up visit [id number] Rolly Moore 1940 F Date Provider Department Center 04/02/2024 AKILAH SWEENEY Family History Problem Relation Age of Onset Heart failure Mother Family Status - Relation Status Age at Mother Level of Service:[id number] ID OFFICE/OUTPATIENT ESTABLISHED MOD MDM 30 MIN Normal [facility] Basophils Auto (Bld) [#/Vol] on 01-31-2024 Basophils (Bld) [#/Vol] 0.1 10 3/uL 0.0-0.1 [facility] Basophils/100 WBC Auto (Bld) on 01-31-2024 Basophils/100 WBC (Bld) 0.8 % 0.2-2.0 [facility] Eosinophils/100 WBC Auto (Bl d)on 01-31-2024 Eosinophils/100 WBC (Bld) 1.4 % 0.9-7.0 [facility] Erythrocyte distribution wid th Auto (RBC) [Ratio]on 01-31-2024 Erythrocyte distribution width (RBC) [Ratio] 12.6 % 11.0-15.0 [facility] Estimated glomerular filtrat ion rate (GFR) non- Americanon 01-31-2024 GFR/1.73 sq M.predicted among non-blacks MDRD (S/P/Bld) [Vol rate/Area] 25 mL/min/{1.73_m2} Low >=60 [facility] Hematocrit Auto (Bld) [Volum e fraction]on 01-31-2024 Hematocrit (Bld) [Volume fraction] 39.6 % 36.0-48.0 [facility] Hemoglobin [Mass/volume] in Bloodon 01-31-2024 Hemoglobin (Bld) [Mass/Vol] 12.6 g/dL 12.0-16.0 [facility] Laboratory - Chemistry and C hemistry - challengeon 01-31-2024 Bilirubin Ql (U) Negative NEGATIVE [facility] Glucose (U) [Mass/Vol] 250 mg/dL Abnormal NEGATIVE [facility] Ketones Ql (U) Negative NEGATIVE [facility] pH (U) 6.0 [pH] 5.0-9.0 [facility] Specific gravity (U) [Rel density] <=1.005 Abnormal 1.005-1.025 [facility] Urobilinogen Qn (U) 0.2 {Quoc'U}/dL 0.2-1.0 [facility] Calcium [Mass/Vol] 9.7 mg/dL 8.5-10.1 [facility] Chloride [Moles/Vol] 103 mmol/L 98-107 [facility] CO2 [Moles/Vol] 28.7 mmol/L 21.0-32.0 [facility] Creatinine [Mass/Vol] 1.90 mg/dL High 0.55-1.02 [facility] GFR/1.73 sq M.predicted MDRD (S/P/Bld) [Vol rate/Area] 31 mL/min/{1.73_m2} Low >=60 [facility] Glucose [Mass/Vol] 112 mg/dL High 74-106 [facility] Potassium [Moles/Vol] 3.8 mmol/L 3.5-5.1 [facility] Sodium [Moles/Vol] 140 mmol/L 136-145 [facility] Urea nitrogen [Mass/Vol] 27.0 mg/dL High 7.0-18.0 [facility] Urea nitrogen/Creatinine [Mass ratio] 14.2 mg/mg [facility] Laboratory - Hematology and Cell countson 01-31-2024 Immature granulocytes/100 WBC (Bld) 0.4 % 0.0-0.5 [facility] Laboratory - Specimen inform ationon 01-31-2024 Appearance (U) CLEAR CLEAR [facility] Color (U) LT. YELLOW YELLOW [facility] Laboratory - Urinalysison Hyaline casts LM Ql (Urine sed) FEW [facility] Leukocyte esterase Test strip Ql (U) TRACE Abnormal NEGATIVE [facility] Mucus Ql (Urine sed) NONE SEEN NONE SEEN [facility] Nitrite Ql (U) Negative NEGATIVE [facility] Protein Ql (U) Negative NEG/TRACE [facility] Leukocytes [#/volume] correc luz for nucleated erythrocytes in Blood by Automated counon 01-31-2024 WBC corrected for nucl RBC Auto (Bld) [#/Vol] 9.7 10 3/uL 4.0-11.0 [facility] Lymphocytes Auto (Bld) [#/Vo l]on 01-31-2024 Lymphocytes (Bld) [#/Vol] 1.4 10 3/uL 1.2-3.8 [facility] Lymphocytes/100 WBC Auto (Bl d)on 01-31-2024 Lymphocytes/100 WBC (Bld) 14.5 % Low 20.5-60.0 [facility] MCH Auto (RBC) [Entitic mass ]on 01-31-2024 MCH (RBC) [Entitic mass] 32.6 pg 26.7-34.0 [facility] MCHC Auto (RBC) [Mass/Vol]on 01-31-2024 MCHC (RBC) [Mass/Vol] 31.8 g/dL 29.9-35.2 [facility] MCV Auto (RBC) [Entitic vol] on 01-31-2024 MCV (RBC) [Entitic vol] 102.3 fL High 81.0-99.0 [facility] Monocytes Auto (Bld) [#/Vol] on 01-31-2024 Monocytes (Bld) [#/Vol] 0.6 10 3/uL 0.3-0.8 [facility] Monocytes/100 WBC Auto (Bld) on 01-31-2024 Monocytes/100 WBC (Bld) 6.2 % 1.7-12.0 [facility] Neutrophils Auto (Bld) [#/Vo l]on 01-31-2024 Neutrophils (Bld) [#/Vol] 7.4 10 3/uL High 1.4-6.5 [facility] Neutrophils/100 WBC Auto (Bl d)on 01-31-2024 Neutrophils/100 WBC (Bld) 76.7 % High 43.0-75.0 [facility] No Panel Informationon 01-30 Urine Bacteria MODERATE #/HPF Abnormal NONE SEEN [facility] Urine Culture Reflexed YES [facility] Urine Microscopic Review YES [facility] Urine Occult Blood MODERATE Abnormal NEGATIVE [facility] Urine Other Casts SEEN #/LPF Abnormal NONE SEEN [facility] Urine Other Crystals None Seen #/HPF None Seen [facility] Urine RBC 10-20 #/HPF Abnormal 0-2 [facility] Urine Squamous Epithelial Cells FEW #/LPF Abnormal NONE/RARE [facility] Urine WBC 5-10 #/HPF Abnormal NONE SEEN [facility] Eosinophils # (Auto) 0.1 10 3/uL 0.0-0.7 [facility] Immature Granulocyte # (Auto) 0.04 10 3/uL High 0.00-0.03 [facility] Troponin I High Sensitivity 19.2 pg/mL 4.0-51.3 [facility] Comment on above: CUT-OFF POINTS HAVE BEEN [...] volume (Bld) [Entitic vol] 11.5 fL 9.5-13.5 [facility] Platelets Auto (Bld) [#/Vol] on 01-31-2024 Platelets (Bld) [#/Vol] 180 10 3/uL 150-450 [facility] RBC Auto (Bld) [#/Vol]on RBC (Bld) [#/Vol] 3.87 10 6/uL Low 4.20-5.40 [facility] Serum or plasma anion gap de terminationon 01-31-2024 Anion gap [Moles/Vol] 12.1 mmol/L [facility] Estimated glomerular filtrat ion rate (GFR) non- Americanon 01-29-2024 GFR/1.73 sq M.predicted among non-blacks MDRD (S/P/Bld) [Vol rate/Area] 27 mL/min/{1.73_m2} Low >=60 [facility] Laboratory - Chemistry and C hemistry - challengeon 01-29-2024 Creatinine [Mass/Vol] 1.81 mg/dL High 0.55-1.02 [facility] GFR/1.73 sq M.predicted MDRD (S/P/Bld) [Vol rate/Area] 32 mL/min/{1.73_m2} Low >=60 [facility] Urea nitrogen [Mass/Vol] 25.0 mg/dL High 7.0-18.0 [facility] BNPon 08-15-2022 Natriuretic peptide B (Bld) [Mass/Vol] 63.0 pg/mL Normal <=1,800.0 [facility] Comment on above: Performed By: #### B PERSONAL INJURY LEGAL ASSISTANT, TSH, CMP, CMADM #### [facility] [address] [address] [address] Melecio Mcclelland CARDIAC RAYNA ADMITon 023 CK [Catalytic activity/Vol] 124 U/L Normal 26-192 [facility] Comment on above: Performed By: #### B PERSONAL INJURY LEGAL ASSISTANT, TSH, CMP, CMADM #### [facility] [address] [address] [address] Melecio Mcclelland CK.MB [Mass/Vol] 0.69 ng/mL Normal <=3.60 [facility] Comment on above: Performed By: #### B PERSONAL INJURY LEGAL ASSISTANT, TSH, CMP, CMADM #### [facility] [address] [address] [address] Melecio Mcclelland HSTROP 15.8 pg/mL Normal 4.0-51.3 [facility] Comment on above: Result Comment: CUT- OFF POINTS HAVE BEEN ESTABLISHED BASED ON THE FOURTH UNIVERSAL DEFINITIONS OF MYOCARDIAL INFARCTION. THE UPPER REFERENCE LIMIT (URL) OF TROPONIN, DEFINED THE 99TH PERCENTILE OF cTnI DISTRIBUTION IN A REFERENCE POPULATION, HAS BEEN CONFIRMED THE DECISION THRESHOLD FOR [place] DIAGNOSIS. Performed By: #### B PERSONAL INJURY LEGAL ASSISTANT, TSH, CMP, CMADM #### [facility] [address] [address] [address] Melecio Mcclelland MATY 173 ng/mL Critically high 9-[address] [facility] Comment on above: Performed By: #### B PERSONAL INJURY LEGAL ASSISTANT, TSH, CMP, CMADM #### [facility] [address] [address] [address] Melecio Mcclelland CBC AUTO DIFFon 08-15-2022 BASO # 0.0 103/ul Normal 0.0-0.1 [facility] Comment on above: Performed By: #### C BC ####[facility] [address] [address]Dr. Melecio Mcclelland Basophils/100 WBC (Bld) 0.2 % Normal 0.2-2.0 [facility] Comment on above: Performed By: #### C BC ####[facility] [address] [address]Dr. Melecio Mcclelland EO # 0.0 103/ul Normal 0.0-0.7 [facility] Comment on above: Performed By: #### C BC ####[facility] [address] [place], [place] [address]Dr. Melecio Mcclelland Eosinophils/100 WBC (Bld) 0.0 % Critically low 0.9-7.0 [facility] Comment on above: Performed By: #### C BC ####[facility] [address] [place], [place] [address]Dr. Melecio Mcclelland Erythrocyte distribution width (RBC) [Ratio] 13.3 % Normal 11.0-15.0 [facility] Comment on above: Performed By: #### C BC ####[facility] [address] [place], [place] [address]Dr. Melecio Mcclelland Hematocrit (Bld) [Volume fraction] 35.7 % Critically low 36.0-48.0 [facility] Comment on above: Performed By: #### C BC ####[facility] [address] [place], [place] [address]Dr. Melecio Mcclelland Hemoglobin (Bld) [Mass/Vol] 11.7 g/dL Critically low 12.0-16.0 [facility] Comment on above: Performed By: #### C BC ####[facility] [address] [place], [place] [address]Dr. Melecio Mcclelland IG # 0.01 10e3/ul Normal 0.00-0.03 [facility] Comment on above: Performed By: #### C BC ####[facility] [address] [place], [place] [address]Dr. Melecio Mcclelland IG % 0.2 % Normal 0.0-0.5 [facility] Comment on above: Performed By: #### C BC ####[facility] [address] [id number]. Melecio Mcclelland LYMPH # 1.2 103/ul Normal 1.2-3.8 [facility] Comment on above: Performed By: #### C BC ####[facility] [address] [id number]. Melecio Mcclelland Lymphocytes/100 WBC (Bld) 22.1 % Normal 20.5-60.0 [facility] Comment on above: Performed By: #### C BC ####[facility] [address] [id number]. Melecio Stas MANUAL DIFF REQ NO Normal [facility] Comment on above: Performed By: #### C BC ####[facility] [address] [id number]. Melecio Stas MCH (RBC) [Entitic mass] 31.3 pg Normal 26.7-34.0 [facility] Comment on above: Performed By: #### C BC ####[facility] [address] [address]Dr. Melecio Mcclelland MCHC (RBC) [Mass/Vol] 32.8 g/dL Normal 29.9-35.2 [facility] Comment on above: Performed By: #### C BC ####[facility] [address] [id number]. Melecio Mcclelland MCV (RBC) [Entitic vol] 95.5 fL Normal 81.0-99.0 [facility] Comment on above: Performed By: #### C BC ####[facility] [address] [id number]. Melecio Stas MONO # 0.6 103/ul Normal 0.3-0.8 [facility] Comment on above: Performed By: #### C BC ####[facility] [address] [address]Dr. Melecio Stas Monocytes/100 WBC (Bld) 10.4 % Normal 1.7-12.0 [facility] Comment on above: Performed By: #### C BC ####[facility] [address] [id number]. Melecio Mcclelland NEUT # 3.6 103/ul Normal 1.4-6.5 [facility] Comment on above: Performed By: #### C BC ####[facility] [address] [id number]. Melecio Mcclelland Neutrophils/100 WBC (Bld) 67.1 % Normal 43.0-75.0 [facility] Comment on above: Performed By: #### C BC ####[facility] [address] [address]Dr. Melecio Mcclelland Platelet mean volume (Bld) [Entitic vol] 10.1 fL Normal 9.5-13.5 [facility] Comment on above: Performed By: #### C BC ####[facility] [address] [id number]. Melecio Mcclelland PLT 159 103/ul Normal 150-450 [facility] Comment on above: Performed By: #### C BC ####[facility] [address] [place], [place] [id number]. Melecio Mcclelland RBC 3.74 106/ul Critically low 4.20-5.[address] [facility] Comment on above: Performed By: #### C BC ####[facility] [address] [id number]. Melecio Mcclelland WBC 5.3 103/ul Normal 4.0-11.0 [facility] Comment on above: Performed By: #### C BC ####[facility] [address] [id number]. Melecio Mcclelland CULTURE BLOODon 08-15-2022 Microscopic examination of blood, culture Culture Observations: NO GROWTH AT 5 DAYS. Normal [facility] Comment on above: Performed By: #### B LDCX2 ####[facility] [address] [address]Dr. Melecio Mcclelland Microscopic examination of blood, culture Culture Observations: NO GROWTH AT 5 DAYS. Normal [facility] Comment on above: Performed By: #### B LDCX1 ####[facility] [address] [address]DrBroderick Mcclelland Covid-19 PCR (CVDTB)on 07-24 SARS-CoV-2 (COVID-19) RNA MEME+probe Ql (Unsp spec) Detected Abnormal NOT DETECTED [facility] Comment on above: Result Comment: This test is not yet approved or cleared by the [place] FDA. When there are no FDA-approved or cleared tests available, and other criteria are met, FDA can make tests available under an emergency access mechanism called an Emergency Use Authorization (EUA). The EUA for this test is supported by the [place] of Health and Human Service's declaration that [...] used). Performed By: #### C VDTBH #### [facility] [address] [address] [address] Melecio Mcclelland INFLUENZA A AND B AGon 08-15 INFLUANEGH SEE BELOW Normal [facility] Comment on above: Result Comment: Nega tive for Flu A protein angiten. Infection due to Flu A cannot be ruled out. Flu A angiten in the sample may be below the detection limit of the test. Performed By: #### I NFLUAB ####[facility] [address] [place], [place] [address]DrBroderick Mcclelland INFLUBNEGH SEE BELOW Normal [facility] Comment on above: Result Comment: Nega tive for Flu B protein antigen. Infection due to Flu B cannot be ruled out. Flu B antigen in the sample may be below the detection limit of the test. Performed By: #### I NFLUAB ####[facility] [address] [place], [place] [address]DrBroderick Mcclelland INFLUENZA A AG Negative Normal NEGATIVE SEE COMMENT [facility] Comment on above: Performed By: #### I NFLUAB ####[facility] [address] [place], [place] [address]Dr. Melecio Mcclelland INFLUENZA B AG Negative Normal NEGATIVE SEE COMMENT [facility] Comment on above: Performed By: #### I NFLUAB ####[facility] [address] [id number]. Melecio Mcclelland LACTATE/LACTIC ACIDon 2022 Lactate [Moles/Vol] 1.0 mmol/L Normal 0.4-1.9 [facility] Comment on above: Performed By: #### L ACT ####[facility] [address] [id number]. Melecio Mcclelland PROF 14(COMP METB)on 023 Albumin [Mass/Vol] 3.1 g/dL Critically low 3.4-5.0 [facility] Comment on above: Performed By: #### B PERSONAL INJURY LEGAL ASSISTANT, TSH, CMP, CMADM #### [facility] [address] [address] [address] Melecio Mcclelland Albumin/Globulin [Mass ratio] 1.0 {ratio} Normal [facility] Comment on above: Performed By: #### B PERSONAL INJURY LEGAL ASSISTANT, TSH, CMP, CMADM #### [facility] [address] [address] [address] Melecio Mcclelland ALP [Catalytic activity/Vol] 100 U/L Normal 46-116 [facility] Comment on above: Performed By: #### B PERSONAL INJURY LEGAL ASSISTANT, TSH, CMP, CMADM #### [facility] [address] [address] [address] Melecio Mcclelland ALT [Catalytic activity/Vol] 35 U/L Normal 14-59 [facility] Comment on above: Performed By: #### B PERSONAL INJURY LEGAL ASSISTANT, TSH, CMP, CMADM #### [facility] [address] [address] [address] Melecio Mcclelland Anion gap [Moles/Vol] 12.1 mmol/L Normal [facility] Comment on above: Performed By: #### B PERSONAL INJURY LEGAL ASSISTANT, TSH, CMP, CMADM #### [facility] [address] [address] [address] Melecio Mcclelland AST [Catalytic activity/Vol] 34 U/L Normal 15-37 [facility] Comment on above: Performed By: #### B PERSONAL INJURY LEGAL ASSISTANT, TSH, CMP, CMADM #### [facility] [address] [address] [address] Melecio Mcclelland Bilirubin [Mass/Vol] 0.7 mg/dL Normal 0.2-1.0 [facility] Comment on above: Performed By: #### B PERSONAL INJURY LEGAL ASSISTANT, TSH, CMP, CMADM #### [facility] [address] [place] [address] Dr. Melecio Mcclelland Calcium [Mass/Vol] 8.8 mg/dL Normal 8.5-10.1 [facility] Comment on above: Performed By: #### B PERSONAL INJURY LEGAL ASSISTANT, TSH, CMP, CMADM #### [facility] [address] [place] [address] Dr. Melecio Mcclelland Chloride [Moles/Vol] 105 mmol/L Normal 98-107 [facility] Comment on above: Performed By: #### B PERSONAL INJURY LEGAL ASSISTANT, TSH, CMP, CMADM #### [facility] [address] [place] [address] Dr. Melecio Mcclelland CO2 [Moles/Vol] 29.2 mmol/L Normal 21.0-32.0 [facility] Comment on above: Performed By: #### B PERSONAL INJURY LEGAL ASSISTANT, TSH, CMP, CMADM #### [facility] [address] [place] [address] Dr. Melecio Mcclelland Creatinine [Mass/Vol] 1.09 mg/dL Critically high 0.55-1.02 [facility] Comment on above: Performed By: #### B PERSONAL INJURY LEGAL ASSISTANT, TSH, CMP, CMADM #### [facility] [address] [place] [address] Dr. Melecio Mcclelland EGFR-AF RUSSIAN 58 mL/min/1.73m2 Critically low >=60 [facility] Comment on above: Performed By: #### B PERSONAL INJURY LEGAL ASSISTANT, TSH, CMP, CMADM #### [facility] [address] [place] [address] Dr. Melecio Mcclelland EGFR-NON AF RUSSIAN 48 mL/min/1.73m2 Critically low >=60 [facility] Comment on above: Performed By: #### B PERSONAL INJURY LEGAL ASSISTANT, TSH, CMP, CMADM #### [facility] [address] [address] [address] Melecio Mcclelland Globulin (S) [Mass/Vol] 3.0 g/dL Normal [facility] Comment on above: Performed By: #### B PERSONAL INJURY LEGAL ASSISTANT, TSH, CMP, CMADM #### [facility] [address] [address] [address] Melecio Mcclelland Glucose [Mass/Vol] 92 mg/dL Normal 74-106 [facility] Comment on above: Performed By: #### B PERSONAL INJURY LEGAL ASSISTANT, TSH, CMP, CMADM #### [facility] [address] [address] [address] Melecio Mcclelland Potassium [Moles/Vol] 4.3 mmol/L Normal 3.5-5.1 [facility] Comment on above: Performed By: #### B PERSONAL INJURY LEGAL ASSISTANT, TSH, CMP, CMADM #### [facility] [address] [address] [address] Melecio Mcclelland Protein [Mass/Vol] 6.1 g/dL Critically low 6.4-8.[address] [facility] Comment on above: Performed By: #### B PERSONAL INJURY LEGAL ASSISTANT, TSH, CMP, CMADM #### [facility] [address] [place] [address] Dr. Melecio Mcclelland Sodium [Moles/Vol] 142 mmol/L Normal 136-145 [facility] Comment on above: Performed By: #### B PERSONAL INJURY LEGAL ASSISTANT, TSH, CMP, CMADM #### [facility] [address] [address] [address] Melecio Mcclelland Urea nitrogen [Mass/Vol] 29.0 mg/dL Critically high 7.0-18.0 [facility] Comment on above: Performed By: #### B PERSONAL INJURY LEGAL ASSISTANT, TSH, CMP, CMADM #### [facility] [address] [place] [address] Dr. Melecio Mcclelland Urea nitrogen/Creatinine [Mass ratio] 26.6 mg/mg Normal [facility] Comment on above: Performed By: #### B PERSONAL INJURY LEGAL ASSISTANT, TSH, CMP, CMADM #### [facility] [address] [place] [address] Dr. Melecio Mcclelland PROTIMEon 08-15-2022 INR Coag (PPP) [Relative time] 1.03 {INR} Normal [facility] Comment on above: Performed By: #### P T, PTT ####[facility] [address] [address]DrBroderick Mcclelland INR GUIDELINES SEE BELOW Normal [facility] Comment on above: Result Comment: TRINA RED INR: 2.0 - 3.0 CONDITIONS NOT LISTED BELOW 2.5 - 3.5 FOR PROSTHETIC HEART VALVE REPLACEMENT 2.5 - 3.5 RECURRENT THROMBOSIS Performed By: #### P T, PTT ####[facility] [address] [address]DrBroderick Mcclelland PT Coag (PPP) [Time] 10.9 s Normal 9.0-11.6 [facility] Comment on above: Performed By: #### P T, PTT ####[facility] [address] [address]Dr. Melecio Mcclelland PTTon 08-15-2022 aPTT Coag (Bld) [Time] 30.5 s Normal 22.3-36.2 [facility] Comment on above: Performed By: #### P T, PTT ####[facility] [address] [address]Dr. Melecio Mcclelland TSHon 08-15-2022 TSH 1.361 uIU/mL Normal 0.358-3.740 [facility] Comment on above: Performed By: #### B PERSONAL INJURY LEGAL ASSISTANT, TSH, CMP, CMADM ####[facility] [address] [address]Dr. Melecio Mcclelland XR CHEST 1 08-15-2022 XR CHEST 1 V EXAMINATION: XR [...] chest should be considered. Electronically authenticated by: ANGELICA ANAND Date: 2022-08-15 10:52 Normal [facility] ECHOCARDIO M/2D COMPLETEon 0 02-01-2022 ECHOCARDIO M/2D COMPLETE Patient: ROLLY MOORE Exam Date: 02/01/2022 : 1940 Gender:F Ordering : SHAR KAUFMAN Admission #: [id number] Family : DR CINDI STEWART M.D. Order #: [id number] CLICK HERE TO VIEW EXAM ECHOCARDIOGRAM REPORT [...] Burkett M.D. on 02/01/2022 at 21:28 Normal [facility] US KELLI DOP LEG BILon 07-13-2 022 US KELLI DOP LEG JERRY EXAMINATION: [...] by: CODY GOMES Date: 2022-02-01 18:50 Normal [facility] VC VENOUS REFLUX JERRY LMTon 0 01-11-2022 VC VENOUS REFLUX JERRY LMT Patient: ROLLY MOORE Exam Date: 01/11/2022 : 1940 Gender:F Ordering : SHAR HarrisBroderick KENDALLMANDEEP Admission #: [id number] Family : Order #: [id number] CLICK HERE TO VIEW EXAM RADIOLOGY REPORT [...] Varicosity in distal/medial lower leg off of brick sorter measures 7.8 mm with 0.8s reflux. incompetent [...] of thrombus. Flow: Mild deep venous reflux. Snowboard Instructor: Prox/med calf 4.4 mm with 3.7s reflux. Tech Note: GSV becomes tortuous approximately 9cm from SFJ. AASV is tortuous proximally with adjacent arteries. Thigh extension of left SSV. SSV is tortuous with non-occlusive thrombus mid calf. Thrombus visualized in varicosity and associated brick sorter medial/distal calf 6.4mm from PTV. Varicosity proximal/medial/food preparer ior calf measures 4.5 mm with 1.2s reflux. CONCLUSION: 1. Right leg: Dilated and incompetent great saphenous vein, small saphenous vein, brick sorter veins, and branch saphenous varicosities. 2. Left leg: Dilated and incompetent great saphenous vein, anterior accessory saphenous vein, and branch saphenous varicosities. 3. Nonocclusive thrombus within superficial veins within the left calf. The patient is currently taking aspirin. Patient has been notified of these findings and the ordering physician will be notified. 4. Consultation for venous ablation is recommended. Dictated by: Angelica Anand M.D. on 01/11/2022 at 11:31 Approved by: Angelica Anand M.D. on 01/11/2022 at 11:39 Normal [facility] BNPon 10-12-2021 Natriuretic peptide B (Bld) [Mass/Vol] 192.0 pg/mL Normal <=1,800.0 [facility] Comment on above: Performed By: #### C MP, BNP, LIPID #### [facility] [address] [place], [place] [address] Dr. Melecio Mcclelland CBC AUTO DIFFon 10-12-2021 BASO # 0.0 103/ul Normal 0.0-0.1 [facility] Comment on above: Performed By: #### C BC ####[facility] [address] [place] [address]Dr. Melecio Mcclelland Basophils/100 WBC (Bld) 0.4 % Normal 0.2-2.0 [facility] Comment on above: Performed By: #### C BC ####[facility] [address] [place] [address]DrBroderick Mcclelland EO # 0.3 103/ul Normal 0.0-0.7 [facility] Comment on above: Performed By: #### C BC ####[facility] [address] [place] [address]DrBroderick Mcclelland Eosinophils/100 WBC (Bld) 2.9 % Normal 0.9-7.0 [facility] Comment on above: Performed By: #### C BC ####[facility] [address] [place] [address]DrBroderick Mcclelland Erythrocyte distribution width (RBC) [Ratio] 13.1 % Normal 11.0-15.0 [facility] Comment on above: Performed By: #### C BC ####[facility] [address] [place] [address]DrBroderick Mcclelland Hematocrit (Bld) [Volume fraction] 38.4 % Normal 36.0-48.0 [facility] Comment on above: Performed By: #### C BC ####[facility] [address] [place] [address]DrBroderick Mccellland Hemoglobin (Bld) [Mass/Vol] 12.2 g/dL Normal 12.0-16.0 [facility] Comment on above: Performed By: #### C BC ####[facility] [address] [place] [id number]. Melecio Mcclelland IG # 0.03 10e3/ul Normal 0.00-0.03 [facility] Comment on above: Performed By: #### C BC ####[facility] [address] [place] [address]Dr. Melecio Mcclelland IG % 0.3 % Normal 0.0-0.5 [facility] Comment on above: Performed By: #### C BC ####[facility] [address] [place] [address]Dr. Melecio Stas LYMPH # 1.8 103/ul Normal 1.2-3.8 [facility] Comment on above: Performed By: #### C BC ####[facility] [address] [place] [address]Dr. Mleecio Mcclelland Lymphocytes/100 WBC (Bld) 19.3 % Critically low 20.5-60.0 [facility] Comment on above: Performed By: #### C BC ####[facility] [address] [place] [address]Dr. Isismartha Mcclelland MANUAL DIFF REQ NO Normal [facility] Comment on above: Performed By: #### C BC ####[facility] [address] [place] [address]Dr. Melecio Mcclelland MCH (RBC) [Entitic mass] 30.2 pg Normal 26.7-34.0 [facility] Comment on above: Performed By: #### C BC ####[facility] [address] [place] [address]Dr. Melecio Mcclelland MCHC (RBC) [Mass/Vol] 31.8 g/dL Normal 29.9-35.2 [facility] Comment on above: Performed By: #### C BC ####[facility] [address] [place] [address]Dr. Melecio Mcclelland MCV (RBC) [Entitic vol] 95.0 fL Normal 81.0-99.0 [facility] Comment on above: Performed By: #### C BC ####[facility] [address] [place] [id number]. Melecio Mcclelland MONO # 0.5 103/ul Normal 0.3-0.8 [facility] Comment on above: Performed By: #### C BC ####[facility] [address] [place] [address]Dr. Melecio Mcclelland Monocytes/100 WBC (Bld) 4.9 % Normal 1.7-12.0 [facility] Comment on above: Performed By: #### C BC ####[facility] [address] [place], [place] [address]Dr. Melecio Mcclelland NEUT # 6.6 103/ul Critically high 1.4-6.[address] [facility] Comment on above: Performed By: #### C BC ####[facility] [address] [place], [place] [address]Dr. Melecio Mcclelland Neutrophils/100 WBC (Bld) 72.2 % Normal 43.0-75.0 [facility] Comment on above: Performed By: #### C BC ####[facility] [address] [place], [place] [address]Dr. Melecio Mcclelland Platelet mean volume (Bld) [Entitic vol] 10.6 fL Normal 9.5-13.5 [facility] Comment on above: Performed By: #### C BC ####[facility] [address] [place], [place] [address]Dr. Melecio Mcclelland PLT 186 103/ul Normal 150-450 [facility] Comment on above: Performed By: #### C BC ####[facility] [address] [place], [place] [address]Dr. Melecio Mcclelland RBC 4.04 106/ul Critically low 4.20-5.[address] [facility] Comment on above: Performed By: #### C BC ####[facility] [address] [place], [place] [address]Dr. Melecio Mcclelland WBC 9.2 103/ul Normal 4.0-11.0 [facility] Comment on above: Performed By: #### C BC ####[facility] [address] [place], [place] [address]Dr. Melecio Mcclelland LIPID PROFILEon 10-12-2021 CHOL-HDL RATIO NORM SEE BELOW Normal [facility] Comment on above: Result Comment: 3.3 - 4.4 LOW RISK 4.4 - 7.1 AVERAGE RISK 7.1 - 11.0 MODERATE RISK >11.0 HIGH RISK Performed By: #### C MP, BNP, LIPID #### [facility] [address] [place] [address] [address] Melecio Mcclelland Cholesterol [Mass/Vol] 101 mg/dL Normal <=200 [facility] Comment on above: Performed By: #### C MP, BNP, LIPID #### [facility] [address] [place] [address] [address] Melecio Mcclelland Cholesterol in HDL [Mass/Vol] 49 mg/dL Normal 40-60 [facility] Comment on above: Performed By: #### C MP, BNP, LIPID #### [facility] [address] [place] [address] [address] Melecio Mcclelland Cholesterol in LDL [Mass/Vol] 43.6 mg/dL Normal [facility] Comment on above: Performed By: #### C MP, BNP, LIPID #### [facility] [address] [place] [address] [address] Melecio Mcclelland Cholesterol.total/Ch olesterol in HDL [Mass ratio] 2.1 {ratio} Normal [facility] Comment on above: Performed By: #### C MP, BNP, LIPID #### [facility] [address] [place] [address] [address] Melecio Mcclelland HDL NORMAL > or = 60 mg/dl - LO W CARDIOVASCULAR RISK <40 mg/dl - HIGH CARDIOVASCULAR RISK Normal [facility] Comment on above: Performed By: #### C MP, BNP, LIPID #### [facility] [address] [place] [address] [address] Melecio Mcclelland LDL CALC NORMAL SEE BELOW Normal [facility] Comment on above: Result Comment: <100 mg/dl OPTIMAL 100 - 129 mg/dl NEAR OR ABOVE OPTIMAL 130 - 159 mg/dl BORDERLINE HIGH 160 - 189 mg/dl HIGH >190 mg/dl VERY HIGH Performed By: #### C MP, BNP, LIPID #### [facility] [address] [place] [address] [address] Melecio Mcclelland Triglyceride [Mass/Vol] 42 mg/dL Normal <=150 [facility] Comment on above: Performed By: #### C MP, BNP, LIPID #### [facility] [address] [place] [address] [address] Melecio Mcclelland VLDL CALC 8.4 mg/dL Normal [facility] Comment on above: Performed By: #### C MP, BNP, LIPID #### [facility] [address] [place] [address] [address] Melecio Mcclelland PROF 14(COMP METB)on 022 Albumin [Mass/Vol] 3.5 g/dL Normal 3.4-5.0 [facility] Comment on above: Performed By: #### C MP, BNP, LIPID #### [facility] [address] [place] [address] Dr. Melecio Mcclelland Albumin/Globulin [Mass ratio] 1.2 {ratio} Normal [facility] Comment on above: Performed By: #### C MP, BNP, LIPID #### [facility] [address] [place] [address] [address] Melecio Mcclelland ALP [Catalytic activity/Vol] 111 U/L Normal 46-116 [facility] Comment on above: Performed By: #### C MP, BNP, LIPID #### [facility] [address] [place] [address] Dr. Melecio Mcclelland ALT [Catalytic activity/Vol] 34 U/L Normal 14-59 [facility] Comment on above: Performed By: #### C MP, BNP, LIPID #### [facility] [address] [place] [address] [address] Melecio Mcclelland Anion gap [Moles/Vol] 13.5 mmol/L Normal [facility] Comment on above: Performed By: #### C MP, BNP, LIPID #### [facility] [address] [place] [address] [address] Melecio Mcclelland AST [Catalytic activity/Vol] 22 U/L Normal 15-37 [facility] Comment on above: Performed By: #### C MP, BNP, LIPID #### [facility] [address] [place] [address] [address] Melecio Mcclelland Bilirubin [Mass/Vol] 1.2 mg/dL Normal 0.2-1.3 [facility] Comment on above: Performed By: #### C MP, BNP, LIPID #### [facility] [address] [place] [address] Dr. Melecio Mcclelland Calcium [Mass/Vol] 9.0 mg/dL Normal 8.5-10.1 [facility] Comment on above: Performed By: #### C MP, BNP, LIPID #### [facility] [address] [place] [address] [address] Melecio Mcclelland Chloride [Moles/Vol] 110 mmol/L Critically high 98-107 [facility] Comment on above: Performed By: #### C MP, BNP, LIPID #### [facility] [address] [place] [address] Dr. Melecio Mcclelland CO2 [Moles/Vol] 25.5 mmol/L Normal 22.0-30.0 [facility] Comment on above: Performed By: #### C MP, BNP, LIPID #### [facility] [address] [place] [address] Dr. Melecio Mcclellnad Creatinine [Mass/Vol] 1.02 mg/dL Normal 0.52-1.04 [facility] Comment on above: Performed By: #### C MP, BNP, LIPID #### [facility] [address] [place] [address] Dr. Melecio Mcclelland EGFR-AF RUSSIAN >60 Normal >=60 [facility] Comment on above: Performed By: #### C MP, BNP, LIPID #### [facility] [address] [place] [address] Dr. Melecio Mcclelland EGFR-NON AF RUSSIAN 52 mL/min/1.73m2 Critically low >=60 [facility] Comment on above: Performed By: #### C MP, BNP, LIPID #### [facility] [address] [place] [address] Dr. Melecio Mcclelland Globulin (S) [Mass/Vol] 3.0 g/dL Normal [facility] Comment on above: Performed By: #### C MP, BNP, LIPID #### [facility] [address] [place] [address] Dr. Melecio Mcclelland Glucose [Mass/Vol] 93 mg/dL Normal 74-106 [facility] Comment on above: Performed By: #### C MP, BNP, LIPID #### [facility] [address] [place] [address] Dr. Melecio Mcclelland Potassium [Moles/Vol] 4.0 mmol/L Normal 3.4-5.0 [facility] Comment on above: Performed By: #### C MP, BNP, LIPID #### [facility] [address] [place] [address] Dr. Melecio Mcclelland Protein [Mass/Vol] 6.5 g/dL Normal 6.1-8.2 [facility] Comment on above: Performed By: #### C MP, BNP, LIPID #### [facility] [address] [place] [address] Dr. Melecio Mcclelland Sodium [Moles/Vol] 145 mmol/L Normal 137-145 [facility] Comment on above: Performed By: #### C MP, BNP, LIPID #### [facility] [address] [place] [address] Dr. Melecio Mcclelland Urea nitrogen [Mass/Vol] 20.0 mg/dL Critically high 7.0-18.0 [facility] Comment on above: Performed By: #### C MP, BNP, LIPID #### [facility] [address] [place] [address] Dr. Melecio Mcclelland Urea nitrogen/Creatinine [Mass ratio] 19.6 mg/mg Normal [facility] Comment on above: Performed By: #### C MP, BNP, LIPID #### [facility] [address] [place] [address] Dr. Melecio Mcclelland US CAROTID ART BILon [...] 2.5-4.0 >70 >225 >4.0 Electronically authenticated by: ANGELICA ANAND Date: 2021-10-12 13:56 Normal [facility] Cardiovascular Lab Reporton 06-17-2019 Cardiovascular Lab Report [facility] Patient Name: [facility] MR #: [id number] Department of Physician: Lorraine Harrison M.D. Division of Service Date: 06/16/2019 Cardiology Birthdate: 1940 Adult Cardiovascular Room #: [place] [address] Cardiovascular Laboratory Report FINAL IMPRESSIONS: 1. Moderate [...] of medical management; continue aspirin, angiotensin receptor leona, will add high intensity statin and a beta leona. 3. Follow up lipid profile and liver function tests in 4-6 weeks. 4. Consider alternate etiologies for the patient's symptomatology, namely pulmonary and/or obesity related. 5. Follow up with me in the [facility] in the next 2 months. 6. [...] right internal jugular vein was obtained. A 6-Uzbek 11 cm sheath was inserted without difficulty. [...] to access the right radial artery. A 6-Uzbek Glidesheath was inserted without difficulty. Resistance advancing [...] engaged into the left main ostium. The App[employer] pressure wire was advanced through the catheter [...] Ramirez M.D. Date Trans: 06/17/2019 05:53 Jose/ryan [id number] Normal [facility] Vital Signs Date Time Vital Sign Value Performing Clinician Faci lity 01-26-2025 14:51-0400 Body height 162.6 cm Mami Bryan MD Work Phone: [facility] 01-26-2025 14:51-0400 Body mass index (BMI) [Ratio] 25.75 kg/m2 Mami Bryan MD Work Phone: [facility] 01-26-2025 14:51-0400 Body weight 68.04 kg Mami Bryan MD Work Phone: [facility] 11-21-2024 13:02-0400 Body height 162.6 cm Mami Bryan MD Work Phone: [facility] 11-21-2024 13:02-0400 Body mass index (BMI) [Ratio] 26.09 kg/m2 Mami Bryan MD Work Phone: [facility] 11-21-2024 13:02-0400 Body weight 68.95 kg Mami Bryan MD Work Phone: [facility] 11-12-2024 11:06-0400 Body height 160.02 cm Khari Traylor MD Work Phone: [facility] 11-12-2024 11:06-0400 Body mass index (BMI) [Ratio] 26.4 kg/m2 Khari Traylor MD Work Phone: [facility] 11-12-2024 11:06-0400 Body weight 67.64 kg Khari Traylor MD Work Phone: [facility] 11-12-2024 11:06-0400 Diastolic blood pressure 62 mm[Hg] Khari Traylor MD Work Phone: [facility] 11-12-2024 11:06-0400 Heart rate 73 /min Khari Traylor MD Work Phone: [facility] 11-12-2024 11:06-0400 Systolic blood pressure 91 mm[Hg] Khari Traylor MD Work Phone: [facility] 09-24-2024 14:36-0500 Body mass index (BMI) [Ratio] 26.09 kg/m2 Kay Howard DO Work Phone: [facility] 09-24-2024 14:36-0500 Body weight 68.95 kg Kay Howard DO Work Phone: [facility] 09-24-2024 14:36-0500 Diastolic blood pressure 82 mm[Hg] Kay Howard DO Work Phone: [facility] 09-24-2024 14:36-0500 Heart rate 48 /min Christopher Lee DO Work Phone: [facility] 09-24-2024 14:36-0500 SaO2% (BldA) [Mass fraction] 98 % Christopher Lee DO Work Phone: [facility] 09-24-2024 14:36-0500 Systolic blood pressure 134 mm[Hg] Christopher Lee DO Work Phone: [facility] 08-19-2024 14:03-0500 Body mass index (BMI) [Ratio] 26.26 kg/m2 Kavita Allison PERSONAL INJURY LEGAL ASSISTANT Work Phone: [facility] 08-19-2024 14:03-0500 Body weight 69.4 kg Kavitapaolo Allison PERSONAL INJURY LEGAL ASSISTANT Work Phone: [facility] 08-19-2024 14:03-0500 Diastolic blood pressure 77 mm[Hg] Kavita Estefany PERSONAL INJURY LEGAL ASSISTANT Work Phone: [facility] 08-19-2024 14:03-0500 Heart rate 78 /min Kavita Allison PERSONAL INJURY LEGAL ASSISTANT Work Phone: [facility] 08-19-2024 14:03-0500 Systolic blood pressure 122 mm[Hg] Kavita Allison PERSONAL INJURY LEGAL ASSISTANT Work Phone: [facility] 08-14-2024 13:25-0500 Body height 160.02 cm [facility] 08-14-2024 13:25-0500 Body mass index (BMI) [Ratio] 26.9 kg/m2 [facility] 08-14-2024 13:25-0500 Body weight 69 kg [facility] 08-14-2024 13:25-0500 Diastolic blood pressure 72 mm[Hg] [facility] 08-14-2024 13:25-0500 Heart rate 63 /min [facility] 08-14-2024 13:25-0500 SaO2% (BldA) [Mass fraction] 97 % [facility] 08-14-2024 13:25-0500 Systolic blood pressure 126 mm[Hg] [facility] 05-07-2024 14:04-0400 Body mass index (BMI) [Ratio] 28.84 kg/m2 Kavita Allison PERSONAL INJURY LEGAL ASSISTANT Work Phone: [facility] 05-07-2024 14:04-0400 Body weight 76.2 kg Kavita Allison PERSONAL INJURY LEGAL ASSISTANT Work Phone: [facility] 05-07-2024 14:04-0400 Diastolic blood pressure 70 mm[Hg] Kavita Allison PERSONAL INJURY LEGAL ASSISTANT Work Phone: [facility] 05-07-2024 14:04-0400 Heart rate 57 /min Kavita Allison PERSONAL INJURY LEGAL ASSISTANT Work Phone: [facility] 05-07-2024 14:04-0400 Systolic blood pressure 121 mm[Hg] Kavita Allison PERSONAL INJURY LEGAL ASSISTANT Work Phone: [facility] 05-06-2024 13:08-0400 Body height 160.02 cm [facility] 05-06-2024 13:08-0400 Body mass index (BMI) [Ratio] 28.5 kg/m2 [facility] 05-06-2024 13:08-0400 Body weight 73.08 kg [facility] 05-06-2024 13:08-0400 Diastolic blood pressure 70 mm[Hg] [facility] 05-06-2024 13:08-0400 Heart rate 48 /min [facility] 05-06-2024 13:08-0400 Respiratory rate 16 /min [facility] 05-06-2024 13:08-0400 SaO2% (BldA) [Mass fraction] 98 % [facility] 05-06-2024 13:08-0400 Systolic blood pressure 124 mm[Hg] [facility] 02-04-2024 10:45-0400 Body height 160.02 cm MD Cindi Stewart Work Phone: [facility] 02-04-2024 10:45-0400 Body mass index (BMI) [Ratio] 30.4 kg/m2 MD Cindi Stewart Work Phone: [facility] 02-04-2024 10:45-0400 Body weight 78.01 kg MD Cindi Stewart Work Phone: [facility] 02-04-2024 10:45-0400 Diastolic blood pressure 60 mm[Hg] MD Cindi Stewart Work Phone: [facility] 02-04-2024 10:45-0400 Heart rate 62 /min MD Cindi Stewart Work Phone: [facility] 02-04-2024 10:45-0400 Systolic blood pressure 98 mm[Hg] MD Cindi Stewart Work Phone: [facility] 12-06-2023 14:44-0400 Body height 160.02 cm MD Cindi Stewart Work Phone: [facility] 12-06-2023 14:44-0400 Body mass index (BMI) [Ratio] 31.6 kg/m2 MD Cindi Stewart Work Phone: [facility] 12-06-2023 14:44-0400 Body weight 81.19 kg MD Cindi Stewart Work Phone: [facility] 12-06-2023 14:44-0400 Diastolic blood pressure 51 mm[Hg] MD Cindi Stewart Work Phone: [facility] 12-06-2023 14:44-0400 Heart rate 50 /min MD Cindi Stewart Work Phone: [facility] 12-06-2023 14:44-0400 Systolic blood pressure 74 mm[Hg] MD Cindi Stewart Work Phone: [facility] 12-03-2023 10:41-0400 Body height 160.02 cm MD Cindi Stewart Work Phone: [facility] 12-03-2023 10:41-0400 Body mass index (BMI) [Ratio] 31.5 kg/m2 MD Cindi Stewart Work Phone: [facility] 12-03-2023 10:41-0400 Body temperature 98.2 [degF] MD Cindi Stewart Work Phone: [facility] 12-03-2023 10:41-0400 Body weight 80.73 kg MD Cindi Stewart Work Phone: [facility] 12-03-2023 10:41-0400 Heart rate 138 /min MD Cindi Stewart Work Phone: [facility] 12-03-2023 10:41-0400 Respiratory rate 18 /min MD Cindi Stewart Work Phone: [facility] 12-03-2023 10:41-0400 SaO2% (BldA) [Mass fraction] 92 % MD Cindi Stewart Work Phone: [facility] 10-04-2023 14:22-0400 Body height 154.94 cm [facility] 10-04-2023 14:22-0400 Body mass index (BMI) [Ratio] 36.9 kg/m2 [facility] 10-04-2023 14:22-0400 Body weight 88.67 kg [facility] 10-04-2023 14:22-0400 Diastolic blood pressure 86 mm[Hg] [facility] 10-04-2023 14:22-0400 Heart rate 50 /min [facility] 10-04-2023 14:22-0400 Systolic blood pressure 121 mm[Hg] [facility] 07-05-2023 11:45-0500 Body height 154.94 cm Cindi Stewart Other [facility] [employer] Other 07-05-2023 11:45-0500 Body mass index (BMI) [Ratio] 37.67 kg/m2 Cindi Stewart Other [employer] [facility] [employer] Other 07-05-2023 11:45-0500 Body weight 90.45 kg Cindi Stewart Other [employer] [facility] [employer] Other 07-05-2023 11:45-0500 Diastolic blood pressure 84 mm[Hg] Cindi Stewart Other [employer] Other 07-05-2023 11:45-0500 Systolic blood pressure 132 mm[Hg] Cindi Stewart Other [employer] Other 04-05-2023 10:00-0400 Body height 154.94 cm Cindi Stewart Other [employer] Other 04-05-2023 10:00-0400 Body mass index (BMI) [Ratio] 39.79 kg/m2 Cindi Stewart Other [employer] Other 04-05-2023 10:00-0400 Body weight 95.53 kg Cindi Stewart Other [employer] Other 04-05-2023 10:00-0400 Diastolic blood pressure 82 mm[Hg] Cindi Stewart Other [employer] Other 04-05-2023 10:00-0400 Respiratory rate 12 /min Cindi Stewart Other [employer] Other 04-05-2023 10:00-0400 Systolic blood pressure 122 mm[Hg] Cindi Stewart Other [employer] Other 01-04-2023 10:00-0400 Body height 154.94 cm Cindi Stewart Other [facility] Other 01-04-2023 10:00-0400 Body mass index (BMI) [Ratio] 40.62 kg/m2 Cindi Setwart Other [facility] Other 01-04-2023 10:00-0400 Body weight 97.52 kg Cindi Stewart Other [facility] Other 01-04-2023 10:00-0400 Diastolic blood pressure 78 mm[Hg] Cindi Stewart Other [facility] Other 01-04-2023 10:00-0400 Systolic blood pressure 138 mm[Hg] Cindi Stewart Other [facility] Other 10-05-2022 11:00-0400 Body height 154.94 cm Cindi Stewart Other [facility] Other 10-05-2022 11:00-0400 Body mass index (BMI) [Ratio] 41.56 kg/m2 Cindi Stewart Other [facility] Other 10-05-2022 11:00-0400 Body weight 99.79 kg Cindi Stewart Other [facility] Other 10-05-2022 11:00-0400 Diastolic blood pressure 72 mm[Hg] Cindi Stewart Other [facility] Other 10-05-2022 11:00-0400 SaO2% (BldA) [Mass fraction] 97 % Cindi Stewart Other [facility] Other 10-05-2022 11:00-0400 Systolic blood pressure 120 mm[Hg] Cindi Stewart Other [facility] Other 08-31-2022 11:00-0500 Body height 162.56 cm Cindi Stewart Other [facility] Other 08-31-2022 11:00-0500 Body mass index (BMI) [Ratio] 38.62 kg/m2 Cindi Stewart Other [facility] Other 08-31-2022 11:00-0500 Body weight 102.06 kg Cindi Stewart Other [facility] Other 08-31-2022 11:00-0500 Diastolic blood pressure 78 mm[Hg] Cindi Terry Other [facility] Other 08-31-2022 11:00-0500 Systolic blood pressure 116 mm[Hg] Cindi Terry Other [facility] Other Encounters Encounter Date Encounter Type Care Provider Facility Start: 02-10-2025 End: 02-10-2025 Telephone encounter Mami Bryan MD Work Phone: [facility] Start: 01-26-2025 End: 01-26-2025 Office outpatient visit 25 minutes Mami Bryan MD Work Phone: [facility] Comment on above: Parkinson's disease without dyskinesia or fluctuating manifestations (HCC); Hallucinations Start: 01-26-2025 End: 01-26-2025 ambulatory MAMI BRYAN Not Available Start: 01-26-2025 End: 01-26-2025 Bamboo flowsheet Mami Bryan MD Work Phone: [facility] Start: 01-26-2025 End: 01-26-2025 Bamboo flowsshy Bryan MD Work Phone: [facility] Start: 01-06-2025 End: 01-06-2025 ambulatory [facility] Start: 11-25-2024 End: 11-25-2024 Telephone encounter Mami Bryan MD Work Phone: [facility] Start: 11-25-2024 End: 11-25-2024 ambulatory [facility] Start: 11-21-2024 End: 11-21-2024 Bamboo rick Bryan MD Work Phone: [facility] Start: 11-21-2024 End: 11-21-2024 Bamboo flowsheet Mami Bryan MD Work Phone: [facility] Start: 11-21-2024 End: 11-21-2024 ambulatory MAMI BRYAN Not Available Start: 11-21-2024 End: 11-21-2024 Office outpatient visit 25 minutes Mami Bryan MD Work Phone: [facility] Comment on above: Parkinson's disease without dyskinesia or fluctuating manifestations (CMS/HCC) (Primary Dx); Hallucinations Start: 11-20-2024 End: 11-20-2024 ambulatory Cindi Stewart [facility] Work Phone: Start: 11-20-2024 End: 11-20-2024 Departed Referred Khari Traylor MD Work Phone: [facility] Start: 11-12-2024 End: 11-12-2024 ambulatory Khari Traylor MD Work Phone: [facility] Work Phone: Start: 11-12-2024 End: 11-12-2024 Patient encounter procedure Khari Traylor MD Work Phone: [facility] Work Phone: Start: 11-04-2024 Non-patient / Non-visit Khari horne MD Work Phone: [facility] Work Phone: Start: 11-03-2024 End: 11-03-2024 ambulatory Khari Traylor [facility] Work Phone: Start: 11-03-2024 End: 11-03-2024 Departed Referred Khari Traylor MD Work Phone: [facility] Start: 11-03-2024 Non-patient / Non-visit Khari horne MD Work Phone: [facility] Work Phone: Start: 10-07-2024 End: 10-07-2024 ambulatory [facility] Start: 09-24-2024 End: 09-24-2024 Office outpatient visit 15 minutes Kay Howard DO Work Phone: [facility] Comment on above: Memory loss Start: 09-24-2024 End: 09-24-2024 Bamboo flowsheet Kay Howard DO Work Phone: [facility] Start: 09-24-2024 End: 09-24-2024 Bamboo flowsheet Kay Colungaett DO Work Phone: [facility] Start: 09-24-2024 End: 09-24-2024 ambulatory KAY HOWARD Not Available Start: 08-19-2024 End: 08-19-2024 Office outpatient visit 15 minutes Kavita Allison [employer] Work Phone: [facility] Comment on above: Parkinson's disease without dyskinesia or fluctuating manifestations (CMS/HCC) (Primary Dx); Dizziness; Bilateral carpal tunnel syndrome Start: 08-19-2024 End: 08-19-2024 Bamboo flowsheet Kavita Allison PERSONAL INJURY LEGAL ASSISTANT Work Phone: [facility] Start: 08-19-2024 End: 08-19-2024 Bamboo flowsheet Kavita Allison PERSONAL INJ[employer]Y LEGAL ASSISTANT Work Phone: [facility] Start: 08-19-2024 End: 08-19-2024 ambulatory KAVIAT ALLISON Not Available Start: 08-14-2024 End: 08-14-[address] [facility] Work Phone: Start: 08-14-2024 End: 08-14-2024 Patient encounter procedure [facility] Work Phone: Start: 05-07-2024 End: 05-07-2024 Bamboo flowsheet Kavita Allison PERSONAL INJURY LEGAL ASSISTANT Work Phone: [facility] Start: 05-07-2024 End: 05-07-2024 Bamboo flowsheet Kavita Allison PERSONAL INJURY LEGAL ASSISTANT Work Phone: [facility] Start: 05-07-2024 End: 05-07-2024 Office outpatient visit 15 minutes Kavita Allison PERSONAL INJURY LEGAL ASSISTANT Work Phone: [facility] Comment on above: Parkinson's disease without dyskinesia or fluctuating manifestations (CMS/HCC) (Primary Dx); Dizziness; Bilateral carpal tunnel syndrome Start: 05-07-2024 End: 05-07-2024 ambulatory KAVITA ALLISON Not Available Start: 05-06-2024 End: 05-06-[address] [facility] Work Phone: Start: 05-06-2024 End: 05-06-2024 Patient encounter procedure [facility] Work Phone: Start: 04-02-2024 End: 04-02-2024 ambulatory [facility] Start: 03-04-2024 End: 03-04-2024 ambulatory KAVITA ESTEFANY Not Available Start: 02-04-2024 End: 02-04-2024 ambulatory MD Cindi Stewart Work Phone: [facility] Work Phone: Start: 02-04-2024 End: 02-04-2024 Patient encounter procedure MD Cindi Stewart Work Phone: [facility] Work Phone: Start: 02-04-2024 End: 02-04-2024 Physical examination MD Cindi Stewart Work Phone: [facility] Start: 01-31-2024 Non-patient / Non-visit MD Keyana Stewart Work Phone: [facility] Work Phone: Start: 01-29-2024 Non-patient / Non-visit MD Keyana Stewart Work Phone: [facility] Work Phone: Start: 12-06-2023 End: 12-06-2023 Patient encounter procedure MD Cindi Stewart Work Phone: [facility] Work Phone: Start: 12-03-2023 End: 12-03-2023 ambulatory MD Cindi Stewart Work Phone: [facility] Work Phone: Start: 12-03-2023 End: 12-03-2023 Patient encounter procedure MD Cindi Stewart Work Phone: [facility] Work Phone: Start: 12-03-2023 End: 12-03-2023 ambulatory MD Cindi Stewart Work Phone: [facility] Work Phone: Start: 12-03-2023 End: 12-03-2023 Patient encounter procedure MD Cindi Stewart Work Phone: [facility] Work Phone: Start: 10-04-2023 End: 10-04-2023 ambulatory [facility] Work Phone: Start: 10-04-2023 End: 10-04-2023 Patient encounter procedure [facility] Work Phone: Start: 07-11-2023 End: 07-11-2023 ambulatory Cindi Stewart Other [facility] Other Start: 07-11-2023 Telephone encounter Cindi Stewart [facility] Start: 07-10-2023 End: 07-10-2023 ambulatory Cindi Stewart Other [facility] Other Start: 07-10-2023 Telephone encounter Cindi Stewart [facility] Start: 07-09-2023 End: 07-09-2023 ambulatory Cindi Stewart Other [facility] Other Start: 07-09-2023 Telephone encounter Cindi Stewart [facility] Start: 07-05-2023 End: 07-05-2023 ambulatory Cindi Stewart Other [facility] Other Start: 07-05-2023 Office outpatient vi sit 25 minutes Cindi Stewart [facility] Start: 07-05-2023 Telephone encounter Cindi Terry [facility] Start: 04-17-2023 End: 04-17-2023 ambulatory Cindi Stewart Other [facility] Other Start: 04-17-2023 Telephone encounter Cindi Stewart [facility] Start: 04-10-2023 End: 04-10-2023 ambulatory Cindi Stewart Other [facility] Other Start: 04-10-2023 Telephone encounter Cindi Stewart [facility] Start: 04-05-2023 End: 04-05-2023 ambulatory Cindi Stewart Other [facility] Other Start: 04-05-2023 Office outpatient vi sit 15 minutes Cindi Stewart [facility] Start: 01-04-2023 End: 01-04-2023 ambulatory Cindi Stewart Other [facility] Other Start: 01-04-2023 Office outpatient vi sit 15 minutes Cindi Stewart [facility] Start: 10-05-2022 End: 10-05-2022 ambulatory Cindi Stewart Other [facility] Other Start: 10-05-2022 Office outpatient vi sit 15 minutes Cindi Stewart [facility] Start: 09-01-2022 Telephone encounter Cindi Stewart [facility] Start: 09-01-2022 End: 09-02-[address] CINDI STEWART Facility: Start: 08-31-2022 End: 08-31-2022 ambulatory Cidni Stewart Other [facility] Other Start: 08-31-2022 Office outpatient vi sit 15 minutes Cindi Stewart [facility] Start: 08-29-2022 End: 08-29-2022 ambulatory Cindi Stewart Other [facility] Other Start: 08-29-2022 Telephone encounter Cindi Stewart [facility] Start: 08-15-2022 End: 08-15-[address] CINDI STEWART Facility:[facility] Start: 02-01-2022 End: 02-02-2022 ambulatory SHAR KAUFMAN Facility:[facility] Start: 01-11-2022 End: 01-12-[address] Angelica Anand Facility:[facility] Start: 10-19-2021 End: 04-19-[address] CINDI STEWART Facility:[facility] Start: 10-12-2021 End: 10-13-[address] Angelica Anand Facility:[facility] Start: 06-16-2019 End: 06-17-2019 Patient encounter procedure [facility] Facility:[facility] Procedures Date Procedure Procedure Detail Performing Clinician Start: 11-03-2024 Urine culture Khari Azul in Work Phone: Start: 12-03-2023 Plain X-ray of left shoulder MD Cindi Stewart Work Phone: Plan of Treatment Date Care Activity Detail Author Start: 04-30-2025 End: 04-30-2025 Patient encounter procedure 04/30/2025 1:20 PM EDT Office Visit [facility] [address] [place] [address] Mami Bryan MD [address] [facility] [address] [place] [id number] [facility] Start: 01-26-2025 End: 01-26-2025 Patient encounter procedure [facility] Comment on above: Arrived Start: 01-12-2025 End: 01-12-2025 Patient encounter procedure 01/12/2025 3:00 PM EDT Office Visit [facility] [address] [phone] Izzy Etienne NP [address] [place] [phone] [facility] Start: 11-20-2024 Bacteria identified in Urine by Culture Urine Culture [facility] Start: 11-20-2024 Urine culture [facility] Start: 11-12-[address] [facility] Work Phone: Start: 11-03-2024 Bacteria identified in Urine by Culture Urine Culture [facility] Start: 11-03-2024 Urine culture [facility] Start: 09-24-2024 End: 09-24-2024 Patient encounter procedure [facility] Comment on above: Arrived Start: 08-19-2024 End: 08-19-2024 Patient encounter procedure 08/19/2024 3:00 PM EST Office Visit [facility] [address] [phone] Kavita Allison NP [address] [place] [id number] Arrived [facility] Comment on above: Arrived Start: 05-07-2024 End: 05-07-2024 Patient encounter procedure 05/07/2024 2:00 PM EDT Office Visit [facility] [address] [phone] Kavita Allison NP [address] [address] [facility]rived [facility] Comment on above: Arrived Comprehensive metabo lic 2000 panel - Serum or Plasma [facility] Patient referral [facility] Work Phone: Urine culture [facility] [place] Thyroid gland [facility] XR Shoulder - left Views [facility] Immunizations Immunization Date Immunization Notes Care Provider Fa cility 05-25-2020 influenza virus vaccine, split virus (incl. purified surface antigen) Cindi Stewart Other [facility] [employer] Other 05-25-2020 influenza virus vaccine, unspecified formulation [facility] 05-07-2019 influenza virus vaccine, split virus (incl. purified surface antigen) Cindi Stewart Other [facility] [employer] Other 05-07-2019 influenza virus vaccine, unspecified formulation [facility] 07-23-2015 influenza virus vaccine, split virus (incl. purified surface antigen) Cindi Stewart Other [facility] [employer] Other 07-23-2015 influenza virus vaccine, unspecified formulation [facility] 07-23-2012 pneumococcal conjuga te vaccine, 13 valent Cindi Stewart Other [facility] 03-23-2012 zoster vaccine, live Cindi Stewart Other [facility] Payers Date Payer Category Payer Self-pay 2024 Medicare MEDICARE [id number] 2023 [facility] [id number] 2023 Unknown [id number] 1959 Medicare [id number] 1959 Unknown [id number] 1959 Unknown [id number] 1940 Unknown [id number] [id number] 9.2.647 1940 Unknown [id number] 2.16.840.1.443256.3.57 9.2.593 1940 Unknown [id number] 2.16.840.1.930571.3.57 9.2.593 1940 Unknown [id number] 2.16.840.1.467833.3.57 9.2.593 1940 Unknown [id number] 2.16.840.1.603285.3.57 9.2.593 1940 Unknown [id number] [id number] 9.2.593 1940 Unknown [id number] 2.16.840.1.249233.3.57 9.2.593 1940 Unknown [id number] [id number] 9.2.1259 1 Unknown [id number] [id number] 9.2.1259 1940 Unknown [id number] 2.16.840.1.446834.3.57 9.2.1259 194 Unknown [id number] 2.16.840.1.869629.3.57 9.2.1259 1940 Unknown [id number] 2.16.840.1.851201.3.57 9.2.1259 194 Unknown [id number] [id number] 9.2.1259 Medicare [employer] MCR PFF S [id number] Unknown Regino BC/BS UFK [id number] Unknown [id number] Unknown [id number] [id number] 9.2.531 Unknown [id number] 9.2.531 Social History Date Type Detail Facility Unknown if ever smoked [facility] Other Start: 11-22-2023 End: 01-26-2025 Sex Assigned At [employer] Other Start: 1940 Sex Assigned At Female F [facility] [place] [facility] Start: 12-03-2023 End: 11-21-2024 Tobacco smoking status NHIS Never smoked tobacco (finding) [facility] Start: 11-22-2023 End: 01-26-2025 Alcoholic beverage intake Lifetime non-drinker (finding) [facility] Start: 11-22-2023 End: 01-26-2025 History of Social function [facility] Start: 11-22-2023 Alcohol Comment caffeine: none [facility] Start: 1940 Sex assigned at Not on file N [facility] Start: 08-14-2024 End: 11-21-2024 Sex Female (finding) [facility] Clinical Notes 08-31-2022 to 02-10-2025 Telephone Encounter - Sun Tariq - 02/10/2025 11:16 AM EDTTelephone Encounter - Sun Tariq - 02/10/2025 11:16 AM Arielle Bryan MD - 01/26/2025 2:40 PM EDT Note Date & Type Note Facility 02-10-2025 Telephone encounter Note Grand daughter called today and states he pt's hallucinations are increasing and she is worried about pt driving. Delma [phone] [facility] 02-10-2025 Miscellaneous Notes Grand daughter called today and states he pt's hallucinations are increasing and she is worried about pt driving. Delma [phone] documented in this encounter [facility] 01-26-2025 History of Present illness Narrative Images from the original note were not included. Subjective Rolly Moore is a 84 y.o. female who presents for No chief complaint on file. 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 The primary reason for this visit is to assess her current symptoms and medication effectiveness following an increase in her Sinemet dosage to 25/100, taken four times a day. She reports difficulty in maintaining sleep, often waking up disoriented and confused about her identity. Paranoia and occasional hallucinations occur both during the day and at night. Memory fluctuates, with some good days and some bad. Quetiapine taken at bedtime aids her sleep, though there was one instance where it did not work due to car issues. She uses a pill cutter at home. Residing in an assisted living facility, she receives her first dose of carbidopa-levodopa at 8:00 AM, administered by a nurse. Carbidopa-levodopa is taken three times a day. Several falls within her apartment have resulted in minor soreness the following day, but no serious injuries. She uses a walker for mobility outside her apartment but does not use it inside. Grab bars are installed in her bathroom. She consumes a couple of meals a day and does not cook, but she can prepare instant mashed potatoes, potato soup, jelly, and salcido. Her appetite remains good. INTERVAL: Since the last visit, she reports continued difficulty in maintaining sleep, disorientation, paranoia, and occasional hallucinations. Memory fluctuates, and she has experienced several falls within her apartment. SOCIAL HISTORY: Sleep: Difficulty maintaining sleep, often waking up disoriented and confused about her identity. MEDICATIONS CURRENT MEDS: Sinemet 25/100 Oral Four times a day Seroquel Low dose Oral Once daily at bedtime PREVIOUS MEDS: Quetiapine Review of Systems Const: Denies appetite change, fever, chills. Allergy: Denies medication reaction. Ocular: Denies visual acuity change. ENT: Denies hearing change. Endoc: Denies weight loss. Resp: Denies dyspnoea, wheezing. Cardiac: Denies angina, palpitations. GI: Denies nausea, vomiting. Haem: Denies bleeding. : Denies incontinence. MSK: Denies arthralgias, joint oedema. Derm: Denies rash, hair loss. Neuro: Denies ataxia, tremor. Also see HPI for elements of ROS documented therein and for details of positive findings, which shall supersede the foregoing. Objective Height 5' 4 , weight 150 lb. Physical Exam General Appearance: Patient appears well. GENERAL EXAMINATION Appearance: in no acute distress, well developed, well nourished. Head: normocephalic, atraumatic. Eyes: pupils equal, round, reactive to light and accommodation. Ears: normal. Mouth: mucosa moist. Throat: clear. Neck: neck supple, full range of motion, no cervical lymphadenopathy. Skin: no suspicious lesions, warm and dry. Heart: no murmurs, regular rate and rhythm, S1, S2 normal. Lungs: clear to auscultation bilaterally. Abdomen: normal, bowel sounds present, soft, nontender, nondistended. Extremities: no clubbing, cyanosis, or edema. NEUROLOGICAL EXAMINATION Mental Status: The patient is alert and oriented to person, place, and time. Except as noted, thought content, form, and comprehension was normal. Phonation, articulation, resonance, and prosody are normal. Cranial Nerves: Pupils were 4.0 millimeters, equal, round, and reactive to light and accommodation, both directly and consensually. Visual perez were full by confrontation. There was no ptosis; extra-ocular movements were full; and there was no nystagmus. Funduscopic exam is normal. Masseters are of normal strength. Facial movement is normal. Hearing is grossly intact. There is no dysarthria. The gag reflex is equal bilaterally. Sternocleidomastoids and trapezii are of normal strength. The tongue protrudes in the midline. Motor: Muscle testing was performed in all four extremities, including at least senior product development engineer, finger abductors, biceps, triceps, deltoid, toe flexors and extensors, tibialis anterior, triceps surae, quadriceps femoris, biceps femoris, and iliopsoases. Tone is normal. Muscle bulk is normal. Fasciculations are not seen . Pronator drift was not evident. Sensory: Sensation to touch, temperature, and vibration was normal in the arms, legs and face. Romberg is negative. Reflexes: Biceps, triceps, brachioradialis are 2/4 bilaterally. Patellar and Achilles reflexes are 2/4 bilaterally. Plantar responses were flexor bilaterally. Coordination: Dysmetria and dysdiadochokinesia are absent. Tremor is absent; dystonia is absent; chorea is absent. Gait And Station: Station and gait are normal. Apraxia and spasticity are not evident. Arm swing is normal. Toe, heel, and tandem walking are performed without difficulty. Musculoskeletal: Trigger-point tenderness was absent. There is no spasm of the trapezii or paraspinals. Results Assessment & Plan 1. Parkinson's disease. She reports some improvement in her symptoms with the current medication regimen of Sinemet 25/100 mg four times a day. She experiences tremors and occasional shuffling but is able to walk better with the use of a walker. No recent falls were reported. The dosage of quetiapine will be increased to 1.5 tablets at bedtime to help manage her hallucinations and improve sleep quality. A new prescription will be sent to [facility] pharmacy. 2. Hallucinations. She continues to experience hallucinations, which occur both during the day and at night. The hallucinations are more frequent when she is idle or feels trapped. The current low dose of quetiapine helps with sleep but has not fully addressed the hallucinations. The dosage of quetiapine will be increased to 1.5 tablets at bedtime to see if it reduces the hallucinations. 3. Questionable dementia with Lewy body disease. She experiences disorientation and paranoia, which are distressing for her. Her memory fluctuates with good and bad days, primarily affecting short-term memory. The increased dose of quetiapine may also help with these symptoms. Follow-up A follow-up visit is scheduled in a few months to assess the effectiveness of the increased quetiapine dosage. This clinical note was created utilizing [employer] documentation system. All information has been thoroughly reviewed, corrected as necessary, and authenticated by the provider to ensure accuracy and completeness. On occasion, [employer] documentation system erroneously drops words or replaces a spoken word with a similar sounding word. Please notify with any questions or concerns regarding this clinical note. documented in this encounter [facility] 01-06-2025 Note Cardiovascular Medic [facility] SUBJECTIVE Rolly Moore is a 84 y.o. female here for a 4 week follow up with labs. Patient seen Dr. Bryan for her parkinson's and he up the cardidop-levodopa to 4 times per day.Patient complain of fatigue, tightness in her chest, HPI PMHx: HFpEF, CAD, HTN, hx PE, [...] she had recently ate per her daughter. Update 11/25/2024: Here with her granddaughter (Delma); the patient has lost significant amount of weight recently. Her blood pressures have been quite low. She denies chest pain unless she is walking fast. She is generally stable on her feet but however recently took a fall that was accidental after tripping on furniture. No orthopnea, no paroxysmal external dyspnea, mild lower extremity edema which is unchanged. UPDATE 01/06/2025 Doing okay; no chest pain, shortness of breath is intermittent She has been seeing her neurologist for her Parkinson's No significant weight gain, no significant lower extremity edema Patient Active Problem List Diagnosis Chest pain Coronary arteriosclerosis Dyspnea Essential hypertension Pulmonary embolism (CMS/HCC) Chronic diastolic heart failure, NYHA class 2 (CMS/HCC) Anxiety Bilateral carpal tunnel syndrome Burning sensation Tremor Abnormal weight loss Acute UTI Chronic rhinosinusitis Hallucinations Hyperlipemia Hypotension Irritable bowel syndrome with diarrhea Left shoulder pain Mass of left side of neck Parkinson disease (CMS/HCC) Weakness Tinea unguium Unspecified atherosclerosis of [place] arteries of extremities, left leg Past Medical History: Diagnosis Date Chest pain Coronary arteriosclerosis Dyspnea Essential hypertension Peripheral vascular insufficiency Pulmonary embolism (CMS/HCC) Family History Problem Relation Name Age of Onset Heart failure Mother Social History Tobacco Use Smoking status: Former Types: Cigarettes Smokeless tobacco: Never Substance Use Topics Alcohol use: Not Currently Drug use: Never No Known Allergies ROS OBJECTIVE Visit Vitals Smoking Status Former Medications: Current Outpatient Medications: amLODIPine (Norvasc) 5 mg tablet, Take 1 tablet by mouth in the morning., Disp: , Rfl: atorvastatin (Lipitor) 80 mg tablet, TAKE 1 TABLET DAILY AT BEDTIME, Disp: 90 tablet, Rfl: 3 carbidopa-levodopa (Sinemet) 25-100 mg tablet, Take 1 tablet by mouth in the morning, at noon, and at bedtime., Disp: , Rfl: carvedilol (Coreg) 6.25 mg tablet, TAKE 1 TABLET BY MOUTH TWICE DAILY (Patient not taking: Reported on 11/25/2024), Disp: 180 tablet, Rfl: 3 donepezil (Aricept) 5 mg tablet, Take 10 mg by mouth at bedtime., Disp: , Rfl: folic acid (Folvite) 1 mg tablet, Take 1,000 mcg by mouth in the morning., Disp: , Rfl: furosemide (Lasix) 20 mg tablet, TAKE 1 TABLET BY MOUTH TWICE DAILY, Disp: 180 tablet, Rfl: 3 Jardiance 10 mg, TAKE 1 TABLET BY MOUTH ONCE DAILY DIRECTED, Disp: 90 tablet, Rfl: 3 losartan (Cozaar) 50 mg tablet, Take 1 tablet (50 mg) by mouth once daily as directed., Disp: 90 tablet, Rfl: 3 nabumetone (Relafen) 750 mg tablet, Take 750 mg by mouth if needed in the morning and at bedtime., Disp: , Rfl: QUEtiapine (SEROquel) 25 mg tablet, Take 25 mg by mouth at bedtime., Disp: , Rfl: spironolactone (Aldactone) 25 mg tablet, Take 25 mg by mouth in the morning., Disp: , Rfl: Xarelto 20 mg tablet, TAKE 1 TABLET BY MOUTH IN THE MORNING WITH FOOD, Disp: 90 tablet, Rfl: 3 BP 118/78 (BP Location: Left arm, Patient Position: Sitting) Pulse 89 Ht 1.575 m (5' 2 ) Wt 66.2 kg (146 lb) SpO2 95% BMI 26.70 kg/m??? Physical Exam Vitals reviewed. Constitutional: Appearance: Normal [...] Skin: General: Skin is warm and dry. Neurologica (more content not included)... [facility] 11-25-2024 Note Cardiovascular Medic [facility] SUBJECTIVE Rolly Moore is a 84 y.o. female here for a 6 month follow-up. Patient had stress test done, and blood work. Patient complains of tight chest and SOB with activity. Patient was in the ER recently due to hallucinations patient was ER Dr. Spoke with Dr. Dang took her of Coreg. HPI PMHx: HFpEF, CAD, HTN, hx PE, [...] she had recently ate per her daughter. Update 11/25/2024: Here with her granddaughter; the patient has lost significant amount of weight recently. Her blood pressures have been quite low. She denies chest pain unless she is walking fast. She is generally stable on her feet but however recently took a fall that was accidental after tripping on furniture. No orthopnea, no paroxysmal external dyspnea, mild lower extremity edema which is unchanged. Patient Active Problem List Diagnosis Chest pain Coronary arteriosclerosis Dyspnea Essential hypertension Pulmonary embolism (CMS/HCC) Chronic diastolic heart failure, NYHA class 2 (CMS/HCC) Anxiety Bilateral carpal tunnel syndrome Burning sensation Tremor Abnormal weight loss Acute UTI Chronic rhinosinusitis Hallucinations Hyperlipemia Hypotension Irritable bowel syndrome with diarrhea Left shoulder pain Mass of left side of neck Parkinson disease (CMS/HCC) Weakness Past Medical History: Diagnosis Date Chest pain [...] reviewed and are negative. OBJECTIVE Visit Vitals Smoking Status Former Medications: Current Outpatient Medications: atorvastatin (Lipitor) 80 [...] , Rfl: furosemide (Lasix) 20 mg tablet, TAKE 1 TABLET BY MOUTH TWICE DAILY, Disp: 180 tablet, Rfl: 3 Jardiance 10 mg, TAKE 1 TABLET BY MOUTH ONCE DAILY DIRECTED, Disp: 90 tablet, Rfl: 3 losartan (Cozaar) 50 mg tablet, Take 1 tablet (50 mg) by mouth once daily as directed., Disp: 90 tablet, Rfl: 2 nabumetone (Relafen) 750 mg tablet, Take 750 mg by mouth if needed in the morning and at bedtime., Disp: , Rfl: spironolactone (Aldactone) 25 mg tablet, Take 25 mg by mouth in the morning., Disp: , Rfl: Xarelto 20 mg tablet, TAKE 1 TABLET BY MOUTH IN THE MORNING WITH FOOD, Disp: 90 tablet, Rfl: 3 BP 85/54 (BP Location: Left arm, Patient Position: Sitting) Pulse 95 Ht 1.575 m (5' 2 ) Wt 68 kg (150 lb) SpO2 100% BMI 27.44 kg/m??? Physical Exam Vitals reviewed. Constitutional: Appearance: Normal [...] Neurological: General: No focal deficit present. Mental S (more content not included)... [facility] 11-25-2024 Telephone encounter Note I resent the one to [facility] as well just in case and 7 days to local pharmacy until they receive prescription from [facility]. Sent [employer] message. [facility] 11-25-2024 Miscellaneous Notes I resent the one to [facility] as well just in case and 7 days to local pharmacy until they receive prescription from [facility]. Sent [employer] message. Patient's grand-daughter Delma called and states they are needing a short rx for Seroquel to be sent to [facility] in [place]. States that they haven't received from mail order yet. documented in this encounter [facility] 11-25-2024 Telephone encounter Note Patient's grand-daughter Delma called and states they are needing a short rx for Seroquel to be sent to [facility] in [place]. States that they haven't received from mail order yet. [facility] 11-21-2024 History of Present illness Narrative Images from the original note were not included. CHIEF COMPLAINT REASON FOR VISIT: Parkinson's Consultation HPI: Rolly Mooer is a 84 y.o. female who presents for a new patient consultation referred by Dr. Cindi Stewart for parkinson's. Looks like she was seeing Dr. Howard at [facility] in September. She is on carbidopa-levodopa 25-100 mg-1.5 tablets TID. She is also on donepezil 10 mg at bed. She is present with daughter. Daughter states she is afraid of getting her license away. She lives with her daughter but does not cook. She can manage getting herself dressed. Daughter sets up her medications in a med minder. She states she does not go as far away from the home when she is driving. She stays local and has not had any issues with driving. No accidents. She does have tremors in the hands. She is more shaky today due to missing her noon dosing. She states she only takes 3 a day and has not been taking the half. She states she can tell when the sinemet wears off. She is up around 530-6 am. First dose 8 am, noon, and 4 pm. She goes to bed when she gets bored. She states she did not notice any change with the extra half of the sinemet. Granddaughter states she has been having more hallucinations. Patient states she feels like more things are going on in the household. Granddaughter states she has had the tremors for about 3 years. Patient states her door looked like a shower curtain and it was bright red and was seeing bugs. Granddaughter took her to the ER. States she gets very anxious. States the ER Said it was due to her carvedilol. She has been on this medication for many years. States that she did end up with a UTI at one point. States that she does notice the hallucinations more when she gets more anxious. Granddaughter states the hallucinations have improved some. Patient states she gets around with her Rolator walker okay. She did have one fall around August. States she sleeps in the recliner. Appetite is not as good as it used to be. Denies any other concerns. CURRENT MEDICATIONS: ALLERGIES/DISCONTINUE MEDICATIONS Current Outpatient Medications Medication Instructions amLODIPine (Norvasc) 5 MG tablet 1 tablet, Daily atorvastatin (Lipitor) 80 MG tablet 1 tablet, Daily carbidopa-levodopa (Sinemet) 25-100 MG tablet 1.5 tablets, Oral, 3 times daily carvedilol (COREG) 6.25 mg, 2 times daily with meals donepezil (ARICEPT) 10 mg, Nightly empagliflozin (Jardiance) 10 MG 1 tablet, Daily folic acid (FOLVITE) 1,000 mcg, Daily furosemide (LASIX) 20 mg, Daily losartan (Cozaar) 100 MG tablet 1 tablet, Daily nabumetone (RELAFEN) 750 mg nitrofurantoin (macrocrystal-monohydrate) (MACROBID) 100 mg, 2 times daily rivaroxaban (XARELTO) 20 mg, Daily with evening meal spironolactone (ALDACTONE) 25 mg, Daily No Known Allergies Medications Discontinued During This Encounter Medication Reason donepezil (Aricept) 5 MG tablet PAST MEDICAL HISTORY: SURGICAL/SOCIAL/FAMILY HISTORY DEPRESSION SCREEN: Past Medical History: Diagnosis Date Anemia Anxiety Coronary artery disease (CMS/HCC) Depression (CMS/HCC) History of blood transfusion Osteoarthritis Varicose vein of leg Past Surgical History: Procedure Laterality Date CARPAL TUNNEL RELEASE OTHER SURGICAL HISTORY 2007 saddle bag Social History Tobacco Use Smoking status: Never Substance Use Topics Alcohol use: Never Comment: caffeine: none Family History Problem Relation Name Age of Onset Dementia Mother Stroke Mother Depression: Not on file REVIEW OF SYMPTOMS: Review of Systems Constitutional: Negative for chills, diaphoresis, fatigue and fever. HENT: Negative for ear pain, tinnitus and trouble swallowing. Eyes: Negative for photophobia and visual disturbance. Respiratory: Negative for cough and shortness of breath. Cardiovascular: Negative for palpitations and leg swelling. Gastrointestinal: Negative for abdominal pain and nausea. Genitourinary: Negative for difficulty urinating and urgency. Musculoskeletal: Negative for arthralgias, back pain, myalgias, neck pain and neck stiffness. Neurological: Positive for tremors and weakness. Negative for light-headedness and numbness. Psychiatric/Behavioral: Positive for hallucinations. Negative for agitation, confusion and suicidal ideas. OBJECTIVE: 11/21/2024 1:02 PM 09/24/2024 2:36 PM 08/19/2024 2:03 PM Vitals BMI 26.09 kg/m2 26.09 kg/m2 26.26 kg/m2 BSA (m2) 1.76 m2 1.76 m2 1.77 m2 Systolic 134 122 Diastolic 82 77 Heart Rate 48 78 SpO2 98 % Height (in) 5' 4 Weight (lb) 152 152 153 Visit Report Report Report Report EXAM: Neurological Exam Mental Status Awake, alert and oriented to person, place and time. Oriented to person, place and time. Recent and remote memory are intact. Speech is normal. Language is fluent with no aphasia. Attention and concentration are normal. Cranial Nerves CN II: Visual acuity is normal. Visual perez full to confrontation. CN III, IV, : Extraocular movements intact bilaterally. Normal lids and orbits bilaterally. Pupils equal round and reactive to light bilaterally. CN V: Facial sensation is normal. CN VII: Full and symmetric facial movement. CN VIII: Hearing is normal. CN XII: Tongue midline without atrophy or fasciculations. Motor Normal muscle bulk throughout. Normal muscle tone. Right Left Wrist flexion 5 5 Wrist extension 5 5 Right Left Deltoid 5 5 Biceps 5 5 Triceps 5 5 Wrist flexor 5 5 Wrist extensor 5 5 Glutei 5 5 Iliopsoas 5 5 Quadriceps 5 5 Gastrocnemius 5 5 Anterior tibialis 5 5 Posterior tibialis 5 5 Sensory Light touch is normal in upper and lower extremities. Pinprick is normal in upper and lower extremities. Vibration is normal in upper and lower extremities. Reflexes Right Left Brachioradialis 2+ 2+ Biceps 2+ 2+ Patellar 2+ 2+ Achilles 2+ 2+ Right Plantar: downgoing Left Plantar: downgoing Right pathological reflexes: Malinda's absent. Ankle clonus absent. Left pathological reflexes: Malinda's absent. Ankle clonus absent. Coordination Zgomhr-wo-pytf, rapid alternating movements and [id number] normal bilaterally without dysmetria. Gait Normal casual, toe, heel and tandem gait. Romberg is absent. PROCEDURE: NONE ASSESSMENT AND PLAN: Rolly Moore is a 84 y.o. female who presents with tremor in the hands Possible etiologies include benign essential tremor, extrapyramidal symptoms secondary to medications, or a neurodegenerative process such as Parkinson i s disease. An additional consideration would be tremor secondary to a metabolic process or a psychogenic tremor from stress. 01/30/24-MRI Brain-The cerebral sulci as well as ventricular system are enlarged consistent with moderate ex vacuo cerebral volume loss. There is no restricted diffusion. Hyper intensities on T2 and FLAIR images in the [...] There is status post bilateral lens replacement. Impression: No acute intracranial process is noted. Diagnoses and all orders for this visit: Parkinson's disease without dyskinesia or fluctuating manifestations (CMS/HCC) Increase carbidopa-levodopa (Sinemet) 25-100 MG tablet; Take 1 tablet by mouth in the morning and 1 tablet at noon and 1 tablet in the evening and 1 tablet before bedtime. Hallucinations Start QUEtiapine (SEROquel) 25 MG tablet; Take 1 tablet (25 mg) by mouth at bedtime I counseled the patient on the possible side effects and interactions of medications. I counseled the patient on the possible side effects and interactions of medications. Total time 30 minutes spent reviewing records, performing medically appropriate exam, counseling , education, ordering medication, tests, and/or procedures, documenting health information into the health record, communicating results to the patient, and coordinating care. Follow up 8 weeks. This note was scribed by KALPANA Moreau acting under the direction of Mami Bryan MD. The content has been reviewed and confirmed for accuracy by Mami Bryan MD documented in this encounter [facility] 11-12-2024 Evaluation note Diagnosis Onset Date Resolution Acute UTI acute November 12 10:53am Alzheimer dementia acute November 12, 2024 10:53am CKD stage 3b, GFR 30-44 ml/min acute November 12, 2024 10:53am Hallucinations acute October 10:53am Intermittent atrial fibrillation acute November 12, 2024 10:53am Parkinson disease acute October 222024 10:53am [facility] Work Phone: 1([phone]) 820-941703-18-2025 NoteCardiovascular Medicine [place] [facility] SUBJECTIVE Chief Complaint Patient presents with Congestive Heart Failure Coronary Artery Disease Hypertension Rolly Moore is a 84 y.o. female here [...] Final Atrial Rate 06/16/2019 53 BPM Final ID Interval 06/16/2019 170 ms Final QRS DURATION 06/16/2019 94 ms Final QT Interval 06/16/2019 436 ms Final QTC CALCULATION(BEZET) 06/16/2019 409 ms Final P [place] 06/16/2019 26 degrees Final R-[place] 06/16/2019 37 degrees Final T Wave [place] 06/16/2019 38 degrees Final Diagnosis 06/16/2019 Final Value:Sinus bradycardia Otherwise normal ECG No previous ECGs availab (more content not included)...[facility]03-18-2025 NotePatient here for 6 mo follow up chronic diastolic heart failure, CAD, [...] weakness. All other systems reviewed and are negative.[facility] 09-24-2024 History of Present illness Narrative* Kay Howard DO - 09/24/2024 3:00 PM EST Images from the original note were not included. Chief complaint: Parkinson's disease Subjective Rolly Moore, 84 y.o., female Patient is here for follow up to Parkinson's. She is currently on sinemet and Aricept. Patient states she has good and bad days. She admits to chest pain when she is overdoing herself. She has not been sleeping well at night. If she is woken up she is unable to fall back asleep. Then she will sleepduring the evening and have difficulty falling asleep [...] Diagnosis Date Anemia Anxiety Coronary artery disease ([facility]/HCC) Depression (CMS/[facility]) History of blood transfusion Osteoarthritis Varicose vein of leg Past Surgical History: Procedure Laterality Date CARPAL TUNNEL RELEASE OTHER SURGICAL HISTORY 2008 saddle bag PE Family History Problem Relation [...] wrist extensors , wrist flexor 5/5 , senior product development engineer strength 4/5. LUE Strength deltoid , biceps , triceps , wrist extensors , wrist flexor 5/5 , senior product development engineer strength 4+/5. RLE Strength illopsoas, quadriceps, tibialis [...] knee reflex 2+ Kaur's Sign negative. Coordination: [id number] testing normal Gait: Rollator, magnetic gait. No shuffling. Review and summary of old records: MRI of the brain with and without contrast [facility] on 01/29/2024: No acute intracranial processes noted. [...] to sinemet further supporting the diagnosis. Symptoms co nsistent with freezing have resolved and the amplitude [...] the right. She does have mildly decreased senior product development engineer strength bilaterally. PLAN - Recommended cock up splints at night and hand strengthening exercises - Could consider re-evaluation with EMG in the future, this has been deferred per patient request Follow up in 1-2 months or sooner if symptoms worsen, fail to improve, or should a new neurologicalconcern arise. Pt has been fully educated on their diagnosis, treatment options, follow up plan, and return instructions documented in this encounter[facility] [id number] History of Present illness Narrative* Kavita Allison NP - 08/19/2024 3:00 PM EST Images from the original note were not included. Chief Complaint Patient presents with Parkinson's Disease Dizziness Carpal Tunnel Subjective Rolly Moore, 83 y.o., female Patient is here for follow up to Parkinson's and dizziness. Presents with her friend Rochelle today. Shecontinues living with her daughter. Patient ambulates with [...] wrist extensors , wrist flexor 5/5 , senior product development engineer strength 4/5. LUE Strength deltoid , biceps , triceps , wrist extensors , wrist flexor 5/5 , senior product development engineer strength 4+/5. RLE Strength illopsoas, quadriceps, tibialis [...] knee reflex 2+ Kaur's Sign negative. Coordination: Jezsrt-oa-dwof testing normal Gait: Rollator, magnetic gait. No shuffling. Review and summary of old records: MRI of the brain with and without contrast [facility] on 01/29/2024: No acute intracranial processes noted. [...] to sinemet further supporting the diagnosis. Symptoms co nsistent with freezing have resolved and the amplitude of tremor has improved. PLAN: - Continue Sinemet immediate release 25/100 mg IR 1 tablet by mouth 3 times a day at 8 AM, noon and4 PM. I have again advised her that [...] the right. She does have mildly decreased senior product development engineer strength bilaterally. PLAN - Recommended cock up splints at night and hand strengthening exercises - Could consider re-evaluation with EMG in the future, this has been deferred per patient request Follow up in 1-2 months or sooner if symptoms worsen, fail to improve, or should a new neurologicalconcern arise. Pt has been fully educated on their diagnosis, treatment options, follow up plan, and return instructions documented in this [facility]01-23-2025 Evaluation note* Diagnosis Onset Date Resolution Status Admit Date Essential hypertension acute [facility] 2024 1:29pm Mass of left side of neck acute August 14, 2024 1:29pm Parkinson disease acute August 14, 2024 1:29pm [facility] Work Phone: 1(111) 362-245009-11-2024 Note-Hypertension is well controlled and will continue beta leona for medical management. -Continue to monitor your blood pressure at home.[facility]09-11-2024 Note-Coronary artery disease is stable. No chest pain. -Continue taking statin therapy for medical management of CAD.[facility]09-11-2024 Note-Patient is feeling well. -Patient is on GDMT with Jardiance, aldactone, carvedilol, and furosemide. Will continue these medications. -Last Echo was done at 02/07/23 and showed EF of 55-60%. Will order an Echo to be done within the next 6 months for re-evaluation of EF and valvular function. -Continue to monitor your fluid intake and your daily weights.[facility]09-11-2024 NotePt is here for a six month follow up. Pt denies chest pain, sob, palpatations Review of Systems Cardiovascular: Positive for dyspnea on exertion (improving). Musculoskeletal: Positive for muscle weakness. Gastrointestinal: Positive for bowel incontinence. Neurological: Positive for tremors and weakness. All other systems reviewed and are negative.[facility] 04-02-2024 NoteUTP CARDIOLOGY PROGRESS NOTE [place] [facility] HPI: Rolly Moore is a 83 y.o. female with [...] 1.5 cm. 5.) Normal right-sided pressures. Assessment/Plan: Rolly Moore is a 83 y.o. female Chronic diastolic heart failure, NYHA class 2 (CMS/[facility]) -Patient is feeling well. -Patient is on [...] Wilcox PA-C [facility] Available 7-5pm via [facility] Pager #: [phone] Health12-20-2023 Evaluation note* Encounter Date Diagnosis Assessment Notes Treatment Notes Treatment Clinical Notes Jun, Hx pulmonary embolism (ICD-10 - Z86.711) Jun, Dyspnea on exertion (ICD-10 - R06.09) [facility] Other 12-19-2023 Evaluation note* Encounter Date Diagnosis Assessment Notes Treatment Notes Treatment Clinical Notes Jun, Hx pulmonary embolism (ICD-10 - Z86.711) Jun, Dyspnea on exertion (ICD-10 - R06.09) [facility] Other 12-18-2023 Evaluation note* Encounter Date Diagnosis Assessment Notes Treatment Notes Treatment Clinical Notes Jun, Essential hypertension (ICD-10 - I10) [facility] Other 12-14-2023 Evaluation note* Encounter Date Diagnosis Assessment Notes Treatment Notes Treatment Clinical Notes Jun, Dyspnea on exertion (ICD-10 - R06.09) [facility] Other 12-14-2023 Evaluation note* Encounter Date Diagnosis [...] on exertion (ICD-10 - R06.09) as above [facility] Other 09-14-2023 Evaluation note* Encounter Date Diagnosis [...] Will assess thyroid for underlying metabolic cause. [facility] Other 06-15-2023 Evaluation note* Encounter Date Diagnosis Assessment Notes Treatment Notes Treatment Clinical Notes Dec, Advancing dementia (ICD-10 - F03.90) Pt expresses memory concerns. Has family in the area, but still struggles at times. Discussed safety. Agrees to starting aricept Dec, OAB (overactive bladder) (ICD-10 - N32.81) Chronic problem that has worsened. Dec, Essential hypertension (ICD-10 - I10) Followup w cardiology [facility] Other 03-16-2023 Evaluation note* Encounter Date Diagnosis Assessment Notes Treatment Notes Treatment Clinical Notes Sep, Injury of left knee, subsequent encounter (ICD-10 - S89.92XD) Improved from 1 month ago. bruising resolved. Using wheeled walker Sep, Essential hypertension (ICD-10 - I10) Stable. Sees cardio q6 months Sep, Balance disorder (ICD-10 - R26.89) Using wheeled walker Sep, Dyslipidemia (ICD-10 - E78.5) Stable on present meds. [employer] [facility] Other 02-10-2023 NotePROCEDURE: XR KNEE LT 3V [...] marked, degenerative joint disease. Electronically authenticated by: ANGELICA ANAND Date: 2022-09-01 10:39[facility]02-09-2023 Evaluation note* Encounter Date Diagnosis Assessment Notes Treatment Notes Treatment Clinical Notes Aug, Acute pain of left knee (ICD-10 - M25.562) New problem - check xray today. Consider ortho referral if needed. Aug, Essential hypertension (ICD-10 - I10) chronic problem. refilled meds. [facility] Other Evaluation noteNo InformationNortLifecare [facility] [employer] Other Evaluation noteNo assessment information available [facility] Work Phone: Evaluation note* Diagnosis Onset Date Resolution Status Chronic rhinosinusitis acute Essential hypertension acute Parkinson disease acute Left shoulder pain acute [facility] Work Phone: Evaluation note* Diagnosis Onset Date Resolution Status Left shoulder pain acute Hypotension acute Left shoulder pain acute Encounter for routine histor y and physical examination noneactive [facility] Work Phone: Evaluation note* Diagnosis Parkinson's disease without dyskinesia or fluctuating manifestations (CMS/HCC)- Primary Dizziness Dizziness and giddiness Bilateral carpal tunnel syndrome Carpal tunnel syndrome [facility] Diagnosis Onset Date Resolution Status Admit Date Abnormal weight loss acute Spencer elizabeth 2024 1:29pm Essential hypertension acute Elliott arndt 2024 1:29pm Hyperlipemia acute July 1:29pm Mass of left side of neck acute August 14, 2024 1:29pm Weakness acute August 14, 2024 1:29pm [facility] Work Phone: Evaluation note* Diagnosis Parkinson's disease without dyskinesia or fluctuating manifestations (CMS/HCC)- Primary Dizziness Dizziness and giddiness Bilateral carpal tunnel syndrome Carpal tunnel syndrome [facility] Diagnosis Memory loss [facility] Diagnosis Onset Date Resolution Status Admit Date Acute UTI acute November 12 10:53am Hallucinations acute October 10:53am Parkinson disease acute October 222024 10:53am [facility] Work Phone: Evaluation note* Diagnosis Parkinson's disease without dyskinesia or fluctuating manifestations (CMS/HCC)- Primary Hallucinations [facility] Diagnosis Parkinson's disease without dyskinesia or fluctuating manifestations (CMS/HCC) Hallucinations [facility]* Diagnosis Parkinson's disease without dyskinesia or fluctuating manifestations (HCC) Hallucinations [facility] this encounter [facility] [...] LAP ANTWON Hospitalization History SEE SURGICAL HX Return Path Other Hospital Discharge instructionsAmbulatory Orders* Referral to Neurology Time Frame: 11/12/24, Location: None Selected [facility] Work Phone: Summary Purpose Family History No Family History [...] Advance Directives No August 14, 2024 11:56am Advance Directive Response Recorded Date/ Time Advance Directives No August 14, 2024 12:56pm Reason for Referral Reason *FU 07/23 [place] office - tremor, burning sensation in R hand Diagnosis 1 Resting tremor (G25. 2) Referral Organization [facility] murali Referring Provider First Name Cindi Referring Provider Last Name Terry Referring Provider Specialty Family [facility] Referred Organization [facility] Referred Provider Angelica Caceres Referred Address [address],[place], [place],[address] Referred Provider Specialty Neurology Referral Priority Routine General Notes Paola Marrufo 01:27:27 PM >received today, form filled out, attachments made, notes locked, referral faxed Chief Complaint and Reason for Visit Chief Complaint 3 Month Check Up Chief Complaint 3 Month Check Up left shoulder pain (DR requested X-ray) M25.512 - Pain in left shoulder Reason for Visit Chronic rhinosinusit is Essential hypertension Parkinson disease Left shoulder pain Chief Complaint left shoulder pain ( DR requested X-ray) M25.512 - Pain in left [...] 1:29pm Weakness August 14, 2024 1 :29pm Chief Complaint Admit Date 3 month f/u August 14, 2024 1 :29pm Unknown November 03, 2024 10: 30am Reason for Visit Admit Date Essential hypertension August 14 1:29pm Mass of left side of neck August 14, 2024 1:29pm Parkinson disease August 14, 2024 1 :29pm Chief Complaint Admit Date Unknown November 03, 2024 10: 30am Amb Documentation November 04, 2024 10: 33am ER [facility]; altered mental status October 10:53am Reason for Visit Admit Date Acute UTI November 12, 2024 10: 53am Hallucinations November 12, 2024 10: 53am Parkinson disease November 12, 2024 10: 53am Chief Complaint Admit Date Unknown November 03, 2024 10: 30am Amb Documentation November 04, 2024 10: 33am ER [facility]; altered mental status October 10:53am Unknown November 20, 2024 12:20p m Reason for Visit Admit Date Acute UTI November 12, 2024 10: 53am Alzheimer dementia November 12, 2024 10: 53am CKD stage 3b, GFR 30-44 ml/min October 10:53am Hallucinations November 12, 2024 10: 53am Intermittent atrial fibrillation October 222024 10:53am Parkinson disease November 12, 2024 10: 53am Additional Source Comments INFORMATION SOURCE (unrecogn ized section and content) DATE CREATED AUTHOR 06/27/2019 [facility] DATE CREATED AUTHOR AUTHOR'S ORGANIZ ATION 09/08/2022 [facility] DATE CREATED AUTHOR AUTHOR'S ORGANIZ ATION 01/09/2025 [facility] DATE CREATED AUTHOR AUTHOR'S ORGANIZ ATION 01/30/2025 [facility] EPIC DATE CREATED AUTHOR AUTHOR'S ORGANIZ ATION 02/12/2025 [facility] REASON FOR VISIT (unrecogniz ed section and content) Reason Comments Parkinson's Disease Dizziness Carpal Tunnel Reason Comments Parkinson's Disease Care Teams (unrecognized sec tion and content) Team Status: Active Member Role Status Dates Cindi Stewart MD Primary Care Provider Active Team Status: Active Member Role Status Dates Cindi Stewart MD Primary Care Provider Active Start: November 03, 2024 Khari Traylor MD Attending Provider Active Start : November 03, 2024 Team Status: Inactive Member Role Status Dates Khari Traylor MD Attending Provider Active Start : November 03, 2024 End: November 03, 2024 Team Status: Active Member Role Status Dates Aliya Wall CMA Attending Provider Active Start: November 04, 2024 Team Status: Inactive Member Role Status Dates Cindi Stewart MD Primary Care Provide r, Attending Provider Active Start: November 12, 2024 End: November 12, 2024 Team Status: Inactive Member Role Status Dates Cindi Stewart MD Primary Care Provide r, Attending Provider Active Start: August 14, 2024 End: August 14, 2024 Team Status: Active Member Role Status Dates Cindi Stewart MD Primary Care Provide r, Attending Provider Active Start: August 14, 2024 Team Status: Inactive Member Role Status Dates Cindi Stewart MD Primary Care Provide r, Attending Provider Active Start: October 04, 2023 End: October 04, 2023 Team Status: Inactive Member Role Status Dates Cindi Stewart MD Primary Care Provider Active Start: December 03, 2023 End: December 03, 2023 Thania Hoffmann APRN Attending Provider Active Start: December 03, 2023 End: December 03, 2023 Team Status: Active Member Role Status Dates Cindi Stewart MD Primary Care Provider Active Start: December 03, 2023 Thania Hoffmann APRN Attending Provider Active Start: December 03, 2023 Team Status: Inactive Member Role Status Dates Cindi Stewart MD Primary Care Provide r, Attending Provider Active Start: December 06, 2023 End: December 06, 2023 Team Status: Active Member Role Status Dates Cindi Stewart MD Primary Care Provider Active Start: January 29, 2024 SUJEY Goldstein Attending Provider Active Start: January 29, 2024 Team Status: Active Member Role Status Dates Cindi Stewart MD Primary Care Provide r, Attending Provider Active Start: January 31, 2024 Team Status: Inactive Member Role Status Dates Cindi Stewart MD Primary Care Provide r, Attending Provider Active Start: February 04, 2024 End: February 04, 2024 Team Status: Inactive Member Role Status Dates Cindi Stewart MD Primary Care Provide r, Attending Provider Active Start: May 06, 2024 End: May 06, 2024 Automatic Winder Operator Relationship Specialty Start Date End Date Cindi Stewart MD [address] [place] [facility] [address] PCP - General Family Medicine 11/22/23 Automatic Winder Operator Relationship Specialty Start Date End Date Cindi Stewart MD [address] [facility] [id number] PCP - General Family Medicine 11/22/23 Automatic Winder Operator Relationship Specialty Start Date End Date Cindi Stewart MD [address] [facility] [id number] PCP - General Family Medicine 11/22/23 Kay Howard DO [address] [place] [address], [place] [address] Referring Physician Neurology 08/19/24 Automatic Winder Operator Relationship Specialty Start Date End Date Cindi Stewart MD [address] [facility] [id number] PCP - General Family Medicine 11/22/23 Kay Howard DO [address] [place] [address], [place] [id number] Referring Physician Neurology 08/19/24 Automatic Winder Operator Relationship Specialty Start Date End Date Cindi Stewart MD [address] [facility] [id number] PCP - General Family Medicine 11/22/23 Kay Howard DO [address] [place] [address], [place] [address] Referring Physician Neurology 08/19/24 Team Status: Inactive Member Role Status Dates Cindi Stewart MD Attending Provider Active St art: November 20, 2024 End: November 20, 2024 Automatic Winder Operator Relationship Specialty Start Date End Date Cindi Stewart MD PCP - General Family Medicine 11/22/23 Kay Howard DO [address] [id number] Referring Physician Neurology 08/19/24 Automatic Winder Operator Relationship Specialty Start Date End Date Cindi Stewart MD PCP - General Family Medicine 11/22/23 Kay Howard DO [address] [address] Referring Physician Neurology 08/19/24 Automatic Winder Operator Relationship Specialty Start Date End Date Cindi Stewart MD PCP - General Family Medicine 11/22/23 Kay Howard DO [address] [address] Referring Physician Neurology 08/19/24 Automatic Winder Operator Relationship Specialty Start Date End Date Cindi Stewart MD PCP - General Family Medicine 11/22/23 Kay Howard DO [address] [place] [address] Referring Physician Neurology 08/19/24 Automatic Winder Operator Relationship Specialty Start Date End Date Cindi Stewart MD PCP - General Family Medicine 11/22/23 Kay Howard DO [address] [place] [address] Referring Physician Neurology 08/19/24 Automatic Winder Operator Relationship Specialty Start Date End Date Cindi Stewart MD PCP - General Family Medicine 11/22/23 Kay Howard DO [address] [place] [address] Referring Physician Neurology 08/19/24 Goals (unrecognized section [...] BE BASED ON THE PRIMARY CLINICAL RECORDS. [email or web address] provides no warranty or guarantee of the accuracy or completeness of information in this document.
== END 2025-02-19 08:28 | disposition home or self-care (01) ==
LOC: LAB 08:27
PROVIDERS: PCP Family Medicine; Visit Provider Family Medicine
DX: N39.0 Urinary tract infection, site not specified (principal)
CPT/HCPCS: 87086; 87088; 87186

== ENCOUNTER 2025-07-21 04:22 | Emergency (ER) | payer MEDICARE, BC, SELFPAY ==
[2025-07-21] VITALS (16 sets, daily range): BP systolic 173; BP diastolic 55; PULSE 54–197; TEMP 36.6; O2SAT 96–100; BMI 26.0
[2025-07-21 05:05] LABS: Hematocrit 38.7 % (36.0-48.0); Hemoglobin 12.5 g/dL (12.0-16.0); Mean Corpuscular HGB Conc 32.3 g/dL (29.9-35.2); Mean Corpuscular Hemoglobin 33.1 pg (26.7-34.0); Mean Corpuscular Volume 102.4 fL (81.0-99.0); Platelet Count 106 10^3/uL (150-450); Red Blood Count 3.78 10^6/uL (4.20-5.40); White Blood Count 5.7 10^3/uL (4.0-11.0)
[2025-07-21 05:06] LABS: Immature Granulocytes Abs Auto 0.01 10^3/uL (0.00-0.03); Immature Granulocytes Pct Auto 0.2 % (0.0-0.5); Lymphocytes Absolute Auto 1.7 10^3/uL (1.2-3.8)
--- NOTE | 2025-07-21 05:09 | ED.BACK1 ---
HPI HPI - Back Pain/Injury General Chief Complaint: Back Pain/Injury Stated Complaint: BACK PAIN Time Seen by Provider: 07/21/25 04:29 Source: patient and family Mode of arrival: ambulance History of Present Illness HPI Narrative: This 84-year-old female with a history of Parkinson's is brought to the emergency department by EMS from home. EMS was called by the patient's daughter. The patient states that her low back is killing her and she tried to get up from the chair that she sleeps in and her legs were too weak to stand. She has not had any falls. She states she does stumble a lot because of her Parkinson's disease. She denies any urinary frequency urgency or dysuria. She denies any chest pain or abdominal pain. She states she has chronic low back pain but right now it is just killing her . He did receive a phone call from the patient's granddaughter who is currently staying with her. The patient's granddaughter states that she has been her primary landscape technician for an extended period of time, she is from [place] and has a family in [place] that she left to help take care of her grandmother. The patient's granddaughter is now planning to return to her home in [place]. The granddaughter thinks that the patient may be fictitiously complaining that she is too weak and having too much pain because the granddaughter is leaving. The patient did explain to me that the patient's granddaughter has been staying with her and she was offered to move to [place] but does not wish to move to [place]. Related Data Home Medications ?Medication ?Instructions ?Recorded ?Confirmed atorvastatin 80 mg tablet 80 mg PO DAILY 07/11/23 11/03/24 carvedilol 6.25 mg tablet 6.25 mg PO Q12H 07/11/23 11/03/24 empagliflozin 10 mg tablet 10 mg PO DAILY 07/11/23 11/03/24 (Jardiance) furosemide 20 mg tablet 20 mg PO Q12H 07/11/23 11/03/24 losartan 100 mg tablet 50 mg PO DAILY 07/11/23 11/03/24 nabumetone 750 mg tablet 750 mg PO BID 07/11/23 11/03/24 rivaroxaban 20 mg tablet (Xarelto) 20 mg PO Q24H 07/11/23 11/03/24 spironolactone 25 mg tablet 25 mg PO DAILY 07/11/23 11/03/24 blood sugar diagnostic (Formerly [facility], 1928–1983 01/31/24 01/31/24 Ultra Test strips) blood-glucose meter (Formerly [facility], 1928–1983 01/31/24 01/31/24 Ultra2 Meter) carbidopa 25 mg-levodopa 100 mg 1 tab PO TID 01/31/24 11/03/24 tablet folic acid 1 mg tablet 1 mg PO DAILY 01/31/24 11/03/24 donepezil 10 mg tablet 10 mg PO DAILY 11/03/24 11/03/24 Previous Rx's ?Medication ?Instructions ?Recorded ondansetron 4 mg disintegrating 4 mg PO Q8H PRN nausea and 01/31/24 tablet vomiting 4 days #16 tabs Allergies Allergy/AdvReac Type Severity Reaction Status Date / Time No Known Drug Allergies Allergy Verified 07/21/25 04:30 Opioid HPI Opioid Management Most Recent Opioid Data: Last Pain Scale 4 07/21/25, 05:37 Last ED Pain Assessment 07/21/25, 05:37 Last MAR Pain Assessment 07/21/25, 05:27 Review of Systems ROS Status of ROS 10 or more systems reviewed and unremarkable except as noted in history and below [facility] Social History Little interest or pleasure in doing things: not at all Feeling down, depressed, or hopeless: not at all Exam Narrative Exam Narrative: Vital signs and Nursing Notes reviewed: Is afebrile, bradycardic with a pulse of 56, blood pressure is elevated at 173/55, she is not hypoxic with pulse ox of 99% on room air General: Awake, alert, oriented, no acute distress, lying comfortably on the stretcher-patient easily pulls her self to a seated position when I put a warm blanket around her back with no distress noted HEENT: Normocephalic atraumatic, mucous membranes are moist and pink, eyes are clear, normal conjunctiva, vision is grossly intact Neck: Supple, no meningeal signs, no midline bony vertebral tenderness or step-off Chest: Lungs are clear to auscultation with good air entry, there is no wheezing rhonchi or rales appreciated no accessory muscle use, patient is speaking in complete sentences-no chest wall tenderness to palpation CVS: Regular rate and rhythm S1-S2, no murmurs rubs or gallops, pulses are brisk and equal bilaterally ABD: Soft, nondistended, nontender, no rebound guarding or rigidity, bowel sounds are normal, no pulsatile masses appreciated Musc: Midline lumbar tenderness, no skin rash or muscle spasm appreciated Extremities: Moving all extremities, no lower extremity tenderness or swelling noted, negative Homans' sign, pulses are brisk and equal bilaterally-when of the lower extremities including flexion and extension of the hip and knees does not elicit any back pain Skin: Normal in appearance without rash,pallor, petechiae or purpura Neuro: No focal deficits, resting tremor, push and pulls of the lower extremity are normal. No saddle anesthesia noted Constitutional Vital Signs, click to edit/add: Last Vital Signs Temp 97.9 F 07/21/25 04:24 Pulse 64 07/21/25 06:40 Resp 19 07/21/25 06:50 BP 173/55 H 07/21/25 04:29 Pulse Ox 99 07/21/25 05:20 O2 Del Method Room Air 07/21/25 04:24 Course Vital Signs Vital signs: Vital Signs Temperature 97.9 F 07/21/25 04:24 Pulse Rate 56 L 07/21/25 04:24 Respiratory Rate 17 07/21/25 04:24 Blood Pressure 173/55 H 07/21/25 04:24 Pulse Oximetry 99 07/21/25 04:24 Oxygen Delivery Method Room Air 07/21/25 04:24 Temperature 97.9 F 07/21/25 04:24 Pulse Rate 64 07/21/25 06:40 Respiratory Rate 19 07/21/25 06:50 Blood Pressure 173/55 H 07/21/25 04:29 Pulse Oximetry 99 07/21/25 05:20 Oxygen Delivery Method Room Air 07/21/25 04:24 MDM - Back Pain/Injury MDM Narrative Medical decision making narrative: This 84-year-old female with a history of Parkinson's disease is brought to the emergency department by EMS from home for evaluation of low back pain and leg weakness. The patient states she sleeps in a recliner/lift chair. This morning after waking up and trying to get up out of her chair she felt that her legs were weak and she complained of low back pain and EMS was called. There may be a social component to this as for the patient's granddaughter who has been taking care of her but is from [place] is leaving in 5 days to return to [place]. She the patient has been told that she can moved to [place] with her granddaughter but she states she does not wish to move to [place] with her granddaughter and would rather go into a care home. The patient easily pulls herself from a reclining to a sitting position with no truncal ataxia. She has mild tenderness across her lower lumbar region with no skin rash. She has a resting tremor otherwise normal neuroexam. Push and pulls of the lower extremity were normal. She has no difficulty flexing at the hips and knees bilaterally. Movement of her lower extremities does sit any back pain. An EKG done upon arrival is a sinus rhythm at 55 bpm, it is limited by patient movement but there are no acute findings. An IV was placed and she was medicated with Tylenol. Labs and urinalysis were ordered. She has a normal white count and stable hemoglobin. Electrolytes are normal. Liver function tests are normal. CT scan of the lumbar spine was ordered. And shows no acute fracture or dislocation, no chronic compression fracture deformity with chronic grade 1 anterolisthesis of L4 on L5 with mild dextroconvex curvature of the mid lumbar spine with apex at the L2-L3 disc level, moderate bilateral neuroforaminal stenosis throughout the lumbar spine due to endplate and facet hypertrophic changes there is contribution from posterior lateral bulge component with moderate spinal canal stenosis at the L4-L5 level with mild stenosis identified at the remainder of the lumbar spine levels. I did speak to the patient's daughter. Both she and her sister plan to care for the patient while the patient's granddaughter is visiting her family in [place]. She states that the patient should not be stressed out about the plans for her granddaughter to go to [place] but she has been hyper vaginally focused on this plan. She was straight cathed for a urine and appears comfortable lying on her left side at this time. Urine is pending at the time of shift change and Dr Benoit will check her urine and provide antibiotics if indicated. Medical Records Attestation: I reviewed the patient's medical records. Lab Data Attestation: I reviewed the patient's lab results. Labs: Lab Results 07/21/25 07/21/25 Range/Units 04:39 06:40 WBC 5.7 (4.0-11.0) 10^3/uL RBC 3.78 L (4.20-5.40) 10^6/uL Hgb 12.5 (12.0-16.0) g/dL Hct 38.7 (36.0-48.0) % MCV 102.4 H (81.0-99.0) fL MCH 33.1 (26.7-34.0) pg MCHC 32.3 (29.9-35.2) g/dL RDW 12.8 (11.0-15.0) % Plt Count 106 L (150-450) 10^3/uL MPV 11.1 (9.5-13.5) fL Neut % (Auto) 61.4 (43.0-75.0) % Lymph % (Auto) 29.9 (20.5-60.0) % [place] % (Auto) 6.1 (1.7-12.0) % Eos % (Auto) 1.9 (0.9-7.0) % Baso % (Auto) 0.5 (0.2-2.0) % Neut # (Auto) 3.5 (1.4-6.5) 10^3/uL Lymph # (Auto) 1.7 (1.2-3.8) 10^3/uL [place] # (Auto) 0.4 (0.3-0.8) 10^3/uL Eos # (Auto) 0.1 (0.0-0.7) 10^3/uL Baso # (Auto) 0.0 (0.0-0.1) 10^3/uL Abs Immat Gran (auto) 0.01 (0.00-0.03) 10^3/uL Imm/Tot Granulo (auto) 0.2 (0.0-0.5) % Sodium 145 (136-145) mmol/L Potassium 4.3 (3.5-5.1) mmol/L Chloride 110 H (98-107) mmol/L Carbon Dioxide 28.2 (21.0-32.0) mmol/L Anion Gap 11.1 BUN 28.0 H (7.0-18.0) mg/dL Creatinine 1.15 H (0.55-1.02) mg/dL Est GFR ( Amer) 54 L (>=60 mL/min/1.73m^2) Est GFR (Non-Af Amer) 45 L (>=60 mL/min/1.73m^2) BUN/Creatinine Ratio 24.3 Glucose 91 (74-106) mg/dL Calcium 9.4 (8.5-10.1) mg/dL Total Bilirubin 0.7 (0.2-1.0) mg/dL AST 27 (15-37) U/L ALT 10 L (14-59) U/L Alkaline Phosphatase 92 (46-116) U/L Total Protein 6.2 L (6.4-8.2) g/dL Albumin 3.5 (3.4-5.0) g/dL Globulin 2.7 g/dL Albumin/Globulin Ratio 1.3 Urine Color Lt. yellow (YELLOW) Urine Clarity Slightly cloudy A (CLEAR) Urine pH 5.5 (5.0-9.0) Ur Specific [place] 1.020 (1.005-1.025) Urine Protein Negative (NEG/TRACE) mg/dL Urine Glucose (UA) 500 A (NEGATIVE) mg/dL Urine Ketones Negative (NEGATIVE) mg/dL Urine Occult Blood Trace-l (NEGATIVE) Urine Nitrite Positive A (NEGATIVE) Urine Bilirubin Negative (NEGATIVE) Urine Urobilinogen 0.2 (0.2-1.0) EU/dL Ur Leukocyte Esterase Negative (NEGATIVE) Urine RBC 2-5 A (0-2) #/HPF Urine WBC 0-2 A (NONE SEEN) #/HPF Ur Squamous Epith Cells Few A (NONE/RARE) #/LPF Urine Crystals None seen (None Seen) #/HPF Urine Bacteria Moderate A (NONE SEEN) #/HPF Urine Casts None seen (NONE SEEN) #/LPF Urine Mucus None seen (NONE SEEN) Ur Culture Indicated? Yes-[facility] [place] ECG Data Attestation: I personally reviewed and interpreted this ECG as follows: (Sinus rhythm D5 beats per minute, normal axis, EKG limited by patient movement with history of Parkinson's, no acute ST segment elevation or T wave inversion) Discharge Plan Discharge Chief Complaint: Back Pain/Injury Clinical Impression: Low back pain, Generalized weakness Patient Disposition: Home, Self-Care Time of Disposition Decision: 06:55 Condition: Good Prescriptions / Home Meds: No Action carbidopa-levodopa 25-100 mg tablet 1 tab PO TID folic acid 1 mg tablet 1 mg PO DAILY (DME) blood-glucose meter [CojoinToOrSense Ultra2 Meter] Misc MISCELLANEOUS (DME) OneTouch Ultra Test Strip MISCELLANEOUS ondansetron 4 mg tablet,disintegrating 4 mg PO Q8H PRN (Reason: nausea and vomiting) 4 Days Qty: 16 0RF atorvastatin 80 mg tablet 80 mg PO DAILY carvedilol 6.25 mg tablet 6.25 mg PO Q12H nabumetone 750 mg tablet 750 mg PO BID spironolactone 25 mg tablet 25 mg PO DAILY furosemide 20 mg tablet 20 mg PO Q12H losartan 100 mg tablet 50 mg PO DAILY Xarelto 20 mg tablet 20 mg PO Q24H Jardiance 10 mg tablet 10 mg PO DAILY donepezil 10 mg tablet 10 mg PO DAILY Print Language: Sinhala Instructions: How to Get a Person out of Bed (DC), Acute Low Back Pain (ED) Referrals: Jody Rand MD [Primary Care Provider, Family Practice] - 1 week Discharge Date/Time: 07/21/25 08:31
[2025-07-21 05:16] LABS: Alanine Aminotransferase 10 U/L (14-59); Albumin Globulin Ratio 1.3; Albumin Level 3.5 g/dL (3.4-5.0); Alkaline Phosphatase 92 U/L (46-116); Anion Gap 11.1; Aspartate Amino Transferase 27 U/L (15-37); Blood Urea Nitrogen 28.0 mg/dL (7.0-18.0); Calcium 9.4 mg/dL (8.5-10.1); Carbon Dioxide 28.2 mmol/L (21.0-32.0); Chloride 110 mmol/L (98-107); Estimated GFR (African America 54 (>=60 mL/min/1.73m^2); Estimated GFR (Non-African Ame 45 (>=60 mL/min/1.73m^2); Globulin 2.7 g/dL; Glucose 91 mg/dL (74-106); Potassium 4.3 mmol/L (3.5-5.1); Sodium 145 mmol/L (136-145); Total Protein 6.2 g/dL (6.4-8.2)
[2025-07-21] MEDS: ACETAMINOPHEN 325 MG TABLET 650 MG PO (05:27)
--- NOTE | 2025-07-21 05:49 | ECG_ITS ---
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 Measurements Intervals [place] Rate: 55 P: 48 IN: 204 QRS: 88 QRSD: 82 T: 19 QT: 400 QTc: 388 Interpretive Statements 1100 Sinus rhythm 1102 Sinus arrhythmia 8102 Low QRS voltage in chest leads ARTIFACT IN LEAD(S) 9120 atypical ECG Compared to ECG 11/03/2024 10:31:20 Low QRS voltage now present Sinus bradycardia no longer present Electronically Signed On 07-21-2025 19:20:01 EST by CASPER PINEDA M.D.
--- OUTSIDE RECORDS SUMMARY | 2025-07-21 06:07 | XMS_ITS | CCD ---
Author Organization [facility] Care Team Providers Care Ski Technician Name Role Phone ELTAHAWY, EHAB A Admitting Unavailable ELTAHAWY, EHAB A Attending Unavailable UNKNOWN, PHYSICIAN Referring Unavailable UNKNOWN, PHYSICIAN Primary Care Unavailable SHAR KAUFMAN Attending Unavailable LOWNDESBORO, DR CODY Cummings Consulting Unavailable STEWART, DR CINDI Scott Primary Care Unavailable SHAR KAUFMAN Admitting Unavailable SHAR KAUFMAN Consulting Unavailable Cheng, DR Sanchez Consulting Unavailable TERRY, DR CINDI Scott Primary Care Unavailable STEWART, DR CINDI Scott Attending Unavailable STEWART, DR CINDI Scott Admitting Unavailable STEWART, DR CINDI Scott Consulting Unavailable TERRY, DR CINDI Scott Attending Unavailable STEWART, DR CINDI Scott Admitting Unavailable STEWART, DR CINDI Scott Primary Care Unavailable Cheng, DR Sanchez Consulting Unavailable STEWART, DR CINDI Scott Consulting Unavailable Cheng, DR Sanchez Consulting Unavailable SHAR KAUFMAN Attending Unavailable TERRY, DR CINDI Scott Primary Care Unavailable SHAR [...] Primary Care Provider EMILY Hoffmann Attending Provider [phone] Cindi Stewart MD Primary Care Provider Kay Howard DO Unavailable Layton ACUNA, Khari Attending Provider [phone] Cindi Stewart MD Attending Provider [phone] Cindi Stewart MD Primary Care Provider Kay Howard DO Unavailable Cindi Stewart MD Attending Provider Cindi Stewart MD Primary Care Provider KAVITA ALLISON Attending Unavailable KAY HOWARD Attending Unavailable KAVITA ALLISON Attending Unavailable MAMI BRYAN Attending Unavailable MAIM BRYAN Attending Unavailable MAMI BRYAN Attending Unavailable Kay Howard DO Unavailable Cindi Stewart Admitting Unavailable Cindi Stewart Attending Unavailable Cindi Stewart Admitting Unavailable Cindi Stewart Attending Unavailable Cindi Stewart Primary Care Unavailable Cindi Stewart Admitting Unavailable Cindi Stewart Attending Unavailable Khari Traylor Attending Unavailable Marcial Traylored Admitting Unavailable ELISABETH RAMIREZ Attending Unavailable ELISABETH RAMRIEZ Attending Unavailable SHAR KAUFMAN Attending Unavailable ELISABETH RAMIREZ Attending Unavailable Medications Current Medications MedicationDrug Class(es)DatesSig (Normalized)Sig (Original)amLODIPine 5 mg oral tablet (20 sources)Dihydropyridine Calcium Channel BlockerStart: 08-29-2022 End: 48-43-8466dfus 1 tablet by mouth once dailyamLODIPine (Norvasc) 5 MG tablet Take 1 tablet by mouth Daily 04/19/2023 Activeatorvastatin 80 mg oral tablet (20 sources)HMG-CoA Reductase InhibitorStart: 05-10-2023 End: 44-50-3755xhyc 1 tablet by mouth once dailyatorvastatin (Lipitor) 80 MG tablet Take 1 tablet by mouth Daily 05/10/2023 Activecarbidopa 25 mg / levodopa 100 mg oral tablet (20 sources)Aromatic Amino Acid Decarboxylation Inhibitor, Aromatic Amino Acid Start: 08-05-8126blvf 1 tablet by mouth four times dailyStart: 06-23-2024 End: 28-92-3152izshtoteo-levodopa (Sinemet) 25-100 MG tablet Indications: Parkinson's disease without dyskinesia or fluctuating manifestations (HCC) Take 1 tablet by mouth in the morning and 1 tablet at noon and 1 tablet in the evening and 1 tablet before bedtime. 120 tablet 11 11/22/2024 11/17/2025 Active Start: 03-31-3208tpyr 1 tablet by mouth in the morning, then take 1 tablet by mouth in the evening, then take 1 tablet by mouth at bedtimecarbidopa-levodopa (Sinemet) 25-100 MG tablet Indications: Memory loss TAKE 1 TABLET BY MOUTH IN THE MORNING 1 TABLET BY MOUTH IN THE EVENING AND 1 TABLET BY MOUTH AT BEDTIME 120 tablet 2 03/25/2024 Activecarvedilol 6.25 mg oral tablet (20 sources)alpha-Adrenergic Leona, beta-Adrenergic BlockerStart: 05-02-2023 End: 94-86-1254ejyy 1 tablet by mouth in the morningcarvedilol (Coreg) 6.25 MG tablet Take 6.25 mg by mouth in the morning and 6.25 mg in the evening. Take with meals. 05/02/2023 Activecholecalciferol 0.05 mg oral capsule (2 sources)Vitamin DPrevagen 10 MG as directed Orally Activedonepezil hydrochloride 10 mg oral tablet (20 sources)Start: 04-11-2025 End: 30-89-5830nbtn 1 tablet by mouth at bedtimedonepezil (Aricept) 10 MG tablet Indications: Memory loss Take 1 tablet (10 mg) by mouth at iiilrpf19 tablet 3 04/11/2025 04/06/2026 ActiveStart: 29-61-9452usti 1 tablet by mouth at bedtime donepezil (Aricept) 10 MG tablet Take 10 mg by mouth at bedtime 01/01/2024 ActiveStart: 10-20-2023 End: 34-15-1013xaoy 1 tablet by mouth at bedtimeDonepezil 10 mg tablet Discontinued 0 .ROUTE .COMPLEX 90 3 February 21, 2024 8:29am February 27, 2024 9:50pm take 1 tablet by mouth at bedtimeStart: 10-20-2023 End: 11-13-7932kzag 1 tablet by mouth at bedtimeDonepezil Active 0 .ROUTE .COMPLEX 90 February 27, 2024 9:50pm take 1 tablet by mouth at bedtimeStart: 09-26-2023 End: 38-71-6891pmqn 1 tablet by mouth once daily at bedtimeDonepezil 10 mg tablet Discontinued 10 MG PO Daily at bedtime 30 3 October 09, 2023 12:22pm October 20, 2023 9:17am FreeTextSi tablet at bedtime Orally Once a day; Note: Source Status: Taking; Refills: 1; Qty: 90 Tablet; Provider: Terry Vera EStart: 13-52-8751zoei 1 tablet by mouth every twenty-four hoursAricept 10 MG 1 tablet at bedtime Orally Once a day for 90 days Dec, ActiveStart: 01-04-2023 End: 92-44-9993zrqn 1 tablet by mouth at bedtimedonepezil (Aricept) 5 MG tablet Take 5 mg by mouth at bedtime 01/04/2023 11/21/2024 Discontinuedempagliflozin 10 mg oral tablet (20 sources)Sodium-Glucose Cotransporter 2 InhibitorStart: 88-49-5074pogr 1 tablet by mouth once dailyempagliflozin (Jardiance) 10 MG Take 1 tablet by mouth Daily 01/22/2023 Activefolic acid 1 mg oral tablet (20 sources)Start: 50-23-6732uzmi 1 tablet by mouth once dailyfolic acid (Folvite) 1 MG tablet Take 1,000 mcg by mouth Daily 01/04/2024 ActiveStart: 12-04-2023 End: 03-22-6044qurp 1 tablet by mouth once dailyFolic Acid 1 mg tablet Discontinued 0 .ROUTE .COMPLEX 30 3 November 12, 2024 12:36pm December 11, 2024 3 :03pm take 1 tablet by mouth once dailyStart: 09-26-2023 End: 76-84-2767qrta 1 tablet by mouth once dailyFolic Acid 1 mg tablet Discontinued 1 TAB PO Daily September 26, 2023 1:00am December 04, 2023 1:13pm Free TextSi tablet Orally Once a day; Note: Source Status: Start; Refills: 3; Provider: Terry Sneedfurosemide 20 mg oral tablet (20 sources)Loop DiureticStart: 28-03-6486ysmn 1 tablet by mouth once daily furosemide (Lasix) 20 MG tablet Take 20 mg by mouth Daily 01/22/2023 Active Incontinence Pad, Liner, Disp pad (4 sources)Start: 73-77-1607Opgabekivnca Pad, Liner, Disp pad Active 0 .Route 144 2 February 06, 2025 12:00am Incontinence in female Unspecified urinary incontinence As directed - size 8Start: 04-31-2244Qlugddmrttwf Pad, Liner, Disp pad Active 0 .Route 144 February 06, 2025 12:00am As directed - size 824 hr mirabegron 50 mg extended release oral tablet (1 source)beta3-Adrenergic AgonistStart: 10-11-8158nbhy 1 tablet by mouth every twenty-four hoursMyrbetriq 50 MG 1 tablet Orally Once a day for 28 days samples given Dec, Activenitrofurantoin, macrocrystals 25 mg / nitrofurantoin, monohydrate 75 mg oral capsule (10 sources)Nitrofuran AntibacterialStart: 95-11-0249bije 1 capsule by mouth in the morningnitrofurantoin, macrocrystal-monohydrate, (Macrobid) 100 MG capsule Take 100 mg by mouth in the morning and 100 mg before bedtime. 11/10/2024 Active Ocuvite Eye + Multi - (10 sources)Ocuvite Eye + Multi - as directed Orally ActiveQUEtiapine 25 mg oral tablet (20 sources)Atypical AntipsychoticStart: 39-20-8451augt 1 tablet by mouth once at bedtimeStart: 01-26-2025 End: 28-44-9775gcaj 1.5 tablets by mouth at bedtimeQUEtiapine (SEROquel) 25 MG tablet Indications: Parkinson's disease without dyskinesia or fluctuating manifestations (HCC) , Hallucinations Take 1.5 tablets (37.5 mg) by mouth at bedtime 135 tablet 01/26/2025 04/26/2025 ActiveStart: 11-22-2024 End: 56-09-7912zkpt 1 tablet by mouth at bedtimeQUEtiapine (SEROquel) 25 MG tablet Indications: Parkinson's disease without dyskinesia or fluctuating manifestations (HCC) , Hallucinations Take 1 tablet (25 mg) by mouth at bedtime 90 tablet 3 04/11/2025 04/06/2026 Activerivaroxaban 20 mg oral tablet (20 sources)Factor Xa InhibitorStart: 09-26-2023 End: 18-22-5971pnkt 1 tablet by mouth once daily at dinnerXarelto 20 20 Once PO Daily Jvfwny46 hr divalproex sodium 250 mg extended release oral tablet (2 sources)Mood Stabilizer, Anti-epileptic AgentStart: 04-30-2025 End: 51-57-7422xurp 1 tablet by mouth once dailydivalproex (Depakote ER) 250 MG 24 hr tablet Indications: Hallucinations Take 1 tablet (250 mg) by mouth Daily Do not crush, chew, or split. 30 tablet 2 04/30/2025 04/30/2026 Active Completed/Discontinued Medications MedicationDrug Class(es)DatesSig (Normalized)Sig (Original)ipratropium bromide 0.021 mg/actuat metered dose nasal spray (14 sources)AnticholinergicStart: 10-04-2023 End: 47-68-9523fxdh 1 spray(s) nasal route twice dailyIpratropium Pendleton 21 mcg (0.03 %) spray,non-aerosol Discontinued 2 SPRAY INTRANASAL Twice daily 30 0 October 04, 2023 12:00am December 03, 2023 10:45am administer into each nostril losartan potassium 100 mg oral tablet (20 sources)Angiotensin 2 Receptor BlockerStart: 09-26-2023 End: 14-10-6454rqzd 1 tablet by mouth twice dailyLosartan 100 mg tablet Discontinued 1 TAB PO Twice daily September 26, 2023 1:00am April 03, 2025 10:28am FreeTextSi tablet Orally twice a day; Note: Source Status: Taking; Provider: Terry Vera ( )Start: 02-95-8217fmgy 1 tablet by mouth once dailylosartan (Cozaar) 100 MG tablet Take 1 tablet by mouth Daily 07/09/2023 Activetake 1 tablet by mouth every twelve hoursLosartan Potassium 100 MG 1 tablet Orally twice a day Activetake 1 tablet by mouth every twenty-four hoursLosartan Potassium 100 MG 1 tablet Orally Once a day GuitogDp-Ot-Cc-Vit J-Tvpir-Fdmy-Zeax (Ocuvite Eye Plus Multi) 200-15-150 mcg tablet (14 sources)Start: 09-26-2023 End: 64-61-5431enzv 2 tablets by mouth once rxagmPj-Rt-Sl-Vit V-Zxqsl-Heht-Zeax (Ocuvite Eye Plus Multi) 200-15-150 mcg tablet Discontinued 2 TAB PODaily September 26, 2023 12:00am December 06, 2023 1:52pm administer with a meal and a large glass of waterStart: 09-26-2023 End: 85-79-3450bpax 2 tablets by mouth once dlvygEp-Wx-Jn-Vit F-Psicz-Cgrz-Zeax (Ocuvite Eye Plus Multi) 200-15-150 mcg tablet Discontinued 2 TAB PODaily September 26, 2023 1:00am December 06, 2023 2:52pm administer with a meal and a large glass of waterStart: 70-87-3538fvxk 2 tablets by mouth once egwmpEp-Eu-Zd-Vit P-Jfkbe-Apau-Zeax (Ocuvite Eye Plus Multi) 200-15-150 mcg tablet Active 2 TAB PO DailySeptember 26, 2023 1:00am administer with a meal and a large glass of water nabumetone 750 mg oral tablet (20 sources)Nonsteroidal Anti-inflammatory DrugStart: 03-14-2024 End: 96-67-6296abyx 0.5 tablet by mouth twice dailyNabumetone 750 mg tablet Discontinued 0 .ROUTE .COMPLEX 21 06March 14, 2024 9:45am June 17, 2024 9:54am TAKE 1/2 TABLET BY MOUTH TWICE DAILYStart: 10-15-2023 End: 52-13-6755kbep 375 mg by mouth twice dailyNabumetone Discontinued 375 MG PO Twice daily 30 February 27, 2024 9:50pm March 14, 2024 9:45amStart: 09-26-2023 End: 53-88-6744sxdbwpunjc (Relafen) 750 MG tablet Take 750 mg by mouth 09/26/2023 ActiveStart: 09-26-2023 End: 03-83-3509ttib 0.5 tablet by mouth twice daily as neededNabumetone 750 mg tablet Discontinued 750 MG PO Twice daily 60 3 October 09, 2023 12:23pm October 15, 2023 8:34am FreeTextSi/2 tablet Orally Twice a day as needed; Note: Source Status: Taking; Refills: 2; Provider: Terry Martinez 0.5 tablet by mouth twice daily as neededNabumetone 750 MG 1/2 tablet Orally Twice a day as needed for 30 days ActiveNabumetone 750 MG as directed Orally Active nitrofurantoin, macrocrystals 100 mg oral capsule (9 sources)Nitrofuran AntibacterialStart: 02-23-2025 End: 96-04-6017emka 1 capsule by mouth twice daily at mealtimeNitrofurantoin Macrocrystal 100 mg capsule Discontinued 100 MG PO Twice daily 14 0 February 232:00am April 03, 2025 10:17am must administer with a meal/foodStart: 11-12-2024 End: 40-18-2340hrpj 1 capsule by mouth twice daily at mealtimeNitrofurantoin Macrocrystal 100 mg capsule Discontinued 100 MG PO Twice daily November 12, 2024 12:00am December 11, 2024 3:03pm must administer with a meal/foodspironolactone 25 mg oral tablet (20 sources)Aldosterone AntagonistStart: 11-05-2023 End: 18-46-4916kvgg 1 tablet by mouth once dailySpironolactone 25 mg tablet Discontinued 0 .ROUTE .COMPLEX 30 0 November 05, 2023 1:07pm April 03, 2025 10:29am take 1 tablet by mouth once dailyStart: 95-21-3804tfif 1 tablet by mouth once dailySpironolactone Active 0 .ROUTE .COMPLEX 30 November 05, 2023 1:07pm take 1 tablet by mouth once dailyStart: 09-26-2023 End: 57-95-6693bbdw 1 tablet by mouth once dailySpironolactone 25 mg tablet Discontinued 25 MG PO Daily September 26, 2023 1:00am November 05, 2023 1:07pm FreeTextSi tablet Orally Once a day; Note: Source Status: Taking; Refills: 3; Qty: 30 Tablet; Provider: Terry Pisano Active Problems Problem ClassificationProblemDateDocumented DateEpisodic/ChronicAnxiety disorders (20 sources)Anxiety; Translations: [Anxiety disorder, unspecified]Onset: 661773-26-9892BahswosXzgrqoh dysrhythmias (8 sources)Paroxysmal atrial fibrillation; Translations: [Paroxysmal atrial fibrillation]33-62-3720CijxzoeKqnbukc kidney disease (8 sources)Chronic kidney disease stage 3B ; Translations: [Stage 3b chronic kidney disease]85-66-0661InbkwxeIjwdzphkgv associated with dizziness or vertigo (4 sources)Dizziness; Translations: [Dizziness and giddiness]91-77-8514Odxbevvy Congestive heart failure; nonhypertensive (13 sources)Chronic diastolic heart failure; Translations: [Chronic diastolic (congestive) heart failure]Onset: 520017-03-4959RvdsjwcDnbpdcqc atherosclerosis and other heart disease (15 sources)Coronary arteriosclerosis; Translations: [Atherosclerotic heart disease of [place] coronary artery without angina pectoris]Onset: 06-14-2021 95-65-5943ImxtvcmMmofvduu, dementia, and amnestic and other cognitive disorders (20 sources)Dementia; Translations: [Unspecified dementia without behavioral disturbance]ChronicDisorders of lipid metabolism (20 sources)Hyperlipidemia, unspecified; Translations: [Hyperlipidemia]Onset: 47-64-6907OhgthteKlnqqtkxf hypertension (20 sources)Essential (primary) hypertension; Translations: [Essential hypertension]Onset: 26-76-0856DsmhespCfyzpjbxbsokx symptoms and ill-defined conditions (6 sources)Incontinence; Translations: [Unspecified urinary incontinence] 28-19-4562NauqjpzFzomx valve disorders (2 sources)Nonrheumatic aortic (valve) stenosis; Translations: [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]Onset: 69-88-1161Gngemez Osteoarthritis (1 source)Unilateral primary osteoarthritis, left knee; Translations: [UNI PRIM OSTEOARTHRITIS LT KNEE]Onset: 18-86-3815XqzstjbXwioi aftercare (1 source)manager long term care (current) use of 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; Translations: [GROUP HOME CURRENT USE OF ASPIRIN]Onset: 94-82-8077FpnudcekWbixj aftercare (1 source)Other ocean transportation intermediary (current) drug therapy; Translations: [OTH RUBBISH COLLECTOR CURRENT DRUG THERAPY]Onset: 80-69-5227JdamfkdiWfxfx circulatory disease (2 sources)Other specified symptoms and signs involving the circulatory and respiratory systems; Translations:[OTH SPEC SX SIGNS INVLV CIRC RS]Onset: 41-77-3528MelmrdooLuoqb circulatory disease (14 sources)Cardiovascular symptoms; Translations: [Other specified symptoms and signs involving the circulatory and respiratory systems]EpisodicOther circulatory disease (1 source)Hypotension, unspecified; Translations: [Hypotension, unspecified] 33-29-4199PadlqqodYrhxb diseases of bladder and urethra (14 sources)Bladder muscle dysfunction - overactive; Translations: [Overactive bladder]ChronicOther diseases of bladder and urethra (4 sources)Overactive bladder; Translations: [OAB (overactive bladder)]Chronic Other gastrointestinal disorders (20 sources)Irritable bowel syndrome with diarrhea; Translations: [Irritable bowel syndrome with diarrhea]Onset: 877149-68-8498FvralbjDqdia hereditary and degenerative nervous system conditions (10 sources)Resting tremor; Translations: [Other specified forms of tremor] ChronicOther hereditary and degenerative nervous system conditions (3 sources)Other specified forms of tremorChronicOther injuries and conditions due to external causes (1 source)Unspecified injury of left lower leg, subsequent encounterEpisodic Other lower respiratory disease (1 source)Shortness of breath; Translations: [SHORTNESS OF BREATH]Onset: 02-20-4522IeybbhrzNwwsm nervous system disorders (20 sources)Bilateral carpal tunnel syndrome; Translations: [Carpal tunnel syndrome, bilateral upper limbs]Onset: 121012-17-6480HarbcsuJfzto nervous system disorders (5 sources)Other abnormalities of gait and mobility; Translations: [OTHER ABNORMALITIES GAIT AND MOBILITY]Onset: 84-96-0095TfjsopgfSxohb nervous system disorders (15 sources)Abnormal gait; Translations: [Other abnormalities of gait and mobility]EpisodicOther non-traumatic joint disorders (5 sources)Pain in left knee; Translations: [PAIN IN LEFT KNEE]Onset: 09-01-2022 EpisodicOther nutritional; endocrine; and metabolic disorders (1 source)Abnormal weight loss; Translations: [Loss of weight]15-29-2941Jgjaovjg Other skin disorders (2 sources)Localized swelling, mass and lump, neck; Translations: [Swelling, mass, or lump in head and neck]55-71-1252EpunnngrLrbgo upper respiratory infections (20 sources)Chronic sinusitis, unspecified; Translations: [Chronic rhinosinusitis]Onset: 235060-95-4631GuiaotnHipdo upper respiratory infections (3 sources)Acute pharyngitis, unspecified; Translations: [ACUTE PHARYNGITIS UNSPECIFIED]Onset: 69-95-0331NqhxfptiSdldiskalg and visceral atherosclerosis (7 sources)Unspecified atherosclerosis of [place] arteries of extremities, left leg; Translations: [Atherosclerosis of [place] arteries of the extremities, unspecified]Onset: 792224-66-7919DfvygyrUccasrkeh (except that caused by tuberculosis or sexually transmitted disease) (1 source)Pneumonia (except that caused by tuberculosis or sexually transmitted disease); Translations: [PNEUMONIA D/T CORONAVIRUS DIS 2019]Onset: 08-17-2022 Pulmonary heart disease (2 sources)Chronic pulmonary embolism; Translations: [Chronic pulmonary embolism]Onset: 14-98-8039AyznwfcTesoxmjy codes; unclassified (2 sources)Amnesia; Translations: [Other amnesia]95-09-0844ZmdnfpisNmrrewnx codes; unclassified (2 sources)Hallucinations, unspecified; Translations: [Hallucinations]11-12-2024 EpisodicSpondylosis; intervertebral disc disorders; other back problems (15 sources)Lumbar radiculopathy; Translations: [Radiculopathy, lumbar region] EpisodicUnclassified (20 sources)Parkinson's disease; Translations: [Parkinson's disease]Onset: 802874-31-1448MqualwdRwiggcyewgmv (1 source)UNVACCINATED FOR COVID-19; Translations: [UNVACCINATED FOR COVID-19] Onset: 30-65-7392Dbelnzk tract infections (20 sources)Acute urinary tract infection; Translations: [Urinary tract infection, site not specified]Onset: 640782-69-0436NulzsdepYawyh infection (1 source)COVID-19; Translations: [COVID-19]Onset: 08-17-2022 Past or Other Problems Problem ClassificationProblemDateDocumented DateEpisodic/ChronicMalaise and fatigue (20 sources)Asthenia; Translations: [Weakness]Onset: EpisodicMycoses (7 sources)Onychomycosis due to dermatophyte ; Translations: [Tinea unguium] Onset: 462637-03-6799MemounsrDqlimlulzak chest pain (20 sources)Chest pain; Translations: [Other chest pain]Onset: 06-05-2019 58-49-4140CgwbqpeoRuqgz circulatory disease (20 sources)Low blood pressure; Translations: [Hypotension, unspecified]Onset: 015624-26-2977UflhevfyOkgvm connective tissue disease (4 sources)Pain in right lower leg; Translations: [PAIN IN RIGHT LOWER LEG] Onset: 12-99-0723IjvruwhrJfmlg connective tissue disease (1 source)Pain in left lower leg; Translations: [PAIN IN LEFT LOWER LEG]Onset: 64-52-1786WiyvpnrcUzjsc connective tissue disease (7 sources)Nontraumatic complete rupture of rotator cuff of left shoulder; Translations: [Complete rotator cuff tear or rupture of left shoulder, not specified as traumatic]Onset: 471487-07-0329MhyhtvelDlzst lower respiratory disease (6 sources)Other forms of dyspnea; Translations: [Other forms of dyspnea]Onset: 09-63-8755VmtmoxyxHznzw lower respiratory disease (11 sources)Dyspnea; Translations: [Dyspnea, unspecified]Onset: 06-05-2019 05-23-6579KnehvvpfCrovk nervous system disorders (20 sources)Tremor; Translations: [Tremor, unspecified]Onset: 11-22-2023 62-81-0614VelcdkvcKaxdm nervous system disorders (20 sources)Burning sensation; Translations: [Other disturbances of skin sensation]Onset: 413493-67-4763VlsgeezqHusaj non-traumatic joint disorders (20 sources)Pain in left shoulder; Translations: [Left shoulder pain]Onset: 787387-04-5987CumbuxiiKwsjq nutritional; endocrine; and metabolic disorders (20 sources)Abnormal weight loss; Translations: [Abnormal weight loss]Onset: 974295-06-9872EvmdxcbhBeqjs skin disorders (19 sources)Mass of neck; Translations: [Localized swelling, mass and lump, neck]Onset: 042749-35-8945CvxeeqmhBuabhtfpq; thrombophlebitis and thromboembolism (1 source)Embolism and thrombosis of superficial veins of left lower extremity; Translations: [EMBOLISM AND THROMB SUP VEINS LLE]Onset: 02-54-6081Ncmqbffg Pulmonary heart disease (20 sources)Personal history of pulmonary embolism; Translations: [Acute pulmonary embolism]Onset: 13-68-3195SdglkzutMbejrzjv codes; unclassified (20 sources)Hallucinations; Translations: [Hallucinations, unspecified]Onset: 942218-25-9967Pcltesgr Results Test NameValueInterpretationReference RangeFacilityOffice Visiton 06-03-2025 Follow-up [id number] Rolly Moore 1940 F Date Provider Department Center 06/03/2025 271-ELISABETH RAMIREZ CARD [facility] Family History Problem Relation Age of Onset Heart failure Mother Family Status - Relation Status Age at Mother Father Level of Service:05696 DC OFFICE/OUTPATIENT ESTABLISHED MOD [facility] and [facility] - challengeOrdered By: Cindi Stewart on 09-69-5381Alhzkzplf Ql (U)[facility] HealthGlucose (U) [Mass/Vol]+++[facility] HospitalKetones Ql (U)[facility] HealthpH (U)5 [pH] [facility] (U) [Rel density]1.020 [facility] HospitalUrobilinogen (U) [Mass/Vol]0.2 mg/dLChillicothe HospitalLaboratory - Specimen informationOrdered By: Cindi Stewart on 46-20-7015Zvdxgsfrbx (U)clearChillicothe HospitalColor (U) YellowChillicothe HospitalLaboratory - UrinalysisOrdered By: Cindi Stewart on 80-87-2569Xqmcwfglk esterase Test strip Ql (U)[facility] HealthNitrite Ql (U)[facility] Protein Ql (U)[facility] HealthNo Panel Information Ordered By: Cindi Stewart on 36-92-0547Nndhi Occult BloodNegativeChillicothe HospitalUrine Cultureon 14-84-8049Zcvizznm identified Cx Nom (U) ORGANISM: Klebsiella variicola (O:KLEVAR) [place] Count >100,000 Aerobic DONI Charge (NMIC56) SUSCEPTIBILITY ORGANISM: O:KLEVAR ANTIBIOTIC INTERPRETATION DONI Amikacin S <16 Amoxacillin/K Clavulanate S <8 Ampicillin/Sulbactam S <4 Aztreonam S <4 Cefazolin S <2 Cefepime S <2 Ceftazidime S <1 Ceftriaxone S <1 Cefuroxime S <4 Ciprofloxacin S <0.25 Ertapenem S <0.5 Gentamicin S <2 Levofloxacin S <0.5 Meropenem S <1 Nitrofurantoin S <32 Piperacillin/Tazobactam S <8 Tetracycline S <4 Tigecycline S <2 Tobramycin S <2 Trimethoprim/Sulfamethoxazole S <0.5 S = SUSCEPTIBLE I = [...] RESISTANT TO ALL B-LACTAM DRUGS. PERFORMED BY: [place] [address] PATHOLOGIST CUTTING TORCH OPERATOR JOHNY BROWNLEE M.D.[facility] Physician GroupComment on above: Performed By: #### [facility] #### [address] Cultureon 26-03-3892Eaeqfsnu identified Cx Nom (U) ORGANISM: Klebsiella variicola (O:KLEVAR) [place] Count >100,000 Aerobic DONI Charge (NMIC56) SUSCEPTIBILITY ORGANISM: O:KLEVAR ANTIBIOTIC INTERPRETATION DONI Amikacin S <16 Amoxacillin/K Clavulanate S <8 Ampicillin/Sulbactam S <4 Aztreonam S <4 Cefazolin S <2 Cefepime S <2 Ceftazidime S <1 Ceftriaxone S <1 Cefuroxime S <4 Ciprofloxacin S <0.25 Ertapenem S <0.5 Gentamicin S <2 Levofloxacin S <0.5 Meropenem S <1 Nitrofurantoin S <32 Piperacillin/Tazobactam S <8 Tetracycline S <4 Tigecycline S <2 Tobramycin S <2 Trimethoprim/Sulfamethoxazole S <0.5 S = SUSCEPTIBLE I = [...] RESISTANT TO ALL B-LACTAM DRUGS. PERFORMED BY: [place] [address] PATHOLOGIST CUTTING TORCH OPERATOR JOHNY BROWNLEE M.D.[facility] Physician GroupComment on above: Performed By: #### CUU #### [address] StreetUrine cultureOrdered By: Cindi Stewart on 02-19-2025 Bacteria identified Cx Nom (U)Klebsiella variicolaAbRegional Medical CenterFollow-Upon [id number] Rolly Moore 1940 F Date Provider Department Center 01/06/2025 [facility] [place]-ELISABETH RAMIREZ EVETTE Hinds Family History Problem Relation Age of Onset Heart failure Mother Family Status - Relation Status Age at Mother Father Level of Service:47456 DC OFFICE/OUTPATIENT ESTABLISHED MOD [facility] 30 [facility]29on [id number] by: COY OCHOA on: 11/25/2024 02:35 PM Modules accepted: OrdersNormalUniversParma Community General Hospital37on 11-25-2024 37Decrease Cozaar to 25 mg daily Stop spironolactone Reduce lasix to 10 mg daily Complete CMP in 1 week Follow up in office in 1 monthNormalUniDayton Osteopathic HospitalOffice Visiton 59-46-3679Zbserl-up [id number] Rolly Moore 1940 F Date Provider Department Center 11/25/2024 [facility] RAMIREZ [facility] Family History Problem Relation Age of Onset Heart failure Mother Family Status - Relation Status Age at Mother Level of Service:29247 DC OFFICE/OUTPATIENT ESTABLISHED MOD MDM 30 [facility]Urine Cultureon 00-81-0366Qbcvttix identified Cx Nom (U)>100,000 colonies/ml mixed bacterial skin contaminants 2 Days PERFORMED BY: [place] [address] PATHOLOGIST CUTTING TORCH OPERATOR MORALES FREY M.D.NormalThe Lifec[facility] Hospitals Of North Carolina Physician GroupComment on above: Performed By: #### CUU #### [place] [address] USAActivated partial thromboplastin time (aPTT) in platelet poor plasma by coagulation aon 46-41-0479bMYH Coag (PPP) [Time]Activated partial thromboplastin time (aPTT) in platelet poor plasma by coagulation a22.3-36.2 [facility] HospitalBasophils Auto (Bld) [#/Vol]on 11-03-2024 Basophils (Bld) [#/Vol]Automated basophil count0.0-0.1FOhio Valley HospitalBasophils/100 WBC Auto (Bld)on 29-32-3960Rkrsoppaa/100 WBC (Bld)Automated basophil %0.2-2.0[facility] HospitalEosinophils/100 WBC Auto (Bld)on 16-94-6877Unzhznzvyvv/100 WBC (Bld)Automated eosinophil %Low0.9-7.0 [facility] HospitalErythrocyte distribution width Auto (RBC) [Ratio]on 32-00-0591Knwgxwincdd distribution width (RBC) [Ratio]Erythrocyte distribution width [Ratio] by Automated count11.0-15.0[facility] HospitalHematocrit Auto (Bld) [Volume fraction]on 13-03-3548Rvkvjvgrgn (Bld) [Volume fraction]Hematocrit [Volume Fraction] of Blood by Automated countLow 36.0-48.0[facility] HospitalHemoglobin [Mass/volume] in Bloodon 84-94-5619Mcliustpnt (Bld) [Mass/Vol]Hemoglobin [Mass/volume] in BloodLow 12.0-16.0[facility] HospitalINR in Platelet poor plasma by Coagulation assayon 03-38-3250JJZ Coag (PPP) [Relative time]INR in Platelet poor plasma by Coagulation assayChillicothe HospitalComment on above: DESIRED INR:2.0-3.0 CONDITIONS NOT LISTED BELOW2.5-3.5 FOR PROSTHETIC HEART VALVE REPLACEMENT2.5-3.5 RECURRENT THROMBOSISLaboratory - Chemistry and Chemistry - challengeon 21-78-9914Qsfgpsi [Moles/Vol]1.2 mmol/L0.4-2.0[facility] HospitalMagnesium [Mass/Vol]2.1 mg/dL1.8-2.4FOhio Valley HospitalNatriuretic peptide B (Bld) [Mass/Vol]121.0 pg/mL<=1800.0[facility] HospitalLaboratory - Hematology and Cell countson 11-03-2024 Immature granulocytes/100 WBC (Bld)0.3 %0.0-0.5FOhio Valley Hospital Leukocytes [#/volume] corrected for nucleated erythrocytes in Blood by Automated counon 03-75-0403EHC corrected for nucl RBC Auto (Bld) [#/Vol]Leukocytes [#/volume] corrected for nucleated erythrocytes in Blood by Automated coun 4.0-11.0[facility] HospitalLymphocytes Auto (Bld) [#/Vol]on 58-21-8575Hrhxmcisauy (Bld) [#/Vol]Lymphocytes [#/volume] in Blood by Automated count1.2-3.8[facility] HospitalLymphocytes/100 WBC Auto (Bld)on 96-74-0078Xjcdjabuhlt/100 WBC (Bld)Lymphocytes/100 leukocytes in Blood by Automated count20.5-60.0[facility] CenterH Auto (RBC) [Entitic mass]on 36-37-1427TUW (RBC) [Entitic mass]MCH [Entitic mass] by Automated count 26.7-34.0[facility] HospitalMCHC Auto (RBC) [Mass/Vol]on 09-19-2867GJDB (RBC) [Mass/Vol]MCHC [Mass/volume] by Automated count29.9-35.2 [facility] HospitalMCV Auto (RBC) [Entitic vol]on 76-10-9882QTC (RBC) [Entitic vol]MCV [Entitic volume] by Automated dbsyaDgvs86.0-99.0[facility] HospitalMonocytes Auto (Bld) [#/Vol]on 27-98-4503Jsbcxytqa (Bld) [#/Vol]Automated blood monocyte count0.3-0.8[facility] Monocytes/100 WBC Auto (Bld)on 87-66-3524Dizbkwsko/100 WBC (Bld)Automated monocyte %1.7-12.0[facility] HospitalNeutrophils Auto (Bld) [#/Vol]on 82-68-9749Ismjvyrjumi (Bld) [#/Vol]Neutrophils [#/volume] in Blood by Automated count1.4-6.5FOhio Valley HospitalNeutrophils/100 WBC Auto (Bld)on 08-00-5837Wuzavwfunjy/100 WBC (Bld)Automated neutrophil %43.0-75.0 [facility] HospitalNo Panel Informationon 48-00-7659Csqqasogiqv # (Auto)0.1 10 3/uL0.0-0.7FOhio Valley HospitalImmature Granulocyte # (Auto)0.02 10 3/uL0.00-0.03[facility] HospitalTroponin I High Nadtunocdqs24.6 pg/mL4.0-51.3FOhio Valley HospitalComment on above: CUT-OFF POINTS HAVE BEEN ESTABLISHED BASED ON THE FOURTHUNIVERSAL DEFINITION OF MYOCARDIAL INFARCTION. THE UPPERREFERENCE LIMIT (URL) OF TROPONIN, DEFINED THE 99THPERCENTILE OF cTnI DISTRIBUTION IN A REFERENCE POPULATION,HAS BEEN CONFIRMED THE DECISION THRESHOLD FOR MIDIAGNOSIS.99TH PERCENTILE = 51.4 PG/MLNOTE: HIGH-SENSITIVITY TROPONIN ASSAY IS NOT INTENDED TO BEUSED IN ISOLATION BUT SHOULD BE INTERPRETED IN CONJUNCTIONWITH OTHER DIAGNOSTIC AND CLINICAL INFORMATION.Venous Blood Partial Pressure CO251.3 mm[Hg]40.0-52.0 [facility] HospitalVenous Blood pH7.3927.330-7.430Ch[facility] HospitalPlatelet mean volume Auto (Bld) [Entitic vol]on 81-01-9195Pmhgvsei mean volume (Bld) [Entitic vol]Platelet mean volume [Entitic volume] in Blood by Automated count9.5-13.5FOhio Valley Hospital Platelets Auto (Bld) [#/Vol]on 42-23-5499Soniamkso (Bld) [#/Vol]Platelets [#/volume] in Blood by Automated -201FsicyebmtChillicothe Hospital Prothrombin time (PT)on 35-68-6150SP Coag (PPP) [Time]Prothrombin time (PT)High 9.0-11.6FOhio Valley HospitalRBC Auto (Bld) [#/Vol]on 02-22-1134MDX (Bld) [#/Vol]Erythrocytes [#/volume] in Blood by Automated countLow4.20-5.40 [facility] HospitalUrine Cultureon 46-62-7325Mxcjwchc identified Cx Nom (U)ORGANISM: Klebsiella variicola (O:KLEVAR) [place] Count 20,000 Aerobic DONI Charge (NMIC56) SUSCEPTIBILITY ORGANISM: O:KLEVAR ANTIBIOTIC INTERPRETATION DONI Amikacin S <16 Amoxacillin/K Clavulanate S <8 Ampicillin/Sulbactam S <4 Aztreonam S <4 Cefazolin S <2 Cefepime S <2 Ceftazidime S <1 Ceftriaxone S <1 Cefuroxime S <4 Ciprofloxacin S <0.25 Ertapenem S <0.5 Gentamicin S <2 Levofloxacin S <0.5 Meropenem S <1 Nitrofurantoin S <32 Piperacillin/Tazobactam S <8 Tetracycline S <4 Tigecycline S <2 Tobramycin S <2 Trimethoprim/Sulfamethoxazole S <0.5 S = SUSCEPTIBLE I = [...] RESISTANT TO ALL B-LACTAM DRUGS. PERFORMED BY: [address] [place] [address] PATHOLOGIST CUTTING TORCH OPERATOR MORALES FREY M.D.NormalAdventhealth Lake Placid Physician GroupComment on above: Performed By: #### CUU #### [facility] [address] [place] [address] USAUrine cultureOrdered By: Khari Traylor on 92-61-2610Ziiwymsn identified Cx Nom (U)AbnormalChillicothe Hospital36on Regarding stress test result from 10/17/2024: RENATE Clement MA Please let her know her stress test was negative. Follow-up as planned in December. She is due to follow-up with an attending. Thanks! Spoke with patient's daughter Rose and made her aware. Scheduled her to see Dr. Ramirez in December 2024.[facility]37on *Reduce your losartan to 50mg daily *[facility] will call you to schedule a stress testNormalUniversParma Community General HospitalOffice Visiton 75-11-6651Dmmjej-up [id number] Rolly Moore 1940 F Date Provider Department Center 10/07/2024 SHAR NUNES [facility] Family History Problem Relation Age of Onset Heart failure Mother Family Status - Relation Status Age at Mother Level of Service:38155 DC OFFICE/OUTPATIENT ESTABLISHED MOD MDM 30 MIN Reason for Visit and Comments: Congestive Heart Failure [127] Coronary Artery Disease [187] Hypertension [488695][facility] CenterBasophils Auto (Bld) [#/Vol]on 02-41-7272Qzoamevki (Bld) [#/Vol]0.1 10 3/uL0.0-0.1FOhio Valley HospitalBasophils/100 WBC Auto (Bld)on 76-01-5918Quxoubjvc/100 WBC (Bld)0.8 %0.2-2.0[facility] HospitalEosinophils/100 WBC Auto (Bld)on 14-96-4031Ogmthyorhjb/100 WBC (Bld)1.4 %0.9-7.0[facility] HospitalErythrocyte distribution width Auto (RBC) [Ratio]on 01-31-2024 Erythrocyte distribution width (RBC) [Ratio]12.6 %11.0-15.0[facility] HospitalEstimated glomerular filtration rate (GFR) non- Americanon 07-87-7099QKK/1.73 sq M.predicted among non-blacks MDRD (S/P/Bld) [Vol rate/Area]25 mL/min/{1.73_m2}Low>=60[facility] HospitalHematocrit Auto (Bld) [Volume fraction]on 99-75-0087Dyugrdqbwv (Bld) [Volume fraction]39.6 %36.0-48.0[facility] HospitalHemoglobin [Mass/volume] in Bloodon 66-27-2600Tvzrhlsxvb (Bld) [Mass/Vol]12.6 g/dL12.0-16.0[facility] HospitalLaboratory - Chemistry and Chemistry - challengeon 01-31-2024 Bilirubin Ql (U)NegativeNEGATIVEChillicothe HospitalGlucose (U) [Mass/Vol]250 mg/dLAbnormalNEGATIVEChillicothe HospitalKetones Ql (U)NegativeNEGATIVEChillicothe HospitalpH (U)6.0 [pH]5.0-9.0 [facility] Centerpecific gravity (U) [Rel density]<=1.005 Abnormal1.005-1.025Ch[facility] HospitalUrobilinogen Qn (U)0.2 {Quoc'U}/dL0.2-1.0[facility] HospitalCalcium [Mass/Vol]9.7 mg/dL8.5-10.1FOhio Valley HospitalChloride [Moles/Vol]103 mmol/L 98-107Ch[facility] HospitalCO2 [Moles/Vol]28.7 mmol/L21.0-32.0 [facility] HospitalCreatinine [Mass/Vol]1.90 mg/dLHigh0.55-1.02 [facility] HospitalGFR/1.73 sq M.predicted MDRD (S/P/Bld) [Vol rate/Area]31 mL/min/{1.73_m2}Low>=60[facility] HospitalGlucose [Mass/Vol]112 mg/wUUdei94-473CmnqbkgdrChillicothe HospitalPotassium [Moles/Vol]3.8 mmol/L3.5-5.1FOhioHealth Doctors Hospitalodium [Moles/Vol] 140 mmol/C362-786YaicvrjumChillicothe HospitalUrea nitrogen [Mass/Vol]27.0 mg/dLHigh7.0-18.0[facility] HospitalUrea nitrogen/Creatinine [Mass ratio]14.2 mg/mgChillicothe HospitalLaboratory - Hematology and Cell countson 54-74-8107Enfrwgyo granulocytes/100 WBC (Bld)0.4 %0.0-0.5FOhio Valley HospitalLaboratory - Specimen informationon 32-02-1488Dditoxyfez (U)CLEARCLEARFOhio Valley HospitalColor (U)LT. YELLOWYELLOWChillicothe HospitalLaboratory - Urinalysison 56-33-9549Pkeiybq casts LM Ql (Urine sed)[facility] CenterLeukocyte esterase Test strip Ql (U)TRACEAbnormalNEGATIVEChillicothe HospitalMucus Ql (Urine sed) NONE SEENNONE SEENChillicothe HospitalNitrite Ql (U)Negative NEGATIVEChillicothe HospitalProtein Ql (U)NegativeNEG/TRACE [facility] HospitalLeukocytes [#/volume] corrected for nucleated erythrocytes in Blood by Automated counon 75-49-3769VVP corrected for nucl RBC Auto (Bld) [#/Vol]9.7 10 3/uL4.0-11.0[facility] Lymphocytes Auto (Bld) [#/Vol]on 18-90-2810Kbmniooefgy (Bld) [#/Vol]1.4 10 3/uL 1.2-3.8[facility] HospitalLymphocytes/100 WBC Auto (Bld)on 16-91-5519Rhxhsebfvyd/100 WBC (Bld)14.5 %Low20.5-60.0[facility] CenterH Auto (RBC) [Entitic mass]on 21-36-3837EZJ (RBC) [Entitic mass]32.6 pg 26.7-34.0[facility] HospitalMCHC Auto (RBC) [Mass/Vol]on 85-40-1256ZRZX (RBC) [Mass/Vol]31.8 g/dL29.9-35.2FOhio Valley HospitalMCV Auto (RBC) [Entitic vol]on 64-26-7073SNE (RBC) [Entitic vol]102.3 fL High81.0-99.0[facility] HospitalMonocytes Auto (Bld) [#/Vol]on 77-09-5888Rkelrtnte (Bld) [#/Vol]0.6 10 3/uL0.3-0.8[facility] HospitalMonocytes/100 WBC Auto (Bld)on 34-55-3149Pekjgkbka/100 WBC (Bld)6.2 % 1.7-12.0[facility] HospitalNeutrophils Auto (Bld) [#/Vol]on 28-62-8319Tjizkzrssgx (Bld) [#/Vol]7.4 10 3/uLHigh1.4-6.5FOhio Valley HospitalNeutrophils/100 WBC Auto (Bld)on 85-68-1235Nrdgjqettoz/100 WBC (Bld)76.7 %High43.0-75.0[facility] HospitalNo Panel Informationon 65-68-4438Dphsd BacteriaMODERATE #/HPFAbnormalNONE SEENChillicothe HospitalUrine Culture ReflexedYEMain Campus Medical CenterUrine Microscopic ReviewYEMain Campus Medical CenterUrine Occult BloodMODERATE AbnormalNEGATIVEChillicothe HospitalUrine Other CastsSEEN #/LPF AbnormalNONE SEENChillicothe HospitalUrine Other CrystalsNone Seen #/HPFNone SeenChillicothe HospitalUrine ZFY47-76 #/HPFAbnormal0-2 [facility] HospitalUrine Squamous Epithelial CellsFEW #/LPF AbnormalNONE/RAREChillicothe HospitalUrine WBC5-10 #/HPFAbnormal NONE SEENChillicothe HospitalEosinophils # (Auto)0.1 10 3/uL0.0-0.7 [facility] HospitalImmature Granulocyte # (Auto)0.04 10 3/uLHigh 0.00-0.03[facility] HospitalTroponin I High Xmvdzrrhfdq37.2 pg/mL 4.0-51.3FOhio Valley HospitalComment on above:CUT-OFF POINTS HAVE BEEN ESTABLISHED BASED ON THE FOURTHUNIVERSAL DEFINITION OF MYOCARDIAL INFARCTIO N. THE UPPERREFERENCE LIMIT (URL) OF TROPONIN, DEFINED THE 99THPERCENTILE OF cTnI DISTRIBUTION IN A REFERENCE POPULATION,HAS BEEN CONFIRMED THE DECISION THRESHOLD FOR MIDIAGNOSIS.99TH PERCENTILE = 51.4 PG/MLNOTE: HIGH-SENSITIVITY TROPONIN ASSAY IS NOT INTENDED TO BEUSED IN ISOLATION BUT SHOULD BE INTERPRETED IN CONJUNCTIONWITH OTHER DIAGNOSTIC AND CLINICAL INFORMATION.Platelet mean volume Auto (Bld) [Entitic vol]on 14-32-2139Stvxqwhr mean volume (Bld) [Entitic vol]11.5 fL9.5-13.5FOhio Valley HospitalPlatelets Auto (Bld) [#/Vol] on 41-41-0851Uhhndmliq (Bld) [#/Vol]180 10 3/dX115-742ZctpquwenChillicothe HospitalRBC Auto (Bld) [#/Vol]on 03-89-9866CJN (Bld) [#/Vol]3.87 10 6/uLLow 4.20-5.40[facility] Medical Centererum or plasma anion gap determinationon 52-94-9944Iwrzo gap [Moles/Vol]12.1 mmol/LFOhio Valley HospitalMRI HEAD/BRAIN WO/W CONTRon 91-98-4250BstCassidy [place] [id number] Magnetic Resonance Report Signed Patient: ROLLY MOORE MR#: [id number] : 1940 Acct:[id number] Age/Sex: 83 / F ADM Date: 01/29/24 Loc: LAB Attending Dr: Kavita Allison [employer] Ordering Physician: Kavita Allison NP Date of Service: 01/29/24 Procedure(s): MR head/brain wo/w con Accession Number(s): [id number] cc: Cindi Stewart M.D.; Kavita Allison NP [place] [address] Patient Name: ROLLY MOORE MRN: [id number] date: 1940 Sex: F Assigned Patient Location: LAB Current Patient Location: Accession/Order Number: [id number] Exam Date: 01/29/2024 07:55 Report Date: 01/30/2024 10:07 At the request of: KAVITA ALLISON Procedure: MR head/brain wo/w con MR head/brain [...] intracranial process is noted. Electronically authenticated by: RENE WESLEY Date: 01/30/2024 10:07 Dictated By: Rene Wesley M.D. Signed By: 01/30/24 1010 DD/ 1007 TD/TT: Loan Examiner:NAMANHRadiology, Radiologist, - 01/30/2024 [place] [address] Magnetic Resonance Report Signed Patient: ROLLY MOORE MR#: [id number] : 1940 Acct:[id number] Age/Sex: 83 / F ADM Date: 01/29/24 Loc: LAB Attending Dr: Kavita Allison [employer] Ordering Physician: Kavita Allison NP Date of Service: 01/29/24 Procedure(s): MR head/brain wo/w con Accession Number(s): [id number] cc: Cindi Stewart M.D.; Kavita Allison NP The [place] [address] Patient Name: ROLLY MOORE MRN: [id number] date: 1940 Sex: F Assigned Patient Location: LAB Current Patient Location: Accession/Order Number: [id number] Exam Date: 01/29/2024 07:55 Report Date: 01/30/2024 10:07 At the request of: KAVITA ALLISON Procedure: MR head/brain wo/w con MR head/brain [...] intracranial process is noted. Electronically authenticated by: RENE WESLEY Date: 01/30/2024 10:07 Dictated By: Rene Wesley M.D. Signed By: 01/30/24 1010 DD/ 1007 TD/TT: Loan Examiner: [facility] HOSPITALAlexa HealthcareRadiology Study observation (narrative)[facility] Cancer CenterMRI HEAD/BRAIN WO/W CONTROrdered By: Radiologist Radiology on 22-49-2130BEYH [employer] Work Phone: Estimated glomerular filtration rate (GFR) non- Americanon 16-58-9294BHV/1.73 sq M.predicted among non-blacks MDRD (S/P/Bld) [Vol rate/Area]27 mL/min/{1.73_m2}Low>=60[facility] - Chemistry and Chemistry - challengeon 59-28-7028Pkrmhowtuk [Mass/Vol]1.81 mg/dLHigh0.55-1.02Ch[facility] HospitalGFR/1.73 sq M.predicted MDRD (S/P/Bld) [Vol rate/Area]32 mL/min/{1.73_m2}Low>=60[facility] HospitalUrea nitrogen [Mass/Vol]25.0 mg/dLHigh7.0-18.0[facility] HospitalBNPon 21-37-3632Wmsxgwjrwpt peptide B (Bld) [Mass/Vol] 63.0 pg/mLNormal<=1,800.0The [facility] PrebleComment on above:Performed By: #### BNP, TSH, CMP, CMADM #### [facility] [address] [place], [place] [address] ADMITon 12-62-8683BF [Catalytic activity/Vol]124 U/L Aibuml11-235Xed [facility] PrebleComment on above:Performed By: #### BNP, TSH, CMP, CMADM #### [facility] [address] [place], [place] [address] Dr. Melecio Munoz.MB [Mass/Vol]0.69 ng/mLNormal<=3.60The [facility] Comment on above:Performed By: #### BNP, TSH, CMP, CMADM #### [facility] [address] [place] [address] [address] Melecio VazquezTROP15.8 pg/mLNormal4.0-51.3The [facility] Health PrebleComment on above:Result Comment: CUT-OFF POINTS HAVE BEEN ESTABLISHED BASED ON THE FOURTH UNIVERSAL DEFINITIONS OF MYOCARDIAL INFARCTION. THE UPPER REFERENCE LIMIT (URL) OF TROPONIN, DEFINED THE 99TH PERCENTILE OF cTnI DISTRIBUTION IN A REFERENCE POPULATION, HAS BEEN CONFIRMED THE DECISION THRESHOLD FOR [place] DIAGNOSIS.Performed By: #### BNP, TSH, CMP, CMADM #### [facility] [address] [place] [address] [address] Melecio VarelaO173 ng/mLCritically high9-82[facility] City Medical CenterComment on above:Performed By: #### BNP, TSH, CMP, CMADM #### [facility] [address] [place] [address] [address] Melecio Phillips AUTO DIFFon 20-18-0467IIXP #0.0 103/ulNormal0.0-0.1The [facility] PrebleComment on above:Performed By: #### CBC ####[facility] [address] [place] [address]DrJaycee McclellandBasophils/100 WBC (Bld)0.2 %Normal0.2-2.0The [facility] PrebleComment on above:Performed By: #### CBC ####[facility] [address] [place] [address]DrJaycee ChangEO #0.0 103/ulNormal0.0-0.7The [facility] PrebleComment on above:Performed By: #### CBC ####[facility] Vswbpwsznk[address] [place] [address]DrJaycee ChangEosinophils/100 WBC (Bld)0.0 %Critically low0.9-7.0The [facility] PrebleComment on above:Performed By: #### CBC ####[facility] H[address]dc[address] [place] [address]Dr. Yimartha ChangErythrocyte distribution width (RBC) [Ratio]13.3 %Bqqwic01.0-15.0The [facility] PrebleComment on above:Performed By: #### CBC ####[facility] B[address]zogwfbjt[address] [place] [address]Dr.Melecio ChangHematocrit (Bld) [Volume fraction]35.7 %Critically low36.0-48.0The [facility] PrebleComment on above:Performed By: #### CBC ####[facility] [address] [place], [place] [address]Dr.Isislan ChangHemoglobin (Bld) [Mass/Vol]11.7 g/dL Critically low12.0-16.0The [facility] PrebleComment on above:Performed By: #### CBC ####[facility] Acfrzyyijr[address] [place], [place] [address]Dr. Yilan ChangIG #0.01 10e3/ulNormal0.00-0.03The [facility] PrebleComment on above: Performed By: #### CBC ####[facility] Vpwbgbvekx[address] [place], [place] [address]Dr.Yilan ChangIG %0.2 %Normal0.0-0.5The [facility] PrebleComment on above:Performed By: #### CBC ####[facility] Anliilqfxl[address] [place], [place] [address]Dr.Yilan ChangLYMPH #1.2 103/ulNormal1.2-3.8The [facility] PrebleComment on above:Performed By: #### CBC ####[facility] Fqfuceybki[address] [place], [place] [address]Dr. Isislan ChangLymphocytes/100 WBC (Bld)22.1 %Xdjtda50.5-60.0The [facility] Comment on above:Performed By: #### CBC ####[facility] Rwef[address]vbgi[address] [place], [place] [address]Dr.Isislan ChangMANUAL DIFF REQNONormalThe [facility] PrebleComment on above:Performed By: #### CBC ####[facility] [address] [place] [address]Dr.Melecio McclellandH (RBC) [Entitic mass]31.3 ozPdwuiw54.7-34.0The [facility] PrebleComment on above: Performed By: #### CBC ####[facility] [address]quf[address] [place], [place] [address]Dr.Melecio McclellandHC (RBC) [Mass/Vol]32.8 g/dLNormal 29.9-35.2The [facility] PrebleComment on above:Performed By: #### CBC ####[facility] Ioayulycqa[address] [place], [place] [address]Dr. Melecio StasV (RBC) [Entitic vol]95.5 lXGoehrh69.0-99.0The [facility] Comment on above:Performed By: #### CBC ####[facility] Lpxlsybt[address] [place], [place] [address]Dr.Melecio McclellandMONO #0.6 103/ulNormal0.3-0.8 The [facility] PrebleComment on above:Performed By: #### CBC ####[facility] Xsenafbbzk[address] [place], [place] [address]Dr.Isismartha Mcclelland Monocytes/100 WBC (Bld)10.4 %Normal1.7-12.0The [facility] PrebleComment on above:Performed By: #### CBC ####[facility] Ccuncckgbv[address] [place], [place] [address]Dr.Isismartha StasNEUT #3.6 103/ulNormal1.4-6.5The [facility] PrebleComment on above:Performed By: #### CBC ####[facility] [address]xpxzorvqq[address] [place], [place] [address]Dr.Isismartha McclellandNeutrophils/100 WBC (Bld)67.1 %Bjrbgh26.0-75.0The [facility] PrebleComment on above:Performed By: #### CBC ####[facility] [address]ovepimprb[address] [place], [place] [address]Dr.Isismartha McclellandPlatelet mean volume (Bld) [Entitic vol]10.1 fLNormal9.5-13.5 The [facility] PrebleComment on above:Performed By: #### CBC ####[facility] Hnqeb[address]kazj[address] [place] [address]Dr.Melecio KckxlYQK153 103/coBhvwhf350-196Txy [facility] PrebleComment on above:Performed By: #### CBC ####[facility] Ujlzwqablk[address] [place], [place] [address]Dr. Melecio ChangRBC3.74 106/ulCritically low4.20-5.40The [facility]awnee HospitalComment on above:Performed By: #### CBC ####[facility] Vzrvcwbszo[address] [place], [place] [address]Dr.Melecio ChangWBC5.3 103/ulNormal4.0-11.0The [facility] PrebleComment on above:Performed By: #### CBC ####[facility] [id number] [place], [place] [address]Dr.Melecio McclellandCULTURE BLOODon [id number] examination of blood, cultureCulture Observations: NO GROWTH AT 5 DAYS.NormalThe [facility] PrebleComment on above:Performed By: #### [email or web address] ####[facility] [address] [place], [place] [address]Dr. Melecio McclellandMicroscopic examination of blood, cultureCulture Observations: NO GROWTH AT 5 DAYS.NormalThe [facility] PrebleComment on above:Performed By: #### [email or web address] ####[facility] [address] [place], [place] [address]Dr. Melecio McclellandCovid-19 PCR (CVDTBH)on [id number]-CoV-2 (COVID-19) RNA MEME+probe Ql (Unsp spec)DetectedAbnormalNOT DETECTEDThe [facility] Hospitalment on above:Result Comment: This test is not yet approved or cleared by the [place] FDA. When there are no FDA-approved or cleared tests available, and other criteria are met, FDA can make tests available under an emergency access mechanism called an Emergency Use Authorization (EUA). The EUA for this test is supported by the [employer] of [employer] and Human Service's declaration that circumstances exist to justify the emergency use of in vitro diagnostics for the detection and/or diagnosis of the virusthat causes COVID-19. This EUA will remain in effect for the duration of the COVID-19 declaration justifying emergency of IVDs, unless it is terminated or revoked by the FDA (after which the test mayno longer be used).Performed By: #### CVDTBH #### [facility] [address] [address] [address] Melecio LemonZA A AND B AGon 62-37-8861AQAZFPXPBBYYVBlanchard Valley Health System Blanchard Valley HospitalComment on above:Result Comment: Negative for Flu A protein angiten. Infection due to Flu A cannot be ruled out. FluA angiten in the sample may be below the detection limit of the test.Performed By: #### INFLUAB ####[facility] Bccfr[address] [place], [place] [address]DrBroderick BrandonUBNEGHSANKUR [facility]aritan North Health CenterComment on above:Result Comment: Negative for Flu B protein antigen. Infection due to Flu B cannot be ruled out. FluB antigen in the sample may be below the detection limit of the test.Performed By: #### INFLUAB ####[facility] Sbqrcqol[address] [place], [place] [address]DrBroderick GeorgeNZA A AGNegativeNormalNEGATIVE SEE COMMENTThe [facility] PrebleComment on above:Performed By: #### INFLUAB ####[facility] Rnlymzxbaf[address] [place], [place] [address]Dr. Melecio GeorgeNZA B AGNegativeNormalNEGATIVE SEE COMMENTTrinity Health System [facility] Comment on above:Performed By: #### INFLUAB ####[facility] Dtkeglvgqe[address] [place], [place] [address]DrBroderick McclellandLACTATE/LACTIC ACIDon 50-69-3639Eoolkwj [Moles/Vol]1.0 mmol/LNormal0.4-1.9The [facility] PrebleComment on above:Performed By: #### LACT ####[facility] Owlbnpgy[address] [place], [place] [address]Dr. Melecio MortensenF 14(COMP METB)on 53-33-8206Ptjgxbe [Mass/Vol]3.1 g/dLCritically low3.4-5.0The [facility] PrebleComment on above: Performed By: #### BNP, TSH, CMP, CMADM #### [facility] [address] [address] [address] Melecio McclellandAlbumin/Globulin [Mass ratio]1.0 {ratio}NormalThe [facility] PrebleComment on above:Performed By: #### BNP, TSH, CMP, CMADM #### [facility] [address] [address] [address] Melecio Bradshaw [Catalytic activity/Vol]100 U/NCerwgt81-882Vkn [facility] PrebleComment on above:Performed By: #### BNP, TSH, CMP, CMADM #### [facility] [address] [address] [address] eMlecio Chowdhury [Catalytic activity/Vol]35 U/DOezqoo02-16Zix [facility] PrebleComment on above:Performed By: #### BNP, TSH, CMP, CMADM #### [facility] [address] [address] [address] Melecio Mishra gap [Moles/Vol]12.1 mmol/LNormalThe [facility] Comment on above:Performed By: #### BNP, TSH, CMP, CMADM #### [facility] [address] [address] [address] Melecio McclellandAST [Catalytic activity/Vol]34 U/HXskyym12-16Pko [facility] Hospitalment on above:Performed By: #### BNP, TSH, CMP, CMADM #### [facility] [address] [address] [address] Melecio McclellandBilirubin [Mass/Vol]0.7 mg/dLNormal0.2-1.0The [facility] Comment on above:Performed By: #### BNP, TSH, CMP, CMADM #### [facility] [address] [address] [address] Melecio McclellandCalcium [Mass/Vol]8.8 mg/dLNormal8.5-10.1The [facility] Comment on above:Performed By: #### BNP, TSH, CMP, CMADM #### [facility] [address] [address] [address] Melecio McclellandChloride [Moles/Vol]105 mmol/XTvcnqy19-245ClfTrinity Health System [facility] Comment on above:Performed By: #### BNP, TSH, CMP, CMADM #### [facility] [address] [address] [address] Melecio McclellandCO2 [Moles/Vol]29.2 mmol/FHabbms90.0-32.0The [facility] Comment on above:Performed By: #### BNP, TSH, CMP, CMADM #### [facility] [address] [place] [address] Dr. Melecio McclellandCreatinine [Mass/Vol]1.09 mg/dLCritically high0.55-1.02The [facility] PrebleComment on above:Performed By: #### BNP, TSH, CMP, CMADM #### [facility] [address] [place] [address] Dr. Melecio SerratoGFR-AF XIZODSAH27 mL/min/1.19c0Vbjczgaxri low>=60The [facility] PrebleComment on above:Performed By: #### BNP, TSH, CMP, CMADM #### [facility] [address] [place] [address] Dr. Melecio SerratoGFR-NON AF XTNTXDNF95 mL/min/1.02q9Bwuelidosd low>=60The [facility] PrebleComment on above:Performed By: #### BNP, TSH, CMP, CMADM #### [facility] [address] [place] [address] Dr. Melecio McclellandGlobulin (S) [Mass/Vol]3.0 g/dLNormalThe [facility] PrebleComment on above:Performed By: #### BNP, TSH, CMP, CMADM #### [facility] [address] [place] [address] Dr. Melecio McclellandGlucose [Mass/Vol]92 mg/nAZwzrjv79-893SgqTrinity Health System [facility] Comment on above:Performed By: #### BNP, TSH, CMP, CMADM #### [facility] [address] [address] [address] Melecio McclellandPotassium [Moles/Vol]4.3 mmol/LNormal3.5-5.1[facility] Comment on above:Performed By: #### BNP, TSH, CMP, CMADM #### [facility] [address] [address] [address] Melecio McclellandProtein [Mass/Vol]6.1 g/dLCritically low6.4-8.2The [facility]bleComment on above:Performed By: #### BNP, TSH, CMP, CMADM #### [facility] [address] [address] [address] Melecio McclellandSodium [Moles/Vol]142 mmol/XSpafev923-189Loo [facility] Comment on above:Performed By: #### BNP, TSH, CMP, CMADM #### [facility] [address] [address] [address] Melecio McclellandUrea nitrogen [Mass/Vol]29.0 mg/dLCritically high7.0-18.0The [facility] PrebleComment on above:Performed By: #### BNP, TSH, CMP, CMADM #### [facility] [address] [address] [address] Melecio Fraser nitrogen/Creatinine [Mass ratio]26.6 mg/mgNoAdena Regional Medical CenterComment on above:Performed By: #### BNP, TSH, CMP, CMADM #### [facility] [address] [address] [address] Melecio DominguezIMEhalina 85-24-0205OVJ Coag (PPP) [Relative time]1.03 {INR} NormalTrinity Health System Twin City Medical CenterComment on above:Performed By: #### PT, PTT ####[facility] [address] [address]Dr. Melecio Bettencourt GUIDELINESSEE BELOWUC Medical CenterComment on above: Result Comment: DESIRED INR: 2.0 - 3.0 CONDITIONS NOT LISTED BELOW 2.5 - 3.5 FOR PROSTHETIC HEART VALVE REPLACEMENT 2.5 - 3.5 RECURRENT THROMBOSISPerformed By: #### PT, PTT ####[facility] [address] [place], [place] [address]Kt. Melecio McclellandPT Coag (PPP) [Time]10.9 sNormal9.0-11.6The [facility] PrebleComment on above:Performed By: #### PT, PTT ####[facility] [address] [id number]. Melecio McclellandPTTon 93-80-6990zCAA Coag (Bld) [Time]30.5 iWvzhak75.3-36.2The [facility] Comment on above:Performed By: #### PT, PTT ####[facility] [address] [id number]. Melecio McclellandTSHon 91-05-4776VBF9.361 uIU/mLNormal0.358-3.740The [facility] PrebleComment on above:Performed By: #### BNP, TSH, CMP, CMADM ####[facility] [address] [place], [place] [address]Bu. Melecio McclellandXR CHEST 1 Von 25-54-3064KY CHEST 1 V EXAMINATION: XR CHEST 1 V HISTORY: SHORTNESS OF BREATH COMPARISON: [...] should be considered. Electronically authenticated by: ANGELICA MAGDALENO Date: 2022-08-15 10:[address] [place], [place] [address]ECHOCARDIO M/2D COMPLETEon 87-32-3328DMSEXKKPZT M/2D COMPLETE Patient: ROLLY MOORE Exam Date: 02/01/2022 : 1940 Gender:F Ordering : SHAR KAUFMAN Admission #: [id number] Family : DR CINDI STEWART M.D. Order #: [id number] CLICK HERE TO VIEW EXAM ECHOCARDIOGRAM REPORT [...] by: Ken Burkett M.D. on 02/01/2022 at 21:28[facility] CenterUS KELLI DOP LEG BILon 24-89-6375YQ KELLI DOP LEG BILEXAMINATION: US KELLI DOP LEG JERRY HISTORY: Pain [...] thrombus left great saphenous vein and associated tributaries/varicosities *Exam performed in accordance with [facility] practice guidelines- Peripheral venous ultrasound, October 16, 2009. Electronically authenticated by: CODY GOMES Date: 2022-02-01 18:50UC Medical CenterVC VENOUS REFLUX JERRY LMTon 70-77-4428KC VENOUS REFLUX JERRY LMT Patient: ROLLY MOORE Exam Date: 01/11/2022 : 1940 Gender:F Ordering : SHAR KAUFMAN Admission #: [id number] Family : Order #: [id number] CLICK HERE TO VIEW EXAM RADIOLOGY REPORT [...] Varicosity in distal/medial lower leg off of apprenticeship consultant measures 7.8 mm with 0.8s reflux. incompetent [...] of thrombus. Flow: Mild deep venous reflux. Staff Anesthesiologist: Prox/med calf 4.4 mm with 3.7s reflux. Tech Note: GSV becomes tortuous approximately 9cm from SFJ. AASV is tortuous proximally with adjacent arteries. Thigh extension of left SSV. SSV is tortuous with non-occlusive thrombus mid calf. Thrombus visualized in varicosity and associated apprenticeship consultant medial/distal calf 6.4mm from PTV. Varicosity proximal/medial/posterior calf measures 4.5 mm with 1.2s reflux. CONCLUSION: 1. Right leg: Dilated and incompetent great saphenous vein, small saphenous vein, apprenticeship consultant veins, and branch saphenous varicosities. 2. Left leg: Dilated and incompetent great saphenous vein, anterior accessory saphenous vein, and branch saphenous varicosities. 3. Nonocclusive thrombus within superficial veins within the left calf. The patient is currently taking aspirin. Patient has been notified of these findings and the ordering physician will be notified. 4. Consultation for venous ablation is recommended. Dictated by: Angelica Magdaleno M.D. on 01/11/2022 at 11:31 Approved by: Angelica Magdaleno M.D. on 01/11/2022 at 11:39UC Medical CenterBNPon 21-56-3373Tdppnharqio peptide B (Bld) [Mass/Vol]192.0 pg/mLNormal <=1,800.0The [facility]bleComment on above:Performed By: #### CMP, BNP, LIPID #### [facility] [address] [place] [address] Dr. Melecio McclellandSAINT JOSEPH HOSPITAL AUTO DIFFon 27-27-4797MGTG #0.0 103/ulNormal0.0-0.1The [facility] PrebleComment on above:Performed By: #### CBC ####[facility] Mshfrofral[address] [place], [place] [address]Dr.Melecio ChangBasophils/100 WBC (Bld)0.4 %Normal0.2-2.0The [facility] PrebleComment on above:Performed By: #### CBC ####[facility] [address]qehwztp[address] [place], [place] [address]Dr.Yilan ChangEO #0.3 103/ulNormal0.0-0.7The Pawnee HospitalComment on above:Performed By: #### CBC ####[facility] Pxmdkgwlkm[address] [place], [place] [address]Dr.Isislan ChangEosinophils/100 WBC (Bld)2.9 %Normal 0.9-7.0The [facility] PrebleComment on above:Performed By: #### CBC ####[facility] Gjyndmdlch[address] [place], [place] [address]Dr.Isismartha Mcclelland Erythrocyte distribution width (RBC) [Ratio]13.1 %Ostpdp62.0-15.0The [facility] PrebleComment on above:Performed By: #### CBC ####[facility] Gmgabtivyp[address] [place], [place] [address]Dr.Melecio ChangHematocrit (Bld) [Volume fraction]38.4 %Eleoej86.0-48.0The [facility] PrebleComment on above:Performed By: #### CBC ####[facility] Niizoernoj[address] [place], [place] [address]Dr.Melecio ChangHemoglobin (Bld) [Mass/Vol]12.2 g/dL Mkjngn02.0-16.0The [facility] PrebleComment on above:Performed By: #### CBC ####[facility] Zqfzsyxnhq[address] [place], [place] [address]Dr. Yilan ChangIG #0.03 10e3/ulNormal0.00-0.03The [facility] PrebleComment on above: Performed By: #### CBC ####[facility] Wiozkzhdsw[address] [place], [place] [address]Dr.Yilan ChangIG %0.3 %Normal0.0-0.5The [facility] PrebleComment on above:Performed By: #### CBC ####[facility] Ehrbafsibd[address] [place], [place] [address]Dr.Melecio NikitaMPH #1.8 103/ulNormal1.2-3.8The [facility] PrebleComment on above:Performed By: #### CBC ####[facility] Gjtubdtbsi[address] [place], [place] [address]Dr. Melecio StasLymphocytes/100 WBC (Bld)19.3 %Critically low20.5-60.0The [facility] PrebleComment on above:Performed By: #### CBC ####[facility] Ngjrcqqize[address] [place], [place] [address]Dr.Melecio McclellandMANUAL DIFF REQ NONormalThe [facility] PrebleComment on above:Performed By: #### CBC ####[facility] Dynpcumyjd[address] [place], [place] [address]Dr. Melecio McclellandFAXTON HOSPITAL (RBC) [Entitic mass]30.2 osTczwvt85.7-34.0The [facility] Comment on above:Performed By: #### CBC ####[facility] [address]wjscsly[address] [place], [place] [address]Dr.Melecio McclellandHC (RBC) [Mass/Vol]31.8 g/dL Bboelc21.9-35.2The [facility] PrebleComment on above:Performed By: #### CBC ####[facility] Pvdcchsiof[address] [place], [place] [address]Dr. Melecio McclellandV (RBC) [Entitic vol]95.0 eTWsayio49.0-99.0The [facility] Comment on above:Performed By: #### CBC ####[facility] Vizmgwsfaj[address] [place], [place] [address]DrJaycee McclellandMONO #0.5 103/ulNormal0.3-0.8 The [facility] PrebleComment on above:Performed By: #### CBC ####[facility] Vveayxkcli[address] [place], [place] [address]Dr.Melecio Mcclelland Monocytes/100 WBC (Bld)4.9 %Normal1.7-12.0The [facility] PrebleComment on above: Performed By: #### CBC ####[facility] [address] [address]Dr.Melecio McclellandNEUT #6.6 103/ulCritically high1.4-6.5 The [facility] PrebleComment on above:Performed By: #### CBC ####[facility] [address]jvmrfnqox[address] [place], [place] [address]Dr.Melecio Mcclelland Neutrophils/100 WBC (Bld)72.2 %Ogmdxb37.0-75.0The [facility] PrebleComment on above:Performed By: #### CBC ####[facility] Drplxyutdy[address] [place], [place] [address]Dr.Melecio McclellandPlatelet mean volume (Bld) [Entitic vol] 10.6 fLNormal9.5-13.5The [facility] PrebleComment on above:Performed By: #### CBC ####[facility] Cmfhjkjjgt[address] [place], [place] [address]Dr. Melecio McclellandPLT186 103/hkHiirdv628-415Qog [facility]bleComment on above: Performed By: #### CBC ####[facility] Qtliwvopvv[address] [place], [place] [address]Dr.Melecio McclellandRBC4.04 106/ulCritically low4.20-5.40The [facility] PrebleComment on above:Performed By: #### CBC ####[facility] Sksmlnmgbm[address] [place], [place] [address]Dr.Melecio McclellandWBC9.2 103/ul Normal4.0-11.0The [facility] PrebleComment on above:Performed By: #### CBC ####[facility] Sc[address]llgmoyx[address] [place], [place] [address]Dr. Melecio McclellandLIPID PROFILEon 72-14-7168KIQH-HDL RATIO NORMSEE BELOWNormalThe [facility] PrebleComment on above:Result Comment: 3.3 - 4.4 LOW RISK 4.4 - 7.1 AVERAGE RISK 7.1 - 11.0 MODERATE RISK >11.0 HIGH RISKPerformed By: #### CMP, BNP, LIPID #### [facility] [address] [address] [address] Melecio McclellandCholesterol [Mass/Vol]101 mg/dLNormal<=200[facility] Comment on above:Performed By: #### CMP, BNP, LIPID #### [facility] [address] [place] [address] Dr. Melecio McclellandCholesterol in HDL [Mass/Vol]49 mg/kXYxmnhv21-61Eow [facility] PrebleComment on above:Performed By: #### CMP, BNP, LIPID #### [facility] [address] [place] [address] Dr. Melecio Whartonesterol in LDL [Mass/Vol]43.6 mg/dLUC Medical CenterComment on above:Performed By: #### CMP, BNP, LIPID #### [facility] [address] [place] [address] Dr. Melecio Whartonesterrey.total/Cholesterol in HDL [Mass ratio]2.1 {ratio} NormalTrinity Health System Twin City Medical CenterComment on above:Performed By: #### CMP, BNP, LIPID #### [facility] [address] [place] [address] Dr. Melecio Silverman NORMAL> or = 60 mg/dl - LOW CARDIOVASCULAR RISK <40 mg/dl - HIGH CARDIOVASCULAR RISKUC Medical CenterComment on above:Performed By: #### CMP, BNP, LIPID #### [facility] [address] [place] [address] Dr. Melecio Jensen CALC NORMALSEE BELOWUC Medical CenterComment on above:Result Comment: <100 mg/dl OPTIMAL 100 - 129 mg/dl NEAR OR ABOVE OPTIMAL 130 - 159 mg/dl BORDERLINE HIGH 160 - 189 mg/dl HIGH >190 mg/dl VERY HIGH Performed By: #### CMP, BNP, LIPID #### [facility] [address] [place] [address] Dr. Melecio McclellandTriglyceride [Mass/Vol]42 mg/dLNormal<=150The [facility] Comment on above:Performed By: #### CMP, BNP, LIPID #### [facility] [address] [address] [address] Melecio LawsonLDL CALC8.4 mg/dLNormalThe [facility] PrebleComment on above: Performed By: #### CMP, BNP, LIPID #### [facility] [address] [address] [address] Melecio McclellandPROF 14(COMP METB)on 58-80-1279Mgmiimh [Mass/Vol]3.5 g/dLNormal 3.4-5.0The [facility] PrebleComment on above:Performed By: #### CMP, BNP, LIPID #### [facility] [address] [place] [address] Dr. Melecio McclellandAlbumin/Globulin [Mass ratio]1.2 {ratio}NormalThe [facility] PrebleComment on above:Performed By: #### CMP, BNP, LIPID #### [facility] [address] [place] [address] Dr. Melecio Bradshaw [Catalytic activity/Vol]111 U/OUjyjga70-277Zpv [facility] PrebleComment on above:Performed By: #### CMP, BNP, LIPID #### [facility] [address] [place] [address] Dr. Melecio Chowdhury [Catalytic activity/Vol]34 U/XUrydid47-54Anv [facility] PrebleComment on above:Performed By: #### CMP, BNP, LIPID #### [facility] [address] [address] [address] Melecio Mishra gap [Moles/Vol]13.5 mmol/LNormalThe [facility] Comment on above:Performed By: #### CMP, BNP, LIPID #### [facility] [address] [place] [address] Dr. Melecio Chaparro [Catalytic activity/Vol]22 U/TWitsyd96-04Ccj [facility] PrebleComment on above:Performed By: #### CMP, BNP, LIPID #### [facility] [address] [place] [address] Dr. Yilan ChangBilirubin [Mass/Vol]1.2 mg/dLNormal0.2-1.3The [facility] Comment on above:Performed By: #### CMP, BNP, LIPID #### [facility] [address] [address] [address] Melecio McclellandCalcium [Mass/Vol]9.0 mg/dLNormal8.5-10.1The [facility] Comment on above:Performed By: #### CMP, BNP, LIPID #### [facility] [address] [place] [address] Dr. Melecio McclellandChloride [Moles/Vol]110 mmol/LCritically ewhc27-747Yck [facility] PrebleComment on above:Performed By: #### CMP, BNP, LIPID #### [facility] [address] [place] [address] Dr. Melecio McclellandCO2 [Moles/Vol]25.5 mmol/ROpavsz56.0-30.0The [facility] Comment on above:Performed By: #### CMP, BNP, LIPID #### [facility] [address] [place] [address] Dr. Melecio McclellandCreatinine [Mass/Vol]1.02 mg/dLNormal0.52-1.04The [facility] PrebleComment on above:Performed By: #### CMP, BNP, LIPID #### [facility] [address] [place] [address] Dr. Melecio SerratoGFR-AF CZECH>60Normal>=60The [facility] PrebleComment on above:Performed By: #### CMP, BNP, LIPID #### [facility] [address] [place] [address] Dr. Melecio SerratoGFR-NON AF RYIOVLCF04 mL/min/1.84g0Sccdsrizrb low>=60The [facility] PrebleComment on above:Performed By: #### CMP, BNP, LIPID #### [facility] [address] [place] [address] Dr. Melecio McclellandGlobulin (S) [Mass/Vol]3.0 g/dLNormalThe [facility] PrebleComment on above:Performed By: #### CMP, BNP, LIPID #### [facility] [address] [address] [address] Melecio McclellandGlucose [Mass/Vol]93 mg/eGPyntef10-634BpcTrinity Health System [facility] Comment on above:Performed By: #### CMP, BNP, LIPID #### [facility] [address] [address] [address] Melecio McclellandPotassium [Moles/Vol]4.0 mmol/LNormal3.4-5.0The [facility] Comment on above:Performed By: #### CMP, BNP, LIPID #### [facility] [address] [address] [address] Melecio McclellandProtein [Mass/Vol]6.5 g/dLNormal6.1-8.2[facility] Comment on above:Performed By: #### CMP, BNP, LIPID #### [facility] [address] [address] [address] Melecio McclellandSodium [Moles/Vol]145 mmol/ERmjhgc599-325Esm [facility] Comment on above:Performed By: #### CMP, BNP, LIPID #### [facility] [address] [address] [address] Melecio McclellandUrea nitrogen [Mass/Vol]20.0 mg/dLCritically high7.0-18.0[facility] Medical CenterComment on above:Performed By: #### CMP, BNP, LIPID #### [facility] [address] [address] [address] Melecio Fraser nitrogen/Creatinine [Mass ratio]19.6 mg/mgNormalThe [facility] PrebleComment on above:Performed By: #### CMP, BNP, LIPID #### [facility] [address] [address] [address] Melecio Shaver CAROTID ART BILon 49-51-4963UF CAROTID ART BILEXAMINATION: US CAROTID ART JERRY HISTORY: Cardiovascular symptoms [...] >70 >225 >4.0 Electronically authenticated by: ANGELICA MAGDALENO Date: 2021-10-12 13:56UC Medical CenterCardiovascular Lab Reporton 56-85-4466Iaovvmkftcxulo Lab Report [facility] Patient Name: [facility] Rolly MR #: [id number] Department of Physician: Lorraine Harrison M.D. Division of Service Date: 06/16/2019 Cardiology Birthdate: 1940 Adult Cardiovascular Room #: [facility] [address] [facility] [place]. [place] [id number] Cardiovascular Laboratory Report FINAL IMPRESSIONS: 1. Moderate [...] up with me in the [facility] in the next 2 months. 6. Follow [...] right internal jugular vein was obtained. A 6-Rwandan 11 cm sheath was inserted without difficulty. [...] to access the right radial artery. A 6-[place]wandan Glidesheath was inserted without difficulty. Resistance advancing [...] engaged into the left main ostium. The Modulus Video pressure wire was advanced through the catheter [...] Ramirez M.D. Date Trans: 06/17/2019 05:53 Jose/ryan DN_JN:[id number] Health Vital Signs Date TimeVital SignValuePerforming TkolgznqoMeafrdsy31-33-3740 13:29-0400Body tervlh093.6 cmMami Bryan MD Work Phone: noPutnam County Memorial [phone] 13:29-0400Body mass index (BMI) [Ratio]25.75 kg/v9ZvftdafMami Bryan MD Work Phone: noPutnam County Memorial HospitalEgodcvybgc57-50-6771 13:29-0400Body .04 kgMami Bryan MD Work Phone: [address] [place], [place] [address]Fadrfzqtrk81-76-8766 13:29-0400Diastolic blood ubzvocqq35 mm[Hg]Mami Bryan MD Work Phone: [phone] Siteman Cancer CenterFzcqsghtcd97-79-3105 13:29-0400Systolic blood tbrxystv022 mm[Hg]Mami Bryan MD Work Phone: [phone]. Sitem[facility] Cancer CenterAacqunamkc42-92-7009 10:17-0400Body uxnhgk967.02 cmCindi Stewart MD Work Phone: [phone]09-12-2025 10:17-0400 Body mass index (BMI) [Ratio]25.1 kg/w0EwxehuCindi Stewart MD Work Phone: [phone] [place], [place] [address]109-12-2025 10:17-0400 Body otrzdq05.41 kgCindi Stewart MD Work Phone: [phone] [place], [place] [address]109-12-2025 10:17-0400 Diastolic blood ardecfoj21 mm[Hg]Cindi Stewart MD Work Phone: [phone] [place], [place] [address]109-12-2025 10:17-0400 Heart rate67 /Farrah Stewart MD Work Phone: [phone] [place], [place] [address]109-12-2025 10:17-0400 Respiratory rate14 /Farrha Stewart MD Work Phone: [phone] [place], [place] [address]109-12-2025 10:17-0400 SaO2% (BldA) [Mass fraction]93 %Cindi Stewart MD Work Phone: [phone] [place], [place] 3515109-12-2025 10:17-0400 Systolic blood uxqxamfw911 mm[Hg]Cindi Stewart MD Work Phone: [phone] [place], [place] 3515107-07-2025 14:51-0400 Body zduwfo569.6 cmMami Bryan MD Work Phone: [facility] CenterSqylvaogvr54-57-7736 14:51-0400Body mass index (BMI) [Ratio]25.75 kg/z4PsyjsjwMami Bryan MD Work Phone: [facility] CenterMinyqmtznj56-86-6343 14:51-0400Body sxrjxo76.04 kgMami Bryan MD Work Phone: [facility] CenterBejcwrvayx07-61-9644 13:02-0400Body wfszqi262.6 cmMami Bryan MD Work Phone: [facility] CenterZkpclazbqt64-39-1066 13:02-0400Body mass index (BMI) [Ratio]26.09 kg/y7ZbmhlowMami Bryan MD Work Phone: [facility] CenterStjmfdbepk84-10-1453 13:02-0400Body .95 kgMami Bryan MD Work Phone: [facility] CenterHkdwkprzeq60-31-2747 11:06-0400Body jafkvc550.02 cmSrustam Traylor MD Work Phone: [phone])[address]04-23-2025 11:06-0400 Body mass index (BMI) [Ratio]26.4 kg/m2Khari Traylor MD Work Phone: [phone])824-[address] [place], [place] 0445004-23-2025 11:06-0400 Body sxkixz21.64 kgKhari Traylor MD Work Phone: 1(307)[address]04-23-2025 11:06-0400 Diastolic blood muxzhlim83 mm[Hg]Khari Traylor MD Work Phone: 1(129)842-[address] [place], [place] 0445004-23-2025 11:06-0400 Heart rate73 /minSrustam Traylor MD Work Phone: 1(555)890-[address] [place], [place] 0445004-23-2025 11:06-0400 Systolic blood yhaetpnw85 mm[Hg]Khari Traylor MD Work Phone: [phone])[address]03-05-2025 14:36-0500 Body mass index (BMI) [Ratio]26.09 kg/u5Zxwrnjrjmti Lee DO Work Phone: [facility] CenterYomitcpgew28-61-1860 14:36-0500Body xgqeha35.95 kgChristopher Lee DO Work Phone: [facility] CenterGyhcztvvub70-91-8873 14:36-0500Diastolic blood nmupexhy98 mm[Hg]Kay Howard DO Work Phone: [facility] CenterVabczrmimy95-75-4828 14:36-0500Heart rate48 /min Kay Howard DO Work Phone: [facility] CenterVciiwqixkr47-56-0196 14:36-1117LeU8% (BldA) [Mass fraction]98 %Kay Howard DO Work Phone: [facility] CenterWzbqwtzlkh95-56-4926 14:36-0500Systolic blood xcosusdp148 mm[Hg]Kay Howard DO Work Phone: [facility] CenterZnjdhxbesd00-76-6222 14:03-0500Body mass index (BMI) [Ratio]26.26 kg/b9FuloytKavita Allison [employer] Work Phone: [facility] CenterSkvnqfonwd00-33-6218 14:03-0500Body xmybus47.4 kg Kavita Allison [employer] Work Phone: [facility] CenterHcdvwusrik78-51-6402 14:03-0500Diastolic blood kucuwgsw79 mm[Hg]Kavita Allison [employer] Work Phone: [facility] CenterMaiqhltxrd45-97-1702 14:03-0500Heart rate78 /min Kavita Allison [employer] Work Phone: [facility] CenterYligcjmzfl35-61-4285 14:03-0500Systolic blood hlrdzxby936 mm[Hg]Kavita Allison [employer] Work Phone: [facility] CenterQzufteyqah80-84-6888 13:25-0500Body .02 [facility] 13:25-0500Body mass index (BMI) [Ratio]26.9 kg/a3AzbznuhzeChillicothe Hospital01-23-2025 13:25-0500Body eukyhm78 kgChillicothe Hospital01-23-2025 13:25-0500Diastolic blood rgelmuxp22 mm[Hg][facility]01-23-2025 13:25-0500Heart rate63 /[facility]01-23-2025 13:25-2627GdH9% (BldA) [Mass fraction]97 %[facility]01-23-2025 13:25-0500 Systolic blood paultwzq961 mm[Hg][facility]10-16-2024 14:04-0400Body mass index (BMI) [Ratio]28.84 kg/c9XqqlehKavita Allison [employer] Work Phone: [facility] CenterBzxacnnktl83-33-6257 14:04-0400Body bsfyyt67.2 kg Kavita Allison [employer] Work Phone: [facility] CenterMlihxsrvlv86-67-4162 14:04-0400Diastolic blood mpygdvtf92 mm[Hg]Kavita Allison [employer] Work Phone: [facility] CenterJwjuyhjuek40-84-7946 14:04-0400Heart rate57 /min Kavita Allison [employer] Work Phone: [facility] CenterOuggppnvxx35-57-9084 14:04-0400Systolic blood fhrrukhn223 mm[Hg]Kavita Allison [employer] Work Phone: [facility] CenterNthgramozo09-27-3627 13:08-0400Body qrnaqj154.02 cmCh[facility]icothe Hospital10-15-2024 13:08-0400Body mass index (BMI) [Ratio]28.5 kg/v0MkhgskyykChillicothe Hospital10-15-2024 13:08-0400Body urjomx73.08 kgChillicothe Hospital10-15-2024 13:08-0400Diastolic blood fupcyebv94 mm[Hg][facility]10-15-2024 13:08-0400 Heart rate48 /[facility]10-15-2024 13:08-0400 Respiratory rate16 /[facility]10-15-2024 13:08-0400 SaO2% (BldA) [Mass fraction]98 %[facility]10-15-2024 13:08-0400Systolic blood zfeyjsfn078 mm[Hg][facility] 02-04-2024 10:45-0400Body cstyuw174.02 cmMD Cindi Stewart Work Phone: 1([phone])[address]07-15-2024 10:45-0400 Body mass index (BMI) [Ratio]30.4 kg/m2MD Cindi Stewart Work Phone: [phone])[address]07-15-2024 10:45-0400 Body qfjmyj44.01 kgMD Cindi Stewart Work Phone: 1(923)[address]07-15-2024 10:45-0400 Diastolic blood lfypybnd11 mm[Hg]MD Cindi Stewart Work Phone: 1(725)[address]07-15-2024 10:45-0400 Heart rate62 /minMD Cindi Stewart Work Phone: 1(784)[address]07-15-2024 10:45-0400 Systolic blood miyeeiwa06 mm[Hg]MD Cindi Stewart Work Phone: 1(026)[address]05-16-2024 14:44-0400 Body .02 cmMD Cindi Stewart Work Phone: 1(041)[address]05-16-2024 14:44-0400 Body mass index (BMI) [Ratio]31.6 kg/m2MD Cindi Stewart Work Phone: 1(682)[address]05-16-2024 14:44-0400 Body bgcmif65.19 kgMD Cindi Stewart Work Phone: 1(839)[address]05-16-2024 14:44-0400 Diastolic blood bjyguxuf61 mm[Hg]MD Cindi Stewart Work Phone: 1(148)[address]05-16-2024 14:44-0400 Heart rate50 /minMD Cindi Stewart Work Phone: 1(161)[address]05-16-2024 14:44-0400 Systolic blood rbghenzh01 mm[Hg]MD Cindi Stewart Work Phone: 1(385)[address]05-13-2024 10:41-0400 Body .02 cmMD Cindi Stewart Work Phone: 1(811)[address]05-13-2024 10:41-0400 Body mass index (BMI) [Ratio]31.5 kg/m2MD Cindi Stewart Work Phone: [facility]05-13-2024 10:41-0400 Body epktpcayacf96.2 [degF]MD Cindi Stewart Work Phone: [facility]05-13-2024 10:41-0400 Body ufpktm63.73 kgMD Cindi Stewart Work Phone: [facility]05-13-2024 10:41-0400 Heart hljm145 /minMD Cindi Stewart Work Phone: [facility]05-13-2024 10:41-0400 Respiratory rate18 /minMD Cindi tSewart Work Phone: [facility]05-13-2024 10:41-0400 SaO2% (BldA) [Mass fraction]92 %MD Cindi Stewart Work Phone: [facility]03-14-2024 14:22-0400 Body dgoqef317.94 cmChillicothe Hospital03-14-2024 14:22-0400Body mass index (BMI) [Ratio]36.9 kg/i5GetxnxaatChillicothe Hospital03-14-2024 14:22-0400Body lunqnf39.67 kgChillicothe Hospital03-14-2024 14:22-0400Diastolic blood lhlzipwy54 mm[Hg][facility] 10-04-2023 14:22-0400Heart rate50 /minChillicothe Hospital 10-04-2023 14:22-0400Systolic blood mm[Hg][facility]12-14-2023 11:45-0500Body .94 cmCindi Stewart Other [employer] Other [phone] 11:45-0500Body mass index (BMI) [Ratio] 37.67 kg/q3LjlyrtCindi Stewart Other [employer] Other 12-14-2023 11:45-0500Body vqbtde37.45 kgCindi Stewart Other [employer] Other 12-14-2023 11:45-0500Diastolic blood kdajhzgf85 mm[Hg] Cindi Stewart Other [employer] Other 12-14-2023 11:45-0500Systolic blood esyqkmrz328 mm[Hg] Cindi Stewart Other [employer] Other 09-14-2023 10:00-0400Body lfyxfq285.94 cmCindi Stewart Other [employer] Other 09-14-2023 10:00-0400Body mass index (BMI) [Ratio] 39.79 kg/i5KanyueCindi Stewart Other [employer] Other 09-14-2023 10:00-0400Body .53 kgCindi Stewart Other [employer] Other 09-14-2023 10:00-0400Diastolic blood hzzwolnl55 mm[Hg] Cindi Stewart Other [employer] Other 09-14-2023 10:00-0400Respiratory rate12 /minCindi Stewart Other [employer] Other 09-14-2023 10:00-0400Systolic blood uwsbarug192 mm[Hg] Cindi Stewart Other [employer] Other 06-15-2023 10:00-0400Body mcucoj315.94 cmCindi Stewart Other [employer] Other 06-15-2023 10:00-0400Body mass index (BMI) [Ratio] 40.62 kg/y0GrnvzwCindi Stewart Other [employer] Other 06-15-2023 10:00-0400Body .52 kgCindi Stewart Other [employer] Other 06-15-2023 10:00-0400Diastolic blood tzyrjoqv18 mm[Hg] Cindi Stewart Other [employer] Other 06-15-2023 10:00-0400Systolic blood wgpgvocl403 mm[Hg] Cindi Stewart Other [employer] Other 03-16-2023 11:00-0400Body edgvwu972.94 cmCindi Stewart Other [employer] Other 03-16-2023 11:00-0400Body mass index (BMI) [Ratio] 41.56 kg/n3DtjwwvCindi Stewart Other [employer] Other 03-16-2023 11:00-0400Body ongina92.79 kgCindi Stewart Other [employer] Other 03-16-2023 11:00-0400Diastolic blood onttvjjq77 mm[Hg] Cindi Stewart Other [employer] Other 03-16-2023 11:00-9848KiW1% (BldA) [Mass fraction]97 % Cindi Stewart Other [employer] Other 03-16-2023 11:00-0400Systolic blood lhcfytxq278 mm[Hg] Cindi Stewart Other [employer] Other 02-09-2023 11:00-0500Body .56 cmCindi Stewart Other [employer] Other 02-09-2023 11:00-0500Body mass index (BMI) [Ratio] 38.62 kg/l6GxbmtzCindi Stewart Other [employer] Other 02-09-2023 11:00-0500Body zwupqy895.06 kgCindi Stewart Other [employer] Other 02-09-2023 11:00-0500Diastolic blood kbwoceww51 mm[Hg] Cindi Stewart Other [employer] Other 02-09-2023 11:00-0500Systolic blood nmtsupzn000 mm[Hg] Cindi Stewart Other [employer] Other Encounters Encounter DateEncounter TypeCare ProviderFacilityStart: 06-03-2025 End: 36-43-4280bccbkbfsmoVBOZCrystal Clinic Orthopedic Centertart: 05-13-2025 End: 49-10-8156Kijkqks encounter procedureCindi Stewart MD-[facility] Work Phone: Start: 05-13-2025 End: 24-49-7130uorpandanrXsywhz E Braun MD Work Phone: -fpg [facility] Tylertart: 05-13-2025 End: 79-76-3513Yskvzqhk ReferredCindi Stewart MD-[facility] [place] Work Phone: Start: 04-30-2025 End: 49-60-8467Vzztqv flowsheetMami Bryan MD Work Phone: [facility] BM NEUROLOGYStart: 04-30-2025 End: 91-25-6121Ffsqom flowsheetMami Bryan MD Work Phone: noms NEUROLOGYStart: 04-30-2025 End: 67-66-2578Dgqenv outpatient visit 25 minutesMami Bryan MD Work Phone: noms Francisca NeurologyComment on above:Hallucinations (Primary Dx); Parkinson's disease without dyskinesia, with fluctuating manifestations (HCC) Start: 04-30-2025 End: 54-89-9759corguimnnbIPEAYFH W BAUERNot AvailableStart: 04-03-2025 End: 28-58-1577estznwexqeDjlnar E Braun MD Work Phone: [facility] Work Phone: Start: 04-03-2025 End: 96-73-9688Txkkavw encounter procedureCindi Stewart MD-[facility] Work Phone: Start: 02-19-2025 End: 54-24-7641dwqkunsuvlPmvskn [facility] Work Phone: Start: 02-19-2025 End: 70-34-6293Ewmwgftr ReferredCindi Stewart MD-[facility] [place] [facility] Start: 02-10-2025 End: 47-85-6115Prtcamell encounterMami Bryan MD Work Phone: noms [facility] NEURO 210Start: 01-26-2025 End: 97-63-3386Oqvvjr outpatient visit 25 minutesMami Bryan MD Work Phone: noms [facility] NEURComment on above:Parkinson's disease without dyskinesia or fluctuating manifestations (HCC); HallucinationsStart: 01-26-2025 End: 10-79-9185qkqxtemunvXLBVKAF W BAUERNot AvailableStart: 01-26-2025 End: 24-85-3670Tqpgnp Armando Bryan MD Work Phone: noms NEUROLOGYStart: 01-26-2025 End: 59-72-4620Tdluzp Armando Bryan MD Work Phone: noms NEUROLOGYStart: 01-06-2025 End: 91-49-9906pqlleodlofBQIACrystal Clinic Orthopedic Centertart: 11-25-2024 End: 12-58-2084Snpfqllfx encounterMami Bryan MD Work Phone: noms [facility] NEURO 210Start: 11-25-2024 End: 97-91-8734yhzykjrhrzWQWRCrystal Clinic Orthopedic Centertart: 11-21-2024 End: 23-45-9385Nzajwqute Bryan MD Work Phone: noms NEUROLOGYStart: 11-21-2024 End: 33-01-3696Hhmapbmonica Bryan MD Work Phone: noms NEUROLOGYStart: 11-21-2024 End: 22-81-8155nnvqdluwwmZJEJUBB W BAUERNot AvailableStart: 11-21-2024 End: 74-28-6968Nldirb outpatient visit 25 minutesBrematt Bryan MD Work Phone: noms SWS NEURComment on above:Parkinson's disease without dyskinesia or fluctuating manifestations (CMS/HCC) (Primary Dx); HallucinationsStart: 11-20-2024 End: 95-44-9886rdbpgjoaypQyhjex E [facility] Work Phone: Start: 11-20-2024 End: 57-02-8250Drajldpi ReferredKhari Traylor MD Work Phone: [facility] [place] HospStart: 11-12-2024 End: 19-05-6208uwnmukfzlxVypl Husain MD Work Phone: [facility] Work Phone: Start: 11-12-2024 End: 56-81-6282Xytvxck encounter procedureSyed Layton ACUNA Work Phone: [facility] Work Phone: Start: 93-07-7355Lmz-patient / Non-visitSyed Layton ACUNA Work Phone: [facility] Work Phone: Start: 11-03-2024 End: 14-54-8607emzdngvuvfJjov [facility] Work Phone: Start: 11-03-2024 End: 90-07-7797Yhafnita ReferredSyed Layton ACUNA Work Phone: [facility] [place] HospStart: 48-63-0267Kwd-patient / Non-visitSyed Layton ACUNA Work Phone: [facility] Work Phone: Start: 10-07-2024 End: 61-36-2367ycyhbsxjezBJRJZXZ [facility] Hospitaltart: 09-24-2024 End: 52-82-2084Okorab outpatient visit 15 minutesChristopher Lee DO Work Phone: aNA BELLEVUEComment on above:Memory lossStart: 09-24-2024 End: 78-74-5249Cdfieb flowsheetChristopher Lee DO Work Phone: aNA BELLEVUEStart: 09-24-2024 End: 73-47-3503Cfoqbm flowsheetChristopher Lee DO Work Phone: aNA BELLEVUEStart: 09-24-2024 End: 29-22-9952cakgolvjucGDCQIMSXVSZ HASSETTNot AvailableStart: 08-19-2024 End: 31-09-1601Bllakn outpatient visit 15 minutesKavita Allison NP Work Phone: aNA BELLEVUEComment on above:Parkinson's disease without dyskinesia or fluctuating manifestations (CMS/HCC) (Primary Dx); Dizziness; Bilateral carpal tunnel syndromeStart: 08-19-2024 End: 87-73-1532Jszcmm Juan Allison [employer] Work Phone: aNA LISAEVUEStart: 08-19-2024 End: 85-73-1702Dypjrk Juan Allison [employer] Work Phone: ana BELLEVUEStart: 08-19-2024 End: 95-32-0162esijeksdetCBLPWY Debra AvailableStart: 08-14-2024 End: 46-84-1279fvecqfixhjYqroyqrmySelect [facility] Work Phone: Start: 08-14-2024 End: 95-54-3351Amffumx encounter procedureLifecare [facility] Work Phone: Start: 05-07-2024 End: 55-99-0740Grvybd Juan Allison CH[employer] Work Phone: [facility] [place] [address] R[address]TEStart: 05-07-2024 End: 21-43-1359Wswsne Juan Allison CH[employer] Work Phone: [facility] [place] [address] R[address]TEStart: 05-07-2024 End: 74-43-2008Pkdjok outpatient visit 15 minutesKavita Allison CH[employer] Work Phone: [facility] [place] [address] ROUTEComment on above:Parkinson's disease without dyskinesia or fluctuating manifestations (CMS/HCC) (Primary Dx); Dizziness; Bilateral carpal tunnel syndromeStart: 05-07-2024 End: 78-53-3582hknrxhhxvoHZAUXK MORRISNot AvailableStart: 05-06-2024 End: 72-33-5109jnydkrbhloSpjcnwykuSelect [facility] Work Phone: Start: 05-06-2024 End: 76-52-4460Dhnxlsm encounter procedureLifecare [facility] Work Phone: Start: 02-04-2024 End: 62-31-3093ayecjlkoumWP Cindi Stewart Work Phone: [place] [address] Work Phone: Start: 02-04-2024 End: 52-11-7606Xovmhjk encounter procedureMD Cindi Stewart Work Phone: [facility] GroupUniversity [facility]als [facility] Work Phone: Start: 02-04-2024 End: 77-72-6932Qlewyxmi examinationMD Cindi Stewart Work Phone: [facility] Centertart: 93-37-7266Vdu- patient / Non-visitMD Cindi Stewart Work Phone: [facility] GroupCon[facility] Work Phone: Start: 01-30-2024 End: 79-20-8577Oqxwccyhv Result EncounterKavita Allison [employer] Work Phone: noms External Department UnsolicitedStart: 01-30-2024 End: 15-83-4996Rqpbgazxy Result EncounterKavita Allison [employer] Work Phone: noms External Department UnsolicitedStart: 01-29-2024 Non-patient / Non-visitMD Cindi Stewart Work Phone: [facility] Physician [facility] Professional [facility] Work Phone: Start: 12-06-2023 End: 90-24-6916Rfmmwfw encounter procedureMD Cindi Stewart Work Phone: [facility] GroupUniversity [facility]als [facility] Work Phone: Start: 12-03-2023 End: 47-55-1053vuhdqxftnmZE Cindi Stewart Work Phone: [facility] Work Phone: Start: 12-03-2023 End: 24-23-1135Czxkelx encounter procedureMD Cindi Stewart Work Phone: [facility] Work Phone: Start: 12-03-2023 End: 13-05-1009spxkwvowtwQZ Cindi Stewart Work Phone: [facility] Work Phone: Start: 12-03-2023 End: 18-85-2260Axldpnc encounter procedureMD Cindi Stewart Work Phone: [facility] [place] Work Phone: Start: 10-04-2023 End: 31-73-0676xocxmelwdyAqrvgagnc [facility] Work Phone: Start: 10-04-2023 End: 78-89-8360Tkqiozr encounter procedureLifecare Hospitals Of [facility] Medical [facility] Work Phone: Start: 07-11-2023 End: 99-49-8084jzkjvnmjmwAxcxln Braun Other [employer] Other Start: 64-79-4880Mmyiumxhs encounterMarcia TerryParkwood Hospital ClinicStart: 07-10-2023 End: 34-32-7383kzbtvekavrUcjdwu Terry Other [employer] Other Start: 52-03-6284Xvynjaler encounterMarcia TerryParkwood Hospital ClinicStart: 07-09-2023 End: 26-31-6810mxlueqlefdZdrdtf Terry Other [employer] Other Start: 57-33-5835Hqxpifdhm encounterMarcia TerryParkwood Hospital ClinicStart: 07-05-2023 End: 52-48-5351bgavtpimgdAremsm Terry Other [employer] Other Start: 89-20-1060Xzajcl outpatient visit 25 minutes Cindi TerryParkwood Hospital ClinicStart: 60-76-6298Lfnrwkwht encounterMarcia TerryParkwood Hospital ClinicStart: 04-17-2023 End: 32-18-5657meekbtugbvHyokre Stewart Other [employer] Other Start: 05-69-1723Tdolriugm encounterMarcia M[facility] ClinicStart: 04-10-2023 End: 60-11-4535lticusiggkXozxar Stewart Other [employer] Other Start: 51-32-4083Engpmebze encounterMarcia Mihir [facility] ClinicStart: 04-05-2023 End: 64-35-0603eqfiqvpgavTvfaif Stewart Other [employer] Other Start: 51-20-0925Tqdsqk outpatient visit 15 minutes Cindi [facility] ClinicStart: 01-04-2023 End: 36-84-5271kqspvwpjtuFioacw Stewart Other [employer] Other Start: 81-34-8966Vgkaca outpatient visit 15 minutes Cindi [facility] ClinicStart: 10-05-2022 End: 93-84-6006grnnhhohnlQqkxhg Stewart Other [employer] Other Start: 82-44-3466Jvbowv outpatient visit 15 minutes Cindi [facility] ClinicStart: 43-25-7813Pmhunekpi encounterMarcia ChandlerG [facility] ClinicStart: 09-01-2022 End: 37-87-7960rxpjgbdkhzDX CINDI E ETRRYFacility:F5Zlpkp: 08-31-2022 End: 86-75-9550otofyiitwvStwooi Stewart Other [employer] Other Start: 09-53-8602Ehphsx outpatient visit 15 minutes Cindi [facility] ClinicStart: 08-29-2022 End: 37-94-2118szrufnfevaEgzezb Stewart Other [employer] Other Start: 25-31-9114Kkeyzikcs encounterMarmisael Ash [facility] ClinicStart: 08-15-2022 End: 65-91-4612bfjaftncbxFW CINDI STEWARTFacility:H0Fssfg: 02-01-2022 End: 61-04-1045barvlldprxTFGUHOJ TUCKERFacility:Z6Yrxud: 01-11-2022 End: 48-04-9297rmnpnsetrkBZ Steven ZieberFacility:T7Fxoeh: 10-19-2021 End: 34-25-8214erbzvrobncZV MARCIA E BRAUNFacility:Z7Aeqsq: 10-12-2021 End: 32-20-3493pgjmwhuzuyPU Steven ZieberFacility:K2Sonoh: 06-16-2019 End: 43-00-5877Thlkafx encounter procedureEHAB A FOR[facility]LY [facility] HOSPITALFacility:[facility] Procedures DateProcedureProcedure DetailPerforming ClinicianStart: 02-21-5094Jshum culture Cindi Stewart MD Work Phone: Start: 79-49-0778Rocyj Ilan Traylor MD Work Phone: Start: 06-40-3262MLM HEAD/BRAIN WO/W Mindy Allison NP Work Phone: Start: 14-77-6892Gmtxv X-ray of left shoulderMD Cindi Stewart Work Phone: Plan of Treatment DateCare ActivityDetailAuthorStart: 08-06-2025 End: 91-10-3341Qxudmst encounter rgdseztfb35/15/2026 9:00 AM EST Office Visit [facility] [address] [place] [address] Mami Bryan MD [address] [place] [address] [facility] NeurologyStart: 05-25-2025 End: 55-27-4778Wypafiy encounter dxlrggoob39/03/2025 9:15 AM EST Office Visit [facility] [address] [place] [phone] Mary Dasilva MD [address] [place] [address] [facility] EyeStart: 05-13-2025 Bacteria identified in Urine by CultureUrine [facility] Centertart: 63-49-9852Sdcgz [facility] Hospitaltart: 04-30-2025 End: 44-98-4891Upoduik encounter procedureNOMS SWS NEURComment on above:Arrived Start: 38-78-8662Lwfnrarf identified in Urine by CultureUrine [facility] Medical Centertart: 48-51-3978Grtli [facility] Hospitaltart: 01-26-2025 End: 53-26-8583Lhpvtch encounter procedureNOMS SWS NEURComment on above:Arrived Start: 01-12-2025 End: 52-56-0402Urqqodx encounter wtridpjfd70/23/2025 3:00 PM EDT Office Visit MICHELL DONNELLY [address] [place] [phone] Izzy Etienne NP [address] [place] [phone] MICHELL BERRYtart: 94-72-9790Mlnvquxc identified in Urine by CultureUrine Culture [facility] Centertart: 88-13-8189Slhqu [facility] Hospitaltart: 96-40-1591Wuawepf referralTrumbull Regional Medical Center Work Phone: Start: 44-75-7811Vlgkekqt identified in Urine by CultureUrine [facility] Centertart: 37-80-6621Eblsf [facility] Hospitaltart: 09-24-2024 End: 69-28-7821Kpxtmdm encounter procedureANA BELLEVUEComment on above:Arrived Start: 08-19-2024 End: 85-49-5155Cmcpcwr encounter yxudbtinz74/28/2025 3:00 PM EST Office Visit MICHELL DONNELLY [address] [place] [address] Kavita Allison, CHERY [address] [place] [address] ArrivedANA [place]YComment on above:ArrivedStart: 05-07-2024 End: 52-32-1182Wtnpvyr encounter abzagiqxh43/16/2024 2:00 PM EDT Office Visit [facility] [place] [address] [place] [phone] Kavita Allison, CHERY [address] [place] [address] ArrivedNOMS [place] STATE ROUTEComment on above:ArrivedComprehensive metabolic 2000 panel - Serum or PlasmaChillicothe HospitalPatient referralTrumbull Regional Medical Center Work Phone: Urine cultureChillicothe HospitalUS Thyroid glandChillicothe HospitalXR Shoulder - left ViewsHCA [facility] Immunizations Immunization DateImmunizationNotesCare CjmxjxpuTsegdzts93-99-6409jisgbucqs virus vaccine, split virus (incl. purified surface antigen)Cindi Stewart Other [employer] Other [id number] virus vaccine, unspecified formulationChillicothe Hospital10-16-2019influenza virus vaccine, split virus (incl. purified surface antigen)Cindi Stewart Other [employer] Other [id number] virus vaccine, unspecified formulationChillicothe Hospital01-01-2016influenza virus vaccine, split virus (incl. purified surface antigen)Cindi Stewart Other [employer] Other [id number] virus vaccine, unspecified formulationChillicothe Hospital01-01-2013pneumococcal conjugate vaccine, 13 valentMarcia Terry Other [facility]09-01-2012zoster vaccine, wichoCindi Stewart Other [facility] Payers DatePayer CategoryPayerPolicy [id number] [facility] [id number] [id number] 2006Medicare [id number] [id number] [id number] [id number] 2..1.654028.3.57[id number] 2..1.022362.3.57[id number] .0.1.247726.3.57[id number] 2..1.304190.3.57[id number] 2..1.434053.3.57[id number] 2.0.1.980089.3.57[id number] 2..0.1.488454.3.57[id number] 2.16.840.1.361445.3.57[id number] 2.0.1.247610.3.579.2.688543-70-3226Qjvqlyq2100199 2.0.1.155088.3.579.[id number] 2.0.1.999527.3.57[id number] 2.0.1.797592.3.57[id number] 2.0.1.336081.3.579.2.1259MedicareDUE49Y [id number] (Managed Care)[facility] [id number] /BSUFK [id number] 2.16.840.1.1[id number] 2..840.1.751824.3.579.2.531 [id number] 2.16.840.1.663[id number] 2.16.840.1.445161.3.579.2.531 Social History DateTypeDetailFacilityUnknown if ever smokedStone Mountain [facility]ook Other Start: 11-22-2023 End: 17-74-9562Hnb Assigned At [facility] Other Start: 39-57-4703Hah [facility] At [facility]: 11-22-2023 End: 17-00-6371Zhloqyk smoking status NHISNever smoked tobacco (finding) [facility]23 End: 85-84-3909Rgpgqroiv beverage intakeLifetime non-drinker (finding)[facility] HealthcareStart: 11-22-2023 End: 70-38-6239Oqxfjag of Social functionMOAB REGIONAL HOSPITAL HealthcareStart: 20-11-2465Jnlytpg Commentcaffeine: noneNOMS HealthcareStart: 53-23-5686Ypz assigned at birthNot on fileMOAB REGIONAL HOSPITAL HealthcareStart: 08-14-2024 End: 43-38-5629YqsNixidb (finding)[facility]art: 21-39-6232JjrOnzewbABRA Healthcare Clinical Notes 08-31-2022 to 06-03-2025 Note Date & CgbwNlsaLcmroxzv59-85-7508 NoteCardiovascular Medicine [facility] SUBJECTIVE Rolly Moore is a 84 y.o. female here for a 5 month follow up. Patient states some days she feels good and some days not so good. Patient states when she gets fluster she starts to get chest pain feels like a pressure on the left side, SOB/ESCOBEDO,dizziness/lightheaded, racing heart/palpitations with these episodes, fatigue, leg swelling with sitting for a long time. HPI PMHx: HFpEF, CAD, HTN, hx PE, [...] weight gain, no significant lower extremity edema UPDATE 06/03/2025 Doing okay; no new symptoms Has occasional chest discomfort and shortness of breath if she is worked up. No exertional symptoms. Patient Active Problem List Diagnosis Chest pain [...] (CMS/HCC) Weakness Tinea unguium Unspecified atherosclerosis of nis[place] arteries of extremities, left leg Alzheimer dementia (CMS/HCC) CKD stage 3b, GFR 30-44 ml/min (CMS/HCC) Incontinence in female Intermittent atrial fibrillation (CMS/HCC) Nontraumatic complete tear of left rotator cuff Past Medical History: Diagnosis Date Chest pain Coronary arteriosclerosis Dyspnea Essential hypertension Peripheral vascular insufficiency Pulmonary embolism (CMS/HCC) Family History Problem Relation Name Age of Onset Heart failure Mother Social History Tobacco Use Smoking status: Former Types: Cigarettes Passive exposure: Past Smokeless tobacco: Never Substance Use Topics Alcohol use: Not Currently Drug use: Never No Known Allergies Review of Systems Constitutional: Positive for malaise/fatigue. Cardiovascular: Positive for chest pain, dyspnea on exertion, leg swelling and palpitations. Respiratory: Positive for shortness of breath. Psychiatric/Behavioral: The patient is nervous/anxious. OBJECTIVE Visit Vitals Smoking Status Former Medications: Current Outpatient Medications: amLODIPine (Norvasc) 5 mg tablet, Take 1 tablet by mouth in the morning. (Patient not taking: Reported on 01/06/2025), Disp: , Rfl: atorvastatin (Lipitor) 80 mg tablet, TAKE 1 TABLET DAILY AT BEDTIME, Disp: 90 tablet, Rfl: 3 carbidopa-levodopa (Sinemet) 25-100 mg tablet, Take 1 tablet by mouth in the morning, at noon, and at bedtime. (Patient taking differently: Take 1 tablet by mouth four times daily.), Disp: , Rfl: carvedilol (Coreg) 6.25 mg tablet, TAKE 1 TABLET BY MOUTH TWICE DAILY (Patient not taking: Reported on 01/06/2025), Disp: 180 tablet, Rfl: 3 donepezil (Aricept) [...] mg) by mouth once daily as directed. (Patient taking differently: Take 25 mg by mouth once daily as directed.), Disp: 90 tablet, Rfl: 3 nabumetone (Relafen) 750 mg tablet, Take 750 mg by mouth if needed in the morning and at bedtime. (Patient not taking: Reported on 01/06/2025), Disp: , Rfl: QUEtiapine (SEROquel) 25 mg tablet, Take 25 mg by mouth at bedtime., Disp: , Rfl: spironolactone (Aldactone) 25 mg tablet, Take 25 mg by mouth in the morning. (Patient not taking: Reported on 01/06/2025), Disp: , Rfl: Xarelto 20 mg tablet, TAKE 1 TABLET BY MOUTH IN THE MORN (more content not included)...[facility]10-09-2025 History of Present illness Narrative* Mami Bryan MD - 04/30/2025 1:20 PM EDT Subjective Rolly Moore is a 84 y.o. female who presents for parkinsons. She is present with granddaughter. States that she is taking the carbidopa at 8am, 12pm, 4pm, 8 pm. Patient just moved in with her granddaughter. States she dances and walks everyday. States her appetite is ok. Granddaughter does get her to eat about 3 small meals a day. She wont say no. She will try. States she did see Dr. Cullen and states she does not want her to lose any more weight. Grandaughter wants you to mention about no driving. States she has been having more hallucinations but working well increasing seroquel. History of Present Illness The patient presents for hallucinations, tremors, and sleep issues. She is accompanied by her granddaughter. She reports experiencing visual disturbances, describing them as black, hand- like figures that appear to be crawling around. These hallucinations occur both during the day and at night. Her granddaughter notes that these episodes were absent for the first two weeks after their move on 03/28/2025 but resumed a week later, although less severe and frequent. No hallucinations were reported today. The granddaughter recalls an incident where the patient became upset due to the hallucinations, which seemed to intensify when she was distressed. Currently, she describes her vision as fuzzy, nury to looking through lace. There has been an increase in tremors. The patient has been using a weighted cat toy for comfort, which she finds beneficial. She has been taking her medication four times daily without any issues. Her mobility has improved, allowing her to walk with a cane and even dance. 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 She last drove a week ago but felt fearful and unsure about continuing to drive. The patient has auto refills from [facility]. Her sleep pattern is generally consistent, with approximately eight hours of sleep per night. However, she sometimes wakes up at 4:30 AM. The granddaughter has suggested trying ZzzQuil to improve hersleep quality. SOCIAL HISTORY: Sleep: Approximately eight hours of sleep per night, sometimes wakes up at 4:30 AM FAMILY HISTORY - Mother: Dementia. MEDICATIONS CURRENT MEDS: Seroquel Review of Systems Constitutional: Negative for chills, [...] myalgias, neck pain and neck stiffness. Neurological: Negative for tremors, weakness, light-headedness and numbness. Psychiatric/Behavioral: Negative for agitation, confusion and suicidal ideas. Objective Blood pressure 102/74, height 5' 4 , weight 150 lb. Physical Exam GENERAL EXAMINATION Appearance: in no acute distress, [...] equal, round, and reactive to light and accommodation,both directly and consensually. Visual perez were full [...] in all four extremities, including at least transit survey worker, finger abductors, biceps, triceps, deltoid, toe flexors [...] and spasticity are not evident. Arm swing isnormal. Toe, heel, and tandem walking are performed without difficulty. Musculoskeletal: Trigger-point tenderness was absent. There is no spasm of the trapezii or paraspinals. Results Assessment & Plan 1. Hallucinations. She reports seeing black, squiggly lines and hands crawling around, which occur both during the dayand night. The hallucinations seem to worsen when she is upset. A prescription for Depakote once atbedtime has been provided to help manage the hallucinations and improve sleep quality. She is advised to continue her current regimen of Seroquel. Driving is discouraged until the hallucinations are better controlled. 2. Tremors. She experiences increased shaking compared to before. The use of a wrist weight is suggested to help calm the tremors. 3. Sleep issues. She sleeps for about 8 hours but sometimes wakes up early. The addition of Depakote at bedtime is expected to help improve her sleep quality. 4. Depakote 250 er for hallucinations. This clinical note was created utilizing Peak [employer] documentation system. All information has beenthoroughly reviewed, corrected as necessary, and authenticated by the provider to ensure accuracy and completeness. On occasion, Peak 10 documentation system erroneously drops words or replaces aspoken word with a similar sounding word. Please notify with any questions or concerns regarding this clinical note. documented in this [facility]09-12-2025 Evaluation note* Diagnosis Onset Date Resolution Status Admit Date Alzheimer dementia acuteSeptember 2024 10:13amCKD stage 3b, GFR 30-44 ml/minacuteSeptember 2024 10:13amIncontinence in femaleacuteSeptember 2024 10:13am Intermittent atrial fibrillationacuteSeptember 2024 10:13amParkinson diseaseacuteSeptember 2024 10:13am [facility] Work Phone: 1(257) 590-169409-12-2025 Evaluation note* Diagnosis Onset Date Resolution Status Admit Date Alzheimer dementia acuteSeptember 2024 10:13amCKD stage 3b, GFR 30-44 ml/minacuteSeptember 2024 10:13amIncontinence in femaleacuteSeptember 2024 10:13am Intermittent atrial fibrillationacuteSeptember 2024 10:13amParkinson diseaseacuteSeptember 2024 10:13amAcute UTIacuteOctober 2024 9:47am [facility] Work Phone: 1(484) 574-265607-22-2025 Telephone encounter Note* Telephone Encounter - Sun Tariq - 02/10/2025 11:16 AM EDT Grand daughter called today and states he pt's hallucinations are increasing and she is worried about pt driving. Delma [phone] [facility] Sxcmwhmqmy89-86-7965 Miscellaneous Notes* Telephone Encounter - Sun Tariq - 02/10/2025 11:16 AM EDT Grand daughter called today and states he pt's hallucinations are increasing and she is worried about pt driving. Delma [phone] documented in this encounterAlvin J. Siteman Cancer CenterYuwghuxgyz21-89-4483 History of Present illness Narrative* Mami Bryan MD - 01/26/2025 2:40 PM EDT Images from the original note were not included. Subjective Rolly Moore is a 84 y.o. female who presents for No chief complaint on file. 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 The primary reason for this visit is to assess her current symptomsand medication effectiveness following an increase in her [...] three times a day. Several falls within herapartment have resulted in minor soreness the following [...] equal, round, and reactive to light and accommodation,both directly and consensually. Visual perez were full [...] in all four extremities, including at least transit survey worker, finger abductors, biceps, triceps, deltoid, toe flexors [...] and spasticity are not evident. Arm swing isnormal. Toe, heel, and tandem walking are performed [...] A new prescription will be sent to [facility] pharmacy. 2. Hallucinations. She continues to experience [...] dosage. This clinical note was created utilizing Peak 10 documentation system. All information has beenthoroughly reviewed, corrected as necessary, and authenticated by the provider to ensure accuracy and completeness. On occasion, Peak 10 documentation system erroneously drops words or replaces aspoken word with a similar sounding word. Please notify with any questions or concerns regarding this clinical note. documented in this encounterAlvin J. Siteman Cancer [id number] NoteCardiovascular Medicine [facility] SUBJECTIVE Rolly Moore is a 84 y.o. [...] (CMS/HCC) Weakness Tinea unguium Unspecified atherosclerosis of nisqually arteries of extremities, left leg Past Medical [...] warm and dry. Neurologica (more content not included)...[facility] 11-25-2024 NoteCardiovascular Medicine [facility] SUBJECTIVE Rolly Moore is a 84 [...] deficit present. Mental S (more content not included)...[facility] 11-25-2024 Telephone encounter Note* Telephone Encounter - Brittany Garber NP - 11/25/2024 11:51 AM EDT I resent the one to [facility] as well just in case and 7 days to local pharmacy until they receive prescription from [facility]. Sent mychart message. [facility] Cancer [id number] Miscellaneous Notes* Telephone Encounter - Brittany Garber NP - 11/25/2024 11:51 AM EDT I resent the one to [facility] as well just in case and 7 days to local pharmacy until they receive prescription from [facility]. Sent mychart message. * Telephone Encounter - Oralia Elizondo - 11/25/2024 11:12 AM EDT Patient's grand-daughter Delma called and states they are needing a short rx for Seroquel to be sent to [facility] in [place]. States that they haven't received from mail order yet. documented in this encounterAlvin J. Siteman Cancer [id number] Telephone encounter Note* Telephone Encounter - Oralia Elizondo - 11/25/2024 11:12 AM EDT Patient's grand-daughter Demla called and states they are needing a short rx for Seroquel to be sent to [facility] in [place]. States that they haven't received from mail order yet. [facility] Cancer [id number] History of Present illness Narrative* Mami Bryan MD - 11/21/2024 12:50 PM EDT Images from the original note were not included. CHIEF COMPLAINT REASON FOR VISIT: Parkinson's Consultation HPI: Rolly Moore is a 84 y.o. female who presents for a new patient consultation referred by Dr. Cindi Stewart for parkinson's. Looks like she was seeing Dr. Howard at [facility] in September. She is on carbidopa-levodopa 25-100 mg- 1.5 tablets TID. She is also on donepezil 10 mg at bed. She is present with daughter. Daughter states she is afraid of getting her license away. She lives with her daughterbut does not cook. She can manage getting [...] going on in the household. Granddaughter states shehas had the tremors for about 3 years. Patient states her door looked like a shower curtain and it was bright red and was seeing bugs. Granddaughter took her to the ER. States she gets very anxious. States the ER Said it was due to her carvedilol. She has been on this medication for many years.States that she did end up with a UTI at one point. States that she does notice the hallucinations more when she gets more anxious. Granddaughter states the hallucinations have improved some. Patientstates she gets around with her Rolator walker [...] CARPAL TUNNEL RELEASE OTHER SURGICAL HISTORY 2007 sadsteve bag Social History Tobacco Use Smoking status: [...] for hallucinations. Negative for agitation, confusion and suicidalideas. OBJECTIVE: 11/21/2024 1:02 PM 09/24/2024 2:36 PM [...] Oriented to person, place and time. Recent andremote memory are intact. Speech is normal. Language [...] reflexes: Malinda's absent. Ankle clonus absent. Coordination Mujhys-qk-tmty, rapid alternating movements and ijxg-dt-ietg normal bilaterally without dysmetria. Gait Normal casual, toe, heel and tandem gait. Romberg is absent. PROCEDURE: NONE ASSESSMENT AND PLAN: Rolly Moore is a 84 y.o. female who presents with tremor in the hands Possible etiologies include benign essential tremor, extrapyramidal symptoms secondary to medications, or a neurodegenerative process such as Parkinson i s disease. An additional consideration would be tremor secondary to ametabolic process or a psychogenic tremor from stress. [...] tablet by mouth in the morning and 1tablet at noon and 1 tablet in the [...] by Mami Bryan MD documented in this encounterAlvin J. Siteman Cancer [id number] Evaluation note* Diagnosis Onset Date Resolution Status Admit Date Acute UTI acuteApril 2024 10:53amAlzheimer dementiaacuteApril 2024 10:53amCKD stage 3b, GFR 30-44 ml/minacuteApril 2024 10:53amHallucinationsacuteApril 2024 10:53amIntermittent atrial fibrillationacuteApril 2024 10:53am Parkinson diseaseacuteApril 2024 10:53am [facility] Work Phone: 1(220) 843-731803-18-2025 NoteCardiovascular Medicine [facility] SUBJECTIVE Chief Complaint Patient presents with [...] Final Atrial Rate 06/16/2019 53 BPM Final DC Interval 06/16/2019 170 ms Final QRS DURATION 06/16/2019 94 ms Final QT Interval 06/16/2019 436 ms Final QTC CALCULATION(BEZET) 06/16/2019 409 ms Final P [place] 06/16/2019 26 degrees Final R-[place] 06/16/2019 37 degrees Final T Wave [place] 06/16/2019 38 degrees Final Diagnosis 06/16/2019 Final Value:Sinus bradycardia Otherwise normal ECG No previous ECGs availab (more content not included)...[facility]03-18-2025 NotePatient here for 6 mo follow up [...] weakness. All other systems reviewed and are negative.[facility] 09-24-2024 History of Present illness Narrative* Johanmasood Howard, DO - 09/24/2024 3:00 PM EST Images [...] wrist extensors , wrist flexor 5/5 , transit survey worker strength 4/5. LUE Strength deltoid , biceps , triceps , wrist extensors , wrist flexor 5/5 , transit survey worker strength 4+/5. RLE Strength illopsoas, quadriceps, tibialis [...] knee reflex 2+ Kaur's Sign negative. Coordination: Viyohb-mk-baci testing normal Gait: Rollator, magnetic gait. No shuffling. Review and summary of old records: MRI of the brain with and without contrast [facility] on 01/29/2024: No acute intracranial processes noted. [...] the right. She does have mildly decreased transit survey worker strength bilaterally. PLAN - Recommended cock up [...] plan, and return instructions documented in this encounterAlvin J. Siteman Cancer [id number] History of Present illness Narrative* Kavita Allison [...] Diagnosis Date Anemia Anxiety Coronary artery disease ([facility]/HCC) Depression (CMS/HCC) History of blood transfusion Osteoarthritis [...] wrist extensors , wrist flexor 5/5 , transit survey worker strength 4/5. LUE Strength deltoid , biceps , triceps , wrist extensors , wrist flexor 5/5 , transit survey worker strength 4+/5. RLE Strength illopsoas, quadriceps, tibialis [...] knee reflex 2+ Kaur's Sign negative. Coordination: Zeckov-pa-jpsj testing normal Gait: Rollator, magnetic gait. No shuffling. Review and summary of old records: MRI of the brain with and without contrast [facility] on 01/29/2024: No acute intracranial processes noted. [...] the right. She does have mildly decreased transit survey worker strength bilaterally. PLAN - Recommended cock up [...] plan, and return instructions documented in this encounterAlvin J. Siteman Cancer CenterGfgcxhyeya47-82-9958 Evaluation note* Diagnosis Onset Date Resolution Status Admit Date Essential hypertension acuteJanuary 2024 1:29pmMass of left side of neckacuteJanuary 2024 1:29pmParkinson diseaseacuteJanuary 2024 1:29pm [facility] Work Phone: 1(187) 496-442612-20-2023 Evaluation note* Encounter Date Diagnosis Assessment Notes Treatment Notes Treatment Clinical Notes Jun, Hx pulmonary embolism (ICD-10 - Z86.711) Jun,yspnea on exertion (ICD-10 - R06.09) [employer] Other 12-19-2023 Evaluation note* Encounter Date Diagnosis Assessment Notes Treatment Notes Treatment Clinical Notes Jun, Hx pulmonary embolism (ICD-10 - Z86.711) Jun,yspnea on exertion (ICD-10 - R06.09) [facility] Other 12-18-2023 Evaluation note* Encounter Date Diagnosis Assessment Notes Treatment Notes Treatment Clinical Notes Jun, Essential hypertension (ICD-10 - I10) [facility] Other 12-14-2023 Evaluation note* Encounter Date Diagnosis Assessment Notes Treatment Notes Treatment Clinical Notes Jun, Dyspnea on exertion (ICD-10 - R0 6.09) [facility] Other 12-14-2023 Evaluation note* Encounter Date Diagnosis Assessment Notes Treatment Notes Treatment Clinical Notes Jun, Resting tremor (ICD-10 - G25.2) Pt and daughter agree to referral to Neurology. Several signs of Parkinsonism that were not this noted at [facility] in summer. Pt also reports that her hands are frequently jumping at night. Has a burningsensation in R hand, but has had B carpal tunnel surgeries in the past. Jun,Essential hypertension (ICD-10 - I10)GOAL: Maintain BP < 140/90. STATUS: achieved. TIME FRAME: Lifetime goal. Barriers: Non- identifed. Continue current regimen and a low Na+ diet. Regular CV exercise also encouraged. Jun,Hx pulmonary embolism (ICD-10 - Z86.711)Daugther requests a CT to monitor at yearly basis. She is still on anti-coagulant, but does note some dyspnea. Jun,yspnea on exertion (ICD-10 - R06.09)as above [facility] Other 09-14-2023 Evaluation note* Encounter Date Diagnosis Assessment Notes Treatment Notes Treatment Clinical Notes Mar, Advancing dementia (ICD-10 - F03 .90) Pt requests refill for chronic, stable medical problem Mar,OAB (overactive bladder) (ICD-10 - N32.81)Obtain UA to r/o UTI. Offered referral to urology if UA wnl. Pt will consider this option. Mar,Essential hypertension (ICD-10 - I10)Blood pressure remains well controlled at this time. Denies cardiac symptoms. Shows no signs or symptoms or poor control. Patient to continue with above medication and we will continue to monitor. Advised to pay attention to body and symptoms. Any developing patterns. Stay well hydrated. Due for labs Mar,Resting tremor (ICD-10 - G25.2)New problem. Will assess thyroid for underlying metabolic cause. [facility] Other 06-15-2023 Evaluation note* Encounter Date Diagnosis Assessment Notes Treatment Notes Treatment Clinical Notes Dec, Advancing dementia (ICD-10 - F03 .90) Pt expresses memory concerns. Has family in the area, but still struggles at times. Discussed safety. Agrees to starting aricept Dec,OAB (overactive bladder) (ICD-10 - N32.81)Chronic problem that has worsened. Dec,Essential hypertension (ICD-10 - I10)Followup w cardiology [facility] Other 03-16-2023 Evaluation note* Encounter Date Diagnosis Assessment Notes Treatment Notes Treatment Clinical Notes Sep, Injury of left knee, subsequent encounter (ICD-10 - S89.92XD) Improved from 1 month ago. bruising resolved. Using wheeled walker Sep,Essential hypertension (ICD-10 - I10)Stable. 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 [facility] Other 02-10-2023 NotePROCEDURE: XR KNEE LT 3V [...] degenerative joint disease. Electronically authenticated by: ANGELICA MAGDALENO Date: 2022-09-01 10:39[facility]02-09-2023 Evaluation note* Encounter Date Diagnosis Assessment Notes Treatment Notes Treatment Clinical Notes Aug, Acute pain of left knee (ICD-10 - M25.562) New problem - check xray today. Consider ortho referral if needed. Aug,Essential hypertension (ICD-10 - I10)chronic problem. refilled meds. [facility] [employer] Other Evaluation noteNo InformationNortConemaugh Miners Medical Center [employer] Other Evaluation noteNo assessment information available [facility] Work Phone: Evaluation note* Diagnosis Onset Date Resolution Status Chronic rhinosinusitis acuteEssential hypertensionacuteParkinson diseaseacuteLeft shoulder painacute [facility] Work Phone: Evaluation note* Diagnosis Onset Date Resolution Status Left shoulder pain acuteHypotensionacuteLeft shoulder painacuteEncounter for routine history and physical examinationnoneactive [facility] Work Phone: Evaluation note* Diagnosis Parkinson's disease without dyskinesia or fluctuating manifestations (CMS/HCC)- Primary Dizziness Dizziness and giddiness Bilateral carpal tunnel syndrome Carpal tunnel syndrome [facility] Diagnosis Onset Date Resolution Status Admit Date Abnormal weight loss acuteJanuary 2024 1:29pmEssential hypertensionacuteJanuary 2024 1:29pmHyperlipemiaacuteJanuary 2024 1:29pmMass of left side of neckacute August 14, 2024 1:29pmWeaknessacuteJanuary 2024 1:29pm [facility] Work Phone: Evaluation note* Diagnosis Parkinson's disease without dyskinesia or fluctuating manifestations (CMS/HCC)- Primary Dizziness Dizziness and giddiness Bilateral carpal tunnel syndrome Carpal tunnel syndrome [facility]* Diagnosis Memory loss [facility] in this [facility]* Diagnosis Onset Date Resolution Status Admit Date Acute UTI acuteApril 2024 10:53amHallucinationsacuteApril 2024 10:53am Parkinson diseaseacuteApril 2024 10:53am [facility] Work Phone: Evaluation note* Diagnosis Parkinson's disease without dyskinesia or fluctuating manifestations (CMS/HCC)- Primary Hallucinations [facility]* Diagnosis Parkinson's disease without dyskinesia or fluctuating manifestations (CMS/HCC) Hallucinations [facility]* Diagnosis Parkinson's disease without dyskinesia or fluctuating manifestations (HCC) Hallucinations [facility]* Diagnosis Hallucinations- Primary Parkinson's disease without dyskinesia, with fluctuating manifestations (HCC) [facility] Narrative - Reported* Type Description Date Medical History Acute pulmonary embolism Medical HistoryEssential hypertensionMedical HistoryHyperlipemiaMedical History Balance disorderMedical HistoryCarotid artery bruitMedical HistoryOAB (overactive bladder)Medical HistoryLumbar back pain with radiculopathy affecting left lower extremityMedical HistoryDyslipidemiaMedical HistoryChest pain, mid sternalSurgical HistoryABDOMNIAL HERNIASurgical HistoryLAP CHOLEHospitalization HistorySEE SURGICAL [facility] Other [facility] Discharge instructionsAmbulatory Orders* Referral to Neurology Time Frame: 11/12/24, Location: None [facility] Work Phone: Reason for referral (narrative)No reason for referral information availableGrant [facility] Work Phone: Summary Purpose Family History No Family History Records Found Relationship Condition Age at Onset Recorded Date/T anastasiia father Malignant neoplasm Unknown DeceasedUnknownNot SpecifiedHeart diseaseUnknown Relationship Condition Age at Onset Recorded Date/T anastasiia father Malignant neoplasm Unknown DeceasedUnknownmotherHeart diseaseUnknown Advance Directives No Advanced Directives Records Found Advance Directive Response Recorded Date/ Time Advance Directives No August 13, 2023 1:10pm Advance Directive Response Recorded Date/ Time Advance Directives No February 03 11:20am Advance Directive Response Recorded Date/ Time Advance Directives No August 14, 2024 11:56am Advance Directive Response Recorded Date/ Time Advance Directives No August 14, 2024 12:56pm Advance Directive Response Recorded Date/ Time Advance Directives No May 11, 2025 2:16pm Reason for Referral Reason *FU 07/23 [place] office - tremor, burning sensation in R hand Diagnosis 1 Resting tremor (G25. 2) Referral Organization [facility]ion Referring Provider First Name Cindi Referring Provider Last Name Terry Referring Provider Specialty [facility] Referred Organization [facility] Referred Provider Angelica Caceres Referred Address [address] [place],[phone] Referred Provider Specialty Neurology Referral Priority Routine General Notes Yaron Paola 01:27:27 PM >received today, form filled out, attachments made, notes locked, referral faxed Chief Complaint and Reason for Visit Chief Complaint 3 Month Check Up Chief Complaint 3 Month Check Up left shoulder pain ( requested X-ray) M25.512 - Pain in left shoulderReason for VisitChronic rhinosinusitis Essential hypertension Parkinson disease Left shoulder pain Chief Complaint left shoulder pain ( DR requested X-ray) M25.512 - Pain in left shoulder fell hurt shoulder 5 month follow upReason for VisitLeft shoulder pain Hypotension Left shoulder pain Encounter [...] 10: 53am Chief Complaint Admit Date Unknown February 19, 2025 7:50 am Chief Complaint Admit Date Unknown February 19, 2025 7:50 am wellness April 03, 2025 10:13am Chief Complaint Admit Date Unknown February 19, 2025 7:50 am wellness April 03, 2025 10:13am UA:Confusion May 13, 2025 9 :47am Reason for Visit Admit Date Alzheimer dementia April 03, 2025 10:13am CKD stage 3b, GFR 30-44 ml/min April 03, 2025 10:13am Incontinence in female April 03 10:13am Intermittent atrial fibrillation Septemb er 2024 10:13am Parkinson disease April 03, 2025 10:13am Reason for Visit Admit Date Alzheimer dementia April 03, 2025 10:13am CKD stage 3b, GFR 30-44 ml/min April 03, 2025 10:13am Incontinence in female April 03 10:13am Intermittent atrial fibrillation Septemb er 2024 10:13am Parkinson disease April 03, 2025 10:13am Acute UTI May 13, 2025 9 :47am Additional Source Comments INFORMATION SOURCE (unrecogn ized section and content) DATE CREATED AUTHOR 06/27/2019 [facility] DATE CREATED AUTHOR AUTHOR'S ORGANIZ ATION 09/08/2022 [facility] DATE CREATED AUTHOR AUTHOR'S ORGANIZ ATION 05/02/2025 [facility] DATE CREATED AUTHOR AUTHOR'S ORGANIZ ATION 05/22/2025 [facility] DATE CREATED AUTHOR AUTHOR'S ORGANIZ ATION 06/04/2025 [facility] REASON FOR VISIT (unrecogniz ed section and content) ReasonCommentsParkinson's DiseaseDizzinessCarpal TunnelReasonCommentsParkinson's Disease Care Teams (unrecognized sec tion and content) Team Status: Active Member Role Status Elías Stewart MD Primary Care Provider Active Team Status: Inactive Member Role Status Elías Stewart MD Attending Provider Active St art: February 19, 2025 End: February 19, 2025 Team Status: Inactive Member Role Status Elías Stewart MD Primary Care Provider Active Start: April 03, 2025 End: April 03, 2025Julian Roberts ProviderActiveStart: April 03, 2025 End: April 03, 2025 Team Status: Active Member Role Status Elías Stewart MD Primary Care Provider Active Start: November 03, 2024 Julian Carrington ProviderActiveStart: November 03, 2024 Team Status: Inactive Member Role Status Dates Khari Traylor MD Attending Provider Active Start : November 03, 2024 End: November 03, 2024 Team Status: Active Member Role Status Elías Wall CMA Attending Provider Active Start: November 04, 2024 Team Status: Inactive Member Role Status Elías Stewart MD Primary Care Provide r, Attending Provider Active Start: November 12, 2024 End: November 12, 2024 Team Status: Inactive Member Role Status Elías Stewart MD Primary Care Provide r, Attending Provider Active Start: August 14, 2024 End: August 14, 2024 Team Status: Active Member Role Status Elías Stewart MD Primary Care Provide r, Attending Provider Active Start: August 14, 2024 Team Status: Inactive Member Role Status Elías Stewart MD Primary Care Provide r, Attending Provider Active Start: October 04, 2023 End: October 04, 2023 Team Status: Inactive Member Role Status Elías Stewart MD Primary Care Provider Active Start: December 03, 2023 End: December 03, 2023Natalia Quesada ProviderActiveStart: December 03, 2023 End: December 03, 2023 Team Status: Active Member Role Status Elías Stewart MD Primary Care Provider Active Start: December 03, 2023 Thania Hoffmann , APRNAtblayne ProviderActiveStart: December 03, 2023 Team Status: Inactive Member Role Status Dates Cindi Stewart MD Primary Care Provide r, Attending Provider Active Start: December 06, 2023 End: December 06, 2023 Team Status: Active Member Role Status Dates Cindi Stewart MD Primary Care Provider Active Start: January 29, 2024 Kavita Allison NP-CAtblayne ProviderActiveStart: January 29, 2024 Team Status: Active Member [...] Start: May 06, 2024 End: May 06, 2024Team MemberRelationshipSpecialtyStart DateEnd Date Cindi Stewart MD [address] [place] [phone] PCP - GeneralFamily Medicine11/22/23Team MemberRelationshipSpecialtyStart DateEnd Date Cindi Stewart MD [address] [place] [phone] PCP - GeneralFamily Medicine11/22/23Team MemberRelationshipSpecialtyStart DateEnd Date Cindi Stewart MD [address] [place] [phone] PCP - GeneralFamily Medicine11/22/23 Kay Howard DO [address] [place] [address] Referring PhysicianNeurology1/Team MemberRelationshipSpecialtyStart DateEnd Date Cindi Stewart MD [address] [place] [facility] [place] [address] PCP - GeneralFamily Medicine11/22/23 Kay Howard DO [address] [address] Referring PhysicianNeurology1Team MemberRelationshipSpecialtyStart DateEnd Date Cindi Stewart MD [address] [place] [facility] [place] [phone] PCP - GeneralFamily Medicine11/22/23 Kay Howard DO [address] [place] [phone] Referring PhysicianNeurology1 Team Status: Inactive Member Role Status Dates Cindi Stewart MD Attending Provider Active St art: November 20, 2024 End: November 20, 2024Team MemberRelationshipSpecialtyStart DateEnd Date Cindi Stewart MD PCP - GeneralFamily Medicine11/22/23 Kay Howard DO [address] [address] Referring PhysicianNeurology1Team MemberRelationshipSpecialtyStart DateEnd Date Cindi Stewart MD PCP - GeneralFamily Medicine11/22/23 Kay Howard DO [address] [address] Referring PhysicianNeurology1Team MemberRelationshipSpecialtyStart DateEnd Date Cindi Stewart MD PCP - GeneralFamily Medicine11/22/23 Kay Howard DO [address] [place] [address] Referring PhysicianNeurology1Team MemberRelationshipSpecialtyStart DateEnd Date Cindi Stewart MD PCP - GeneralFamily Medicine11/22/23 Kay Howard DO [address] [place] [address] Referring PhysicianNeurology1Team MemberRelationshipSpecialtyStart DateEnd Date Cindi Stewart MD PCP - GeneralFamily Medicine11/22/23 Kay Howard DO [address] [place] [address] Referring PhysicianNeurology1Team MemberRelationshipSpecialtyStart DateEnd Date Cindi Stewart MD PCP - GeneralFamily Medicine11/22/23 Kay Howard DO [address] [place] [address] Referring PhysicianNeurology1Team MemberRelationshipSpecialtyStart DateEnd Date Cindi Stewart [facility] - [facility]/22/23 Kay Howard DO [address] [place] [address] Referring PhysicianNeurology1Team MemberRelationshipSpecialtyStart DateEnd Cindi Castellano MD PCP - [facility] Medicine11/22/23 Kay Howard DO [address] [place] [address] Referring PhysicianNeurology1 Team Status: Active Member Role/Relationship Status Dates Cindi Stewart MD Primary Care Provider Active Team Status: Inactive Member Role/Relationship Status Dates Cindi Stewart MD Attending Provider Active St art: February 19, 2025 End: February 19, 2025 Team Status: Inactive Member Role/Relationship Status Dates Cindi Stewart MD Primary Care Provider Active Start: April 03, 2025 End: April 03, 2025Julian Roberts ProviderActiveStart: April 03, 2025 End: April 03, 2025 Team Status: Inactive Member Role/Relationship Status Dates Cindi Stewart MD Primary Care Provider Active Start: May 13, 2025 End: May 13, 2025Julian Roberts ProviderActiveStart: May 13, 2025 End: May 13, 2025 Team Status: Inactive Member Role/Relationship Status Dates Cindi Stewart MD Attending Provider Active St art: February 19, 2025 End: February 19, 2025 Team Status: Inactive Member Role/Relationship Status Dates Cindi Stewart MD Primary Care Provider Active Start: April 03, 2025 End: April 03, 2025Julian Roberts ProviderActiveStart: April 03, 2025 End: April 03, 2025 Team Status: Inactive Member Role/Relationship Status Elías Stewart MD Attending Provider Active St art: May 13, 2025 End: May 13, 2025Team MemberRelationshipSpecialtyStart DateEnd Date Cindi Stewart MD PCP - GeneralFatnly Medicine11/22/23 Kay Howard DO [address] [place] [address] Referring PhysicianNeurology1 Goals (unrecognized section and content) Goals may [...] BE BASED ON THE PRIMARY CLINICAL RECORDS. [employer] provides no warranty or guarantee of the accuracy or completeness of information in this document.
--- OUTSIDE RECORDS SUMMARY | 2025-07-21 06:08 | XMS_ITS | Clinical Summary ---
Author Organization [employer] s tem Address [id number] [address] [place] [address] Care Team Providers Care Lumber Buyer Name Role Phone Unavailable Primary Care Provider Unavailabl e Social History Tobacco UseTypesPacks/DayYears UsedDateSmoking Tobacco: Never AssessedChildcare AnswerDate DitgeknhGhvxzdzfgZhwdbpp54/10/2019EmploymentAnswerDate Recorded KggnsacrwgNgjpmxa53/10/2019Purpose - LifeAnswerDate RecordedPurpose and direction in aolfSxgkvvv97/10/2021CommentsUnknownSex and Gender InformationValueDate RecordedSex Assigned at BirthNot on fileLegal SexFemale 02/23/2015 1:48 PM EDTGender IdentityNot on fileSexual OrientationNot on file Plan of Treatment Not on file Medical Devices Not on file Insurance [address] [place] [address]
--- OUTSIDE RECORDS SUMMARY | 2025-07-21 06:08 | XMS_ITS | Clinical Summary ---
Author Organization [facility] Address [address] [place] [address] Care Team Providers Care Career Services Officer Name Role Phone Jody Rand MD Primary Care Provider [phone] Allergies No known active allergies Medications MedicationSigDispense QuantityRefillsLast FilledStart DateEnd DateStatus nabumetone (Relafen) 750 mg tablet Take 750 mg by mouth if needed in the morning and at bedtime.Active donepezil (Aricept) 5 mg tablet Take 10 mg by mouth at bedtime.01/04/2023ctive atorvastatin (Lipitor) 80 mg tablet Indications:Coronary artery disease due to lipid rich plaqueTAKE 1 TABLET DAILY AT BEDTIME 90 tablet 3Active spironolactone (Aldactone) 25 mg tablet Take 25 mg by mouth in the morning.07/10/2023ctive carbidopa-levodopa (Sinemet) 25-100 mg tablet Take 1 tablet by mouth in the morning, at noon, and at bedtime.08/06/2023ctive folic acid (Folvite) 1 mg tablet Take 1,000 mcg by mouth in the morning.01/04/2024ctive carvedilol (Coreg) 6.25 mg tablet Indications:Essential hypertensionTAKE 1 TABLET BY MOUTH TWICE DAILY 180 tablet 4Active Additional Information Patient not taking.Reason: Other, Reported on 06/03/2025 Jardiance 10 mg Indications:Chronic heart failure with preserved ejection fraction (CMS/HCC)TAKE 1 TABLET BY MOUTH ONCE DAILY DIRECTED 90 tablet 5Active furosemide (Lasix) 20 mg tablet Indications:Edema, unspecified typeTAKE 1 TABLET BY MOUTH TWICE DAILY 180 tablet 5Active Additional Information Patient not taking.Reported on 06/03/2025 QUEtiapine (SEROquel) 25 mg tablet Take 25 mg by mouth at bedtime.5Active amLODIPine (Norvasc) 5 mg tablet Take 1 tablet by mouth in the morning.03/28/2022ctive losartan (Cozaar) 50 mg tablet Indications:Essential hypertensionTake 1 tablet (50 mg) by mouth once daily as directed. 90 tablet /[id number] Additional Information Patient taking differently: 25 mgoral Once Daily, Reported on 06/03/2025 Xarelto 20 mg tablet Indications:Paroxysmal atrial fibrillation (CMS/HCC)TAKE 1 TABLET BY MOUTH IN THE MORNING WITH FOOD 90 tablet 5Active Active Problems ProblemNoted DateDiagnosed DateAlzheimer cosqwaec00/12/2025KD stage 3b, GFR 30- 44 ml/min06/03/2025Incontinence in ivtpgt6806/03/2025Intermittent atrial dfzrbohizaor73/12/2025Nontraumatic complete tear of left rotator cuff01/26/2025 Tinea ykraeip5001/06/2025Unspecified atherosclerosis of muscogee arteries of extremities, left leg01/06/2025bnormal weight loss11/21/2024ute UTI11/21/2024 Chronic ndckqsxdpqraqj92/02/2085Cnpharotckazwm20/02/1270Htarxskhhunp23/02/2025 Fqydhhrfszz18/02/2025Irritable bowel syndrome with pwypgdvk14/02/2025Left shoulder pain11/21/2024Mass of left side of neck11/21/2024Parkinson disease 11/21/20243528Ghaokcbf23/02/3299Uwguisq09/02/2024 Overview (03/18/2024): The patient does note some anxieties which make it difficult for her to function at times. She doesuse relaxation techniques which she has developed with her daughters which are beneficial. We will continue to monitor this and may need to offer her something to help her sleep at night as she gets very limited sleep currently. PLAN: - Continue to monitor clinically Bilateral carpal tunnel yjikdnqt65/02/2024 Overview (03/18/2024): The patient has a history of carpal tunnel bilaterally with decompressive surgical intervention x2 on left and once on the right. She does have mildly decreased acquisition analyst strength bilaterally. PLAN - Recommended cock up splints at night and hand strengthening exercises - Could consider evaluation with EMG in the future, this is deferred per patient request Burning /02/9230Mbfqmu79/02/2024Chronic diastolic heart failure, NYHA class Assessment & Plan (04/03/2024 4:34 PM EDT): [...] Assessment & Plan (08/23/2023 1:46 PM EST): [facility] 2, currently euvolemic without exacerbation. Continue GDMT- Diuretic therapy- lasix 20 mg bid Monitor daily weights, I&O, fluid restriction 1.5-2L/day, renal function and electrolytes- Assessment & Plan (07/18/2023 4:15 PM EST): [facility] II- currently euvolemic without exacerbation Continue GDMT- with aldactone and Diuretic therapy- lasix 20 mg bid Monitor daily weights, I&O, fluid restriction 1.5-2L/day, renal function and electrolytes Coronary xzfluoltkgqdfban06/23/2021 Assessment & Plan (04/02/2024 2:18 PM EDT): [...] PE Continue GDMT- lipitor, coreg, losartan Essential bwxuchhwizch70/08/2021 Assessment & Plan (04/03/2024 4:34 PM EDT): [...] for any concerns. RTC 1 month Pulmonary nltllekh41/08/2020 Assessment & Plan (08/23/2023 1:44 PM EST): Remains on xarelto anticoagulation Denied bleeding tendencies Assessment & Plan (07/18/2023 4:10 PM EST): Continue xarelto anticoagulation Chest pain06/05/20199483Cjfyrim63/14/2019 Assessment & Plan (07/18/2023 4:15 PM EST): Currently stable Encounters DateTypeDepartmentCare WysgHcwemnisigs45/12/2025 9:45 AM ESTOffice Visit [facility] [address] [place] [phone] Elisabeth Ramirez MD Essential hypertension (Primary Dx); Chronic diastolic heart failure, NYHA class 2 (CMS/HCC); 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; Dyspnea on exertionfrom Last 3 Months Immunizations ImmunizationAdministration DatesNext DueInfluenza, trivalent, adjuvanted 05/25/2020 Family History Medical HistoryRelationNameCommentsHeart failureMotherRelationNameStatusComments FatherDeceasedMotherDeceased Social History Tobacco UseTypesPacks/DayYears UsedDateSmoking Tobacco: FormerCigarettesPassive Smoke Exposure: PastSmokeless Tobacco: Never Tobacco Cessation:Counseling Given: Not Answered Alcohol UseStandard Drinks/WeekCommentsNot Currently0 (1 standard drink = 0.6 oz pure alcohol)KS Safety & EnvironmentAnswerDate RecordedFear of Current or Ex-PartnerNot on file09/13/2023Emotionally AbusedNot on file09/13/2023hysically AbusedNot on file09/13/2023Sexually AbusedNot on file09/13/2023hysically or Sexually AbusedNot on file09/13/2023CommentsUnknownSex and Gender InformationValueDate RecordedSex Assigned at VraysPrdery04/02/2025 10:39 AM EDT Legal GlpBvflzg99/29/2022 9:39 PM EDTGender FrhmsmstJzbcnh12/02/2025 10:39 AM EDTSexual OrientationHeterosexual or Appikodd76/02/2025 10:39 AM EDT Last Filed Vital Signs Vital SignReadingTime TakenCommentsBlood Mxeyswuu87/5806/03/2025 9:43 AM EST Lxyyr638906/03/2025 9:43 AM ESTTemperature--Respiratory Rate--Oxygen Wjdoecwkhw18% 06/03/2025 9:43 AM ESTInhaled Oxygen Concentration--Jivzmd83.7 kg (147 lb) 06/03/2025 9:43 AM CCARjabfa099.5 cm (5' 2 )06/03/2025 9:43 AM ESTBody Mass Index26.8906/03/2025 9:43 AM EST Plan of Treatment Health MaintenanceDue DateLast DoneCommentsMedicare Annual Wellness (AWV) 1Depression Hbxulerkw00/24/1953Adult Orwrccq5109/15/1962Zoster Vaccines (1 of 2)Fall Risk Yicpgndas32/24/2006COVID-19 Vaccine (2024- season)2025Influenza Vaccine (#1)5107/25/2019, 05/07/2019, 07/23/2015Pneumococcal Vaccine: 50+ OdrqySicjedxva97/09/2017, 07/23/2012HIB VaccinesAged OutNo longer eligible based on patient's age to complete this topic HPV VaccinesAged OutNo longer eligible based on patient's age to complete this topicIPV VaccinesAged OutNo longer eligible based on patient's age to complete this topicMeningococcal B VaccineAged OutNo longer eligible based on patient's age to complete this topicMeningococcal VaccineAged OutNo longer eligible based on patient's age to complete this topicRotavirus VaccinesAged OutNo longer eligible based on patient's age to complete this topic Insurance Care Teams Team MemberRelationshipSpecialtyStart DateEnd Jody Rand MD [address] [facility] [address] [facility]03/17/22
--- OUTSIDE RECORDS SUMMARY | 2025-07-21 06:08 | XMS_ITS | Patient Health Record ---
Author Organization [facility] Address [address] [place] [address] Care Team Providers Care Warning Analyst Name Role Phone Jody Rand M.D. Primary Care Provider Unavail able Analia Daniel Unavailable [phone] Reason For Referral No Information Social History Tobacco Use: Social History Observation Description Date Details (start date - stop date) Never Smoker NA - NA AUDIT-C (Standard) Question Answer Notes Did you have a drink containing alcohol in the p ast year? 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
--- OUTSIDE RECORDS SUMMARY | 2025-07-21 06:08 | XMS_ITS | Patient Health Record ---
Author Organization [facility] Address [address] [place] [address] [place] [address] Care Team Providers Care Product Development Engineer Name Role Phone Robi Kolb Unavailable [phone] Reason For Referral No Information Medications Medication SIG (Take, Route, Frequency, Duration) Notes Start Date End Date Status Losartan Potassium 100 MG Tablet 1 tablet Orally Once a day ActiveMultivitamin Adults - TabletOrallyActiveNabumetone 750 MG TabletOrally Active Immunizations Vaccine Route Administration Date Status Comme nts Pneumococcal Unknown 04/30/2017 Administered Social History Tobacco Use: Social History Observation Description Date Details (start date - stop date) Former Smoker NA - NA Social History Social HistorySocial InfoQuestionAnswerNotestobacco usePatient is a:former smoker Problems Problem Type SNOMED Code ICD Code Onset Dates Problem Status W/U Status Risk Notes Problem Atherosclerosis of a rtery of left lower limb (disorder) (6667162429) Unspecified atherosclerosis of [place] arteries of extremities, left leg (I70.202) ActiveconfirmedProblemTinea unguium (624207126)Tinea unguium (B35.1)Active confirmed Plan Of Treatment No Information Insurance Providers Payer Name Payer Address Payer Phone Subscriber Number Group Number Insured Name Patient Relationship to Insured Coverage Start Date Coverage End Date Medicare Part B [id number] Part [facility] Claims [address] [place] [address] [id number], MarilynSelf - patient is the insuredAnthem [email or web address] Cross and [employer] Pharm[employer]PO [address] [place], [place] [id number], Josephouse - patient is the spouse of the insured Medical (General) History Medical History History ICD Code blood clots hiatal herniabowel disorder
--- OUTSIDE RECORDS SUMMARY | 2025-07-21 06:08 | XMS_ITS | Clinical Summary ---
Author Organization [facility] Address [address] [place] [address] Care Team Providers Care Editor Producer Name Role Phone Jody Rand MD Primary Care Provider [phone] Gabino Howard DO Unavailable [phone] Allergies No known active allergies Medications MedicationSigDispense QuantityRefillsLast FilledStart DateEnd DateStatus spironolactone (Aldactone) 25 MG tablet Take 25 mg by mouth DailyActive nabumetone (Relafen) 750 MG tablet Take 750 mg by mouth09/26/2023ctive furosemide (Lasix) 20 MG tablet Take 20 mg by mouth Daily01/22/2023ctive empagliflozin (Jardiance) 10 MG Take 1 tablet by mouth Daily01/22/2023ctive carvedilol (Coreg) 6.25 MG tablet Take 6.25 mg by mouth in the morning and 6.25 mg in the evening. Take with meals.05/02/2023ctive atorvastatin (Lipitor) 80 MG tablet Take 1 tablet by mouth Daily05/10/2023ctive amLODIPine (Norvasc) 5 MG tablet Take 1 tablet by mouth Daily04/19/2023ctive rivaroxaban (Xarelto) 20 MG tablet Take 20 mg by mouth in the evening. Take with meals Take with food. 1 tabletActive folic acid (Folvite) 1 MG tablet Take 1,000 mcg by mouth Daily01/04/2024ctive nitrofurantoin, macrocrystal-monohydrate, (Macrobid) 100 MG capsule Take 100 mg by mouth in the morning and 100 mg before bedtime.11/10/2024tive carbidopa-levodopa (Sinemet) 25-100 MG tablet Indications:Parkinson's disease without dyskinesia or fluctuating manifestations (HCC)Take 1 tablet by mouth in the morning and 1 tablet at noon and 1 tablet in the evening and 1 tabletbefore bedtime. 120 tablet 1105504/6Active donepezil (Aricept) 10 MG tablet Indications:Memory lossTake 1 tablet (10 mg) by mouth at bedtime 90 tablet 309//011045/6Active divalproex (Depakote ER) 250 MG 24 hr tablet Indications:HallucinationsTake 1 tablet (250 mg) by mouth Daily Do not crush, chew, or split. 30 tablet 6Active buPROPion XL (Wellbutrin XL) 150 MG 24 hr tablet Take 150 mg by mouth in the morning.5Active losartan (Cozaar) 50 MG tablet Take 50 mg by mouth Daily5Active QUEtiapine (SEROquel) 25 MG tablet Indications:Parkinson's disease without dyskinesia or fluctuating manifestations (HCC),HallucinationsTake 2 tablets (50 mg) by mouth at bedtime 180 tablet 6Active QUEtiapine (SEROquel) 25 MG tablet Indications:Parkinson's disease without dyskinesia or fluctuating manifestations (HCC),HallucinationsTake 2 tablets (50 mg) by mouth at bedtime 180 tablet Discontinued(Reorder) QUEtiapine (SEROquel) 25 MG tablet Indications:Parkinson's disease without dyskinesia or fluctuating manifestations (HCC),HallucinationsTake 2 tablets (50 mg) by mouth at bedtime 60 tablet Discontinued QUEtiapine (SEROquel) 25 MG tablet Indications:Parkinson's disease without dyskinesia or fluctuating manifestations (HCC),HallucinationsTake 2 tablets (50 mg) by mouth at bedtime 180 tablet Discontinued(Reorder) Active Problems ProblemNoted DateDiagnosed DateNontraumatic complete tear of left rotator cuff 01/26/2025therosclerosis of artery of left lower ryoqothdn34/17/2025Tinea ecktkxd7601/06/2025bnormal weight loss11/21/2024ute UTI05/02/2025Chronic paopcdmrqrkeac05/02/0547Hzmdgtuvhhbvao28/02/0174Okqktrcenuon75/02/2025 Jpiszndfcxp31/02/2025Irritable bowel syndrome with igrfogrq24/02/2025Left shoulder pain11/21/2024Mass of left side of neck11/21/2024Parkinson disease 11/21/20249168Nscjeweh51/02/1070Udcukt34/02/2024urning ifvcyhvbq88/02/2024nxiety 11/22/2023 Overview (11/22/2023): The patient does note some anxieties which [...] Continue to monitor clinically Bilateral carpal tunnel hysonspf56/02/2024 Overview (11/22/2023): The patient has a history of carpal tunnel bilaterally with decompressive surgical intervention x2 on left and once on the right. 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 PLAN - Recommended cock up splints at night and hand strengthening exercises - Could consider evaluation with EMG in the future, this is deferred per patient request Chronic diastolic heart failure, NYHA class oronary arteriosclerosis 06/14/2021ssential wtmzgwpvijdx51/08/2021Pulmonary hgzzrnfi74/08/2020Chest pain 06/05/20190360Uxywcwy43/14/2019 Encounters DateTypeDepartmentCare RoqvMimmpfathwf29/03/2025Refill [facility] [address] [place] [phone] Brittany Garber [employer]IAISON Parkinson's disease without dyskinesia or fluctuating manifestations (HCC); Imhcspirqogwgm20/20/2025 8:15 AM ESTOffice Visit [facility] [address] [place] [phone] Mary Dasilva MD PCO (posterior capsular opacification), bilateral (Primary Dx); Pseudophakia; Early dry stage nonexudative age-related macular degeneration of both eyes 06/11/2025amb flowsheet [facility] [address] [place] [phone] Mary Dasilva MD 06/11/20251565Huxzhu14/27/2025Refill [facility] [address] [place] [address] Mayda Ryan MA Hallucinations (Primary Dx); Parkinson's disease without dyskinesia or fluctuating manifestations (HCC) 04/30/2025 1:20 PM EDTOffice Visit [facility] [address] [place] [address] Bacilio Bryan MD Hallucinations (Primary Dx); Parkinson's disease without dyskinesia, with fluctuating manifestations (HCC) 04/30/2025amb flowsheet [facility] [address] [facility] [place] [address] Bacilio Bryan MD 04/30/2025Travelfrom Last 3 Months Family History Medical HistoryRelationNameCommentsDementiaMotherStrokeMotherCataractsSister RelationNameStatusCommentsMotherSister Social History Tobacco UseTypesPacks/DayYears UsedDateSmoking Tobacco: Never Tobacco Cessation:Counseling Given: Not Answered Alcohol UseStandard Drinks/WeekCommentsNever0 (1 standard drink = 0.6 oz pure alcohol)caffeine: noneCommentsUnknownSex and Gender InformationValueDate RecordedSex Assigned at BirthNot on fileLegal ErkUipwgj65/16/2024 11:23 AM EDT Gender IdentityNot on fileSexual OrientationNot on file Last Filed Vital Signs Vital SignReadingTime TakenCommentsBlood Kcuoqlww776/7410 1:29 PM EDT Payek7663 2:36 PM ESTTemperature--Respiratory Rate--Oxygen Lhdcyswmxn71% 09/24/2024 2:36 PM ESTInhaled Oxygen Concentration--Snsavo36 kg (150 lb) 04/30/2025 1:29 PM CPNXdosom683.6 cm (5' 4 )04/30/2025 1:29 PM EDTBody Mass Index25.7504/30/2025 1:29 PM EDT Plan of Treatment Not on file Procedures Procedure NamePriorityDate/TimeAssociated DiagnosisCommentsOCT, RETINA - OU - BOTH OEJZJzsjawk17/20/2025 9:37 AM EST Early dry stage nonexudative age-related macular degeneration of both eyes from Last 3 Months Results * OCT, Retina - OU - Both Eyes (06/11/2025 9:37 AM EST)Anatomical Region LateralityModalityHeadOptical Coherence Tomography Narrative 06/11/2025 9:37 AM EST Right Eye Quality was good. Scan locations included subfoveal, juxtafoveal, extrafoveal. Progression has no prior data. Findings include abnormal foveal contour. Left Eye Quality was good. Scan locations included subfoveal, juxtafoveal, extrafoveal. Progression has no prior data. Findings include abnormal foveal contour. Notes Early dry stage nonexudative age-related macular degeneration of both eyes Authorizing ProviderResult TypeResult StatusMary Dasilva MDOPHTH TOMOGRAPHY Final Result from Last 3 Months Insurance Care Teams Team MemberRelationshipSpecialtyStart DateEnd Date Jody Rand MD [address] [place] [id number] PCP - GeneralFamily Medicine11/22/23 Gabino Howard DO [address] [place] [address] Referring PhysicianNeurology1
[2025-07-21 07:01] LABS: Glucose Urine UA 500 mg/dL (NEGATIVE)
[2025-07-21 07:13] LABS: Cast Seen? NONE SEEN #/LPF (NONE SEEN); Crystals Seen? None Seen #/HPF (None Seen); Urine Culture Indicated YES-FRMC
--- NOTE | 2025-07-21 07:27 | ED.GENADUL1 ---
HPI HPI - General Adult General Chief complaint: Back Pain/Injury Stated complaint: BACK PAIN Time Seen by Provider: 07/21/25 04:29 Source: patient and family Mode of arrival: ambulance History of Present Illness HPI narrative: 84-year-old female presented to the emergency department and was initially seen by Dr. Mejia and signed out to me after discussing the case with her thoroughly. Please see her full history and physical exam. Related Data Home Medications ?Medication ?Instructions ?Recorded ?Confirmed atorvastatin 80 mg tablet 80 mg PO DAILY 07/11/23 11/03/24 carvedilol 6.25 mg tablet 6.25 mg PO Q12H 07/11/23 11/03/24 empagliflozin 10 mg tablet 10 mg PO DAILY 07/11/23 11/03/24 (Jardiance) furosemide 20 mg tablet 20 mg PO Q12H 07/11/23 11/03/24 losartan 100 mg tablet 50 mg PO DAILY 07/11/23 11/03/24 nabumetone 750 mg tablet 750 mg PO BID 07/11/23 11/03/24 rivaroxaban 20 mg tablet (Xarelto) 20 mg PO Q24H 07/11/23 11/03/24 spironolactone 25 mg tablet 25 mg PO DAILY 07/11/23 11/03/24 [facility] 01/31/24 Ultra Test strips) blood-glucose [facility]/31/24 01/31/24 Ultra2 Meter) carbidopa 25 mg-levodopa 100 mg 1 tab PO TID 01/31/24 11/03/24 tablet folic acid 1 mg tablet 1 mg PO DAILY 01/31/24 11/03/24 donepezil 10 mg tablet 10 mg PO DAILY 11/03/24 11/03/24 Previous Rx's ?Medication ?Instructions ?Recorded ondansetron 4 mg disintegrating 4 mg PO Q8H PRN nausea and 01/31/24 tablet vomiting 4 days #16 tabs Allergies Allergy/AdvReac Type Severity Reaction Status Date / Time No Known Drug Allergies Allergy Verified 07/21/25 04:30 Opioid HPI Opioid Management Most Recent Opioid Data: Last Pain Scale 4 Today, 05:37 Last ED Pain Assessment Today, 05:37 Last MAR Pain Assessment Today, 05:27 PFSH PFSH Social History Little interest or pleasure in doing things: not at all Feeling down, depressed, or hopeless: not at all Exam Constitutional Vital Signs, click to edit/add: Last Vital Signs Temp 97.9 F 07/21/25 04:24 Pulse 64 07/21/25 06:40 Resp 19 07/21/25 06:50 BP 173/55 H 07/21/25 04:29 Pulse Ox 99 07/21/25 05:20 O2 Del Method Room Air 07/21/25 04:24 Course Vital Signs Vital signs: Vital Signs Temperature 97.9 F 07/21/25 04:24 Pulse Rate 56 L 07/21/25 04:24 Respiratory Rate 17 07/21/25 04:24 Blood Pressure 173/55 H 07/21/25 04:24 Pulse Oximetry 99 07/21/25 04:24 Oxygen Delivery Method Room Air 07/21/25 04:24 Temperature 97.9 F 07/21/25 04:24 Pulse Rate 64 07/21/25 06:40 Respiratory Rate 19 07/21/25 06:50 Blood Pressure 173/55 H 07/21/25 04:29 Pulse Oximetry 99 07/21/25 05:20 Oxygen Delivery Method Room Air 07/21/25 04:24 Medical Decision Making MDM Narrative Medical decision making narrative: Urinalysis has come back showing no obvious evidence of UTI with culture pending. Findings are discussed with the patient and she is discharged home. Lab Data Lab results reviewed: Yes I reviewed the patient's lab results Labs: Lab Results 07/21/25 07/21/25 Range/Units 04:39 06:40 WBC 5.7 (4.0-11.0) 10^3/uL RBC 3.78 L (4.20-5.40) 10^6/uL Hgb 12.5 (12.0-16.0) g/dL Hct 38.7 (36.0-48.0) % MCV 102.4 H (81.0-99.0) fL MCH 33.1 (26.7-34.0) pg MCHC 32.3 (29.9-35.2) g/dL RDW 12.8 (11.0-15.0) % Plt Count 106 L (150-450) 10^3/uL MPV 11.1 (9.5-13.5) fL Neut % (Auto) 61.4 (43.0-75.0) % Lymph % (Auto) 29.9 (20.5-60.0) % [place] % (Auto) 6.1 (1.7-12.0) % Eos % (Auto) 1.9 (0.9-7.0) % Baso % (Auto) 0.5 (0.2-2.0) % Neut # (Auto) 3.5 (1.4-6.5) 10^3/uL Lymph # (Auto) 1.7 (1.2-3.8) 10^3/uL [place] # (Auto) 0.4 (0.3-0.8) 10^3/uL Eos # (Auto) 0.1 (0.0-0.7) 10^3/uL Baso # (Auto) 0.0 (0.0-0.1) 10^3/uL Abs Immat Gran (auto) 0.01 (0.00-0.03) 10^3/uL Imm/Tot Granulo (auto) 0.2 (0.0-0.5) % Sodium 145 (136-145) mmol/L Potassium 4.3 (3.5-5.1) mmol/L Chloride 110 H (98-107) mmol/L Carbon Dioxide 28.2 (21.0-32.0) mmol/L Anion Gap 11.1 BUN 28.0 H (7.0-18.0) mg/dL Creatinine 1.15 H (0.55-1.02) mg/dL Est GFR ( Amer) 54 L (>=60 mL/min/1.73m^2) Est GFR (Non-Af Amer) 45 L (>=60 mL/min/1.73m^2) BUN/Creatinine Ratio 24.3 Glucose 91 (74-106) mg/dL Calcium 9.4 (8.5-10.1) mg/dL Total Bilirubin 0.7 (0.2-1.0) mg/dL AST 27 (15-37) U/L ALT 10 L (14-59) U/L Alkaline Phosphatase 92 (46-116) U/L Total Protein 6.2 L (6.4-8.2) g/dL Albumin 3.5 (3.4-5.0) g/dL Globulin 2.7 g/dL Albumin/Globulin Ratio 1.3 Urine Color Lt. yellow (YELLOW) Urine Clarity Slightly cloudy A (CLEAR) Urine pH 5.5 (5.0-9.0) Ur Specific [place] 1.020 (1.005-1.025) Urine Protein Negative (NEG/TRACE) mg/dL Urine Glucose (UA) 500 A (NEGATIVE) mg/dL Urine Ketones Negative (NEGATIVE) mg/dL Urine Occult Blood Trace-l (NEGATIVE) Urine Nitrite Positive A (NEGATIVE) Urine Bilirubin Negative (NEGATIVE) Urine Urobilinogen 0.2 (0.2-1.0) EU/dL Ur Leukocyte Esterase Negative (NEGATIVE) Urine RBC 2-5 A (0-2) #/HPF Urine WBC 0-2 A (NONE SEEN) #/HPF Ur Squamous Epith Cells Few A (NONE/RARE) #/LPF Urine Crystals None seen (None Seen) #/HPF Urine Bacteria Moderate A (NONE SEEN) #/HPF Urine Casts None seen (NONE SEEN) #/LPF Urine Mucus None seen (NONE SEEN) Ur Culture Indicated? Yes-[facility] Discharge Plan Discharge Chief Complaint: Back Pain/Injury Clinical Impression: Low back pain, Generalized weakness Patient Disposition: Home, Self-Care Time of Disposition Decision: 06:55 Condition: Good Prescriptions / Home Meds: No Action carbidopa-levodopa 25-100 mg tablet 1 tab PO TID folic acid 1 mg tablet 1 mg PO DAILY (DME) blood-glucose meter [OneTouch Ultra2 Meter] Misc MISCELLANEOUS (DME) OneTouch Ultra Test Strip MISCELLANEOUS ondansetron 4 mg tablet,disintegrating 4 mg PO Q8H PRN (Reason: nausea and vomiting) 4 Days Qty: 16 0RF atorvastatin 80 mg tablet 80 mg PO DAILY carvedilol 6.25 mg tablet 6.25 mg PO Q12H nabumetone 750 mg tablet 750 mg PO BID spironolactone 25 mg tablet 25 mg PO DAILY furosemide 20 mg tablet 20 mg PO Q12H losartan 100 mg tablet 50 mg PO DAILY Xarelto 20 mg tablet 20 mg PO Q24H Jardiance 10 mg tablet 10 mg PO DAILY donepezil 10 mg tablet 10 mg PO DAILY Print Language: Spanish Instructions: How to Get a Person out of Bed (DC), Acute Low Back Pain (ED) Referrals: Jody Rand MD [Primary Care Provider, Family Practice] - 1 week
--- NOTE | 2025-07-21 07:41 | PC.NURSE ---
communications writer to bedside to assist pt in getting dressed and to walk pt placed in sweatshirt and awaiting clean pants socks placed on pt pt was able to ambulate with one assist awaiting pts walker will continue plan of care
== END 2025-07-21 08:31 | disposition home or self-care (01) ==
PROVIDERS: Emergency Medicine; Emergency Provider Emergency Medicine; PCP Family Medicine
DX: M54.50 Low back pain, unspecified (principal); R53.1 Weakness; G20.A1 Parkinson's disease without dyskinesia, without mention of fluctuations
CPT/HCPCS: 36415; 72131; 76376; 80053; 81001; 85025; 87086; 87088; 87186; 93005; 99284